=== PATIENT | male | born 1960 | race Caucasian/White ===

== ENCOUNTER → 2018-09-06 | Outpatient (CLI) | payer MEDICARE, MEDICAID ==
--- NOTE | 2018-09-06 15:20 | Diagnostic Imaging Report ---
EXAMINATION: Right shoulder at 01:50 p.m. INDICATION: Shoulder pain. FINDINGS: Three views were obtained. There are no prior right shoulder examinations available for comparison. There is no fracture, dislocation, or acute bony abnormality evident. There is moderate degenerative disease of the glenohumeral joint. There does seem to be some bony overgrowth of the opposing surfaces of the humeral head and the glenoid. There is only mild degenerative disease of the acromioclavicular joint. The soft tissues are unremarkable. IMPRESSION: 1. There is no evidence for an acute bony abnormality. 2. There is moderate degenerative disease of the glenohumeral joint. 3. If there is clinical concern regarding an injury to the labrum or rotator cuff, then MRI will be recommended for further evaluation. Dictated by: Dictated on workstation # [id number]
== END ==
LOC: RAD FS 13:45
PROVIDERS: ATTEND Nurse Practitioner
DX: M19.011 Primary osteoarthritis, right shoulder (principal)
CPT/HCPCS: 73030

== ENCOUNTER → 2018-10-14 | Outpatient (CLI) | payer MEDICARE, MEDICAID ==
--- NOTE | 2018-10-14 13:42 | Diagnostic Imaging Report ---
PROCEDURE: CT abdomen and pelvis without contrast. TECHNIQUE: Multiple contiguous axial images were obtained through the abdomen and pelvis without the use of intravenous contrast. Intravenous contrast was not administered as the patient is diabetic and has a borderline elevated creatinine level (1.6) and diminished GFR (47). Auto Exposure Controls were utilized during the CT exam to meet ALARA standards for radiation dose reduction. INDICATION: Follow up adrenal nodules. FINDINGS: The previous CT abdomen/pelvis exam of 01/16/2012 suggested a 2 mm nodule associated with the right adrenal gland. That finding is again evident and does not appear to have changed significantly in size or appearance. This nodule measures 1.5 x 1.6 cm and has a stable appearance over almost a seven-year period would suggest that this is a benign process such as an adrenal adenoma. There is also 1.1 x 1.5 cm nodule associated with the left adrenal gland. In retrospect, this was present on the prior exam and does not seem to have changed significantly either. I suspect that this is a benign process as well. There may even be another 0.8 x 0.8 cm nodule associated with the medial limb of the right adrenal gland. This finding may represent a small adenoma as well, and this too is unchanged when compared to the prior study. As noted on the prior exam, the liver is of lower density than usually seen, and this appearance does suggest fatty metamorphosis. There is no focal mass involving the liver. The gallbladder, spleen, pancreas, kidneys, aorta, and inferior vena cava are unremarkable for an acute abnormality. The stomach is not well distended and consequently difficult to assess. There is no pelvic mass or free fluid collection noted. The prostate gland and urinary bladder are grossly unremarkable. The appendix was visualized and is not abnormally thickened. There may be a few diverticula in the sigmoid and descending colon, but there is no sign of acute diverticulitis. There is mild scar formation in both lung bases, particularly on the right. There is no acute cardiopulmonary abnormality noted. The heart size is within normal limits, but there are extensive coronary artery calcifications evident. The bone windows show no evidence for a fracture or for a destructive lesion. IMPRESSION: 1. The adrenal nodules seen on the prior study appear stable. Most likely, they are related to benign adrenal adenomas. 2. There is no acute abnormality of the abdomen or pelvis. 3. There are mild chronic changes involving the lung bases. Coronary artery disease is also seen. Dictated by: Dictated on workstation # [id number]
== END ==
LOC: RAD FS 11:57
PROVIDERS: ATTEND Family Medicine
DX: I25.10 Atherosclerotic heart disease of native coronary artery without angina pectoris (principal); D35.01 Benign neoplasm of right adrenal gland; D30.00 Benign neoplasm of unspecified kidney; E27.8 Other specified disorders of adrenal gland
CPT/HCPCS: 74176

== ENCOUNTER → 2019-01-04 | Outpatient (CLI) | payer MEDICARE, MEDICAID ==
--- NOTE | 2019-01-04 13:00 | Diagnostic Imaging Report ---
INDICATION: Renal failure. FINDINGS: The right kidney measured 10.6 cm, the left 10.7 cm. There is a simple cyst measuring 9 mm off the lower pole of the left kidney. The right kidney is nonfocal. There is no hydronephrosis. No echogenic or shadowing stone. Renal arterial Doppler waveforms are normal. The renal arterial to aortic peak systolic velocity ratios bilaterally were normal. The duplex waveforms showed normal systolic upstroke. The urinary bladder appeared normal aside from small 41 mL postvoid residual volume with a 150 mL volume prevoid. IMPRESSION: 1. Left renal cyst and 41 mL postvoid residual bladder volume. 2. Exam is otherwise normal with no sonographic or duplex findings to suggesting hemodynamically significant arterial stenosis or renal obstruction. Dictated by: Dictated on workstation # [id number]
== END ==
LOC: RAD 08:01
PROVIDERS: ATTEND Nurse Practitioner
DX: E11.22 Type 2 diabetes mellitus with diabetic chronic kidney disease (principal); I12.9 Hypertensive chronic kidney disease with stage 1 through stage 4 chronic kidney disease, or unspecified chronic kidney disease; N18.3 Chronic kidney disease, stage 3 (moderate); I25.10 Atherosclerotic heart disease of native coronary artery without angina pectoris; E78.49 Other hyperlipidemia; D35.00 Benign neoplasm of unspecified adrenal gland; F31.9 Bipolar disorder, unspecified; N28.1 Cyst of kidney, acquired
CPT/HCPCS: 76770; 93975

== ENCOUNTER → 2019-03-15 | Outpatient (CLI) | payer MEDICARE, MEDICAID ==
--- NOTE | 2019-03-15 11:30 | Diagnostic Imaging Report ---
PROCEDURE: MRI lumbar spine. TECHNIQUE: Multiplanar, multisequence MRI of the lumbar spine was performed without contrast. INDICATION: Low back pain. COMPARISON: There are no prior exams available for comparison. FINDINGS: The T2 parasagittal images show the vertebral body heights to be generally within normal limits. There is desiccation and mild narrowing of the disc spaces at each level. At L1-L2, there is a slight disc bulge centrally. There is no evidence for spinal stenosis or nerve root encroachment however. At L2-L3 level, there is a disc bulge eccentric to the left. The disc flattens the ventral aspect of the thecal sac and narrows the AP diameter to 7.4 mm. There is also mild narrowing of the neural foramen bilaterally at this level. At the L3-L4 level, there is also broad-based disc bulge centrally. The AP diameter of the thecal sac is narrowed to 7.6 mm. There is mild neural foraminal narrowing at this level as well. At the L4-L5 level, there is a disc bulge centrally which indents the ventral aspect of the thecal sac. The AP diameter of the thecal sac is narrowed to 7.2 mm. There is moderate neural foraminal narrowing on the left at this level and mild neural foraminal narrowing on the right. At the L5-S1 level, there is no evidence for spinal stenosis or nerve root encroachment. There is no abnormal signal arising from the cord or the vertebral bodies to indicate an acute abnormality. The osseous structures do show mottled signal throughout. This is of uncertain etiology but unlikely to be related to a marrow replacement process. There is no sign of a cord lesion. There is no paraspinal mass visualized. IMPRESSION: 1. There is degenerative disc and bony disease throughout the lumbar spine with relative sparing of the L1-2 and L5-S1 levels. There is spinal stenosis at L2-L3, L3-L4 and L4-L5 with mild neural foraminal narrowing bilaterally at L2-L3 and L3-L4. There is also mild neural foraminal narrowing on the right at L4-L5 and moderate narrowing on the left at this level. 2. There is no acute bony abnormality identified and there is no sign of a cord lesion. Dictated by: Dictated on workstation # [id number]
== END ==
LOC: RAD 09:58
PROVIDERS: ATTEND Family Medicine
DX: M51.37 Other intervertebral disc degeneration, lumbosacral region (principal); M54.41 Lumbago with sciatica, right side
CPT/HCPCS: 72148

== ENCOUNTER 2019-04-11 18:00 | Inpatient (IN) | payer MEDICARE, MEDICAID ==
[~2019-04-11] VITALS: Ht 180 cm; Wt 102.1 kg
[2019-04-11] VITALS (10 sets, daily range): BP systolic 80–136; BP diastolic 56–92
--- NOTE | 2019-04-11 18:25 | ED General ---
General Chief Complaint: General Problems/Pain Stated Complaint: POSS HIGH POTTASIUM, LOW SODIUM Nursing Triage Note: WAS SENT FROM [facility] WITH NA 122 AND K 5.9 LAB WAS DRAWN 04/07 PER LAB PAPERS Nursing Sepsis Screen: No Definite Risk Exam Limitations: No Limitations History of Present Illness Date Seen by Provider: Apr 11, 2019 Time Seen by Provider: 18:23 Initial Comments To ER from [facility] in [place] with reports of hyperkalemia and hyponatremia. Labs were drawn 4 days ago, unclear what the emergency was today. Patient has Alzheimer's and is a poor historian. He states he feels a little lightheaded. No staff with the patient to contribute to history of present illness. Amongst several other medications, he is on spironolactone 50 mg by mouth twice a day, potassium chloride 20 mEq by mouth twice a day. He had outpatient chemistry panel done on 04/07/19, BUN 23, creatinine 2.32, potassium 5.9, sodium 122. Timing/Duration: Other (unknown) Severity: Moderate Allergies and Home Medications Allergies Coded Allergies: No Known Drug Allergies (Unverified , 04/11/19) Patient Home Medication List Home Medication List Reviewed: Yes Review of Systems Review of Systems Constitutional: see HPI; No chills, No fever EENTM: see HPI Respiratory: no symptoms reported Cardiovascular: no symptoms reported Genitourinary: no symptoms reported Musculoskeletal: no symptoms reported Skin: no symptoms reported Hematologic/Lymphatic: No Symptoms Reported Immunological/Allergic: no symptoms reported Past Zixkmfu-Rfddtx-Qstegw Hx Patient Social History Recent Foreign Travel: No Contact w/Someone Who Travel: No Recent Infectious Disease Expo: No Physical Exam Vital Signs Vital Signs - First Documented 04/11/19 18:07 Temp 35.6 Pulse 180 Resp 18 B/P (MAP) 104/70 (81) Pulse Ox 86 O2 Delivery Room Air Capillary Refill : Less Than 3 Seconds Height, Weight, BMI Height: '" Weight: lbs. oz. 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, oxygen 95% room air respiratory rate is 18-20 blood pressure 105/59.) Eyes: Bilateral Eye Normal Inspection, Bilateral Eye PERRL, Bilateral Eye EOMI HEENT: PERRL/EOMI, TMs Normal Neck: Full Range of Motion, Normal Inspection Respiratory: No Accessory Muscle Use, No Respiratory Distress Cardiovascular: Regular Rate, Rhythm, Normal Peripheral Pulses Gastrointestinal: Non Tender, Soft Extremity: Normal Capillary Refill, Normal Range of Motion Neurologic/Psychiatric: Alert, Oriented x3 Skin: Normal Color, Warm/Dry Progress/Results/Core Measures Suspected Sepsis Recent Fever Within 48 Hours: No Infection Criteria Present: None New/Unexplained Altered Menta: No Sepsis Screen: No Definite Risk SIRS Temperature: Pulse: 180 Respiratory Rate: 18 Laboratory Tests 04/11/19 18:21: White Blood Count 7.9 Blood Pressure 104 /70 Mean: 81 Laboratory Tests 04/11/19 18:21: Creatinine 3.22H, INR Comment 1.0, Platelet Count 265, Total Bilirubin 0.3 Results/Orders Lab Results Laboratory Tests Test 04/11/19 18:21 04/11/19 19:27 04/11/19 19:47 04/11/19 19:55 Range/Units White Blood Count 7.9 4.3-11.0 10^3/uL Red Blood Count 3.51 L 4.35-5.85 10^6/uL Hemoglobin 11.0 L 13.3-17.7 G/DL Hematocrit 32 L 40-54 % Mean Corpuscular Volume 90 80-99 FL Mean Corpuscular Hemoglobin 31 25-34 PG Mean Corpuscular Hemoglobin Concent 35 32-36 G/DL Red Cell Distribution Width 12.9 10.0-14.5 % Platelet Count 265 130-400 10^3/uL Mean Platelet Volume 8.7 7.4-10.4 FL Neutrophils (%) (Auto) 65 42-75 % Lymphocytes (%) (Auto) 20 12-44 % Monocytes (%) (Auto) 10 0-12 % Eosinophils (%) (Auto) 5 0-10 % Basophils (%) (Auto) 0 0-10 % Neutrophils # (Auto) 5.2 1.8-7.8 X 10^3 Lymphocytes # (Auto) 1.6 1.0-4.0 X 10^3 Monocytes # (Auto) 0.8 0.0-1.0 X 10^3 Eosinophils # (Auto) 0.4 H 0.0-0.3 10^3/uL Basophils # (Auto) 0.0 0.0-0.1 10^3/uL Prothrombin Time 13.8 12.2-14.7 SEC INR Comment 1.0 0.8-1.4 Activated Partial Thromboplast Time 29 24-35 SEC Sodium Level 123 *L 135-145 MMOL/L Potassium Level 6.0 H 3.6-5.0 MMOL/L Chloride Level 96 L 98-107 MMOL/L Carbon Dioxide Level 19 L 21-32 MMOL/L Anion Gap 8 5-14 MMOL/L Blood Urea Nitrogen 29 H 7-18 MG/DL Creatinine 3.22 H 0.60-1.30 MG/DL Estimat Glomerular Filtration Rate 20 BUN/Creatinine Ratio 9 Glucose Level 85 70-105 MG/DL Calcium Level 9.6 8.5-10.1 MG/DL Corrected Calcium 9.3 8.5-10.1 MG/DL Magnesium Level 1.9 1.6-2.4 MG/DL Total Bilirubin 0.3 0.1-1.0 MG/DL Aspartate Amino Transf (AST/SGOT) 15 5-34 U/L Alanine Aminotransferase (ALT/SGPT) 24 0-55 U/L Alkaline Phosphatase 72 40-136 U/L Myoglobin 204.0 H 10.0-92.0 NG/ML Troponin I < 0.028 <0.028 NG/ML Total Protein 7.1 6.4-8.2 GM/DL Albumin 4.4 3.2-4.5 GM/DL Serum Alcohol < 10 <10 MG/DL Glucometer 80 120 H 70-110 MG/DL Urine Color YELLOW Urine Clarity CLEAR Urine pH 6.0 5-9 Urine Specific Cowgill 1.010 L 1.016-1.022 Urine Protein NEGATIVE NEGATIVE Urine Glucose (UA) NEGATIVE NEGATIVE Urine Ketones NEGATIVE NEGATIVE Urine Nitrite NEGATIVE NEGATIVE Urine Bilirubin NEGATIVE NEGATIVE Urine Urobilinogen 0.2 < = 1.0 MG/DL Urine Leukocyte Esterase NEGATIVE NEGATIVE Urine RBC (Auto) NEGATIVE NEGATIVE Urine RBC NONE /HPF Urine WBC NONE /HPF Urine Crystals NONE /LPF Urine Bacteria TRACE /HPF Urine Casts NONE /LPF Urine Mucus NEGATIVE /LPF Urine Culture Indicated NO Test 04/11/19 20:17 Range/Units Glucometer 96 70-110 MG/DL My Orders Orders - BRENT MERCER DISPATCH ASSOCIATE Cbc With Automated Diff (04/11/19 18:17) Magnesium (04/11/19 18:17) Chest 1 View, Ap/Pa Only (2/24/20 18:17) Ekg Tracing (04/11/19 18:17) Comprehensive Metabolic Panel (04/11/19 18:17) Myoglobin Serum (04/11/19 18:17) Protime With Inr (04/11/19 18:17) Partial Thromboplastin Time (04/11/19 18:17) O2 (04/11/19 18:17) Monitor-Rhythm Ecg Trace Only (04/11/19 18:17) Lipid Panel (04/12/19 06:00) Ed Iv/Invasive Line Start (04/11/19 18:17) Troponin I (04/11/19 18:17) Ns Iv 1000 Ml (Sodium Chloride 0.9%) (04/11/19 18:30) Alcohol (04/11/19 18:40) Insulin (Regular) Human (Humulin R (Per (04/11/19 19:15) D50w (Emergency) Syringe (Dextrose 50% 5 (04/11/19 19:15) Lidocaine 2% (Urojet) (Xylocaine Urojet) (04/11/19 19:31) Ns Iv 1000 Ml (Sodium Chloride 0.9%) (04/11/19 19:45) Ua Culture If Indicated (04/11/19 19:58) Medications Given in ED Current Medications Medications Dose Ordered Sig/Latosha Route Start Time Stop Time Status Last Admin Dose Admin Dextrose 25 ml ONCE ONCE IV 04/11/19 19:15 04/11/19 19:16 DC 04/11/19 19:29 25 ML Insulin Human Regular 10 unit ONCE ONCE IV 04/11/19 19:15 04/11/19 19:16 DC 04/11/19 19:29 10 UNIT Vital Signs/I&O 04/11/19 18:07 Temp 35.6 Pulse 180 Resp 18 B/P (MAP) 104/70 (81) Pulse Ox 86 O2 Delivery Room Air Capillary Refill : Less Than 3 Seconds Blood Pressure Mean: 81 Diagnostic Imaging Diagonstic Imaging: CT Comments NAME: FRANKIE RAMSAY MED REC#: [id number] PT STATUS: REG ER : 1960 PHYSICIAN: BRENT MERCER APRN ADMIT DATE: 04/11/19/ER Signed Date of Exam:04/11/19 CHEST 1 VIEW, AP/PA ONLY EXAMINATION: Chest 1 view HISTORY: Shortness of breath. COMPARISON: Chest radiograph on 09/30/2012. FINDINGS: There is continued elevation of the right hemidiaphragm, somewhat increased compared to the prior exam. Right basilar atelectasis is present. No pulmonary masses are seen. The cardiac silhouette is unremarkable. No large pleural effusion or pneumothorax. No acute osseous abnormalities. IMPRESSION: 1. Increased elevation of the right hemidiaphragm with right basilar atelectasis. Dictated by: Dictated on workstation # [id number] Dict: 04/11/191850 Trans: 04/11/191851 [facility] [id number] Interpreted by: MALU LANDRY DO Electronically signed by: MALU LANDRY DO 04/11/191851 Departure Communication (Admissions) Time/Spoke to Admitting Phy: 19:[address] Schmitz, will admit. I will hold his spironolactone potassium and lisinopril. 133-Gunter catheter was placed, between 708 150 mL of clear yellow urine out. Impression Primary Impression: Hyperkalemia Additional Impressions: Kidney disease Hyponatremia Disposition: ADMITTED INPATIENT Condition: Stable Admissions Decision to Admit Reason: Admit from ER (General) Decision to Admit/Date: Apr 11, 2019 Time/Decision to Admit Time: 19:44 Departure-Patient Inst. Referrals: BRUCE BUTLER MD (PCP/Family) Primary Care Physician BRENT MERCER APRN Apr 11, 2019 18:25
[2019-04-11] MEDS ORDERED: NS IV 1000 ML 1,000 ML IV SCH ×2 (18:30→19:45)
[2019-04-11 18:37] LABS: BASOPHILS % (AUTO) 0 % (0-10); EOSINOPHILS # (AUTO) 0.4 10^3/uL (0.0-0.3); EOSINOPHILS % (AUTO) 5 % (0-10); HEMATOCRIT 32 % (40-54); LYMPHOCYTES # (AUTO) 1.6 X 10^3 (1.0-4.0); LYMPHOCYTES % (AUTO) 20 % (12-44); MEAN CORPUSCULAR HEMOGLOBIN 31 PG (25-34); MEAN CORPUSCULAR HGB CONC 35 G/DL (32-36); MEAN CORPUSCULAR VOLUME 90 FL (80-99); MEAN PLATELET VOLUME 8.7 FL (7.4-10.4); MONOCYTES # (AUTO) 0.8 X 10^3 (0.0-1.0); MONOCYTES % (AUTO) 10 % (0-12); NEUTROPHILS # (AUTO) 5.2 X 10^3 (1.8-7.8); NEUTROPHILS % (AUTO) 65 % (42-75); PLATELET COUNT 265 10^3/uL (130-400); RED CELL DISTRIBUTION WIDTH 12.9 % (10.0-14.5); WHITE BLOOD COUNT 7.9 10^3/uL (4.3-11.0)
[2019-04-11 18:46] LABS: PROTHROMBIN TIME PATIENT 13.8 SEC (12.2-14.7)
--- NOTE | 2019-04-11 18:53 | Diagnostic Imaging Report ---
EXAMINATION: Chest 1 view HISTORY: Shortness of breath. COMPARISON: Chest radiograph on 09/30/2012. FINDINGS: There is continued elevation of the right hemidiaphragm, somewhat increased compared to the prior exam. Right basilar atelectasis is present. No pulmonary masses are seen. The cardiac silhouette is unremarkable. No large pleural effusion or pneumothorax. No acute osseous abnormalities. IMPRESSION: 1. Increased elevation of the right hemidiaphragm with right basilar atelectasis. Dictated by: Dictated on workstation # [id number]
[2019-04-11 18:55] LABS: ALBUMIN 4.4 GM/DL (3.2-4.5); BILIRUBIN,TOTAL 0.3 MG/DL (0.1-1.0); CALCIUM 9.6 MG/DL (8.5-10.1); CREATININE SERUM 3.22 MG/DL (0.60-1.30); MAGNESIUM 1.9 MG/DL (1.6-2.4); TOTAL PROTEIN 7.1 GM/DL (6.4-8.2)
[2019-04-11] MEDS ORDERED: inSUlin (REGULAR) HUMAN 1 UNIT/0.01 ML (CHARGE PER UNIT) IV ONE (19:15)
[2019-04-11] MEDS ORDERED: DEXTROSE 50% 50 ML (IMS) SYR IV ONE (19:15)
[2019-04-11] MEDS ORDERED: LIDOCAINE UROJET 2% GEL 10 ML PKG ONE (19:31)
[2019-04-11 20:03] LABS: BILIRUBIN,URINE NEGATIVE (NEGATIVE); CLARITY,URINE CLEAR; COLOR,URINE YELLOW; GLUCOSE, URINE (UA) NEGATIVE (NEGATIVE); KETONES,URINE NEGATIVE (NEGATIVE); LEUKOCYTE ESTERASE ,URINE NEGATIVE (NEGATIVE); NITRITE,URINE NEGATIVE (NEGATIVE); PROTEIN,URINE NEGATIVE (NEGATIVE)
[2019-04-11 20:29] LABS: BACTERIA,URINE TRACE /HPF
[2019-04-11] MEDS ORDERED: DEXTROSE 50% INJ VIAL IV PRN (21:15)
[2019-04-11] MEDS: NS IV 1000 ML 1,000 ML IV SCH (21:55)
[2019-04-12] VITALS (8 sets, daily range): BP systolic 94–133; BP diastolic 61–95
[2019-04-12 03:34] LABS: BASOPHILS % (AUTO) 0 % (0-10); EOSINOPHILS # (AUTO) 0.2 10^3/uL (0.0-0.3); EOSINOPHILS % (AUTO) 2 % (0-10); HEMATOCRIT 27 % (40-54); HEMOGLOBIN 9.2 G/DL (13.3-17.7); LYMPHOCYTES # (AUTO) 0.9 X 10^3 (1.0-4.0); LYMPHOCYTES % (AUTO) 13 % (12-44); MEAN CORPUSCULAR HEMOGLOBIN 31 PG (25-34); MEAN CORPUSCULAR HGB CONC 34 G/DL (32-36); MEAN CORPUSCULAR VOLUME 91 FL (80-99); MEAN PLATELET VOLUME 8.8 FL (7.4-10.4); MONOCYTES # (AUTO) 0.5 X 10^3 (0.0-1.0); MONOCYTES % (AUTO) 8 % (0-12); NEUTROPHILS # (AUTO) 5.1 X 10^3 (1.8-7.8); NEUTROPHILS % (AUTO) 77 % (42-75); PLATELET COUNT 203 10^3/uL (130-400); RED CELL DISTRIBUTION WIDTH 12.9 % (10.0-14.5); WHITE BLOOD COUNT 6.6 10^3/uL (4.3-11.0)
[2019-04-12 04:00] LABS: ALBUMIN 3.5 GM/DL (3.2-4.5); BILIRUBIN,TOTAL 0.2 MG/DL (0.1-1.0); CALCIUM 8.3 MG/DL (8.5-10.1); CREATININE SERUM 2.4 MG/DL (0.60-1.30); POTASSIUM 5.9 MMOL/L (3.6-5.0); TOTAL PROTEIN 5.7 GM/DL (6.4-8.2)
[2019-04-12 04:58] LABS: MAGNESIUM 1.8 MG/DL (1.6-2.4); PHOSPHORUS 2.7 MG/DL (2.3-4.7)
--- NOTE | 2019-04-12 06:35 | Pulmonary Consultation ---
History of Present Illness History of Present Illness Date Seen by Provider: Apr 12, 2019 Time Seen by Provider: 06:30 Date of Admission History of Present Illness 58yo found to have hyperkalemia, and hyponatremia. Allergies and Home Medications Allergies Coded Allergies: No Known Drug Allergies (Unverified , 04/11/19) Past Dezavqm-Bbphei-Uyyjju Hx Patient Social History Alcohol Use: Denies Use Recreational Drug Use: No Smoking Status: Never a Smoker Recent Foreign Travel: No Contact w/Someone Who Travel: No Recent Infectious Disease Expo: No Recent Hopitalizations: No Physical Abuse: No Sexual Abuse: No Mistreated: No Fear: No Immunizations Up To Date Tetanus Booster (TDap): Less than 5yrs PED Vaccines UTD: Yes Past Medical History Surgeries: Yes Cardiac Respiratory: Yes COPD Cardiac: Yes (STENTS X2 ) High Cholesterol Neurological: No Genitourinary: Yes Renal Failure Gastrointestinal: Yes Gall Bladder Disease Musculoskeletal: Yes (BULGING DISCS L 3-4) Chronic Back Pain Endocrine: Yes Diabetes, Non-Insulin dep HEENT: No Cancer: No Psychosocial: Yes (ETOH CONSUMPTION) Integumentary: No Adverse Reaction/Blood Tranf: No Sepsis Event Evaluation Height, Weight, BMI Height: '" Weight: lbs. oz. kg; 31.26 BMI Method: Exam Exam Vital Signs Date Time Temp Pulse Resp B/P (MAP) Pulse Ox O2 Delivery O2 Flow Rate FiO2 04/12/19 05:02 69 16 110/76 (87) 94 Room Air 04/12/19 04:59 69 16 110/76 (87) 94 Room Air 04/12/19 04:00 Room Air 04/12/19 01:30 81 04/12/19 00:00 76 17 99/77 (84) 95 Room Air 04/12/19 00:00 Room Air 04/11/19 23:44 95 Room Air 04/11/19 23:39 36.3 73 17 136/81 95 Room Air 04/11/19 23:00 75 20 124/85 (98) 95 Room Air 04/11/19 22:45 73 24 122/81 (95) 95 Room Air 04/11/19 22:30 72 18 116/78 (91) 95 Room Air 04/11/19 22:15 71 17 80/56 (64) 94 Room Air 04/11/19 22:00 71 13 127/89 (102) 97 Room Air 04/11/19 21:45 73 14 116/83 (94) 98 Room Air 04/11/19 21:30 73 16 115/86 (96) 97 Room Air 04/11/19 21:19 75 04/11/19 21:15 73 16 129/92 (104) 97 Room Air 04/11/19 21:12 36.8 77 12 136/81 (99) 98 Room Air 04/11/19 20:49 35.6 70 18 117/82 (81) 97 Nasal Cannula 2.00 04/11/19 18:10 96 Room Air 04/11/19 18:07 35.6 180 18 104/70 (81) 86 Room Air I & O 04/12/19 07:00 Intake Total 1325 ml Output Total 1000 ml Balance 325 ml Height & Weight Height: '" Weight: lbs. oz. kg; 31.26 BMI Method: General Appearance: No Apparent Distress, Other (pale, heart rate 73-80 sinus on cardiac cath lab radiology technologist, oxygen 95% room air respiratory rate is 18-20 blood pressure 105/59.) HEENT: PERRL/EOMI, TMs Normal Neck: Full Range of Motion, Normal Inspection Respiratory: No Accessory Muscle Use, No Respiratory Distress Cardiovascular: Regular Rate, Rhythm, Normal Peripheral Pulses Capillary Refill: Less Than 3 Seconds Extremity: Normal Capillary Refill, Normal Range of Motion Neurologic/Psychiatric: Alert, Oriented x3 Skin: Normal Color, Warm/Dry Results Lab Laboratory Tests 04/11/19 18:21 04/12/19 02:45 Assessment/Plan Assessment/Plan CKD/AKD with hyperkalemia -Increase IVF and give a liter bolus of NS -Hold lasix -Montior renal function -Give insulin, d 50, bicarb and Kayexalate for hyperkalemia -Holding home meds - TANMAY BLACKBURN DO Apr 12, 2019 06:35
[2019-04-12] MEDS ORDERED: DEXTROSE 50% 50 ML (IMS) SYR IV ONE (06:45)
[2019-04-12] MEDS ORDERED: SOD POLYSTERENE 15 GM/60 ML (KAYEXALATE) UNIT DOSE PO ONE (06:45)
[2019-04-12] MEDS ORDERED: inSUlin (REGULAR) HUMAN 1 UNIT/0.01 ML (CHARGE PER UNIT) IV ONE (06:45)
[2019-04-12] MEDS ORDERED: NS IV 1000 ML 1,000 ML IV SCH (06:45)
[2019-04-12] MEDS ORDERED: SODIUM BICARB 8.4% 50 MEQ/50 ML (ABBOTT) SYR IV ONE (06:45)
[2019-04-12] MEDS ORDERED: FUROSEMIDE 40 MG/4 ML INJ (LASIX) IV SCH (07:00)
[2019-04-12] MEDS ORDERED: SODIUM BICARB 8.4% 50 MEQ/50 ML VIAL ONE (07:44)
[2019-04-12] MEDS: NS IV 1000 ML 1,000 ML IV SCH ×4 (08:20→23:37)
--- NOTE | 2019-04-12 10:26 | History & Physical-Hospitalist ---
History of Present Illness HPI/Chief Complaint CC: Altered mental status HPI: This is a 58yoWM clinic pt of Dr. Webber who lives in assisted living in [facility] who presented with altered mental status found to have hyperkalemia and acute renal failure at 3.5. Gunter catheter was placed immediately getting 700cc out. Dr. Gonzalez was consulted and pt was given another round of regular insulin with D50 with Kayexalate and Bicarb and a normal saline bolus. Bowels w ere moving and he was maintained on fluid restriction since the sodium level is 123. He does have tremors from manic depression meds. Source: patient Exam Limitations: no limitations Date Seen 04/12/19 Time Seen by a Provider: 09:15 Attending Physician Lizet Clements Pankaj K MD Referring Physician Date of Admission Apr 11, 2019 at 19:42 Home Medications & Allergies Home Medications Reviewed patient Home Medication Reconciliation performed by pharmacy medication reconciliations electronic engineering technician and/or nursing. Patients Allergies have been reviewed. Allergies Allergies Coded Allergies No Known Drug Allergies (Unverified04/11/19) Past Bcymuac-Inplah-Qysjtj Hx Past Med/Social Hx: Reviewed Nursing Past Med/Soc Hx, Reviewed and Corrections made Patient Social History Marrital Status: single Employed/Student: retired ([employer]) Alcohol Use: Denies Use Recreational Drug Use: No Smoking Status: Never a Smoker Recent Foreign Travel: No Contact w/other who traveled: No Recent Hopitalizations: No Recent Infectious Disease Expo: No Immunizations Up To Date Tetanus Booster (TDap): Less than 5yrs Pediatric: Yes Past Medical History Surgeries: Cardiac Cardiac: High Cholesterol Genitourinary: Renal Failure Gastrointestinal: Gall Bladder Disease Musculoskeletal: Chronic Back Pain Endocrine: Diabetes, Non-Insulin dep Psychosocial: Sleep Difficulties, Anxiety, Bipolar, Depression Adverse Reaction to Blood Quintero: No Review of Systems Constitutional: dizziness, malaise, other (Fatigue) Physical Exam Physical Exam Vital Signs Vital Signs - First Documented 04/11/19 04/11/19 18:07 20:49 Temp 35.6 Pulse 180 Resp 18 B/P (MAP) 104/70 (81) Pulse Ox 86 O2 Delivery Room Air O2 Flow Rate 2.00 Capillary Refill : Less Than 3 Seconds Height, Weight, BMI Height: '" Weight: lbs. oz. kg; 31.26 BMI Method: General Appearance: No Apparent Distress, Chronically ill, Obese Eyes: Right Eye Normal Inspection, Right Eye PERRL HEENT: PERRL/EOMI, TMs Normal, Normal ENT Inspection, Pharynx Normal, Moist Mucous Membranes Neck: Full Range of Motion, Normal Inspection, Non Tender Respiratory: Chest Non Tender, Lungs Clear, Normal Breath Sounds, No Accessory Muscle Use, No Respiratory Distress Cardiovascular: Regular Rate, Rhythm, No Edema, No Gallop, No JVD, No Murmur, Normal Peripheral Pulses Gastrointestinal: Normal Bowel Sounds, No Organomegaly, No Pulsatile Mass, Non Tender, Soft Back: Normal Inspection, No CVA Tenderness, No Vertebral Tenderness Extremity: Normal Capillary Refill, Normal Inspection, Normal Range of Motion, Non Tender, No Calf Tenderness, No Pedal Edema Neurologic/Psychiatric: Alert, Oriented x3, No Motor/Sensory Deficits, Normal Mood/Affect, Other (Tremors) Skin: Normal Color, Warm/Dry Lymphatic: No Adenopathy Results Results/Procedures Labs Laboratory Tests 04/11/19 18:21 04/12/19 02:45 Patient resulted labs reviewed. Assessment/Plan Admission Diagnosis Assessment: Hyponatremia Hyperkalemia ARF Urinary retention Bipolar Anxiety Debility requiring AL placement Plan: Fluid restriction Hyperkalemia treatment Admission Status: Inpatient Order (span 2 midnights) Reason for Inpatient Admission: Hyponatremia with ARF Diagnosis/Problems Diagnosis/Problems (1) Hyponatremia Status: Acute (2) Bipolar 1 disorder, depressed (3) Urinary retention (4) Hyperkalemia Status: Acute (5) Kidney disease Status: Acute (6) Renal failure (ARF), acute on chronic Clinical Quality Measures DVT/VTE Risk/Contraindication: Risk Factor Score Per Nursin RFS Level Per Nursing on Admit: 2=Moderate LIZET CLEMENTS DO Apr 12, 2019 10:26
--- NOTE | 2019-04-12 11:15 | NUR ---
Pastoral care visit.
--- NOTE | 2019-04-12 12:55 | NUR ---
DEJAN/SS working on getting medication records from [facility] in [place], [place]. The patients nurse Nyasia has been attempting to get medication records from the facility. DEJAN/SS faxed a cover sheet stating to call this SS or fax records [phone] so the patients nurse can update the records. DEJAN/TANA has not heard from them yet. Will continue to follow.
[2019-04-12] MEDS ORDERED: PILO5TAB PO (18:18)
[2019-04-12] MEDS ORDERED: ATOR40TA70 PO (18:18)
[2019-04-12] MEDS ORDERED: TERA2CAP4 PO (18:18)
[2019-04-12] MEDS ORDERED: CYAN100088 PO (18:18)
[2019-04-12] MEDS ORDERED: ASPI-586 PO (18:18)
[2019-04-12] MEDS ORDERED: NALT50TA PO (18:18)
[2019-04-12] MEDS ORDERED: POTA20PA28 PO (18:18)
[2019-04-12] MEDS ORDERED: LEVO75TA6 PO (18:18)
[2019-04-12] MEDS ORDERED: METO50TA7 PO (18:18)
[2019-04-12] MEDS ORDERED: FOLI1TAB24 PO (18:18)
[2019-04-12] MEDS ORDERED: LORA-405 PO (18:18)
[2019-04-12] MEDS ORDERED: CLON0.1T PO (18:18)
[2019-04-12] MEDS ORDERED: BENZ0.5T42 PO (18:18)
[2019-04-12] MEDS ORDERED: SPIR50TA PO (18:18)
[2019-04-12] MEDS ORDERED: DONE10TA41 PO (18:18)
[2019-04-12] MEDS ORDERED: POLY17PO6 PO (18:18)
[2019-04-12] MEDS ORDERED: CLOP75TA69 PO (18:18)
[2019-04-12] MEDS ORDERED: LISI40TA PO (18:18)
[2019-04-12] MEDS ORDERED: PANT40TA3 PO (18:18)
[2019-04-12] MEDS ORDERED: BUPR100T15 PO (18:18)
[2019-04-12] MEDS ORDERED: LURA120T PO (18:18)
[2019-04-12] MEDS ORDERED: LORA10TA76 PO (18:26)
[2019-04-12] MEDS ORDERED: TRAM50TA3 PO (18:30)
[2019-04-12] MEDS ORDERED: IPRA3AMP31 IH (18:30)
[2019-04-12] MEDS ORDERED: TR1C15 TP (18:31)
[2019-04-12] MEDS ORDERED: ESCI10TA55 PO (18:31)
[2019-04-12] MEDS ORDERED: FLUT1DIS28 IH (18:31)
[2019-04-12] MEDS ORDERED: BUPR150T7 PO (18:45)
[2019-04-12] MEDS ORDERED: NFCHLORHGL MM (18:45)
[2019-04-12] MEDS ORDERED: RT-ALBUTEROL/IPRATROPIUM 3 ML (DUONEB) VIAL IH PRN (20:45)
[2019-04-12] MEDS ORDERED: TRIAMCINOLONE 0.1% CR (KENALOG) 15 GM TUBE TP PRN (20:45)
[2019-04-12] MEDS ORDERED: NON-FORMULARY MEDICATION 1 EA EA (Fluticasone/Salmeterol (Advair 100-50 Diskus) 1 EACH) IH SCH (21:00)
[2019-04-12] MEDS ORDERED: BENZTROPINE MESYLATE 0.5 MG PO SCH (21:00)
[2019-04-12] MEDS ORDERED: PILOCARPINE HCL 5 MG PO SCH (21:00)
[2019-04-12] MEDS: KCL 20 MEQ POWDER FOR ORAL SOLUTION PO SCH (22:00)
[2019-04-12] MEDS: DONEPEZIL 10 MG (ARICEPT) TAB PO SCH (22:33)
[2019-04-12] MEDS: LORazepam 1 MG (ATIVAN) TAB PO SCH (22:33)
[2019-04-12] MEDS: meTOproloL SUCCINATE 50 MG (TOPROL XL) TAB PO SCH (22:34)
[2019-04-12] MEDS: LEVOTHYROXINE 75 MCG (LEVOTHROID) TABLET PO SCH (22:35)
[2019-04-12] MEDS: cloNIDine 0.1 MG (CATAPRES) TAB PO SCH (22:35)
[2019-04-12] MEDS: CHLORHEXIDINE 0.12% SOLN 15 ML (PERIDEX) UDC MM SCH (22:36)
[2019-04-13] VITALS (10 sets, daily range): BP systolic 105–138; BP diastolic 62–87
[2019-04-13 03:55] LABS: BASOPHILS % (AUTO) 0 % (0-10); EOSINOPHILS # (AUTO) 0.1 10^3/uL (0.0-0.3); EOSINOPHILS % (AUTO) 1 % (0-10); HEMATOCRIT 26 % (40-54); HEMOGLOBIN 8.8 G/DL (13.3-17.7); LYMPHOCYTES # (AUTO) 0.8 X 10^3 (1.0-4.0); LYMPHOCYTES % (AUTO) 9 % (12-44); MEAN CORPUSCULAR HEMOGLOBIN 30 PG (25-34); MEAN CORPUSCULAR HGB CONC 33 G/DL (32-36); MEAN CORPUSCULAR VOLUME 91 FL (80-99); MEAN PLATELET VOLUME 8.7 FL (7.4-10.4); MONOCYTES # (AUTO) 0.8 X 10^3 (0.0-1.0); MONOCYTES % (AUTO) 9 % (0-12); NEUTROPHILS # (AUTO) 6.7 X 10^3 (1.8-7.8); NEUTROPHILS % (AUTO) 80 % (42-75); PLATELET COUNT 226 10^3/uL (130-400); RED CELL DISTRIBUTION WIDTH 13.3 % (10.0-14.5); WHITE BLOOD COUNT 8.3 10^3/uL (4.3-11.0)
[2019-04-13 04:15] LABS: ALBUMIN 3.4 GM/DL (3.2-4.5); BILIRUBIN,TOTAL 0.2 MG/DL (0.1-1.0); CALCIUM 8.1 MG/DL (8.5-10.1); CREATININE SERUM 1.61 MG/DL (0.60-1.30); POTASSIUM 4.7 MMOL/L (3.6-5.0); TOTAL PROTEIN 5.7 GM/DL (6.4-8.2)
--- NOTE | 2019-04-13 05:34 | Pulmonary Progress Note ---
Subjective Time Seen by a Provider: 05:32 Subjective/Events-last exam Pt has no complaints. PT is on RA. Sepsis Event Evaluation Height, Weight, BMI Height: '" Weight: lbs. oz. kg; 31.26 BMI Method: Exam Exam Vital Signs Date Time Temp Pulse Resp B/P (MAP) Pulse Ox O2 Delivery O2 Flow Rate FiO2 04/13/19 04:00 Room Air 04/13/19 04:00 36.1 04/13/19 04:00 70 21 122/80 (94) 95 Room Air 04/13/19 02:00 78 21 122/81 (95) 95 Room Air 04/13/19 01:00 77 04/13/19 00:00 Room Air 04/13/19 00:00 81 11 115/79 (91) 94 Room Air 04/12/19 23:51 35.7 04/12/19 22:00 93 16 133/89 (104) 93 Room Air 04/12/19 21:30 94 Room Air 04/12/19 21:00 Room Air 04/12/19 20:00 37.1 04/12/19 20:00 81 21 122/85 (97) 95 Room Air 04/12/19 20:00 Room Air 04/12/19 19:00 77 04/12/19 16:00 Room Air 04/12/19 16:00 37.1 04/12/19 16:00 70 10 94/61 (72) 95 Room Air 04/12/19 13:00 78 04/12/19 12:00 75 14 132/83 (99) 97 Room Air 04/12/19 12:00 Room Air 04/12/19 11:50 36.4 04/12/19 08:00 36.2 75 21 119/95 (103) 96 Room Air 04/12/19 08:00 Room Air 04/12/19 08:00 Room Air 04/12/19 07:00 70 I & O 04/13/19 07:00 Intake Total 4880 ml Output Total 2850 ml Balance 2030 ml Height & Weight Height: '" Weight: lbs. oz. kg; 31.26 BMI Method: General Appearance: No Apparent Distress, Chronically ill, Obese HEENT: PERRL/EOMI, TMs Normal, Normal ENT Inspection, Pharynx Normal, Moist Mucous Membranes Neck: Full Range of Motion, Normal Inspection, Non Tender Respiratory: Chest Non Tender, Lungs Clear, Normal Breath Sounds, No Accessory Muscle Use, No Respiratory Distress Cardiovascular: Regular Rate, Rhythm, No Edema, No Gallop, No JVD, No Murmur, Normal Peripheral Pulses Capillary Refill: Less Than 3 Seconds Extremity: Normal Capillary Refill, Normal Inspection, Normal Range of Motion, Non Tender, No Calf Tenderness, No Pedal Edema Neurologic/Psychiatric: Alert, Oriented x3, No Motor/Sensory Deficits, Normal Mood/Affect, Other (Tremors) Skin: Normal Color, Warm/Dry Lymphatic: No Adenopathy Results Lab Laboratory Tests 04/11/19 18:21 04/12/19 02:45 04/13/19 02:55 Assessment/Plan Assessment/Plan CKD/AKD Improving - IVF -Montior renal function -Holding home meds Hyponatremia -Monitor hyperkalemia -resolved Bipolar Anxiety TANMAY BLACKBURN DO Apr 13, 2019 05:34
[2019-04-13] MEDS: NS IV 1000 ML 1,000 ML IV SCH ×2 (06:14→20:24)
[2019-04-13] MEDS ORDERED: buPROPion 100 MG (WELLBUTRIN) TAB PO SCH (09:00)
[2019-04-13] MEDS ORDERED: buPROPion XL 150 MG (WELLBUTRIN XL) NON-FORM PO SCH (09:00)
[2019-04-13] MEDS ORDERED: LURASIDONE HCL 120 MG PO SCH (09:00)
[2019-04-13] MEDS ORDERED: NALTREXONE HCL 50 MG PO SCH (09:00)
[2019-04-13] MEDS: FOLIC ACID 1 MG TAB PO SCH (09:05)
[2019-04-13] MEDS: ASPIRIN E.C. 81 MG (ECOTRIN) TAB PO SCH (09:05)
[2019-04-13] MEDS: cloNIDine 0.1 MG (CATAPRES) TAB PO SCH ×2 (09:05→21:41)
[2019-04-13] MEDS: buPROPion SR 150 MG (WELLBUTRIN SR) TAB PO SCH ×2 (09:05→21:06)
[2019-04-13] MEDS: lisINopril 40 MG (PRINIVIL) TABLET PO SCH (09:06)
[2019-04-13] MEDS: LORazepam 1 MG (ATIVAN) TAB PO SCH ×2 (09:07→21:04)
[2019-04-13] MEDS: PANTOPRAZOLE 40 MG (PROTONIX) TAB PO SCH (09:07)
[2019-04-13] MEDS: CHLORHEXIDINE 0.12% SOLN 15 ML (PERIDEX) UDC MM SCH ×2 (09:07→21:01)
[2019-04-13] MEDS: meTOproloL SUCCINATE 50 MG (TOPROL XL) TAB PO SCH ×2 (09:07→21:41)
[2019-04-13] MEDS: CLOPIDOGREL 75 MG (PLAVIX) TABLET PO SCH (09:07)
[2019-04-13] MEDS: LORATADINE (CLARITIN) 10 MG TAB PO SCH (09:07)
[2019-04-13] MEDS: KCL 20 MEQ POWDER FOR ORAL SOLUTION PO SCH (09:08)
[2019-04-13] MEDS: polyethylene glycoL POWDER 17 GM (MIRALAX) PACK PO SCH (09:08)
[2019-04-13] MEDS: CYANOCOBALAMIN 1,000 MCG (VITAMIN B-12) TABLET PO SCH (09:10)
[2019-04-13] MEDS: TERAZOSIN 2 MG (HYTRIN) CAP PO SCH (09:10)
--- NOTE | 2019-04-13 09:30 | NUR ---
REC'D PER WC FROM ICU. SEE ASSESSMENT.
--- NOTE | 2019-04-13 09:32 | NUR ---
This nurse called SBAR report to Fabi ROMERO. Patient transferred to room 412 per physicians orders. Patient has telemetry on.
--- NOTE | 2019-04-13 09:45 | NUR ---
Verbal order received from to discontinue potassium that is scheduled.
--- NOTE | 2019-04-13 09:54 | NUR ---
SPOKE WITH PRODUCTION SOLDERER ARNULFO AND DR. CLEMENTS. PT HAS APPT WITH NEURO IN [place] TOMORROW. STATES SHE WILL HAVE PT DC'D BY 0900 TOMORROW IF HE CONT TO IMPROVE. ARNULFO AWARE AND IS TO HAVE ROTARY ADJUSTER HERE TO EDUCATIONAL TECHNICIAN. RN TO CALL IF CHANGES IN PLAN.
--- NOTE | 2019-04-13 10:35 | Progress Note - Hospitalist ---
Subjective HPI/CC On Admission Date Seen by Provider: Apr 13, 2019 Time Seen by Provider: 10:00 CC: Altered mental status HPI: This is a 58yoWM clinic pt of Dr. Webber who lives in assisted living in [facility] who presented with altered mental status found to have hyperkalemia and acute renal failure at 3.5. Gunter catheter was placed immediately getting 700cc out. Dr. Gonzalez was consulted and pt was given another round of regular insulin with D50 with Kayexalate and Bicarb and a normal saline bolus. Bowels were moving and he was maintained on fluid restriction since the sodium level is 123. He does have tremors from manic depression meds. Subjective/Events-last exam Has an appointment to see neurology in [place] tomorrow so has to be DC by 9 Dr. Nunes started him on Proscar and Diflomax Will DC telemetry Will initiate PT and OT Creatinine 1.6 Sodium level 132 Potassium good After rounds he started fever 101 and dysuria so checked labs and LA normal empirically placed on Rocephin after BCx Review of Systems General: Fatigue Gastrointestinal: Nausea Genitourinary: Dysuria, Frequency Focused Exam Lactate Level 04/13/19 17:40: Lactic Acid Level 1.13 Lactic Acid Level Laboratory Tests Test 04/13/19 17:40 Lactic Acid Level 1.13 MMOL/L (0.50-2.00) Objective Exam Vital Signs Vital Signs Date Time Temp Pulse Resp B/P (MAP) Pulse Ox O2 Delivery O2 Flow Rate FiO2 04/13/19 18:34 37.4 04/13/19 16:00 95 28 125/70 (88) 96 Room Air 04/11/19 20:49 2.00 Capillary Refill : Less Than 3 SecondsLess Than 3 Seconds General Appearance: No Apparent Distress, WD/WN, Chronically ill Respiratory: Chest Non Tender, Lungs Clear, Normal Breath Sounds, No Accessory Muscle Use, No Respiratory Distress Cardiovascular: Regular Rate, Rhythm, No Edema, No Gallop, No JVD, No Murmur, Normal Peripheral Pulses Neurologic/Psychiatric: Alert, Oriented x3, No Motor/Sensory Deficits, Normal Mood/Affect Results/Procedures Lab Laboratory Tests 04/13/19 02:55 04/13/19 17:49 Patient resulted labs reviewed. Assessment/Plan Assessment and Plan Assess & Plan/Chief Complaint Assessment: Hyponatremia Hyperkalemia Mental illness Chronic debility Fever with UTI Urinary retention requiring Gunter cath now DC Presumed BPH Plan: Rocephin Fever management Check labs in am Diagnosis/Problems Diagnosis/Problems (1) Hyponatremia Status: Acute (2) Bipolar 1 disorder, depressed (3) Urinary retention (4) Hyperkalemia Status: Acute (5) Kidney disease Status: Acute (6) Renal failure (ARF), acute on chronic (7) UTI (urinary tract infection) (8) BPH (benign prostatic hyperplasia) Clinical Quality Measures DVT/VTE Risk/Contraindication: Risk Factor Score Per Nursin RFS Level Per Nursing on Admit: 2=Moderate EULALIA CLEMENTS DO Apr 13, 2019 10:35
--- NOTE | 2019-04-13 11:50 | Occupational Therapy Eval ---
OT Evaluation-General/PLF Medical Diagnosis Admission Date Apr 11, 2019 at 19:42 Medical Diagnosis: Hyponatremia/acute renal failure Onset Date: Apr 11, 2019 Therapy Diagnosis Therapy Diagnosis: Weakness Precautions Precautions/Isolations: Standard Precautions Safety Interventions: None Weight Bear Status Weight Bearing Restriction: Weight Bearing/Tolerated Referral Physician: Dr. Schmitz Referral Reason: Activity Tolerance, Self Care, Evaluation/Treatment, Strengthening/ROM Medical History Additional Medical History Bipolar, anxiety Current History Pt. lives in Assisted living facility in [facility]. Pt. states that he has lived there for 6 months. The chart reflects that pt. presented to ED with AMS. Reviewed History: Yes Social History Home: Assisted Living Current Living Status: Entry Into Home: Level Entry ADL-Prior Level of Function SCALE: Activities may be completed with or without assistive devices. 3-Smbgjzazih-jdqdmux completes the activity by him/herself with no assistance from a helper. 5-Set-up or Clean-up Assistance-helper sets up or cleans up; patient completes activity. Downey assists only prior to or following the activity. 4-Supervision or Touching Assistance-helper provides verbal cues and/or touching/steadying and/or contact guard assistance as patient completes activity. Assistance may be provided throughout the activity or intermittently. 3-Partial/Moderate Assistance-helper does LESS THAN HALF the effort. Downey lifts, holds or supports trunk or limbs, but provides less than half the effort. 2-Substantial/Maximal Assistance-helper does MORE THAN HALF the effort. Downey lifts or holds trunk or limbs and provides more than half the effort. 7-Xfrgaamsm-nfabbk does ALL the effort. Patient does none of the effort to complete the activity. Or, the assistance of 2 or more helpers is required for the patient to complete the activity. If activity was not attempted, code reason: 7-Patient Refused. 9-Not Applicable-not attempted and the patient did not perform the activity before the current illness, exacerbation or injury. 10-Not Attempted due to Environmental Limitations-(lack of equipment, weather restraints, etc.). 88-Not Attempted due to Medical Conditions or Safety Concerns. ADL PLOF Comments Pt. states that he does not use a walker in the [facility]. He reports that he ambulates to all of his meals. He states that he bathes and dresses himself. Self Care: Independent (per pt.) Functional Cognition: Unknown OT Current Status Subjective No pain reported. Appearance Pt. in bed. Sleepy and falls asleep throughout treatment. Agrees to work with OT. Mental Status/Objective Patient Orientation: Person ADL-Treatment Toileting Hygiene (QC): 4 (SBA to sit on side of bed and urinate in urinal.) Other Treatments Pt. transferred supine-sit with SBA. Pt. attempted to urinate into urinal but only able to expel 25 mL. Nursing came in to scan bladder. Pt. stood with CGA and took steps toward HOB. Transferred sit-supine with SBA. All needs met so that nursing could assist pt. Education OT Patient Education: Correct positioning, Modified ADL techniques, Progress toward Goal/Update tx plan, Purpose of tx/functional activities, Reviewed precautions, Rehab process, Transfer techniques Teaching Recipient: Patient Teaching Methods: Demonstration, Discussion Response to Teaching: Verbalize Understanding, Return Demonstration OT Nursing Home Goals Nursing Home Goals Time Frame: Apr 20, 2019 Eating (QC): 6 Oral Hygiene (QC): 6 Toileting Hygiene (QC): 6 Shower/Bathe Self (QC): 5 Upper Body Dressing (QC): 5 Lower Body Dressing (QC): 5 On/Off Footwear (QC): 5 Additional Goals: 1-Demonstrate ADL Tasks, 2-Verbalize Understanding, 3- ImproveStrength/Calin 1=Demonstrate adherence to instructed precautions during ADL tasks. 2=Patient will verbalize/demonstrate understanding of assistive devices/modifications for ADL. 3=Patient will improve strength/tolerance for activity to enable patient to perform ADL's. OT Education/Plan Problem List/Assessment Assessment: Decreased Activ Tolerance, Impaired I ADL's, Impaired Self-Care Skills Discharge Recommendations Plan/Recommendations: Continue POC Therapy Discharge Recommendati: Assisted Living Treatment Plan/Plan of Care Treatment,Training & Education: Yes Patient would benefit from OT for education, treatment and training to promote independence in ADL's, mobility, safety and/or upper extremity function for ADL's. Plan of Care: ADL Retraining, Functional Mobility, UE Funct Exercise/Act Treatment Duration: Apr 20, 2019 Frequency: 5 times per week Estimated Hrs Per Day: .25 hour per day Agreement: Yes Rehab Potential: Good Time/GCodes Start Time: 11:05 Stop Time: 11:20 Total Time Billed (hr/min): 15 Billed Treatment Time 1, SIDRA SMITH OT Apr 13, 2019 11:50
[2019-04-13] MEDS: RT-ADVAIR HFA 45/21 MCG PER PUFF IH SCH ×2 (11:58→21:50)
--- NOTE | 2019-04-13 12:19 | CONSULTATION REPORT ---
DATE OF SERVICE: 04/13/2019 ATTENDING PHYSICIAN: Dr. Schmitz. SUMMARY: A 58-year-old white man who was admitted with altered mental status, hyperkalemia, acute renal failure, creatinine 3.5, urinary retention. Gunter catheter was placed with recovery of 700 mL of urine. The patient does admit symptoms of prostatism at home. He does not take any medication for it. Catheter is draining clear urine at that time, it was removed this morning and the patient voided 75 mL with a bladder scan postvoid residual of only 280. The patient is not uncomfortable. IMPRESSION: Benign prostatic hyperplasia with prostatism, possible retention as well as medical illnesses per history. PLAN: Start him on Flomax and Proscar. Follow up with bladder scan postvoid residual and straight cath p.r.n., manage accordingly. Job ID: [id number] DocumentID: [id number] Dictated Date: 04/13/2019 11:47:13 Nuclear Reactor Technician Date: 04/13/2019 12:18:53 Dictated By: RICHARD CALDERON MD
[2019-04-13] MEDS: FINASTERIDE (PROSCAR) 5 MG TAB PO SCH (13:43)
--- NOTE | 2019-04-13 13:56 | NUR ---
DEJAN/TANA visited with patient to assess for needs. The patient stated that he has been living at [facility] for approximately 6 months now. There are no complaints about his time at the facility thus far. He reports that he hasn't lived in [place] before but is liking it okay. The patient reported that he doesn't really have much family but he has 2 friends that are family to him. SIRENA visited with the nurse who stated that his appointment for tomorrow at 9 a.m. was cancelled by [facility] due to transportation scheduling. SIRENA called Shanelle [phone] a worker at [facility] to clarify when the patient was being picked up tomorrow. She stated they can come between 10-10:30. No other needs at this time.
--- NOTE | 2019-04-13 15:18 | Physical Therapy Evaluation ---
PT Evaluation-General Medical Diagnosis Admission Date Apr 11, 2019 at 19:42 Medical Diagnosis: Hyponatremia/acute renal failure Onset Date: Apr 11, 2019 Therapy Diagnosis Therapy Diagnosis: impaired mobility, strength, endurance Precautions Precautions/Isolations: Standard Precautions Referral Physician: Dr. Schmitz Reason for Referral: Evaluation/Treatment Medical History Pertinent Medical History: DM, Renal Insufficiency Additional Medical History Anxiety, Bipolar, Depression Current History Patient presented to ER 04/11 from senior care with altered mental status. Reviewed History: Yes Social History Home: Assisted Living Current Living Status: Entry Into Home: Level Entry Prior Prior Level of Function SCALE: Activities may be completed with or without assistive devices. 4-Kicdvvlusu-ubfnfrs completes the activity by him/herself with no assistance from a helper. 5-Set-up or Clean-up Assistance-helper sets up or cleans up; patient completes activity. Vandiver assists only prior to or following the activity. 4-Supervision or Touching Assistance-helper provides verbal cues and/or touching/steadying and/or contact guard assistance as patient completes activity. Assistance may be provided throughout the activity or intermittently. 3-Partial/Moderate Assistance-helper does LESS THAN HALF the effort. Vandiver lifts, holds or supports trunk or limbs, but provides less than half the effort. 2-Substantial/Maximal Assistance-helper does MORE THAN HALF the effort. Vandiver lifts or holds trunk or limbs and provides more than half the effort. 3-Vvgfeoxvk-epakux does ALL the effort. Patient does none of the effort to complete the activity. Or, the assistance of 2 or more helpers is required for the patient to complete the activity. If activity was not attempted, code reason: 7-Patient Refused. 9-Not Applicable-not attempted and the patient did not perform the activity before the current illness, exacerbation or injury. 10-Not Attempted due to Environmental Limitations-(lack of equipment, weather restraints, etc.). 88-Not Attempted due to Medical Conditions or Safety Concerns. Bed Mobility: 6 Transfers (B,C,W/C): 6 Gait: 6 Indoor Mobility (Ambulation): Independent PT Evaluation-Current Subjective Patient is agreeable to therapy at this time and voices no complaints of pain at this time. Pt/Family Goals Get stronger. Objective Patient Orientation: Person, Place, Time Attachments: IV ROM/Strength ROM Lower Extremities WNL BLE Strength Lower Extremities WFL BLE Integumentary/Posture Integumentary See nursing notes. Sensory Vision: Functional Hearing: Functional Sensation Right Lower Extremit: Intact Sensation Left Lower Extremity: Intact Transfers Roll Left to Right (QC): 6 Sit to Lying (QC): 6 Lying to Sitting/Side of Bed(Q: 6 Sit to Stand (QC): 4 Gait Does the Patient Walk?: Yes Anticipated Mode of Locomotion: Walk Walk 10 feet (QC): 4 Walk 50 ft with 2 Turns(QC): 4 Distance: 80' Gait Assistive Device: FWW Comments/Gait Description Patient is stable during ambulation. CGA for safety. Wheelchair Training Does the Pt Use a Wheelchair?: No Balance Sitting Static: Good Sitting Dynamic: Good Standing Static: Fair Standing Dynamic: Fair Assessment/Needs Patient fatigues quickly during ambulation and becomes SOB. Patient refuses sitting in the recliner and states he has to get back into bed at this time. P Rehab Potential: Fair PT Tube Wrapper Goals Tube Wrapper Goals PT Usp Goals Time Frame: Apr 20, 2019 Roll Left & Right (QC): 6 Sit to Lying (QC): 6 Lying-Sitting on Side/Bed(QC): 6 Sit to Stand (QC): 6 Chair/Mgd-kf-Rlrhy Xfer(QC): 6 Does the Patient Walk: Yes Walk 10 feet (QC): 6 Walk 50ft with 2 Turns (QC): 6 Walk 150 ft (QC): 6 PT Plan Problem List Problem List: Activity Tolerance, Functional Strength, Safety, Balance, Gait, Transfer, Bed Mobility, ROM Treatment/Plan Treatment Plan: Continue Plan of Care Treatment Plan: Bed Mobility, Education, Functional Activity Calin, Functional Strength, Gait, Safety, Therapeutic Exercise, Transfers Treatment Duration: Apr 20, 2019 Frequency: 6 times per week Estimated Hrs Per Day: .25 hour per day Patient and/or Family Agrees t: Yes Safety Risks/Education Patient Education: Gait Training, Transfer Techniques, Correct Positioning, Safety Issues Teaching Recipient: Patient Teaching Methods: Demonstration, Discussion Response to Teaching: Reinforcement Needed Discharge Recommendations Plan Patient will perform bed mobility and transfer training, balance and endurance training, functional strengthening, gait training, and education, to improve functional mobility and independence at home. Therapy Discharge Recommendati: Assisted Living Time/GCodes Time In: 1435 Time Out: 1450 Total Billed Treatment Time: 15 Total Billed Treatment 1 visit EVL 15 MARIANO SNELL PT Apr 13, 2019 15:18
--- NOTE | 2019-04-13 17:15 | NUR ---
TEMP 38.4. DR. CLEMENTS NOTIFIED. AWAITING ORDERS.
[2019-04-13] MEDS ORDERED: CALCIUM CARBONATE 500 MG (TUMS) TAB.CHEW PO PRN (17:30)
[2019-04-13] MEDS ORDERED: ACETAMINOPHEN 500 MG TAB (TYLENOL) PO PRN (17:30)
[2019-04-13] MEDS ORDERED: ENOXAPARIN 40 MG/0.4 ML (LOVENOX) SYR SC SCH (17:30)
[2019-04-13] MEDS ORDERED: cefTRIAXone FOR IV USE 1,000 MG in WATER (STERILE) FOR INJECTION 10 ML IV SCH (17:30)
[2019-04-13 17:58] LABS: BASOPHILS % (AUTO) 0 % (0-10); EOSINOPHILS % (AUTO) 0 % (0-10); HEMATOCRIT 26 % (40-54); HEMOGLOBIN 8.7 G/DL (13.3-17.7); LYMPHOCYTES # (AUTO) 0.7 X 10^3 (1.0-4.0); LYMPHOCYTES % (AUTO) 6 % (12-44); MEAN CORPUSCULAR HEMOGLOBIN 31 PG (25-34); MEAN CORPUSCULAR HGB CONC 34 G/DL (32-36); MEAN CORPUSCULAR VOLUME 91 FL (80-99); MEAN PLATELET VOLUME 8.4 FL (7.4-10.4); MONOCYTES # (AUTO) 0.9 X 10^3 (0.0-1.0); MONOCYTES % (AUTO) 8 % (0-12); NEUTROPHILS # (AUTO) 9.9 X 10^3 (1.8-7.8); NEUTROPHILS % (AUTO) 86 % (42-75); PLATELET COUNT 191 10^3/uL (130-400); RED CELL DISTRIBUTION WIDTH 12.9 % (10.0-14.5); WHITE BLOOD COUNT 11.6 10^3/uL (4.3-11.0)
[2019-04-13] MEDS ORDERED: TAMSULOSIN 0.4 MG (FLOMAX) CAP PO SCH (18:00)
[2019-04-13] MEDS: PHENAZOPYRIDINE 100 MG (PYRIDIUM) TABLET PO SCH ×2 (18:01→18:09)
[2019-04-13 18:16] LABS: ALBUMIN 3.3 GM/DL (3.2-4.5); BILIRUBIN,TOTAL 0.3 MG/DL (0.1-1.0); CALCIUM 7.9 MG/DL (8.5-10.1); CREATININE SERUM 1.44 MG/DL (0.60-1.30); POTASSIUM 4.5 MMOL/L (3.6-5.0); TOTAL PROTEIN 5.6 GM/DL (6.4-8.2)
[2019-04-13 18:36] LABS: BAND NEUTROPHILS 2 %; EOSINOPHILS % (MANUAL) 1 %; LYMPHOCYTES % (MANUAL) 7 %; MONOCYTES % (MANUAL) 5 %; NEUTROPHILS % (MANUAL) 85 %; SCHISTOCYTES SLIGHT
[2019-04-13 18:37] LABS: POIKILOCYTOSIS SLIGHT
[2019-04-13] MEDS ORDERED: BENZTROPINE MESYLATE 1 MG (COGENTIN) TAB PO SCH (21:00)
[2019-04-13] MEDS: LEVOTHYROXINE 75 MCG (LEVOTHROID) TABLET PO SCH (21:04)
[2019-04-13] MEDS: DONEPEZIL 10 MG (ARICEPT) TAB PO SCH (21:05)
[2019-04-14] VITALS: BP 109/72
[2019-04-14 04:00] VITALS: BP 110/72
[2019-04-14 05:06] LABS: BASOPHILS % (AUTO) 0 % (0-10); EOSINOPHILS # (AUTO) 0.1 10^3/uL (0.0-0.3); EOSINOPHILS % (AUTO) 1 % (0-10); HEMATOCRIT 25 % (40-54); HEMOGLOBIN 8.4 G/DL (13.3-17.7); LYMPHOCYTES # (AUTO) 0.7 X 10^3 (1.0-4.0); LYMPHOCYTES % (AUTO) 8 % (12-44); MEAN CORPUSCULAR HEMOGLOBIN 31 PG (25-34); MEAN CORPUSCULAR HGB CONC 34 G/DL (32-36); MEAN CORPUSCULAR VOLUME 92 FL (80-99); MEAN PLATELET VOLUME 8.6 FL (7.4-10.4); MONOCYTES # (AUTO) 0.8 X 10^3 (0.0-1.0); MONOCYTES % (AUTO) 9 % (0-12); NEUTROPHILS # (AUTO) 7.9 X 10^3 (1.8-7.8); NEUTROPHILS % (AUTO) 83 % (42-75); PLATELET COUNT 185 10^3/uL (130-400); RED CELL DISTRIBUTION WIDTH 13.1 % (10.0-14.5); WHITE BLOOD COUNT 9.5 10^3/uL (4.3-11.0)
[2019-04-14 05:27] LABS: ALBUMIN 3.2 GM/DL (3.2-4.5); BILIRUBIN,TOTAL 0.3 MG/DL (0.1-1.0); CALCIUM 7.6 MG/DL (8.5-10.1); CREATININE SERUM 1.48 MG/DL (0.60-1.30); TOTAL PROTEIN 5.5 GM/DL (6.4-8.2)
[2019-04-14 07:34] VITALS: BP 123/72
[2019-04-14] MEDS: ASPIRIN E.C. 81 MG (ECOTRIN) TAB PO SCH (08:28)
[2019-04-14] MEDS: CLOPIDOGREL 75 MG (PLAVIX) TABLET PO SCH (08:28)
[2019-04-14] MEDS: cloNIDine 0.1 MG (CATAPRES) TAB PO SCH (08:28)
[2019-04-14] MEDS: FOLIC ACID 1 MG TAB PO SCH (08:29)
[2019-04-14] MEDS: polyethylene glycoL POWDER 17 GM (MIRALAX) PACK PO SCH (08:29)
[2019-04-14] MEDS: meTOproloL SUCCINATE 50 MG (TOPROL XL) TAB PO SCH (08:29)
[2019-04-14] MEDS: PANTOPRAZOLE 40 MG (PROTONIX) TAB PO SCH (08:29)
[2019-04-14] MEDS: LORATADINE (CLARITIN) 10 MG TAB PO SCH (08:29)
[2019-04-14] MEDS: buPROPion SR 150 MG (WELLBUTRIN SR) TAB PO SCH (08:29)
[2019-04-14] MEDS: LORazepam 1 MG (ATIVAN) TAB PO SCH (08:29)
[2019-04-14] MEDS: lisINopril 40 MG (PRINIVIL) TABLET PO SCH (08:29)
[2019-04-14] MEDS: TERAZOSIN 2 MG (HYTRIN) CAP PO SCH (08:30)
[2019-04-14] MEDS: CHLORHEXIDINE 0.12% SOLN 15 ML (PERIDEX) UDC MM SCH (08:30)
[2019-04-14] MEDS ORDERED: AMOX-358 PO (08:44)
[2019-04-14] MEDS ORDERED: FINA5TAB6 PO (08:44)
[2019-04-14] MEDS ORDERED: TMSL.4C PO (08:44)
[2019-04-14] MEDS ORDERED: PHEN-826 PO (08:44)
[2019-04-14] MEDS: PHENAZOPYRIDINE 100 MG (PYRIDIUM) TABLET PO SCH (08:45)
[2019-04-14] MEDS: NS IV 1000 ML 1,000 ML IV SCH (08:45)
[2019-04-14] MEDS: FINASTERIDE (PROSCAR) 5 MG TAB PO SCH (08:45)
[2019-04-14] MEDS: CYANOCOBALAMIN 1,000 MCG (VITAMIN B-12) TABLET PO SCH (08:45)
--- NOTE | 2019-04-14 08:45 | Discharge Summary ---
Discharge Summary Hospital Course Was the Problem List Reviewed?: Yes Problems/Dx: (1) Hyponatremia Status: Acute (2) Bipolar 1 disorder, depressed (3) Urinary retention (4) Hyperkalemia Status: Acute (5) Kidney disease Status: Acute (6) Renal failure (ARF), acute on chronic (7) UTI (urinary tract infection) (8) BPH (benign prostatic hyperplasia) Hospital Course Date of Admission: Apr 11, 2019 at 19:42 Admission Diagnosis : Family Physician/Provider: Nixon Webber MD Date of Discharge: 04/14/19 Discharge Diagnosis: Hyponatremia, Hyperkalemia, ARF, Mental illness Hospital Course: Hospital Course: Pt had an uneventful hospital course for four days. He was admitted with sodium level 123 and potassium at 6.4. Pt was aggressive treated, stopped Aldactone and potassium supplement and ultimately his sodium level normalized to 130 the 128 at time of DC. He did have a UTI with fever, lactic acid was normal. Pt was placed on Rocephin and Augmentin transition at DC and he will have close follow up with Dr. Webber in one week to check BMP. Labs and Pending Lab Test: Laboratory Tests 04/13/19 17:40: Lactic Acid Level 1.13 04/13/19 17:49: White Blood Count 11.6H, Red Blood Count 2.84L, Hemoglobin 8.7L, Hematocrit 26L, Mean Corpuscular Volume 91, Mean Corpuscular Hemoglobin 31, Mean Corpuscular Hemoglobin Concent 34, Red Cell Distribution Width 12.9, Platelet Count 191, Mean Platelet Volume 8.4, Neutrophils (%) (Auto) 86H, Lymphocytes (%) (Auto) 6L, Monocytes (%) (Auto) 8, Eosinophils (%) (Auto) 0, Basophils (%) (Auto) 0, Neutrophils # (Auto) 9.9H, Lymphocytes # (Auto) 0.7L, Monocytes # (Auto) 0.9, Eosinophils # (Auto) 0.0, Basophils # (Auto) 0.0, Neutrophils % (Manual) 85, Lymphocytes % (Manual) 7, Monocytes % (Manual) 5, Eosinophils % (Manual) 1, Band Neutrophils 2, Poikilocytosis SLIGHT, Schistocytes SLIGHT, Sodium Level 129L, Potassium Level 4.5, Chloride Level 101, Carbon Dioxide Level 20L, Anion Gap 8, Blood Urea Nitrogen 15, Creatinine 1.44H, Estimat Glomerular Filtration Rate 51, BUN/Creatinine Ratio 10, Glucose Level 105, Calcium Level 7.9L, Corrected Calcium 8.5, Total Bilirubin 0.3, Aspartate Amino Transf (AST/SGOT) 11, Alanine Aminotransferase (ALT/SGPT) 18, Alkaline Phosphatase 55, Total Protein 5.6L, Albumin 3.3 04/14/19 04:31: White Blood Count 9.5, Red Blood Count 2.72L, Hemoglobin 8.4L, Hematocrit 25L, Mean Corpuscular Volume 92, Mean Corpuscular Hemoglobin 31, Mean Corpuscular Hemoglobin Concent 34, Red Cell Distribution Width 13.1, Platelet Count 185, Mean Platelet Volume 8.6, Neutrophils (%) (Auto) 83H, Lymphocytes (%) (Auto) 8L, Monocytes (%) (Auto) 9, Eosinophils (%) (Auto) 1, Basophils (%) (Auto) 0, Neutrophils # (Auto) 7.9H, Lymphocytes # (Auto) 0.7L, Monocytes # (Auto) 0.8, Eosinophils # (Auto) 0.1, Basophils # (Auto) 0.0, Sodium Level 128L, Potassium Level 4.0, Chloride Level 101, Carbon Dioxide Level 19L, Anion Gap 8, Blood Urea Nitrogen 14, Creatinine 1.48H, Estimat Glomerular Filtration Rate 49, BUN/Creatinine Ratio 9, Glucose Level 106H, Calcium Level 7.6L, Corrected Calcium 8.2L, Total Bilirubin 0.3, Aspartate Amino Transf (AST/SGOT) 11, Alanine Aminotransferase (ALT/SGPT) 19, Alkaline Phosphatase 52, Total Protein 5.5L, Albumin 3.2 Home Meds Active Flomax (Tamsulosin HCl) 0.4 Mg Cap 0.4 Mg PO DAILY@1800 Phenazopyridine HCl 100 Mg Tablet 100 Mg PO TIDPC Finasteride 5 Mg Tablet 5 Mg PO DAILY Augmentin 875-125 Tablet (Amoxicillin/Potassium Clav) 1 Each Tablet 1 Each PO BID Reported Bupropion Xl (Bupropion HCl) 150 Mg Tab.er.24h 150 Mg PO DAILY Chlorhexidine Gluconate 473 Ml Mouthwash 30 Ml MM BID Escitalopram Oxalate 10 Mg Tablet 10 Mg PO DAILY Triamcinolone Acetonide 0.1% Cream (Triamcinolone Acet) 15 Gm Cr 1 Applic TP BID PRN Advair 100-50 Diskus (Fluticasone/Salmeterol) 1 Each Blst.w.dev 1 Each IH BID Tramadol HCl 50 Mg Tablet 100 Mg PO BID Iprat-Albut 0.5-3(2.5) mg/3 ml (Ipratropium/Albuterol Sulfate) 3 Ml Ampul.neb 3 Ml IH Q6H PRN Claritin (Loratadine) 10 Mg Tablet 10 Mg PO DAILY Levothyroxine Sodium 75 Mcg Tablet 75 Mcg PO HS Benztropine Mesylate 0.5 Mg Tablet 0.5 Mg PO HS Donepezil HCl 10 Mg Tablet 10 Mg PO HS Atorvastatin Calcium 40 Mg Tablet 40 Mg PO DAILY Terazosin HCl 2 Mg Capsule 2 Mg PO DAILY Naltrexone HCl 50 Mg Tablet 50 Mg PO DAILY Latuda (Lurasidone HCl) 120 Mg Tablet 120 Mg PO DAILY Folic Acid 1 Mg Tablet 5 Mg PO DAILY Ativan (Lorazepam) 1 Mg Tablet 1 Mg PO BID 7 Days Pilocarpine HCl 5 Mg Tablet 5 Mg PO QID Potassium Chloride 20 Meq Packet 20 Meq PO BID Metoprolol Succinate 50 Mg Tab.er.24h 50 Mg PO BID Aldactone (Spironolactone) 50 Mg Tablet 50 Mg PO BID Clonidine HCl 0.1 Mg Tablet 0.1 Mg PO BID Miralax (Polyethylene Glycol 3350) 17 Gm Powd.pack 17 Gm PO DAILY Lisinopril 40 Mg Tablet 40 Mg PO DAILY Pantoprazole Sodium 40 Mg Tablet. 40 Mg PO DAILY B-12 (Cyanocobalamin (Vitamin B-12)) 1,000 Mcg Tablet 1,000 Mcg PO DAILY Plavix (Clopidogrel Bisulfate) 75 Mg Tablet 75 Mg PO DAILY Bupropion HCl 100 Mg Tablet 300 Mg PO DAILY Aspir 81 (Aspirin) 81 Mg Tablet. 81 Mg PO DAILY Assessment/Pt Instructions Dr Webber 1 week Discharge Planning: <30 minutes discharge planning Discharge Instructions Discharge Diet: No Restrictions Pneumonia Vaccine Order Indica: Yes Discharge Physical Examination Vital Signs Vital Signs Date Time Temp Pulse Resp B/P (MAP) Pulse Ox O2 Delivery O2 Flow Rate FiO2 04/14/19 07:34 36.7 75 22 123/72 (89) 95 Room Air 04/11/19 20:49 2.00 General Appearance: No Apparent Distress, WD/WN, Chronically ill Respiratory: Chest Non Tender, Lungs Clear, Normal Breath Sounds, No Accessory Muscle Use, No Respiratory Distress Neurologic/Psychiatric: Alert, Oriented x3, No Motor/Sensory Deficits, Normal Mood/Affect Allergies: Coded Allergies: No Known Drug Allergies (Unverified , 04/11/19) Discharge Summary Date of Admission Apr 11, 2019 at 19:42 Date of Discharge Discharge Date: Apr 14, 2019 Admission Diagnosis Assessment: Hyponatremia Hyperkalemia ARF Urinary retention Bipolar Anxiety Debility requiring AL placement Plan: Fluid restriction Hyperkalemia treatment Discharge Diagnosis Assessment: Hyponatremia Hyperkalemia Mental illness Chronic debility Fever with UTI Urinary retention requiring Gunter cath now DC Presumed BPH Plan: Rocephin Fever management Check labs in am (1) Hyponatremia Status: Acute (2) Bipolar 1 disorder, depressed (3) Urinary retention (4) Hyperkalemia Status: Acute (5) Kidney disease Status: Acute (6) Renal failure (ARF), acute on chronic (7) UTI (urinary tract infection) (8) BPH (benign prostatic hyperplasia) Clinical Quality Measures DVT/VTE Risk/Contraindication: Risk Factor Score Per Nursin RFS Level Per Nursing on Admit: 2=Moderate EULALIA CLEMENTS DO Apr 14, 2019 08:45
--- NOTE | 2019-04-14 09:08 | D/C HH Face to Face Order ---
D/C Face to Face Orders Reconcile Patient Problems Problems Reviewed?: Yes Instructions for Patient Home Health Patient Instructions/FollowUp: Dr Webber in [address] Nunes in 2 weeks Physician to follow Patient: Akbar Discharge Diet for Home: other diet (1200cc/day fluid restrictions) Patient Problems: Hyponatremia Hyperkalemia Mental illness Urinary retention UTI Goals for Patient: Tyler Patient Data-Allergies,Ht & Wt Patient Allergies: Coded Allergies: No Known Drug Allergies (Unverified , 04/11/19) Home Health Need/Face to Face Date of Face to Face: Apr 14, 2019 Clinical Findings: Generalized weakness and fatigue, Instability, Muscle weakness I have seen Pt [id number]: Yes Discharged To: Home Diagnosis/Conditions: Hyponatremia Hyperkalemia Mental illness Urinary retention UTI Patient is Homebound due to: CognItive deficits, Lynda fall risk due to instabilty, Muscle weakness Homebound Status Due to the above stated illness, injury or surgical procedure (medical con dition or diagnosis) and associated clinical findings, the patient is homebound because of his/her inability to leave home except with aid of a supportive device and/or person AND leaving the home requires a considerable and taxing effort or is medically contraindicated. Pt req the following assistanc: Walker, Wheelchair Home Health Nursing Orders Home Health Services Order: Nursing Services, Supply Chain Vice President-Evaluate & Treat, Physical Therapy-Evaluate & Treat Home Health Infusion Therapy Line Start Date: Apr 11, 2019 Certify Stmt I certify that this patient is under my care and that I, a nurse practitioner or a physician; a diagnostic assistant working with me, had a face to face encounter that - meets the physician face to face encounter requirements with this patient as dated. EULALIA CLEMENTS DO Apr 14, 2019 09:08
[2019-04-14] MEDS ORDERED: FUROSEMIDE 40 MG/4 ML INJ (LASIX) ONE (09:31)
--- NOTE | 2019-04-14 10:21 | Pulmonary Progress Note ---
Subjective Time Seen by a Provider: 10:21 Subjective/Events-last exam No complications noted. Sepsis Event Evaluation Height, Weight, BMI Height: '" Weight: lbs. oz. kg; 31.26 BMI Method: Focused Exam Lactate Level 04/13/19 17:40: Lactic Acid Level 1.13 Exam Exam Vital Signs Date Time Temp Pulse Resp B/P (MAP) Pulse Ox O2 Delivery O2 Flow Rate FiO2 04/14/19 07:34 36.7 75 22 123/72 (89) 95 Room Air 04/14/19 04:00 37.4 73 22 110/72 (85) 93 Room Air 04/14/19 00:00 37.0 75 20 109/72 (84) 93 Room Air 04/13/19 21:51 95 Room Air 04/13/19 20:10 37.4 04/13/19 20:00 38.0 87 22 105/62 (76) 93 Room Air 04/13/19 19:50 Room Air 04/13/19 18:34 37.4 04/13/19 18:34 37.4 04/13/19 16:00 38.4 95 28 125/70 (88) 96 Room Air 04/13/19 12:31 37.2 73 20 125/68 (87) 96 Room Air 04/13/19 11:59 94 Room Air I & O 04/14/19 07:00 Intake Total 775 ml Output Total 1075 ml Balance -300 ml Height & Weight Height: '" Weight: lbs. oz. kg; 31.26 BMI Method: General Appearance: No Apparent Distress, WD/WN, Chronically ill HEENT: PERRL/EOMI, TMs Normal, Normal ENT Inspection, Pharynx Normal, Moist Mucous Membranes Neck: Full Range of Motion, Normal Inspection, Non Tender Respiratory: Chest Non Tender, Lungs Clear, Normal Breath Sounds, No Accessory Muscle Use, No Respiratory Distress Cardiovascular: Regular Rate, Rhythm, No Edema, No Gallop, No JVD, No Murmur, Normal Peripheral Pulses Capillary Refill: Less Than 3 Seconds Extremity: Normal Capillary Refill, Normal Inspection, Normal Range of Motion, Non Tender, No Calf Tenderness, No Pedal Edema Neurologic/Psychiatric: Alert, Oriented x3, No Motor/Sensory Deficits, Normal Mood/Affect Skin: Normal Color, Warm/Dry Lymphatic: No Adenopathy Results Lab Laboratory Tests 04/13/19 02:55 04/13/19 17:49 04/14/19 04:31 Assessment/Plan Assessment/Plan CKD/AKD Improving -Montior renal function -Holding home meds Hyponatremia -Monitor hyperkalemia -resolved Bipolar Anxiety I am going to sign off please call with any questions. TANMAY BLACKBURN DO Apr 14, 2019 10:21
[2019-04-14 12:30] VITALS: BP 123/72
--- NOTE | 2019-04-14 13:36 | NUR ---
CM/SS spoke with the patients nurse Mary who stated she set up Home Health for the patient with [facility] through [facility]. CM/SS will follow up to make sure they do not need any additional records. Addendum: 04/14/19 at 1517 by REESE RICHTER DEJAN/SS called [facility] who stated they did not receive home health referral and called Shanelle from [facility] who stated she hasn't set it up. DEJAN/SS asked if she wanted this ss to set it up. She stated yes. DEJAN/SS called and faxed referral to [facility] and is set up for Thursday.
== END 2019-04-14 12:37 | disposition home health service (06) | DRG 683 ==
LOC: EDUNIT# 18:00 → ER 18:03 → ICU 19:42 → 4TH 04-13 09:30
PROVIDERS: ADMIT Internal Medicine; ATTEND Internal Medicine
DX: N17.9 Acute kidney failure, unspecified (principal); N18.9 Chronic kidney disease, unspecified; E87.1 Hypo-osmolality and hyponatremia; E87.5 Hyperkalemia; N39.0 Urinary tract infection, site not specified; J44.9 Chronic obstructive pulmonary disease, unspecified; E11.9 Type 2 diabetes mellitus without complications; N40.1 Benign prostatic hyperplasia with lower urinary tract symptoms; R33.9 Retention of urine, unspecified; E78.00 Pure hypercholesterolemia, unspecified; F41.9 Anxiety disorder, unspecified; F31.9 Bipolar disorder, unspecified; G25.1 Drug-induced tremor; T43.295A Adverse effect of other antidepressants, initial encounter; G47.9 Sleep disorder, unspecified; M51.26 Other intervertebral disc displacement, lumbar region; G30.9 Alzheimer's disease, unspecified; F02.80 Dementia in other diseases classified elsewhere, unspecified severity, without behavioral disturbance, psychotic disturbance, mood disturbance, and anxiety; Z95.5 Presence of coronary angioplasty implant and graft
CPT/HCPCS: 36415; 51702; 71045; 80053; 80061; 80320; 81000; 82274; 82962; 83605; 83735; 83874; 84100; 84484; 85007; 85025; 85027; 85610; 85730; 87040; 93005; 93041; 94640; 94760; 96361; 96374; 96375

== ENCOUNTER → 2019-05-26 | Outpatient (CLI) | payer MEDICARE, MEDICAID ==
[~2019-05-26] MED LIST: AMOX-358 PO; ASPI-586 PO; ATOR40TA70 PO; BENZ0.5T42 PO; BUPR100T15 PO; BUPR150T7 PO; CLON0.1T PO; CLOP75TA69 PO; CYAN100088 PO; DONE10TA41 PO; ESCI10TA55 PO; FINA5TAB6 PO; FLUT1DIS28 IH; FOLI1TAB24 PO; IPRA3AMP31 IH; LEVO75TA6 PO; LISI40TA PO; LORA-405 PO; LORA10TA76 PO; LURA120T PO; METO50TA7 PO; NALT50TA PO; NFCHLORHGL MM; PANT40TA3 PO; PHEN-826 PO; PILO5TAB PO; POLY17PO6 PO; POTA20PA28 PO; SPIR50TA PO; TERA2CAP4 PO; TMSL.4C PO; TR1C15 TP; TRAM50TA3 PO
[2019-05-26 13:32] LABS: POTASSIUM 3.7 MMOL/L (3.6-5.0)
[2019-05-26 13:33] LABS: CALCIUM 8.9 MG/DL (8.5-10.1); CREATININE SERUM 1.25 MG/DL (0.60-1.30)
== END ==
LOC: LAB FS 12:01
PROVIDERS: ATTEND Family Medicine
DX: I10 Essential (primary) hypertension (principal)
CPT/HCPCS: 36415; 80048; 80061

== ENCOUNTER → 2019-12-19 | Outpatient (CLI) | payer MEDICARE, MEDICAID ==
[~2019-12-19] MED LIST changes: +CLN.1T PO; -CLON0.1T PO; -PANT40TA3 PO; +PANT40TA52 PO
--- NOTE | 2019-12-19 09:43 | Diagnostic Imaging Report ---
PROCEDURE: CT head without contrast. TECHNIQUE: Multiple contiguous axial images were obtained through the brain without the use of intravenous contrast. Auto Exposure Controls were utilized during the CT exam to meet ALARA standards for radiation dose reduction. INDICATION: Chronic headaches radiating to the jaw. COMPARISON: No prior CT brain studies are available for comparison. FINDINGS: The ventricles and sulci are prominent for the patient's age. There is moderate periventricular hypodensity noted, likely on the basis of chronic microvascular ischemia. No sulcal effacement or midline shift is identified. No acute intra-axial or extra-axial hemorrhage is detected. The cisterns are patent. The visualized paranasal sinuses are clear. Visualized mastoid air cells are well aerated. IMPRESSION: Cerebral atrophy and changes of chronic microvascular ischemia. No acute intracranial process is detected. Dictated by: Dictated on workstation # [id number]
== END ==
LOC: RAD FS 08:47
PROVIDERS: ATTEND Family Medicine
DX: G31.9 Degenerative disease of nervous system, unspecified (principal)
CPT/HCPCS: 70450

== ENCOUNTER 2021-10-10 12:24 | Emergency (ER) | payer MEDICAID, MEDICARE ==
[~2021-10-10] VITALS: Ht 182.9 cm; Wt 102.5 kg
[~2021-10-10 12:24] MED LIST changes: +ATEN100T88; +ATEN50TA; +ATENOLOL; +BUPR150T24 PO; -BUPR150T7 PO; +CHLO25CA41; +ENAL10TA; +ENALAPRIL; +ESCI-2 PO; -ESCI10TA55 PO; +FERR325T74; -FOLI1TAB24 PO; +FOLI1TAB33 PO; +KCL20TCR; +LISI10TA; -LISI40TA PO; +LISI40TA9 PO; +OLN2.5T; +OXYM30SP20; +RNT150T; +RT-COMBINH; +STOMACH MED; +TERA10CA15
[2021-10-10 12:25] VITALS: BP 133/83
--- NOTE | 2021-10-10 12:32 | ED Fall/Injury ---
General Stated Complaint: FALL History of Present Illness Date Seen by Provider: Oct 10, 2021 Time Seen by Provider: 12:29 Initial Comments 61-year-old male presents following a fall. Patient resides at a residential. Patient lost his balance fell hit his head on a rock fireplace. He has a contusion and swelling on the posterior aspect. He also scraped his elbow has some mild bleeding on his left elbow with some mild swelling. Patient did not lose consciousness. He is on aspirin and no other blood thinners. He denies any nausea, vomiting. He denies any neck pain. Patient has full range of motion of his left elbow with minimal pain. No other systemic complaints Allergies and Home Medications Allergies Coded Allergies: No Known Drug Allergies (Unverified , 04/11/19) Patient Home Medication List Home Medication List Reviewed: Yes Amoxicillin/Potassium Clav (Augmentin 875-125 Tablet) 1 Each Tablet, 1 EACH PO BID Prescribed by: EULALIA CLEMENTS on 04/14/19 0844 Aspirin (Aspir 81) 81 Mg Tablet.dr, 81 MG PO DAILY, (Reported) Entered as Reported by: ERASMO QUEEN on 04/12/191817 Atenolol (Tenormin 100 Mg) 100 Mg Tablet, (Reported) Entered as Reported by: HOMER STREETER on 09/20/08 2211 Atorvastatin Calcium (Atorvastatin Calcium) 40 Mg Tablet, 40 MG PO DAILY, (Reported) Entered as Reported by: ERASMO QUEEN on 04/12/191817 Benztropine Mesylate (Benztropine Mesylate) 0.5 Mg Tablet, 0.5 MG PO HS, (Repo rted) Entered as Reported by: ERASMO QUEEN on 04/12/191817 Bupropion HCl (Bupropion HCl) 100 Mg Tablet, 300 MG PO DAILY, (Reported) Entered as Reported by: ERASMO QUEEN on 04/12/191817 Bupropion HCl (Bupropion Xl) 150 Mg Tab.er.24h, 150 MG PO DAILY, (Reported) Entered as Reported by: ERASMO QUEEN on 04/12/19 1845 Chlorhexidine Gluconate (Chlorhexidine Gluconate) 473 Ml Mouthwash, 30 ML MM BID, (Reported) Entered as Reported by: ERASMO QUEEN on 04/12/191844 Clonidine HCl (Clonidine HCl) 0.1 Mg Tablet, 0.1 MG PO BID, (Reported) Entered as Reported by: ERASMO QUEEN on 04/12/191817 Clopidogrel Bisulfate (Plavix) 75 Mg Tablet, 75 MG PO DAILY, (Reported) Entered as Reported by: ERASMO QUEEN on 04/12/191817 Cyanocobalamin (Vitamin B-12) (B-12) 1,000 Mcg Tablet, 1,000 MCG PO DAILY, (Reported) Entered as Reported by: ERASMO QUEEN on 04/12/191817 Donepezil HCl (Donepezil HCl) 10 Mg Tablet, 10 MG PO HS, (Reported) Entered as Reported by: ERASMO QUEEN on 04/12/191817 Escitalopram Oxalate (Escitalopram Oxalate) 10 Mg Tablet, 10 MG PO DAILY, (Reported) Entered as Reported by: ERASMO QUEEN on 04/12/191830 Finasteride (Finasteride) 5 Mg Tablet, 5 MG PO DAILY Prescribed by: EULALIA CLEMENTS on 04/14/19 0844 Fluticasone/Salmeterol (Advair 100-50 Diskus) 1 Each Blst.w.dev, 1 EACH IH BID, (Reported) Entered as Reported by: ERASMO QUEEN on 04/12/191830 Folic Acid (Folic Acid) 1 Mg Tablet, 5 MG PO DAILY, (Reported) Entered as Reported by: ERASMO QUEEN on 04/12/191817 Ipratropium/Albuterol Sulfate (Iprat-Albut 0.5-3(2.5) mg/3 ml) 3 Ml Ampul.neb, 3 ML IH Q6H PRN for SHORTNESS OF BREATH, (Reported) Entered as Reported by: ERASMO QUEEN on 04/12/191829 Levothyroxine Sodium (Levothyroxine Sodium) 75 Mcg Tablet, 75 MCG PO HS, (Reported) Entered as Reported by: ERASMO QUEEN on 04/12/191817 Lisinopril (Zestril) 10 Mg Tablet, (Reported) Entered as Reported by: ROMELIA DAN on 04/18/091822 Lisinopril (Lisinopril) 40 Mg Tablet, 40 MG PO DAILY, (Reported) Entered as Reported by: ERASMO QUEEN on 04/12/191817 Loratadine (Claritin) 10 Mg Tablet, 10 MG PO DAILY, (Reported) Entered as Reported by: ERASMO QUEEN on 04/12/191825 Lorazepam (Ativan) 1 Mg Tablet, 1 MG PO BID, (Reported) Entered as Reported by: ERASMO QUEEN on 04/12/191817 Lurasidone HCl (Latuda) 120 Mg Tablet, 120 MG PO DAILY, (Reported) Entered as Reported by: ERASMO QUEEN on 04/12/191817 Metoprolol Succinate (Metoprolol Succinate) 50 Mg Tab.er.24h, 50 MG PO BID, (Reported) Entered as Reported by: ERASMO QUEEN on 04/12/191817 Naltrexone HCl (Naltrexone HCl) 50 Mg Tablet, 50 MG PO DAILY, (Reported) Entered as Reported by: ERASMO QUEEN on 04/12/191817 Pantoprazole Sodium (Pantoprazole Sodium) 40 Mg Tablet.dr, 40 MG PO DAILY, (Reported) Entered as Reported by: ERASMO QUEEN on 04/12/191817 Phenazopyridine HCl (Phenazopyridine HCl) 100 Mg Tablet, 100 MG PO TIDPC Prescribed by: EULALIA CLEMENTS on 04/14/19843 Pilocarpine HCl (Pilocarpine HCl) 5 Mg Tablet, 5 MG PO QID, (Reported) Entered as Reported by: ERASMO QUEEN on 04/12/191817 Polyethylene Glycol 3350 (Miralax) 17 Gm Powd.pack, 17 GM PO DAILY, (Reported) Entered as Reported by: ERASMO QUEEN on 04/12/191817 Tamsulosin HCl (Flomax) 0.4 Mg Cap, 0.4 MG PO DAILY@1800 Prescribed by: EULALIA CLEMENTS on 04/14/19843 Terazosin HCl (Terazosin HCl) 2 Mg Capsule, 2 MG PO DAILY, (Reported) Entered as Reported by: ERASMO QUEEN on 2/25/20 1818 Tramadol HCl (Tramadol HCl) 50 Mg Tablet, 100 MG PO BID, (Reported) Entered as Reported by: ERASMO QUEEN on 04/12/191829 Triamcinolone Acet (Triamcinolone Acetonide 0.1% Cream) 15 Gm Cr, 1 APPLIC TP BID PRN for ITCHING, (Reported) Entered as Reported by: ERASMO QUEEN on 04/12/191830 Review of Systems Review of Systems Constitutional: No chills, No fever Eyes: No Symptoms Reported Respiratory: no symptoms reported; No cough, No short of breath Cardiovascular: No chest pain, No palpitations Gastrointestinal: No abdominal pain, No nausea, No vomiting Genitourinary: no symptoms reported Musculoskeletal: see HPI Skin: see HPI Psychiatric/Neurological: No Symptoms Reported Past Yzzkfiz-Vrhhiw-Pyufcc Hx Immunizations Up To Date Tetanus Booster (TDap): Less than 5yrs PED Vaccines UTD: Yes Past Medical History Surgeries: Yes Cardiac Respiratory: Yes COPD Cardiac: Yes (STENTS X2 ) High Cholesterol Neurological: No Genitourinary: Yes Renal Failure Gastrointestinal: Yes Gall Bladder Disease Musculoskeletal: Yes (BULGING DISCS L 3-4) Chronic Back Pain Endocrine: Yes Diabetes, Non-Insulin dep HEENT: No Cancer: No Psychosocial: Yes (ETOH CONSUMPTION) Sleep Difficulties, Anxiety, Bipolar, Depression Integumentary: No Adverse Reaction/Blood Tranf: No Physical Exam Vital Signs Vital Signs - First Documented Capillary Refill : Height, Weight, BMI Height: '" Weight: lbs. oz. kg; 31.26 BMI Method: General Appearance: no apparent distress, other (Hematoma posterior scalp) HEENT: PERRL/EOMI Neck: full range of motion, supple Cardiovascular: normal peripheral pulses, regular rate, rhythm Respiratory: lungs clear, normal breath sounds Gastrointestinal: non tender, soft Back: No decreased range of motion Extremities: normal range of motion, non-tender Neurologic/Psychiatric: alert, normal mood/affect Skin: other (Abrasion/small nonsuturable laceration left elbow, posterior scalp hematoma) Progress/Results/Core Measures Results/Orders My Orders Orders - POOJA MA DO Ct Head Wo (10/10/21 12:33) Elbow 3 View Left (10/10/21 12:33) Wound Dressing-Ed (10/10/21 13:45) Vital Signs/I&O 10/10/21 10/10/21 10/10/21 12:25 12:25 12:25 Temp 36.4 36.4 36.4 Pulse 68 68 68 Resp 18 18 18 B/P (MAP) 133/83 (100) 133/83 (100) 133/83 Pulse Ox 97 97 97 O2 Delivery Room Air Room Air Room Air Progress Progress Note : Progress Note Patient's head CT is negative for any acute intercranial pathology. He does have a scalp hematoma along with a abrasion left elbow. Patient stable and discharged back to the nursing Diagnostic Imaging Diagonstic Imaging: CT Plain Films/CT/US/NM/MRI: head Comments Date of Exam:10/10/21 CT HEAD WO PROCEDURE: CT head without contrast. TECHNIQUE: Multiple contiguous axial images were obtained through the brain without the use of intravenous contrast. Auto Exposure Controls were utilized during the CT exam to meet ALARA standards for radiation dose reduction. INDICATION: Fall, abrasions, pain Compared with head CT 12/19/2019. FINDINGS: Left paramedian posterior scalp swelling and edema noted. Underlying calvarium intact. No skull fracture. There is no hemorrhage. There are no acute or abnormal extra-axial fluid collections. This patient has chronic atrophy and white matter disease as well as atherosclerotic vascular calcifications. No focal or generalized cerebral edema. No findings to suggest an elevation of the intracranial pressures. There is no hemo-sinus. No fracture demonstrated. IMPRESSION: Left paramedian posterior scalp injury with no fracture or intracerebral hemorrhage. Stable chronic senescent findings in the brain. Reviewed: Reviewed/Discussed Diagonstic Imaging: Xray Comments Draft Date of Exam:10/10/21 ELBOW 3 VIEW LEFT INDICATION: Left elbow pain. FINDINGS: Three views of the left elbow show no fracture, dislocation, or pathologic effusion. IMPRESSION: Negative left elbow. Reviewed: Reviewed by Me, Reviewed/Discussed Departure Impression Primary Impression: Hematoma of scalp Qualified Codes: S00.03XA - Contusion of scalp, initial encounter Additional Impressions: Abrasion of left elbow, initial encounter Fall Qualified Codes: W19.XXXA - Unspecified fall, initial encounter Disposition: HOME, SELF-CARE Condition: Stable Departure-Patient Inst. Referrals: BRUCE BUTLER MD (PCP) Primary Care Physician Patient Instructions: Closed Head Injury (DC), Preventing Falls in Older Adults, Wound Care ED Add. Discharge Instructions: Keep abrasion/minor laceration on left elbow clean and covered. You may clean with warm soapy water Tylenol ibuprofen as needed for headache or other discomfort from fall POOJA MA DO Oct 10, 2021 12:32
--- NOTE | 2021-10-10 13:11 | Diagnostic Imaging Report ---
INDICATION: Left elbow pain. FINDINGS: Three views of the left elbow show no fracture, dislocation, or pathologic effusion. IMPRESSION: Negative left elbow. Dictated by: Dictated on workstation # [id number]
--- NOTE | 2021-10-10 13:12 | Diagnostic Imaging Report ---
PROCEDURE: CT head without contrast. TECHNIQUE: Multiple contiguous axial images were obtained through the brain without the use of intravenous contrast. Auto Exposure Controls were utilized during the CT exam to meet ALARA standards for radiation dose reduction. INDICATION: Fall, abrasions, pain Compared with head CT 12/19/2019. FINDINGS: Left paramedian posterior scalp swelling and edema noted. Underlying calvarium intact. No skull fracture. There is no hemorrhage. There are no acute or abnormal extra-axial fluid collections. This patient has chronic atrophy and white matter disease as well as atherosclerotic vascular calcifications. No focal or generalized cerebral edema. No findings to suggest an elevation of the intracranial pressures. There is no hemo-sinus. No fracture demonstrated. IMPRESSION: Left paramedian posterior scalp injury with no fracture or intracerebral hemorrhage. Stable chronic senescent findings in the brain. Dictated by: Dictated on workstation # [id number]
== END 2021-10-10 14:06 | disposition home or self-care (01) ==
LOC: EDUNIT# 12:24 → ER FS 12:25
DX: S00.03XA Contusion of scalp, initial encounter (principal); S50.312A Abrasion of left elbow, initial encounter; W01.198A Fall on same level from slipping, tripping and stumbling with subsequent striking against other object, initial encounter; Y92.129 Unspecified place in nursing home as the place of occurrence of the external cause
CPT/HCPCS: 70450; 73080

== ENCOUNTER 2021-10-14 15:48 | Emergency (ER) | payer MEDICARE, MEDICAID ==
[~2021-10-14] VITALS: Ht 167.7 cm; Wt 117.9 kg
[2021-10-14 16:13] LABS: BASOPHILS % (AUTO) 1 % (0-10); EOSINOPHILS # (AUTO) 0.1 10^3/uL (0.0-0.3); EOSINOPHILS % (AUTO) 1 % (0-10); HEMATOCRIT 38 % (40-54); HEMOGLOBIN 13.4 g/dL (13.3-17.7); LYMPHOCYTES # (AUTO) 1.4 10^3/uL (1.0-4.0); LYMPHOCYTES % (AUTO) 16 % (12-44); MEAN CORPUSCULAR HEMOGLOBIN 30 pg (25-34); MEAN CORPUSCULAR HGB CONC 35 g/dL (32-36); MEAN CORPUSCULAR VOLUME 84 fL (80-99); MEAN PLATELET VOLUME 8.4 fL (9.0-12.2); MONOCYTES # (AUTO) 0.9 10^3/uL (0.0-1.0); MONOCYTES % (AUTO) 10 % (0-12); NEUTROPHILS # (AUTO) 6.3 10^3/uL (1.8-7.8); NEUTROPHILS % (AUTO) 72 % (42-75); PLATELET COUNT 262 10^3/uL (130-400); WHITE BLOOD COUNT 8.7 10^3/uL (4.3-11.0)
[2021-10-14] MEDS ORDERED: NS IV 1000 ML 1,000 ML IV SCH ×2 (16:30→16:45)
[2021-10-14 16:36] LABS: BILIRUBIN,URINE NEGATIVE (NEGATIVE); CLARITY,URINE CLEAR; COLOR,URINE YELLOW; GLUCOSE, URINE (UA) NEGATIVE (NEGATIVE); KETONES,URINE NEGATIVE (NEGATIVE); LEUKOCYTE ESTERASE ,URINE NEGATIVE (NEGATIVE); NITRITE,URINE NEGATIVE (NEGATIVE); PROTEIN,URINE NEGATIVE (NEGATIVE)
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
[2021-10-14] MEDS ORDERED: POTASSIUM CL 10MEQ/50ML IVPB 50 ML IV ONE (16:45)
--- NOTE | 2021-10-14 17:10 | Diagnostic Imaging Report ---
PROCEDURE: CT head and CT cervical spine without contrast. TECHNIQUE: Multiple contiguous axial images were obtained through the brain and cervical spine without the use of intravenous contrast. Sagittal and coronal reformations through the cervical spine were then performed. Auto Exposure Controls were utilized during the CT exam to meet ALARA standards for radiation dose reduction. DATE: October 14, 2021. COMPARISON: CT head October 10, 2021. INDICATION: 61-year-old male, multiple falls. Slurred speech. FINDINGS: There are motion limitations of the exam. There is no identified skull fracture. There is mild proportional prominence of the ventricles and additional CSF spaces consistent with mild cerebral volume loss. There is mild stranding in the left parietal scalp which may reflect areas of soft tissue contusion/small hematoma. There is no mass effect or midline shift. There is no acute intracranial hemorrhage. There is no abnormal extra-axial fluid collection. There are probable findings of chronic small vessel ischemic disease. There is no identified air-fluid level in the paranasal sinuses. The mastoid air cells and middle ears are well-aerated. There is no identified facet joint subluxation or dislocation. There is no asymmetric widening of the cervical disc spaces. There is no prominent prevertebral soft tissue swelling. There is moderate disc height loss at C4-C5 and C5-C6. There is moderate to severe disc height loss at C6-C7. There are posterior disc osteophyte complexes at these levels. There are flowing anterior osteophytes spanning from C4 through C6. CT is limited for assessment of disc pathology as well as additional non-bony causes of pathology in the spinal canal. There are bilateral normal variant ponticulus posticus. There is no identified acute fracture of the cervical spine. Very limited evaluation of the imaged portions of the lung apices is unremarkable. There are bilateral carotid vascular calcifications. IMPRESSION: 1. No identified acute intracranial abnormality. 2. No identified acute fracture of the cervical spine. 3. Multilevel disc degenerative changes of the cervical spine, as described above. Dictated by: Dictated on workstation # [id number]
--- NOTE | 2021-10-14 17:10 | Diagnostic Imaging Report ---
EXAMINATION: Chest radiograph, portable AP view. DATE: 10/14/2021 5:04 PM INDICATION: 61-year-old male, multiple falls, slurred speech COMPARISON: April 11, 2019. FINDINGS: Lung volumes are low. Heart size and mediastinal contours are grossly unchanged given the low lung volumes. There is no identified pneumothorax. There is no large pleural effusion. There is no identified interval focal airspace consolidation. There is right glenohumeral arthritis. IMPRESSION: 1. Low lung volumes without identified acute cardiopulmonary abnormality. Dictated by: Dictated on workstation # [id number]
--- NOTE | 2021-10-14 18:54 | Diagnostic Imaging Report ---
EXAMINATION: Pelvis, single view. Right hip, 2 additional views. Left hip, 2 additional views. COMPARISON: None. HISTORY: 61-year-old male, pelvic and hip pain. Multiple falls. FINDINGS: The pubic symphysis and sacroiliac joints are normally aligned. The hips are not dislocated. There are degenerative changes of the lower lumbar spine. There are pelvic calcifications compatible with phleboliths. There is no pronounced joint space loss of either hip. There is no identified acute fracture. IMPRESSION: 1. No identified acute bony abnormality of the pelvis or either hip. Dictated by: Dictated on workstation # [id number]
[2021-10-14 19:00] VITALS: BP 109/70
[2021-10-14 20:56] LABS: BACTERIA,URINE NEGATIVE /HPF; SQUAMOUS EPITHELIAL CELL,UR RARE /HPF; WBC,URINE RARE /HPF
[2021-10-14 20:58] LABS: AMPHETAMINE SCREEN, URINE NEGATIVE (NEGATIVE); BARBITURATE SCREEN URINE NEGATIVE (NEGATIVE); BENZODIAZEPINES SCREEN URINE POSITIVE (NEGATIVE); CANNABINOID SCREEN, URINE NEGATIVE (NEGATIVE); COCAINE SCREEN URINE NEGATIVE (NEGATIVE); METHADONE STAT NEGATIVE (NEGATIVE); OPIATE SCREEN URINE NEGATIVE (NEGATIVE); OXYCODONE STAT NEGATIVE (NEGATIVE); PROPOXYPHENE STAT NEGATIVE (NEGATIVE); TRICYCLIC ANTIDEPRESSANTS SCRE NEGATIVE (NEGATIVE)
[2021-10-14 20:59] LABS: BILIRUBIN,TOTAL 0.7 MG/DL (0.1-1.0); CALCIUM 8.9 MG/DL (8.5-10.1); CREATININE SERUM 1.37 MG/DL (0.60-1.30); MAGNESIUM 2.1 MG/DL (1.6-2.4)
[2021-10-14 21:00] LABS: ALBUMIN 3.8 GM/DL (3.2-4.5); TOTAL PROTEIN 6.8 GM/DL (6.4-8.2)
== END 2021-10-14 19:01 | disposition home or self-care (01) ==
LOC: EDUNIT# 15:48 → ER FS 15:50
DX: E86.0 Dehydration (principal); E66.9 Obesity, unspecified; Z68.41 Body mass index [BMI] 40.0-44.9, adult; Z91.89 Other specified personal risk factors, not elsewhere classified
CPT/HCPCS: 36415; 70450; 71045; 72125; 73521; 80053; 80306; 81000; 83735; 85025; 86141; 99284; G0480; 80320

== ENCOUNTER → 2021-12-10 | Outpatient (CLI) | payer MEDICARE, MEDICAID ==
[2021-12-10 17:20] LABS: HEMATOCRIT 36 % (40-54); HEMOGLOBIN 12.4 g/dL (13.3-17.7); MEAN CORPUSCULAR HEMOGLOBIN 29 pg (25-34); MEAN CORPUSCULAR HGB CONC 35 g/dL (32-36); MEAN CORPUSCULAR VOLUME 85 fL (80-99); MEAN PLATELET VOLUME 8.3 fL (9.0-12.2); PLATELET COUNT 292 10^3/uL (130-400); WHITE BLOOD COUNT 8.7 10^3/uL (4.3-11.0)
[2021-12-10 17:36] LABS: POTASSIUM 3.9 MMOL/L (3.6-5.0)
[2021-12-10 17:37] LABS: ALBUMIN 3.2 GM/DL (3.2-4.5); BILIRUBIN,TOTAL 0.3 MG/DL (0.1-1.0); CALCIUM 8.6 MG/DL (8.5-10.1); CREATININE SERUM 0.88 MG/DL (0.60-1.30)
[2021-12-10 21:20] LABS: ERYTHROCYTE SEDIMENTATION RATE 20 MM/HR (0-30)
[2021-12-11 15:06] LABS: FREE T4 (FREE THYROXINE) 1.01 NG/DL (0.70-1.48)
== END ==
PROVIDERS: ATTEND Emergency Medicine
DX: E03.9 Hypothyroidism, unspecified (principal); E11.9 Type 2 diabetes mellitus without complications; F31.9 Bipolar disorder, unspecified; I10 Essential (primary) hypertension; G30.9 Alzheimer's disease, unspecified
CPT/HCPCS: 80053; 84439; 84443; 85027; 85652; 86141

== ENCOUNTER 2022-01-07 19:15 | Inpatient (IN) | payer MEDICARE, MEDICAID ==
[~2022-01-07] VITALS: Ht 182 cm; Wt 84.3 kg
[2022-01-07] MEDS ORDERED: NS IV 1000 ML 1,000 ML IV STA (19:18)
--- NOTE | 2022-01-07 19:20 | ED General ---
General Stated Complaint: DECREASED APPITITE History of Present Illness Date Seen by Provider: Jan 07, 2022 Time Seen by Provider: 19:20 Initial Comments 61-year-old male sent in from the [facility] for low sodium. Patient has not had an appetite for the last couple days and not eating so they were worried about him so they checked his labs. His sodium came back at 121. Patient himself denies any complaints and states that he is fine. He denies any fever, chills nausea vomiting sore throat cough. Patient reports that he has not been eating because he is just not hungry. No other systemic complaints. Allergies and Home Medications Allergies Coded Allergies: No Known Drug Allergies (Unverified , 04/11/19) Patient Home Medication List Home Medication List Reviewed: Yes Amoxicillin/Potassium Clav (Augmentin 875-125 Tablet) 1 Each Tablet, 1 EACH PO BID Prescribed by: EULALIA CLEMENTS on 04/14/19 0844 Aspirin (Aspir 81) 81 Mg Tablet.dr, 81 MG PO DAILY, (Reported) Entered as Reported by: ERASMO QUEEN on 04/12/191817 Atenolol (Tenormin 100 Mg) 100 Mg Tablet, (Reported) Entered as Reported by: HOMER STREETER on 09/20/08 2211 Atorvastatin Calcium (Atorvastatin Calcium) 40 Mg Tablet, 40 MG PO DAILY, (Reported) Entered as Reported by: ERASMO QUEEN on 04/12/191817 Benztropine Mesylate (Benztropine Mesylate) 0.5 Mg Tablet, 0.5 MG PO HS, (Reported) Entered as Reported by: ERASMO QUEEN on 04/12/191817 Bupropion HCl (Bupropion HCl) 100 Mg Tablet, 300 MG PO DAILY, (Reported) Entered as Reported by: ERASMO QUEEN on 04/12/191817 Bupropion HCl (Bupropion Xl) 150 Mg Tab.er.24h, 150 MG PO DAILY, (Reported) Entered as Reported by: ERASMO QUEEN on 04/12/191844 Chlorhexidine Gluconate (Chlorhexidine Gluconate) 473 Ml Mouthwash, 30 ML MM BID, (Reported) Entered as Reported by: ERASMO QUEEN on 04/12/191844 Clonidine HCl (Clonidine HCl) 0.1 Mg Tablet, 0.1 MG PO BID, (Reported) Entered as Reported by: ERASMO QUEEN on 04/12/191817 Clopidogrel Bisulfate (Plavix) 75 Mg Tablet, 75 MG PO DAILY, (Reported) Entered as Reported by: ERASMO QUEEN on 04/12/191817 Cyanocobalamin (Vitamin B-12) (B-12) 1,000 Mcg Tablet, 1,000 MCG PO DAILY, (Reported) Entered as Reported by: ERASMO QUEEN on 04/12/191817 Donepezil HCl (Donepezil HCl) 10 Mg Tablet, 10 MG PO HS, (Reported) Entered as Reported by: ERASMO QUEEN on 04/12/191817 Escitalopram Oxalate (Escitalopram Oxalate) 10 Mg Tablet, 10 MG PO DAILY, (Reported) Entered as Reported by: ERASMO QUEEN on 04/12/191830 Finasteride (Finasteride) 5 Mg Tablet, 5 MG PO DAILY Prescribed by: EULALIA CLEMENTS on 04/14/19 0844 Fluticasone/Salmeterol (Advair 100-50 Diskus) 1 Each Blst.w.dev, 1 EACH IH BID, (Reported) Entered as Reported by: ERASMO QUEEN on 04/12/191830 Folic Acid (Folic Acid) 1 Mg Tablet, 5 MG PO DAILY, (Reported) Entered as Reported by: ERASMO QUEEN on 04/12/191817 Ipratropium/Albuterol Sulfate (Iprat-Albut 0.5-3(2.5) mg/3 ml) 3 Ml Ampul.neb, 3 ML IH Q6H PRN for SHORTNESS OF BREATH, (Reported) Entered as Reported by: ERASMO QUEEN on 04/12/191829 Levothyroxine Sodium (Levothyroxine Sodium) 75 Mcg Tablet, 75 MCG PO HS, (Reported) Entered as Reported by: ERASMO QUEEN on 04/12/191817 Lisinopril (Zestril) 10 Mg Tablet, (Reported) Entered as Reported by: ROMELIA DAN on 04/18/091822 Lisinopril (Lisinopril) 40 Mg Tablet, 40 MG PO DAILY, (Reported) Entered as Reported by: ERASMO QUEEN on 04/12/191817 Loratadine (Claritin) 10 Mg Tablet, 10 MG PO DAILY, (Reported) Entered as Reported by: ERASMO QUEEN on 04/12/191825 Lorazepam (Ativan) 1 Mg Tablet, 1 MG PO BID, (Reported) Entered as Reported by: ERASMO QUEEN on 04/12/191817 Lurasidone HCl (Latuda) 120 Mg Tablet, 120 MG PO DAILY, (Reported) Entered as Reported by: ERASMO QUEEN on 04/12/191817 Metoprolol Succinate (Metoprolol Succinate) 50 Mg Tab.er.24h, 50 MG PO BID, (Reported) Entered as Reported by: ERASMO QUEEN on 04/12/191817 Naltrexone HCl (Naltrexone HCl) 50 Mg Tablet, 50 MG PO DAILY, (Reported) Entered as Reported by: ERASMO QUEEN on 04/12/191817 Pantoprazole Sodium (Pantoprazole Sodium) 40 Mg Tablet.dr, 40 MG PO DAILY, (Reported) Entered as Reported by: ERASMO QUEEN on 04/12/191817 Phenazopyridine HCl (Phenazopyridine HCl) 100 Mg Tablet, 100 MG PO TIDPC Prescribed by: EULALIA CLEMENTS on 04/14/19843 Pilocarpine HCl (Pilocarpine HCl) 5 Mg Tablet, 5 MG PO QID, (Reported) Entered as Reported by: ERASMO QUEEN on 04/12/191817 Polyethylene Glycol 3350 (Miralax) 17 Gm Powd.pack, 17 GM PO DAILY, (Reported) Entered as Reported by: ERASMO QUEEN on 04/12/191817 Tamsulosin HCl (Flomax) 0.4 Mg Cap, 0.4 MG PO DAILY@1800 Prescribed by: EULALIA CLEMENTS on 04/14/19843 Terazosin HCl (Terazosin HCl) 2 Mg Capsule, 2 MG PO DAILY, (Reported) Entered as Reported by: ERASMO QUEEN on 04/12/191817 Tramadol HCl (Tramadol HCl) 50 Mg Tablet, 100 MG PO BID, (Reported) Entered as Reported by: ERASMO QUEEN on 04/12/191829 Triamcinolone Acet (Triamcinolone Acetonide 0.1% Cream) 15 Gm Cr, 1 APPLIC TP BID PRN for ITCHING, (Reported) Entered as Reported by: ERASMO QUEEN on 04/12/191830 Review of Systems Review of Systems Constitutional: No chills, No fever EENTM: no symptoms reported Respiratory: no symptoms reported Cardiovascular: no symptoms reported Gastrointestinal: loss of appetite Genitourinary: no symptoms reported Musculoskeletal: no symptoms reported Skin: no symptoms reported Psychiatric/Neurological: No Symptoms Reported Past Ubktohr-Fnmxjr-Yjqqcv Hx Immunizations Up To Date Tetanus Booster (TDap): Less than 5yrs PED Vaccines UTD: Yes Past Medical History Surgeries: Yes Cardiac Respiratory: Yes COPD Cardiac: Yes (STENTS X2 ) High Cholesterol Neurological: No Genitourinary: Yes Renal Failure Gastrointestinal: Yes Gall Bladder Disease Musculoskeletal: Yes (BULGING DISCS L 3-4) Chronic Back Pain Endocrine: Yes Diabetes, Non-Insulin dep HEENT: No Cancer: No Psychosocial: Yes (ETOH CONSUMPTION) Sleep Difficulties, Anxiety, Bipolar, Depression Integumentary: No Adverse Reaction/Blood Tranf: No Physical Exam Vital Signs Vital Signs - First Documented 01/07/22 19:15 Temp 36.7 Pulse 107 Resp 18 B/P (MAP) 135/80 (98) Pulse Ox 96 O2 Delivery Room Air Capillary Refill : Height, Weight, BMI Height: '" Weight: lbs. oz. kg; 41.00 BMI Method: General Appearance: WD/WN Eyes: Bilateral Eye Normal Inspection, Bilateral Eye PERRL HEENT: Pharynx Normal Respiratory: Lungs Clear, Normal Breath Sounds Cardiovascular: Regular Rate, Rhythm, No Edema Gastrointestinal: Non Tender, Soft Extremity: Normal Capillary Refill, No Pedal Edema Neurologic/Psychiatric: Alert, No Motor/Sensory Deficits, Normal Mood/Affect Skin: Normal Color, Warm/Dry Progress/Results/Core Measures Suspected Sepsis SIRS Temperature: Pulse: Respiratory Rate: Laboratory Tests 01/07/22 19:17: White Blood Count 11.8H Blood Pressure / Mean: Laboratory Tests 01/07/22 19:17: Creatinine 0.73, Platelet Count 210 Results/Orders Lab Results Laboratory Tests Test 01/07/22 19:17 Range/Units White Blood Count 11.8 H 4.3-11.0 10^3/uL Red Blood Count 4.59 4.30-5.52 10^6/uL Hemoglobin 13.2 L 13.3-17.7 g/dL Hematocrit 37 L 40-54 % Mean Corpuscular Volume 80 80-99 fL Mean Corpuscular Hemoglobin 29 25-34 pg Mean Corpuscular Hemoglobin Concent 36 32-36 g/dL Red Cell Distribution Width 13.9 10.0-14.5 % Platelet Count 210 130-400 10^3/uL Mean Platelet Volume 7.9 L 9.0-12.2 fL Sodium Level 119 *L 135-145 MMOL/L Potassium Level 3.2 L 3.6-5.0 MMOL/L Chloride Level 83 L 98-107 MMOL/L Carbon Dioxide Level 23 21-32 MMOL/L Anion Gap 13 5-14 MMOL/L Blood Urea Nitrogen 3 L 7-18 MG/DL Creatinine 0.73 0.60-1.30 MG/DL Estimat Glomerular Filtration Rate 104 BUN/Creatinine Ratio 4 Glucose Level 159 H 70-105 MG/DL Calcium Level 8.6 8.5-10.1 MG/DL My Orders Orders - MA,POOJA L DO Ns Iv 1000 Ml (Sodium Chloride 0.9%) (01/07/22 19:18) Basic Metabolic Panel (01/07/22 19:18) Cbc No Diff (01/07/22 19:18) Magnesium (01/07/22 19:53) Ua Culture If Indicated (01/07/22 19:53) Influenza A And B By Pcr (01/07/22 19:53) Covid 19 Inhouse Test (01/07/22 19:53) Vital Signs/I&O 01/07/22 19:15 Temp 36.7 Pulse 107 Resp 18 B/P (MAP) 135/80 (98) Pulse Ox 96 O2 Delivery Room Air Capillary Refill : Progress Note : Progress Note Patient with hyponatremia from unknown cause. Patient stable on physical exam. He will be admitted to Dr. Clements [facility] for observation and IV fluids. Patient was stable upon transfer Departure Impression Primary Impression: Hyponatremia Disposition: 30 STILL A PATIENT Condition: Stable Admissions Decision to Admit/Date: Jan 07, 2022 Time/Decision to Admit Time: 19:57 Departure-Patient Inst. Referrals: TERI HERNANDEZ DO (PCP/Family) Primary Care Physician POOJA MA DO Jan 07, 2022 19:20
[2022-01-07 19:31] LABS: HEMATOCRIT 37 % (40-54); HEMOGLOBIN 13.2 g/dL (13.3-17.7); MEAN CORPUSCULAR HEMOGLOBIN 29 pg (25-34); MEAN CORPUSCULAR HGB CONC 36 g/dL (32-36); MEAN CORPUSCULAR VOLUME 80 fL (80-99); MEAN PLATELET VOLUME 7.9 fL (9.0-12.2); PLATELET COUNT 210 10^3/uL (130-400); WHITE BLOOD COUNT 11.8 10^3/uL (4.3-11.0)
[2022-01-07 19:41] LABS: POTASSIUM 3.2 MMOL/L (3.6-5.0)
[2022-01-07 19:42] LABS: CALCIUM 8.6 MG/DL (8.5-10.1); CREATININE SERUM 0.73 MG/DL (0.60-1.30)
[2022-01-07 22:12] LABS: BILIRUBIN,URINE NEGATIVE (NEGATIVE); CLARITY,URINE CLEAR; COLOR,URINE YELLOW; GLUCOSE, URINE (UA) NEGATIVE (NEGATIVE); KETONES,URINE NEGATIVE (NEGATIVE); LEUKOCYTE ESTERASE ,URINE NEGATIVE (NEGATIVE); NITRITE,URINE NEGATIVE (NEGATIVE); PROTEIN,URINE NEGATIVE (NEGATIVE)
[2022-01-07 22:17] LABS: BACTERIA,URINE NEGATIVE /HPF; WBC,URINE RARE /HPF
[2022-01-07] MEDS ORDERED: NS IV 1000 ML 1,000 ML IV SCH (23:45)
[2022-01-07] MEDS ORDERED: morphine INJ 4 MG/ML 1 ML (VIAL/SYRINGE) IV PRN (23:45)
[2022-01-07] MEDS ORDERED: LORazepam 0.5 MG (ATIVAN) TABLET PO PRN (23:45)
[2022-01-07] MEDS ORDERED: polyethylene glycoL POWDER 17 GM (MIRALAX) PACK PO PRN (23:45)
[2022-01-07] MEDS ORDERED: MELATONIN 3 MG TABLET PO PRN (23:45)
[2022-01-07] MEDS ORDERED: cloNIDine 0.1 MG (CATAPRES) TAB PO PRN (23:45)
[2022-01-07] MEDS ORDERED: LORazepam INJ 2 MG/ML (ATIVAN) VIAL IVP PRN (23:45)
[2022-01-07] MEDS ORDERED: ONDANSETRON 4 MG (ZOFRAN) ORAL DISSOLVE TAB PO PRN (23:45)
[2022-01-07] MEDS ORDERED: diphenhydrAMINE 50 MG/ML INJ (BENADRYL) IVP PRN (23:45)
[2022-01-07] MEDS ORDERED: BISACODYL 10 MG SUPP (DULCOLAX) PR PRN (23:45)
[2022-01-07] MEDS ORDERED: ANTACID SUSP 30 ML UDC (MYLANTA) PO PRN (23:45)
[2022-01-07] MEDS ORDERED: diphenhydrAMINE 25 MG TAB (BENADRYL) PO PRN (23:45)
[2022-01-08 00:07] VITALS: BP 135/80
[2022-01-08] MEDS ORDERED: RT-ALBUTEROL/IPRATROPIUM 3 ML (DUONEB) VIAL INH PRN (00:15)
[2022-01-08] MEDS: ENOXAPARIN 40 MG/0.4 ML (LOVENOX) SYR SC SCH (01:18)
[2022-01-08 04:25] VITALS: BP 156/99
[2022-01-08] MEDS ORDERED: NS IV 500 ML 500 ML IV PRN (04:30)
[2022-01-08 04:31] LABS: BASOPHILS % (AUTO) 0 % (0-10); EOSINOPHILS # (AUTO) 0.1 10^3/uL (0.0-0.3); EOSINOPHILS % (AUTO) 0 % (0-10); HEMATOCRIT 38 % (40-54); HEMOGLOBIN 13.5 g/dL (13.3-17.7); LYMPHOCYTES # (AUTO) 1.2 10^3/uL (1.0-4.0); LYMPHOCYTES % (AUTO) 8 % (12-44); MEAN CORPUSCULAR HEMOGLOBIN 29 pg (25-34); MEAN CORPUSCULAR HGB CONC 35 g/dL (32-36); MEAN CORPUSCULAR VOLUME 81 fL (80-99); MONOCYTES # (AUTO) 1.2 10^3/uL (0.0-1.0); MONOCYTES % (AUTO) 8 % (0-12); NEUTROPHILS % (AUTO) 82 % (42-75); PLATELET COUNT 212 10^3/uL (130-400); WHITE BLOOD COUNT 14.6 10^3/uL (4.3-11.0)
[2022-01-08 04:50] LABS: BUN/CREATININE RATIO 4; CALCIUM 8.5 MG/DL (8.5-10.1); CARBON DIOXIDE 18 MMOL/L (21-32); CHLORIDE 90 MMOL/L (98-107); CREATININE SERUM 0.79 MG/DL (0.60-1.30); GFR ESTIMATED 102; GLUCOSE 157 MG/DL (70-105); MAGNESIUM 1.5 MG/DL (1.6-2.4); PHOSPHORUS 2.7 MG/DL (2.3-4.7); POTASSIUM 3.5 MMOL/L (3.6-5.0)
[2022-01-08 04:56] LABS: LYMPHOCYTES % (MANUAL) 5 %; MONOCYTES % (MANUAL) 3 %; NEUTROPHILS % (MANUAL) 92 %; RBC MORPH NORMAL; TOXIC GRANULATION/VACUOLAZATIO 2+
[2022-01-08] MEDS ORDERED: MAGNESIUM 1 GM/100 ML IVPB 200 ML IV ONE (04:57)
[2022-01-08] MEDS ORDERED: POTASSIUM CL 10MEQ/50ML IVPB 100 ML IV ONE (04:57)
[2022-01-08 05:00] LABS: SODIUM 123 MMOL/L (135-145)
[2022-01-08] MEDS: MAGNESIUM 1 GM/100 ML IVPB 100 ML IV SCH ×3 (05:17→07:30)
[2022-01-08] MEDS: POTASSIUM CL 10MEQ/50ML IVPB 50 ML IV SCH ×3 (05:18→07:30)
[2022-01-08] MEDS: ACETAMINOPHEN 325 MG TABLET PO PRN (05:23)
[2022-01-08] MEDS: ONDANSETRON 4 MG/2 ML (SDV) Z0FRAN IV PRN (05:23)
[2022-01-08] MEDS ORDERED: LACTATED RINGERS 1,000 ML IV ONE (05:29)
[2022-01-08] MEDS ORDERED: LACTATED RINGERS 1,000 ML IV SCH (05:30)
[2022-01-08] MEDS: KCL 20 MEQ TAB (K-DUR) PO SCH (07:00)
--- NOTE | 2022-01-08 08:00 | Physical Therapy Progress Note ---
Therapy Progress Note Patient on hold for today due to medical complications. Will await new orders to continue when appropriate. MARIANO SNELL PT Jan 08, 2022 08:00
[2022-01-08] MEDS: DOCUSATE SODIUM 100 MG (COLACE) CAP PO SCH ×2 (09:00→21:26)
--- NOTE | 2022-01-08 09:21 | History & Physical-Hospitalist ---
LINA RAMIREZ A MED STUDENT 01/08/22 0921: History of Present Illness HPI/Chief Complaint Doris is a 61 yo male [place] [facility] resident who presented on 01/07 for hyponatremia. Pt has extensive past medical hx of dementia, HTN, COPD, cardiac stent x2, CKD 3, T2DM non insulin dependent, bipolar depression, chronic back pain and hx of ETOH consumption. Pt initially reports he felt fine yesterday, but was brought in by the [place] [facility] which is [facility]. Pt is alert and oriented to self and place, but unsure of date/time. He reports today that he has had nausea for some time now and has not eaten in several days. He reports nothing sounds appetizing and he wont eat food that he doesn't like. Last BM was "a couple of days ago", but he later reported he hasn't eaten enough to even have a BM in awhile. He does not follow up with a analytics lead and he was supposed to f/u with a hearing specialist, but missed the appt. Pt reports nausea, heart burn, chronic left leg pain, SOA, sweating. Denies fever, chills, CP, weakness/numbness, diarrhea or vomiting. Source: patient, [place] [facility] records Exam Limitations: other (dementia) Date Seen 01/08/22 Time Seen by a Provider: 08:15 Attending Physician Saad Grider DO PCP Admitting Physician: Lizet Schmitz DO Attending Physician: Andreina Alejandra MD Referring Physician Date of Admission Jan 07, 2022 at 23:35 Home Medications & Allergies Home Medications Reviewed patient Home Medication Reconciliation performed by pharmacy medication reconciliations bioinformatics technician and/or nursing. Patients Allergies have been reviewed. Allergies Allergies Coded Allergies No Known Drug Allergies (Unverified04/11/19) Past Ixcgiwb-Hrafts-Zhlwtw Hx Patient Social History Tobacco Use?: No Smoking Status: Former Smoker Smokeless Tobacco Frequency: Never a User Use of E-Cig and/or Vaping dev: No Substance use?: No Alcohol Use?: Yes Alcohol type: Hard Liquor Alcohol Frequency: Daily Pt feels they are or have been: No Immunizations Up To Date Date of Influenza Vaccine: Dec 17, 2021 Tetanus Booster (TDap): Less Than 5 Years PED Vaccines UTD: Yes Current Status Advance Directives: No Communicates: Verbally Primary Language: Kenyan Preferred Spoken Language: Kenyan Is interpretation needed?: No Sensory deficits: Vision impairment Past Medical History Surgeries: Cardiac COPD High Cholesterol Renal Failure Gall Bladder Disease Chronic Back Pain Diabetes, Non-Insulin dep Sleep Difficulties, Anxiety, Bipolar, Depression Adverse Reaction/Blood Tranf: No Review of Systems Constitutional: No chills; diaphoresis; No fever EENTM: No blurred vision, No double vision Respiratory: short of breath; No wheezing Cardiovascular: No chest pain; Hx of Intervention, palpitations Gastrointestinal: abdominal pain; No constipation, No diarrhea; loss of appetite, nausea; No vomiting Genitourinary: No dysuria, No frequency Musculoskeletal: back pain, other (left leg pain that radiates into back) Skin: No lesions, No lumps, No rash Psychiatric/Neurological: Denies Headache, Denies Numbness; Tremors; Denies Weakness Physical Exam Physical Exam Vital Signs Vital Signs - First Documented 01/07/22 01/08/22 19:15 00:07 Temp 36.7 Pulse 107 Resp 18 B/P (MAP) 135/80 (98) Pulse Ox 96 O2 Delivery Room Air FiO2 21 Capillary Refill : Less Than 3 Seconds Height, Weight, BMI Height: '" Weight: lbs. oz. kg; 23.06 BMI Method: General Appearance: No Apparent Distress, Chronically ill HEENT: PERRL/EOMI, Other (dry mucous membranes with crusting around lips) Neck: Full Range of Motion, Normal Inspection Respiratory: Chest Non Tender, No Accessory Muscle Use, No Respiratory Distress, Crackles, Decreased Breath Sounds Cardiovascular: No Murmur, Tachycardia Gastrointestinal: Normal Bowel Sounds, Tenderness (diffuse) Back: Normal Inspection, No Vertebral Tenderness Extremity: Normal Capillary Refill, Normal Inspection, Non Tender, No Pedal Edema Neurologic/Psychiatric: Alert, Disoriented (oriented to self and place) Skin: Normal Color, Warm/Dry Lymphatic: No Adenopathy Results Results/Procedures Labs Laboratory Tests 01/07/22 19:17 01/08/22 04:22 01/08/22 10:51 Patient resulted labs reviewed. Assessment/Plan Admission Diagnosis Hyponatremia & SIRS Admission Status: Inpatient Order (span 2 midnights) Reason for Inpatient Admission: Hyponatremia Assessment and Plan Hyponatremia SIRS Hypokalemia Hypomagnesemia Tachycardia CKD 3 Chest pain Chronic back and left leg pain Diabetes-non insulin dependent COPD Hx of cardiac intervention Bipolar depression Hypothyroidism Dementia Chronic hyponatremia likely secondary to CKD 3 -q6h sodium checks -improving -consider urine and serum osmolality studies -Limit Na correction to 6-8mEq/L/day and monitor risk for osmotic demylenation syndrome -LR at 65ml/hr -Fluid restriction >1.5L/day -Encourage pt to eat three protein rich meals per day SIRS -Unknown source of infection, leukocytosis and tachycardia -UA and CXR wnl -Blood cultures pending - Hypokalemia -KCl protocol Hypomagnesemia -Mag sulf/dextrose Tachycardia -Cardiology consulted, appreciate their recs -They will order echo and continue telemetry CKD 3 -BUN 3 and Cr 0.79, unsure of baseline -will continue to monitor Chest pain -Ongoing for the last three months -troponin neg Chronic back and left leg pain -Oxycodone 5mg prn -MRI lumbar spine ordered by eICU Diabetes-non insulin dependent -SSI COPD -MAT protocol Hx of cardiac intervention Bipolar depression -Restart home meds once med rec has been completed Hypothyroidism -Restart home meds once med rec has been completed Dementia Disposition: Pt likely to stay 24-48 hours to correct Na and monitor tachycardia. Diet: Regular with Fluid restriction <1.5L day Code status: Full Code DVT ppx: SCDs GI ppx: Protonix ANDREINA ALEJANDRA MD 01/08/22 1822: Assessment/Plan Admission Diagnosis Hyponatremia Admission Status: Inpatient Order (span 2 midnights) Reason for Inpatient Admission: Sodium correction Assessment and Plan Admitted with hyponatremia. Slowly improving. Monitor closely. Also with SIRS+, septic workup initiated. UA and CXR negative for infection, but did show possible left lower lobe density. CT ordered and revealed extensive bone lesions and lymphadenopathy. Concern for metastatic malignancy, possibly prostate. Patient does not have capacity for medical decisions at this time. His guardian was updated. Critical Care Critically Ill Patient Diagnosis/Problems Diagnosis/Problems (1) Hyponatremia Status: Acute (2) Hypokalemia Status: Acute (3) Hypomagnesemia Status: Acute (4) HTN (hypertension) Status: Chronic (5) HLD (hyperlipidemia) Status: Chronic (6) GERD (gastroesophageal reflux disease) Status: Chronic (7) Hypothyroid (8) CAD (coronary artery disease) Status: Chronic (9) COPD (chronic obstructive pulmonary disease) Status: Chronic (10) T2DM (type 2 diabetes mellitus) Status: Chronic (11) Anxiety and depression Status: Chronic (12) Bipolar 1 disorder, depressed Status: Chronic (13) BPH (benign prostatic hyperplasia) Status: Chronic (14) Elevated alkaline phosphatase level Status: Acute (15) Mediastinal lymphadenopathy Status: Acute (16) Inguinal lymphadenopathy Status: Acute (17) Retroperitoneal lymphadenopathy Status: Acute (18) External iliac lymphadenopathy Status: Acute (19) Bone lesion Status: Acute Supervisory-Addendum Brief Verification & Attestation Participated in pt care: history, MDM, physical Personally performed: exam, history, MDM, supervision of care Care discussed with: Medical Student Procedures: n/a Results interpretation: Verified all documentation A medical student performed and documented this service in my presence. I reviewed and verified all information documented by the medical student and made modifications to such information, when appropriate. I personally performed the physical exam and medical decision making. LINA RAMIREZ MED STUDENT Jan 08, 2022 09:21 ANDREINA ALEJANDRA MD Jan 08, 2022 18:22
[2022-01-08] MEDS ORDERED: ASPIRIN 81 MG CHEW (CHILDREN'S ASA) PO ONE (09:30)
[2022-01-08] MEDS ORDERED: CLOPIDOGREL 75 MG (PLAVIX) TABLET PO ONE (09:30)
--- NOTE | 2022-01-08 09:31 | Consultation-Cardiology ---
HPI-Cardiology Cardiology Consultation: Date of Consultation 01/08/22 Time Seen by a Provider: 08:15 Date of Admission 01-07-22 Attending Physician Saad Grider DO Admitting Physician Admitting Physician: Lizet Clements DO Attending Physician: Andreina Mcdonald MD Consulting Physician Anil Cantrell MD HPI: Chief Complaint: Tachycardia Mr. Jensen is a 61 yr old male admitted to ICU 6 as a transfer from the 4th floor. He reports he has not felt well for several weeks. He reports no appetite, but he has has been very thirsty and drinking a lot of fluids. He states he has had episodes where he has felt his heart race at times. He reports last night he did feel his heart "acting up". He reports feeling weak at the time. He states he is feeling better today. No c/o CP. He reports he ambulates at the facility where he resides with a walker. He reports chronic left leg pain which has been present for several years. He states the discomfort radiates from his hip down. No c/o n/v/d. No c/o fever or chills. Review of Systems-Cardiology Review of Systems Constitutional: No chills, No fever; malaise Eyes: No vision change Ears/Nose/Throat: No epistaxis, No recent hearing loss Respiratory: As described under HPI Cardiovascular: As described under HPI Gastrointestinal: As described under HPI Genitourinary: No dysuria, No hematuria Skin: No rash on exposed areas, No ulcerations on exposed areas Psychiatric/Neurological: As described under HPI; No anxiety, No depression, No focal weakness, No syncope Hematologic: No bleeding abnormalities RAJ-Xhnlcr-Myvhhs Hx Patient Social History Smoking Status: Former Smoker Have you traveled recently?: No Alcohol Use?: Yes Pt feels they are or have been: No Immunizations Up To Date Tetanus Booster (TDap): Less than 5yrs Date of Influenza Vaccine: Dec 17, 2021 Past Medical History PMH As described under Assessment. Family Medical History Family Medical History: He reports his mother had CHF. He reports his father had CAD with CABG. Allergies and Home Medications Allergies Coded Allergies: No Known Drug Allergies (Unverified , 04/11/19) Patient Home Medication List Allopurinol (Allopurinol) 100 Mg Tablet, 100 MG PO DAILY, (Reported) Entered as Reported by: BRANDON ERVIN on 01/08/221025 Last Action: Reviewed Aspirin (Aspirin EC) 81 Mg Tablet.dr, 81 MG PO DAILY, (Reported) Entered as Reported by: BRANDON ERVIN on 01/08/221025 Last Action: Reviewed Atorvastatin Calcium (Atorvastatin Calcium) 40 Mg Tablet, 40 MG PO HS, (Reported) Entered as Reported by: ERASMO QUEEN on 04/12/191817 Last Action: Reviewed Benztropine Mesylate (Benztropine Mesylate) 1 Mg Tablet, 1 MG PO HS, (Reported) Entered as Reported by: BRANDON ERVIN on 01/08/221025 Last Action: Reviewed Bupropion HCl (Bupropion Xl) 300 Mg Tab.er.24h, 300 MG PO DAILY, (Reported) Entered as Reported by: BRANDON ERVIN on 01/08/221025 Last Action: Reviewed Chlorhexidine Gluconate (Chlorhexidine Gluconate) 0.12 % Mouthwash, 30 ML MM BID, (Reported) Entered as Reported by: ERASMO QUEEN on 04/12/191844 Last Action: Reviewed Cholecalciferol (Vitamin D3) (Vitamin D3) 125 Mcg (5000 Unit) Capsule, 125 MCG PO DAILY, (Reported) Entered as Reported by: BRANDON ERVIN on 01/08/221025 Last Action: Reviewed Clonidine HCl (Clonidine HCl) 0.1 Mg Tablet, 0.1 MG PO TID, (Reported) Entered as Reported by: ERASMO QUEEN on 04/12/191817 Last Action: Reviewed Clopidogrel Bisulfate (Plavix) 75 Mg Tablet, 75 MG PO DAILY, (Reported) Entered as Reported by: ERASMO QUEEN on 04/12/191817 Last Action: Reviewed Cyanocobalamin (Vitamin B-12) (B-12) 1,000 Mcg Tablet, 1,000 MCG PO DAILY, (Reported) Entered as Reported by: ERASMO QUEEN on 04/12/191817 Last Action: Reviewed Donepezil HCl (Donepezil HCl) 10 Mg Tablet, 10 MG PO HS, (Reported) Entered as Reported by: ERASMO QUEEN on 04/12/191817 Last Action: Reviewed Finasteride (Finasteride) 5 Mg Tablet, 5 MG PO DAILY, (Reported) Entered as Reported by: BRANDON ERVIN on 01/08/221025 Last Action: Reviewed Fluticasone/Salmeterol (Advair 100-50 Diskus) 1 Each Blst.w.dev, 1 EACH IH BID, (Reported) Entered as Reported by: ERASMO QUEEN on 04/12/191830 Last Action: Reviewed Furosemide (Furosemide) 20 Mg Tablet, 20 MG PO BID, (Reported) Entered as Reported by: BRANDON ERVIN on 01/08/221025 Last Action: Reviewed Ipratropium/Albuterol Sulfate (Iprat-Albut 0.5-3(2.5) mg/3 ml) 3 Ml Ampul.neb, 3 ML IH Q6H PRN for SHORTNESS OF BREATH, (Reported) Entered as Reported by: ERASMO QUEEN on 04/12/191829 Last Action: Reviewed Levothyroxine Sodium (Levothyroxine Sodium) 75 Mcg Tablet, 75 MCG PO DAILY, (Reported) Entered as Reported by: ERASMO QUEEN on 04/12/191817 Last Action: Reviewed Lisinopril (Lisinopril) 40 Mg Tablet, 40 MG PO DAILY, (Reported) Entered as Reported by: ERASMO QUEEN on 04/12/191817 Last Action: Reviewed Loratadine (Claritin) 10 Mg Tablet, 10 MG PO DAILY, (Reported) Entered as Reported by: ERASMO QUEEN on 04/12/191825 Last Action: Reviewed Lurasidone HCl (Latuda) 40 Mg Tablet, 40 MG PO HS, (Reported) Entered as Reported by: BRANDON ERVIN on 01/08/221025 Last Action: Reviewed Menthol (Biofreeze) 4 % Gel..ml., 1 APPLIC TP Q6H PRN for PAIN-BREAKTHROUGH, (Reported) Entered as Reported by: BRANDON ERVNI on 01/08/221025 Last Action: Reviewed Metoprolol Tartrate (Metoprolol Tartrate) 50 Mg Tablet, 50 MG PO BID, (Reported) Entered as Reported by: BRANDON ERVIN on 01/08/221025 Last Action: Reviewed Pantoprazole Sodium (Pantoprazole Sodium) 40 Mg Tablet.dr, 40 MG PO DAILY, (Reported) Entered as Reported by: ERASMO QUEEN on 04/12/191817 Last Action: Reviewed Pilocarpine (Salagen) 5 Mg Tab, 5 MG PO QID, (Reported) Entered as Reported by: BRANDON ERVIN on 01/08/221025 Last Action: Reviewed Polyethylene Glycol 3350 (Miralax) 17 Gm Powd.pack, 17 GM PO DAILY, (Reported) Entered as Reported by: ERASMO QUEEN on 04/12/191817 Last Action: Reviewed Potassium Chloride (Potassium Chloride) 20 Meq Tab.er.prt, 20 MEQ PO DAILY, (Reported) Entered as Reported by: BRANDON ERVIN on 01/08/221025 Last Action: Reviewed Tamsulosin HCl (Flomax) 0.4 Mg Cap, 0.4 MG PO HS, (Reported) Entered as Reported by: BRANDON ERVIN on 01/08/221025 Last Action: Reviewed Terazosin HCl (Terazosin HCl) 2 Mg Capsule, 2 MG PO DAILY, (Reported) Entered as Reported by: ERASMO QUEEN on 04/12/191817 Last Action: Reviewed Tramadol HCl (Tramadol HCl) 50 Mg Tablet, 100 MG PO Q6H PRN for PAIN-MODERATE (5-7), (Reported) Entered as Reported by: ERASMO QUEEN on 04/12/191829 Last Action: Reviewed Triamcinolone Acet (Triamcinolone Acetonide 0.1% Cream) 0.1 % Cr, 1 APPLIC TP BID PRN for RASH, (Reported) Entered as Reported by: ERASMO QUEEN on 04/12/191830 Last Action: Reviewed Discontinued Medications Amoxicillin/Potassium Clav (Augmentin 875-125 Tablet) 1 Each Tablet, 1 EACH PO BID Discontinued Reason: No Longer Taking Prescribed by: LIZET CLEMENTS on 04/14/19 0844 Last Action: Discontinued Aspirin (Aspir 81) 81 Mg Tablet.dr, 81 MG PO DAILY, (Reported) Discontinued Reason: No Longer Taking Entered as Reported by: ERASMO QUEEN on 04/12/191817 Last Action: Discontinued Atenolol (Tenormin 100 Mg) 100 Mg Tablet, (Reported) Discontinued Reason: No Longer Taking Entered as Reported by: HOMER STREETER on 09/20/08 2211 Last Action: Discontinued Benztropine Mesylate (Benztropine Mesylate) 0.5 Mg Tablet, 0.5 MG PO HS, (Repor zhanna) Discontinued Reason: No Longer Taking Entered as Reported by: ERASMO QUEEN on 04/12/191817 Last Action: Discontinued Bupropion HCl (Bupropion HCl) 100 Mg Tablet, 300 MG PO DAILY, (Reported) Discontinued Reason: No Longer Taking Entered as Reported by: ERASMO QUEEN on 04/12/191817 Last Action: Discontinued Bupropion HCl (Bupropion Xl) 150 Mg Tab.er.24h, 150 MG PO DAILY, (Reported) Discontinued Reason: No Longer Taking Entered as Reported by: ERASMO QUEEN on 04/12/191844 Last Action: Discontinued Escitalopram Oxalate (Escitalopram Oxalate) 10 Mg Tablet, 10 MG PO DAILY, (Reported) Discontinued Reason: No Longer Taking Entered as Reported by: ERASMO QUEEN on 04/12/191830 Last Action: Discontinued Finasteride (Finasteride) 5 Mg Tablet, 5 MG PO DAILY Discontinued Reason: No Longer Taking Prescribed by: LIZET CLEMENTS on 04/14/19 0844 Last Action: Discontinued Folic Acid (Folic Acid) 1 Mg Tablet, 5 MG PO DAILY, (Reported) Discontinued Reason: No Longer Taking Entered as Reported by: ERASMO QUEEN on 04/12/191817 Last Action: Discontinued Lisinopril (Zestril) 10 Mg Tablet, (Reported) Discontinued Reason: No Longer Taking Entered as Reported by: ROMELIA DAN on 04/18/091822 Last Action: Discontinued Lorazepam (Ativan) 1 Mg Tablet, 1 MG PO BID, (Reported) Discontinued Reason: No Longer Taking Entered as Reported by: ERASMO QUEEN on 04/12/191817 Last Action: Discontinued Lurasidone HCl (Latuda) 120 Mg Tablet, 120 MG PO DAILY, (Reported) Discontinued Reason: No Longer Taking Entered as Reported by: ERASMO QUEEN on 04/12/191817 Last Action: Discontinued Metoprolol Succinate (Metoprolol Succinate) 50 Mg Tab.er.24h, 50 MG PO BID, (Reported) Discontinued Reason: No Longer Taking Entered as Reported by: ERASMO QUEEN on 04/12/191817 Last Action: Discontinued Naltrexone HCl (Naltrexone HCl) 50 Mg Tablet, 50 MG PO DAILY, (Reported) Discontinued Reason: No Longer Taking Entered as Reported by: ERASMO QUEEN on 04/12/191817 Last Action: Discontinued Phenazopyridine HCl (Phenazopyridine HCl) 100 Mg Tablet, 100 MG PO TIDPC Discontinued Reason: No Longer Taking Prescribed by: LIZET CLEMENTS on 04/14/19843 Last Action: Discontinued Pilocarpine HCl (Pilocarpine HCl) 5 Mg Tablet, 5 MG PO QID, (Reported) Discontinued Reason: Duplicate Order Entered as Reported by: ERASMO QUEEN on 04/12/191817 Last Action: Discontinued Tamsulosin HCl (Flomax) 0.4 Mg Cap, 0.4 MG PO DAILY@1800 Discontinued Reason: Duplicate Order Prescribed by: LIZET CLEMENTS on 04/14/19843 Last Action: Discontinued Physical Exam-Cardiology Physical Exam Vital Signs/I&O 01/08/22 01/08/22 01/08/22 01/08/22 04:06 04:07 04:15 04:18 Temp 36.8 Pulse 132 132 130 131 Resp 18 20 B/P (MAP) 119/91 (100) 109/92 (98) 119/91 (100) Pulse Ox 97 97 97 O2 Delivery Room Air Room Air Room Air 01/08/22 01/08/22 01/08/22 01/08/22 04:24 04:25 04:27 04:30 Temp 36.8 Pulse 100 131 Resp 17 13 B/P (MAP) 156/99 (118) 131/96 (108) Pulse Ox 96 98 98 97 O2 Delivery Room Air Room Air Room Air Room Air 01/08/22 01/08/22 01/08/22 01/08/22 04:45 05:00 05:27 05:28 Pulse 134 134 191 181 Resp 21 20 B/P (MAP) 134/97 (109) 117/81 (93) Pulse Ox 96 97 97 O2 Delivery Room Air Room Air Room Air 01/08/22 01/08/22 01/08/22 01/08/22 06:00 07:00 07:00 08:00 Pulse 129 124 128 126 Resp 24 22 21 B/P (MAP) 134/93 (107) 130/91 (104) 138/99 (112) Pulse Ox 95 97 98 O2 Delivery Room Air Room Air Room Air 01/08/22 01/08/22 01/08/22 01/08/22 08:00 09:00 10:00 11:00 Temp 36.9 Pulse 126 125 128 Resp 35 21 24 B/P (MAP) 142/109 (120) 138/116 (123) 140/117 (125) Pulse Ox 96 98 97 O2 Delivery Room Air Room Air Room Air 01/08/22 01/08/22 12:00 12:00 Temp 36.6 Pulse 114 Resp 22 B/P (MAP) 140/94 (109) Pulse Ox 98 O2 Delivery Room Air 01/08/22 00:00 Intake Total 1000 ml Balance 1000 ml Capillary Refill : Less Than 3 Seconds Constitutional: AAO x 3, well-developed, other (thin) HEENT: hearing is well preserved; No oral hygience is good (edentulous) Neck: carotid pulses are 2 + bilaterally Respiratory: No accessory muscle use, No respiratory distress; chest expansion is symmetric, chest is bilaterally symmetric, other (diminished bases bilat) Cardiovascular: No JVD; tachycardia, S1 and S2 Gastrointestinal: round; No distended, No guarding; audible bowel sounds Extremities: no lower extremity edema bilateral Neurologic/Psychiatric: grossly intact (moves all extremities) Skin: No rash on exposed areas, No ulcerations on exposed areas Data Review Labs Laboratory Tests 01/07/22 19:17: White Blood Count 11.8H, Red Blood Count 4.59, Hemoglobin 13.2L, Hematocrit 37L, Mean Corpuscular Volume 80, Mean Corpuscular Hemoglobin 29, Mean Corpuscular Hemoglobin Concent 36, Red Cell Distribution Width 13.9, Platelet Count 210, Mean Platelet Volume 7.9L, Sodium Level 119*L, Potassium Level 3.2L, Chloride Level 83L, Carbon Dioxide Level 23, Anion Gap 13, Blood Urea Nitrogen 3L, Creatinine 0.73, Estimat Glomerular Filtration Rate 104, BUN/Creatinine Ratio 4, Glucose Level 159H, Calcium Level 8.6, Magnesium Level 1.7, Influenza Type A (RT-PCR) Not Detected, Influenza Type B (RT-PCR) Not Detected, SARS-CoV-2 RNA (RT-PCR) Not Detected 01/07/22 22:08: Urine Color YELLOW, Urine Clarity CLEAR, Urine pH 7.0, Urine Specific [place] <=1.005, Urine Protein NEGATIVE, Urine Glucose (UA) NEGATIVE, Urine Ketones NEGA TIVE, Urine Nitrite NEGATIVE, Urine Bilirubin NEGATIVE, Urine Urobilinogen 0.2, Urine Leukocyte Esterase NEGATIVE, Urine RBC (Auto) NEGATIVE, Urine RBC NONE, Urine WBC RARE, Urine Squamous Epithelial Cells NONE, Urine Crystals NONE, Urine Bacteria NEGATIVE, Urine Casts NONE, Urine Mucus NEGATIVE, Urine Culture Indicated NO 01/08/22 04:22: White Blood Count 14.6H, Red Blood Count 4.73, Hemoglobin 13.5, Hematocrit 38L, Mean Corpuscular Volume 81, Mean Corpuscular Hemoglobin 29, Mean Corpuscular Hemoglobin Concent 35, Red Cell Distribution Width 13.8, Platelet Count 212, Mean Platelet Volume 8.0L, Sodium Level 123*L, Potassium Level 3.5L, Chloride Level 90L, Carbon Dioxide Level 18L, Anion Gap 15H, Blood Urea Nitrogen 3L, Creatinine 0.79, Estimat Glomerular Filtration Rate 102, BUN/Creatinine Ratio 4, Glucose Level 157H, Calcium Level 8.5, Magnesium Level 1.5L, Immature Granulocyte % (Auto) 1, Neutrophils (%) (Auto) 82H, Lymphocytes (%) (Auto) 8L, Monocytes (%) (Auto) 8, Eosinophils (%) (Auto) 0, Basophils (%) (Auto) 0, Neutrophils # (Auto) 12.0H, Lymphocytes # (Auto) 1.2, Monocytes # (Auto) 1.2H, Eosinophils # (Auto) 0.1, Basophils # (Auto) 0.0, Immature Granulocyte # (Auto) 0.1, Neutrophils % (Manual) 92, Lymphocytes % (Manual) 5, Monocytes % (Manual) 3, Toxic Granulation 2+, Blood Morphology Comment NORMAL, Phosphorus Level 2.7, Troponin I < 0.028 01/08/22 10:51: Sodium Level 120*L, Lactic Acid Level 2.41*H, Procalcitonin 0.24H, Thyroid Stimulating Hormone (TSH) 2.98 ECG Impression ECG Initial ECG Rhythm: S.Tach A/P-Cardiology Assessment/Admission Diagnosis Sinus tachycardia - possibly secondary to electrolytes abnormalities Pneumonia with sepsis? - management per medical services Hyponatremia - undetermined etiology - management per medical services Palpitations - d/t tachycardia CAD - Reports h/o stent x 1 in [place], [place] and another stent x 1 in [place], [place] (he does not know the details, who, when or what hospital the stents were done) - states greater than 10 yrs ago HTN Reports ?CKD - states he was to see nephrology at [facility] - but missed the appt Chronic dyspnea - unchanged Chronic chew tobacco user Chronic left leg discomfort/weakness - undetermined etiology - management per medical services Abdominal discomfort - management per medical services Family h/o CAD - mother and father Discussion and Recomendations Palpitations d/t sinus tachycardia - start BB tx - Echocardiogram to eval structure and function Electrolyte abnormalities - replace Reported h/o CAD - Advise ASA and Plavix if ok with medical services Monitor lab closely Chronic left leg discomfort - awaiting MRI today - management per medical services ?Pneumonia with sepsis Abd discomfort - undetermined etiology Further recs will be based on his hospital course We would like to thank medical services for this consult KELLI YUAN Jan 08, 2022 09:31
[2022-01-08] MEDS ORDERED: meTOprolol TARTRATE 50 MG (LOPRESSOR) TAB PO NR (09:45)
--- NOTE | 2022-01-08 09:49 | Occ Therapy Progress Note ---
Therapy Progress Note OT orders received, chart reviewed. Per RN, patient on hold today due to medical complications. Will await new orders to continue when appropriate. Diana Bagley OT Jan 08, 2022 09:49
--- NOTE | 2022-01-08 10:21 | Tele-ICU Consult ---
History of Present Illness History of Present Illness Date Seen by Provider: Jan 08, 2022 Time Seen by Provider: 10:19 Date of Admission (Tele-ICU Physician , consultation as per request of PCP Service provided via interactive audio and video telecommunications E-CARE system to a patient admitted to ICU bed in [facility]. Available chart/ vitals / labs / Images reviewed H&P is from ER notes Patient's information available about PMH, Shx, Fhx allergy reviewed inEMR. ROS as per chart and RN report Now in ICU, hemodynamically stable Video assessment done using teleICU camera, rest of exam as per RN Discussed with RN. Consultants: Hospital course: 01/08- 61 yr old male admitted to ICU 6 as a transfer from the 4th floor. A/P Hyponatremia - on presentation 19.00 Na 119 - 9 h latter Na 123 - now on 100LR @100 cc- follow - records show h.o NA @120s 2 y ago , last na 127 11/2021- ? psychogenic . ? meds related - check TSH - monitor NA , monitor for sz SVT 01/07 - terminated by vasalva maneuvers - reportedly - ? due to lytes dysbalance - replace and follow - cards consulted - sinus tach now DMii - ISS , as per PCP CKD LLE pain w/up as planned Lines : periph , (Central Line Necessity Reviewed) Gunter: + OG: Nutrition: po Analgesia: Anxiety/ delirium VTE Prophylaxis: lovenox Stress Ulcer Prophylaxis: na Glycemic Control: ISS Plans in collaboration with bedside consultants and IM MDs. Discussed with RN to reach out if any questions or concerns A total of 31 minutes of critical care time was devoted to this patient today, required to treat and/or prevent further deterioration of critical care condition ( as above ) . I am remotely monitoring this patient from another state. I am unable to do the bedside exam, and history/physical and pertinent information is taken from other notes in the computer and bedside staff. . Allergies and Home Medications Allergies Coded Allergies: No Known Drug Allergies (Unverified , 04/11/19) Home Medications Amoxicillin/Potassium Clav 1 Each Tablet, 1 EACH PO BID Prescribed by: EULALIA CLEMENTS on 04/14/19 0844 Aspirin 81 Mg Tablet., 81 MG PO DAILY, (Reported) Atorvastatin Calcium 40 Mg Tablet, 40 MG PO DAILY, (Reported) Benztropine Mesylate 0.5 Mg Tablet, 0.5 MG PO HS, (Reported) Bupropion HCl 100 Mg Tablet, 300 MG PO DAILY, (Reported) Bupropion HCl 150 Mg Tab.er.24h, 150 MG PO DAILY, (Reported) Chlorhexidine Gluconate 473 Ml Mouthwash, 30 ML MM BID, (Reported) Clonidine HCl 0.1 Mg Tablet, 0.1 MG PO BID, (Reported) Clopidogrel Bisulfate 75 Mg Tablet, 75 MG PO DAILY, (Reported) Cyanocobalamin (Vitamin B-12) 1,000 Mcg Tablet, 1,000 MCG PO DAILY, (Reported) Donepezil HCl 10 Mg Tablet, 10 MG PO HS, (Reported) Escitalopram Oxalate 10 Mg Tablet, 10 MG PO DAILY, (Reported) Finasteride 5 Mg Tablet, 5 MG PO DAILY Prescribed by: EULALIA CLEMENTS on 04/14/19843 Fluticasone/Salmeterol 1 Each Blst.w.dev, 1 EACH IH BID, (Reported) Folic Acid 1 Mg Tablet, 5 MG PO DAILY, (Reported) Ipratropium/Albuterol Sulfate 3 Ml Ampul.neb, 3 ML IH Q6H PRN for SHORTNESS OF BREATH, (Reported) Levothyroxine Sodium 75 Mcg Tablet, 75 MCG PO HS, (Reported) Lisinopril 40 Mg Tablet, 40 MG PO DAILY, (Reported) Loratadine 10 Mg Tablet, 10 MG PO DAILY, (Reported) Lorazepam 1 Mg Tablet, 1 MG PO BID, (Reported) Lurasidone HCl 120 Mg Tablet, 120 MG PO DAILY, (Reported) Metoprolol Succinate 50 Mg Tab.er.24h, 50 MG PO BID, (Reported) Naltrexone HCl 50 Mg Tablet, 50 MG PO DAILY, (Reported) Pantoprazole Sodium 40 Mg Tablet.dr, 40 MG PO DAILY, (Reported) Phenazopyridine HCl 100 Mg Tablet, 100 MG PO TIDPC Prescribed by: EULALIA CLEMENTS on 04/14/19843 Pilocarpine HCl 5 Mg Tablet, 5 MG PO QID, (Reported) Polyethylene Glycol 3350 17 Gm Powd.pack, 17 GM PO DAILY, (Reported) Tamsulosin HCl 0.4 Mg Cap, 0.4 MG PO DAILY@1800 Prescribed by: EULALIA CLEMENTS on 2/27/20 0844 Terazosin HCl 2 Mg Capsule, 2 MG PO DAILY, (Reported) Tramadol HCl 50 Mg Tablet, 100 MG PO BID, (Reported) Triamcinolone Acet 15 Gm Cr, 1 APPLIC TP BID PRN for ITCHING, (Reported) Past Medical/Social/Family Hx Patient Social History Tobacco Use?: No Smoking Status: Former Smoker Smokeless Tobacco Frequency: Never a User Use of E-Cig and/or Vaping dev: No Substance use?: No Alcohol Use?: Yes Alcohol type: Hard Liquor Alcohol Frequency: Daily Pt stated abuse/neglect: No Immunizations Up To Date Influenza Vaccine Up-to-Date: Yes; Up-to-Date Tetanus Booster (TDap): Less Than 5 Years Current Status Advance Directives: No Communicates: Verbally Primary Language: [place] Island[place] Preferred Spoken Language: [place] Is interpretation needed?: No Sensory deficits: Vision impairment Review of Systems Constitutional: see HPI Focused Exam Height, Weight, BMI Height: '" Weight: lbs. oz. kg; 23.06 BMI Method: Exam Exam Patient acknowledged, consented, and participated in this virtual visit which was conducted using real time audio/video Vital Signs Date Time Temp Pulse Resp B/P (MAP) Pulse Ox O2 Delivery O2 Flow Rate FiO2 01/08/22 09:00 126 35 142/109 (120) 96 Room Air 01/08/22 08:00 36.9 01/08/22 08:00 126 21 138/99 (112) 98 Room Air 01/08/22 07:00 128 01/08/22 07:00 124 22 130/91 (104) 97 Room Air 01/08/22 06:00 129 24 134/93 (107) 95 Room Air 01/08/22 05:28 181 20 97 Room Air 01/08/22 05:27 191 01/08/22 05:00 134 21 117/81 (93) 97 Room Air 01/08/22 04:45 134 21 134/97 (109) 96 Room Air 01/08/22 04:30 131 13 131/96 (108) 97 Room Air 01/08/22 04:27 98 Room Air 01/08/22 04:25 36.8 100 17 156/99 (118) 98 Room Air 01/08/22 04:24 96 Room Air 01/08/22 04:18 36.8 131 20 119/91 (100) 97 Room Air 01/08/22 04:15 130 18 109/92 (98) 97 Room Air 01/08/22 04:07 132 01/08/22 04:06 132 119/91 (100) 97 Room Air 01/08/22 00:07 36.7 107 96 21 01/07/22 22:28 36.8 104 16 133/81 97 Room Air 01/07/22 19:15 36.7 107 18 135/80 (98) 96 Room Air I & O 01/08/22 07:00 Intake Total 1550 ml Output Total 850 ml Balance 700 ml Height & Weight Height: '" Weight: lbs. oz. kg; 23.06 BMI Method: General Appearance: No Apparent Distress, Chronically ill HEENT: PERRL/EOMI, Other (dry mucous membranes with crusting around lips) Neck: Full Range of Motion, Normal Inspection Respiratory: Chest Non Tender, No Accessory Muscle Use, No Respiratory Distress , Crackles, Decreased Breath Sounds Cardiovascular: No Murmur, Tachycardia Capillary Refill: Less Than 3 Seconds Extremity: Normal Capillary Refill, Normal Inspection, Non Tender, No Pedal Edema Neurologic/Psychiatric: Alert, Disoriented (oriented to self and place) Skin: Normal Color, Warm/Dry Lymphatic: No Adenopathy Results Lab Laboratory Tests 01/07/22 19:17 01/08/22 04:22 Assessment/Plan Assessment/Plan 1 YRN SAUNDERS MD Jan 08, 2022 10:21
[2022-01-08] MEDS ORDERED: FINA5TAB6 PO (10:26)
[2022-01-08] MEDS ORDERED: NF-PILO5T PO (10:26)
[2022-01-08] MEDS ORDERED: METO50TA15 PO (10:26)
[2022-01-08] MEDS ORDERED: ALLO100T PO (10:26)
[2022-01-08] MEDS ORDERED: FURO20TA4 PO (10:26)
[2022-01-08] MEDS ORDERED: POTA-179 PO (10:26)
[2022-01-08] MEDS ORDERED: BUPR300T98 PO (10:26)
[2022-01-08] MEDS ORDERED: BENZ1TAB6 PO (10:26)
[2022-01-08] MEDS ORDERED: TMSL.4C PO (10:26)
[2022-01-08] MEDS ORDERED: CHOL500050 PO (10:26)
[2022-01-08] MEDS ORDERED: ASPI-1238 PO (10:26)
[2022-01-08] MEDS ORDERED: MENT118G TP (10:26)
[2022-01-08] MEDS ORDERED: LURA40TA2 PO (10:26)
--- NOTE | 2022-01-08 11:17 | Diagnostic Imaging Report ---
INDICATION: Hyponatremia. Comparison with 10/14/2021. FINDINGS: There is elevation of the diaphragms bilaterally with bibasilar atelectasis. There is question of vague density developing in the left lower lung field since previous exam. Right lung shows no infiltrates or masses are visualized. The heart is not enlarged. No pleural effusion. IMPRESSION: Considerable basilar atelectasis bilaterally. Questionable density developing left lower mid lung. With patient's symptoms, would consider possible CT scan of the chest. Dictated by: Dictated on workstation # [id number]
[2022-01-08] MEDS: NS IV 500 ML 500 ML IV SCH ×2 (11:42→12:00)
[2022-01-08] MEDS ORDERED: NS 100 ML (IVPB) BAG IV ONE (13:15)
[2022-01-08] MEDS ORDERED: HOLD METFORMIN - RECEIVED CONTRAST 20 ML VIAL IV SCH (13:15)
[2022-01-08] MEDS ORDERED: IOHEXOL 350 MG/ML 100 ML (OMNIPAQUE 350) VIAL IV ONE (13:15)
[2022-01-08] MEDS ORDERED: CATHETER FLUSH 10 ML SYR IV PRN (13:15)
--- NOTE | 2022-01-08 13:21 | Consultation-Cardiology ---
HPI-Cardiology Cardiology Consultation: Date of Consultation 01/08/22 Time Seen by a Provider: 09:00 Date of Admission Attending Physician Saad Grider DO Admitting Physician Admitting Physician: Lizet Clements DO Attending Physician: Andreina Mcdonald MD Consulting Physician SUSIE KRISHNAN MD, MA, FACP, FACC, [facility] [place], CCDS HPI: Chief Complaint: Tachycardia Mr. Jensen is a 61 yr old male admitted to ICU 6 as a transfer from the 4th floor. He reports he has not felt well for several weeks. He reports no appetite, but he has has been very thirsty and drinking a lot of fluids. He states he has had episodes where he has felt his heart race at times. He reports last night he did feel his heart "acting up". He reports feeling weak at the time. He states he is feeling better today. No c/o CP. He reports he ambulates at the facility where he resides with a walker. He reports chronic left leg pain which has been present for several years. He states the discomfort radiates from his hip down. No c/o n/v/d. No c/o fever or chills. Review of Systems-Cardiology Review of Systems Constitutional: No chills, No fever; malaise Eyes: No vision change Ears/Nose/Throat: No epistaxis, No recent hearing loss Respiratory: As described under HPI Cardiovascular: As described under HPI Gastrointestinal: As described under HPI Genitourinary: No dysuria, No hematuria Skin: No rash on exposed areas, No ulcerations on exposed areas Psychiatric/Neurological: As described under HPI; No anxiety, No depression, No focal weakness, No syncope Hematologic: No bleeding abnormalities YIF-Plpajs-Wtnivj Hx Patient Social History Smoking Status: Former Smoker Have you traveled recently?: No Alcohol Use?: Yes Pt feels they are or have been: No Immunizations Up To Date Tetanus Booster (TDap): Less than 5yrs Date of Influenza Vaccine: Dec 17, 2021 Past Medical History PMH As described under Assessment. Family Medical History Family Medical History: He reports his mother had CHF. He reports his father had CAD with CABG. Allergies and Home Medications Allergies Coded Allergies: No Known Drug Allergies (Unverified , 04/11/19) Patient Home Medication List Home Medication List Reviewed: Yes Allopurinol (Allopurinol) 100 Mg Tablet, 100 MG PO DAILY, (Reported) Entered as Reported by: BRANDON ERVIN on 01/08/221025 Last Action: Reviewed Aspirin (Aspirin EC) 81 Mg Tablet.dr, 81 MG PO DAILY, (Reported) Entered as Reported by: BRANDON ERVIN on 01/08/221025 Last Action: Reviewed Atorvastatin Calcium (Atorvastatin Calcium) 40 Mg Tablet, 40 MG PO HS, (Reported) Entered as Reported by: ERASMO QUEEN on 04/12/191817 Last Action: Reviewed Benztropine Mesylate (Benztropine Mesylate) 1 Mg Tablet, 1 MG PO HS, (Reported) Entered as Reported by: BRANDON ERVIN on 01/08/221025 Last Action: Reviewed Bupropion HCl (Bupropion Xl) 300 Mg Tab.er.24h, 300 MG PO DAILY, (Reported) Entered as Reported by: BRANDON ERVIN on 01/08/221025 Last Action: Reviewed Chlorhexidine Gluconate (Chlorhexidine Gluconate) 0.12 % Mouthwash, 30 ML MM BID, (Reported) Entered as Reported by: ERASMO QUEEN on 04/12/191844 Last Action: Reviewed Cholecalciferol (Vitamin D3) (Vitamin D3) 125 Mcg (5000 Unit) Capsule, 125 MCG PO DAILY, (Reported) Entered as Reported by: BRANDON ERVIN on 01/08/221025 Last Action: Reviewed Clonidine HCl (Clonidine HCl) 0.1 Mg Tablet, 0.1 MG PO TID, (Reported) Entered as Reported by: ERASMO QUEEN on 04/12/191817 Last Action: Reviewed Clopidogrel Bisulfate (Plavix) 75 Mg Tablet, 75 MG PO DAILY, (Reported) Entered as Reported by: ERASMO QUEEN on 04/12/191817 Last Action: Reviewed Cyanocobalamin (Vitamin B-12) (B-12) 1,000 Mcg Tablet, 1,000 MCG PO DAILY, (Reported) Entered as Reported by: ERASMO QUEEN on 04/12/191817 Last Action: Reviewed Donepezil HCl (Donepezil HCl) 10 Mg Tablet, 10 MG PO HS, (Reported) Entered as Reported by: ERASMO QUEEN on 04/12/191817 Last Action: Reviewed Finasteride (Finasteride) 5 Mg Tablet, 5 MG PO DAILY, (Reported) Entered as Reported by: BRANDON ERVIN on 01/08/221025 Last Action: Reviewed Fluticasone/Salmeterol (Advair 100-50 Diskus) 1 Each Blst.w.dev, 1 EACH IH BID, (Reported) Entered as Reported by: ERASMO QUEEN on 04/12/191830 Last Action: Reviewed Furosemide (Furosemide) 20 Mg Tablet, 20 MG PO BID, (Reported) Entered as Reported by: BRANDON ERVIN on 01/08/221025 Last Action: Reviewed Ipratropium/Albuterol Sulfate (Iprat-Albut 0.5-3(2.5) mg/3 ml) 3 Ml Ampul.neb, 3 ML IH Q6H PRN for SHORTNESS OF BREATH, (Reported) Entered as Reported by: ERASMO QUEEN on 04/12/191829 Last Action: Reviewed Levothyroxine Sodium (Levothyroxine Sodium) 75 Mcg Tablet, 75 MCG PO DAILY, (Reported) Entered as Reported by: ERASMO QUEEN on 04/12/191817 Last Action: Reviewed Lisinopril (Lisinopril) 40 Mg Tablet, 40 MG PO DAILY, (Reported) Entered as Reported by: ERASMO QUEEN on 04/12/191817 Last Action: Reviewed Loratadine (Claritin) 10 Mg Tablet, 10 MG PO DAILY, (Reported) Entered as Reported by: ERASMO QUEEN on 04/12/191825 Last Action: Reviewed Lurasidone HCl (Latuda) 40 Mg Tablet, 40 MG PO HS, (Reported) Entered as Reported by: BRANDON ERVIN on 01/08/22 102 Last Action: Reviewed Menthol (Biofreeze) 4 % Gel..ml., 1 APPLIC TP Q6H PRN for PAIN-BREAKTHROUGH, (Reported) Entered as Reported by: BRANDON ERVIN on 01/08/22 102 Last Action: Reviewed Metoprolol Tartrate (Metoprolol Tartrate) 50 Mg Tablet, 50 MG PO BID, (Reported) Entered as Reported by: BRANDON ERVIN on 01/08/22 102 Last Action: Reviewed Pantoprazole Sodium (Pantoprazole Sodium) 40 Mg Tablet., 40 MG PO DAILY, (Reported) Entered as Reported by: ERASOM QUEEN on 04/12/191817 Last Action: Reviewed Pilocarpine (Salagen) 5 Mg Tab, 5 MG PO QID, (Reported) Entered as Reported by: BRANDON ERVIN on 01/08/22 102 Last Action: Reviewed Polyethylene Glycol 3350 (Miralax) 17 Gm Powd.pack, 17 GM PO DAILY, (Reported) Entered as Reported by: ERASMO QUEEN on 04/12/191817 Last Action: Reviewed Potassium Chloride (Potassium Chloride) 20 Meq Tab.er.prt, 20 MEQ PO DAILY, (Reported) Entered as Reported by: BRANDON ERVIN on 01/08/221025 Last Action: Reviewed Tamsulosin HCl (Flomax) 0.4 Mg Cap, 0.4 MG PO HS, (Reported) Entered as Reported by: BRANDON ERVIN on 01/08/221025 Last Action: Reviewed Terazosin HCl (Terazosin HCl) 2 Mg Capsule, 2 MG PO DAILY, (Reported) Entered as Reported by: ERASMO QUEEN on 04/12/191817 Last Action: Reviewed Tramadol HCl (Tramadol HCl) 50 Mg Tablet, 100 MG PO Q6H PRN for PAIN-MODERATE (5-7), (Reported) Entered as Reported by: ERASMO QUEEN on 04/12/191829 Last Action: Reviewed Triamcinolone Acet (Triamcinolone Acetonide 0.1% Cream) 0.1 % Cr, 1 APPLIC TP BID PRN for RASH, (Reported) Entered as Reported by: ERASMO QUEEN on 04/12/191830 Last Action: Reviewed Discontinued Medications Amoxicillin/Potassium Clav (Augmentin 875-125 Tablet) 1 Each Tablet, 1 EACH PO BID Discontinued Reason: No Longer Taking Prescribed by: LIZET CLEMENTS on 04/14/19 0878 Last Action: Discontinued Aspirin (Aspir 81) 81 Mg Tablet.dr, 81 MG PO DAILY, (Reported) Discontinued Reason: No Longer Taking Entered as Reported by: ERASMO QUEEN on 04/12/191817 Last Action: Discontinued Atenolol (Tenormin 100 Mg) 100 Mg Tablet, (Reported) Discontinued Reason: No Longer Taking Entered as Reported by: HOMER STREETER on 09/20/08 221 Last Action: Discontinued Benztropine Mesylate (Benztropine Mesylate) 0.5 Mg Tablet, 0.5 MG PO HS, (Reported) Discontinued Reason: No Longer Taking Entered as Reported by: ERASMO QUEEN on 04/12/191817 Last Action: Discontinued Bupropion HCl (Bupropion HCl) 100 Mg Tablet, 300 MG PO DAILY, (Reported) Discontinued Reason: No Longer Taking Entered as Reported by: ERASMO QUEEN on 04/12/191817 Last Action: Discontinued Bupropion HCl (Bupropion Xl) 150 Mg Tab.er.24h, 150 MG PO DAILY, (Reported) Discontinued Reason: No Longer Taking Entered as Reported by: ERASMO QUEEN on 04/12/191844 Last Action: Discontinued Escitalopram Oxalate (Escitalopram Oxalate) 10 Mg Tablet, 10 MG PO DAILY, (Reported) Discontinued Reason: No Longer Taking Entered as Reported by: ERASMO QUEEN on 04/12/191830 Last Action: Discontinued Finasteride (Finasteride) 5 Mg Tablet, 5 MG PO DAILY Discontinued Reason: No Longer Taking Prescribed by: LIZET CLEMENTS on 04/14/19 0844 Last Action: Discontinued Folic Acid (Folic Acid) 1 Mg Tablet, 5 MG PO DAILY, (Reported) Discontinued Reason: No Longer Taking Entered as Reported by: ERASMO QUEEN on 04/12/191817 Last Action: Discontinued Lisinopril (Zestril) 10 Mg Tablet, (Reported) Discontinued Reason: No Longer Taking Entered as Reported by: ROMELIA DAN on 04/18/091822 Last Action: Discontinued Lorazepam (Ativan) 1 Mg Tablet, 1 MG PO BID, (Reported) Discontinued Reason: No Longer Taking Entered as Reported by: ERASMO QUEEN on 04/12/191817 Last Action: Discontinued Lurasidone HCl (Latuda) 120 Mg Tablet, 120 MG PO DAILY, (Reported) Discontinued Reason: No Longer Taking Entered as Reported by: ERASMO QUEEN on 04/12/191817 Last Action: Discontinued Metoprolol Succinate (Metoprolol Succinate) 50 Mg Tab.er.24h, 50 MG PO BID, (Reported) Discontinued Reason: No Longer Taking Entered as Reported by: ERASMO QUEEN on 04/12/191817 Last Action: Discontinued Naltrexone HCl (Naltrexone HCl) 50 Mg Tablet, 50 MG PO DAILY, (Reported) Discontinued Reason: No Longer Taking Entered as Reported by: ERASMO QUEEN on 04/12/191817 Last Action: Discontinued Phenazopyridine HCl (Phenazopyridine HCl) 100 Mg Tablet, 100 MG PO TIDPC Discontinued Reason: No Longer Taking Prescribed by: LIZET CLEMENTS on 04/14/19843 Last Action: Discontinued Pilocarpine HCl (Pilocarpine HCl) 5 Mg Tablet, 5 MG PO QID, (Reported) Discontinued Reason: Duplicate Order Entered as Reported by: ERASMO QUEEN on 04/12/191817 Last Action: Discontinued Tamsulosin HCl (Flomax) 0.4 Mg Cap, 0.4 MG PO DAILY@1800 Discontinued Reason: Duplicate Order Prescribed by: LIZET CLEMENTS on 04/14/19843 Last Action: Discontinued Physical Exam-Cardiology Physical Exam Vital Signs/I&O 01/08/22 01/08/22 01/08/22 01/08/22 04:06 04:07 04:15 04:18 Temp 36.8 Pulse 132 132 130 131 Resp 18 20 B/P (MAP) 119/91 (100) 109/92 (98) 119/91 (100) Pulse Ox 97 97 97 O2 Delivery Room Air Room Air Room Air 01/08/22 01/08/22 01/08/22 01/08/22 04:24 04:25 04:27 04:30 Temp 36.8 Pulse 100 131 Resp 17 13 B/P (MAP) 156/99 (118) 131/96 (108) Pulse Ox 96 98 98 97 O2 Delivery Room Air Room Air Room Air Room Air 01/08/22 01/08/22 01/08/22 01/08/22 04:45 05:00 05:27 05:28 Pulse 134 134 191 181 Resp 21 21 20 B/P (MAP) 134/97 (109) 117/81 (93) Pulse Ox 96 97 97 O2 Delivery Room Air Room Air Room Air 01/08/22 01/08/22 01/08/22 01/08/22 06:00 07:00 07:00 08:00 Pulse 129 124 128 126 Resp 24 22 21 B/P (MAP) 134/93 (107) 130/91 (104) 138/99 (112) Pulse Ox 95 97 98 O2 Delivery Room Air Room Air Room Air 01/08/22 01/08/22 01/08/22 01/08/22 08:00 09:00 10:00 11:00 Temp 36.9 Pulse 126 125 128 Resp 35 21 24 B/P (MAP) 142/109 (120) 138/116 (123) 140/117 (125) Pulse Ox 96 98 97 O2 Delivery Room Air Room Air Room Air 01/08/22 01/08/22 12:00 12:00 Temp 36.6 Pulse 114 Resp 22 B/P (MAP) 140/94 (109) Pulse Ox 98 O2 Delivery Room Air 01/08/22 00:00 Intake Total 1000 ml Balance 1000 ml Capillary Refill : Less Than 3 Seconds Constitutional: AAO x 3, well-developed, other (thin) HEENT: hearing is well preserved; No oral hygience is good (edentulous) Neck: carotid pulses are 2 + bilaterally Respiratory: No accessory muscle use, No respiratory distress; chest expansion is symmetric, chest is bilaterally symmetric, other (diminished bases bilat) Cardiovascular: No JVD; tachycardia, S1 and S2 Gastrointestinal: round; No distended, No guarding; audible bowel sounds Extremities: no lower extremity edema bilateral Neurologic/Psychiatric: grossly intact (moves all extremities) Skin: No rash on exposed areas, No ulcerations on exposed areas Data Review Labs Laboratory Tests 01/07/22 19:17: White Blood Count 11.8H, Red Blood Count 4.59, Hemoglobin 13.2L, Hematocrit 37L, Mean Corpuscular Volume 80, Mean Corpuscular Hemoglobin 29, Mean Corpuscular Hemoglobin Concent 36, Red Cell Distribution Width 13.9, Platelet Count 210, Mean Platelet Volume 7.9L, Sodium Level 119*L, Potassium Level 3.2L, Chloride Level 83L, Carbon Dioxide Level 23, Anion Gap 13, Blood Urea Nitrogen 3L, Creatinine 0.73, Estimat Glomerular Filtration Rate 104, BUN/Creatinine Ratio 4, Glucose Level 159H, Calcium Level 8.6, Magnesium Level 1.7, Influenza Type A (RT-PCR) Not Detected, Influenza Type B (RT-PCR) Not Detected, SARS-CoV-2 RNA (RT-PCR) Not Detected 01/07/22 22:08: Urine Color YELLOW, Urine Clarity CLEAR, Urine pH 7.0, Urine Specific [place] <=1.005, Urine Protein NEGATIVE, Urine Glucose (UA) NEGATIVE, Urine Ketones NEGATIVE, Urine Nitrite NEGATIVE, Urine Bilirubin NEGATIVE, Urine Urobilinogen 0.2, Urine Leukocyte Esterase NEGATIVE, Urine RBC (Auto) NEGATIVE, Urine RBC NONE, Urine WBC RARE, Urine Squamous Epithelial Cells NONE, Urine Crystals NONE, Urine Bacteria NEGATIVE, Urine Casts NONE, Urine Mucus NEGATIVE, Urine Culture Indicated NO 01/08/22 04:22: White Blood Count 14.6H, Red Blood Count 4.73, Hemoglobin 13.5, Hematocrit 38L, Mean Corpuscular Volume 81, Mean Corpuscular Hemoglobin 29, Mean Corpuscular Hemoglobin Concent 35, Red Cell Distribution Width 13.8, Platelet Count 212, Mean Platelet Volume 8.0L, Sodium Level 123*L, Potassium Level 3.5L, Chloride Level 90L, Carbon Dioxide Level 18L, Anion Gap 15H, Blood Urea Nitrogen 3L, Creatinine 0.79, Estimat Glomerular Filtration Rate 102, BUN/Creatinine Ratio 4, Glucose Level 157H, Calcium Level 8.5, Magnesium Level 1.5L, Immature Granulocyte % (Auto) 1, Neutrophils (%) (Auto) 82H, Lymphocytes (%) (Auto) 8L, Monocytes (%) (Auto) 8, Eosinophils (%) (Auto) 0, Basophils (%) (Auto) 0, Neutrophils # (Auto) 12.0H, Lymphocytes # (Auto) 1.2, Monocytes # (Auto) 1.2H, Eosinophils # (Auto) 0.1, Basophils # (Auto) 0.0, Immature Granulocyte # (Auto) 0.1, Neutrophils % (Manual) 92, Lymphocytes % (Manual) 5, Monocytes % (Manual) 3, Toxic Granulation 2+, Blood Morphology Comment NORMAL, Phosphorus Level 2.7, Troponin I < 0.028 01/08/22 10:51: Sodium Level 120*L, Lactic Acid Level 2.41*H, Procalcitonin 0.24H, Thyroid St imulating Hormone (TSH) 2.98 A/P-Cardiology Assessment/Admission Diagnosis Sinus tachycardia and PSVT - possibly secondary to electrolytes abnormalities - echo on 01/08/22: LVEF 60-65%, poor quality study that did now allow valve eval Pneumonia with sepsis? - management per medical services Hyponatremia - undetermined etiology - management per medical services Palpitations - d/t tachycardia CAD - Reports h/o stent x 1 in [place], [place] and another stent x 1 in [place], [place] (he does not know the details, who, when or what hospital the stents were done) - states greater than 10 yrs ago HTN Reports ?CKD - states he was to see nephrology at [facility] - but missed the appt Chronic dyspnea - unchanged Chronic chew tobacco user Chronic left leg discomfort/weakness - undetermined etiology - management per medical services Abdominal discomfort - management per medical services Family h/o CAD - mother and father Discussion and Recomendations Palpitations d/t sinus tachycardia - start BB and long-acting dilt tx - Echocardiogram to eval structure and function (done) Electrolyte abnormalities - replace Reported h/o CAD - Advise ASA and Plavix if ok with medical services Monitor lab closely Chronic left leg discomfort - awaiting MRI today - management per medical services ?Pneumonia with sepsis Abd discomfort - undetermined etiology Further recs will be based on his hospital course We would like to thank medical services for this consult SUSIE KRISHNAN MD FACP FAC CCDS Jan 08, 2022 13:21
[2022-01-08 13:34] LABS: ALBUMIN 2.8 GM/DL (3.2-4.5)
[2022-01-08 13:37] LABS: TOTAL PROTEIN 5.6 GM/DL (6.4-8.2)
[2022-01-08 13:38] LABS: BILIRUBIN,TOTAL 0.9 MG/DL (0.1-1.0)
[2022-01-08 13:42] LABS: BILIRUBIN,DIRECT 0.7 MG/DL (0.0-0.3); BILIRUBIN,INDIRECT 0.2 MG/DL
--- NOTE | 2022-01-08 15:11 | Diagnostic Imaging Report ---
EXAMINATION: CT chest without contrast. TECHNIQUE: Multiple contiguous axial images were obtained through the chest without the use of intravenous contrast. All CT scans use one or more of the following dose optimizing techniques: automated exposure control, MA and/or KvP adjustment based on patient size and exam type or iterative reconstruction. HISTORY: Shortness of breath. Symptoms have continued over several months. COMPARISON: Chest radiograph performed earlier the same date. FINDINGS: The heart size is within normal limits. No pericardial effusion is present. Mildly prominent mediastinal lymph nodes are noted, the largest measuring 0.7 cm in short axis. There is elevation of the right hemidiaphragm. Bibasilar atelectasis is seen. No focal consolidations are identified. No suspicious pulmonary nodules or pulmonary masses. No central endobronchial obstructing lesions. There is no pleural effusion or pneumothorax. Sclerotic lesions are seen in the thoracic spine and bilateral ribs. The greatest involvement is within the vertebral bodies from the T5-T8 levels. No evidence of pathologic fracture. Limited views of the upper abdominal structures demonstrate no acute abnormalities. IMPRESSION: 1. Bibasilar atelectasis with elevated right hemidiaphragm. 2. Sclerotic lesions in the thoracic spine and bilateral ribs, concerning for metastatic disease. Recommend correlation with patient history of malignancy, particularly prostate. No evidence of pathologic fracture. 3. Mildly prominent lymph nodes in the mediastinum measuring up to 0.7 cm. Recommend attention on followup. Dictated by: Dictated on workstation # [id number]
--- NOTE | 2022-01-08 15:13 | Diagnostic Imaging Report ---
EXAMINATION: CT abdomen and pelvis with and without intravenous contrast. TECHNIQUE: Precontrast acquisitions were acquired through the abdomen and pelvis. Multiple contiguous axial images were obtained through the abdomen and pelvis after the administration of intravenous contrast. All CT scans use one or more of the following dose optimizing techniques: automated exposure control, MA and/or KvP adjustment based on patient size and exam type or iterative reconstruction. HISTORY: Abdominal pain COMPARISON: 10/14/2018 FINDINGS: Limited views of the lower thorax show bibasilar atelectasis. The liver is normal without focal lesion. There is no biliary ductal dilation. Gallbladder is normal. Pancreas is normal. Spleen is normal. There is mild nodularity of the adrenal glands unchanged from 2019. The kidneys are normal. There is no hydronephrosis. Bladder is partially decompressed by Gunter catheter. Prostate gland is enlarged. There is gas in the bladder. There are diffusely dilated loops of large and small bowel without transition suggestive of ileus. No free fluid or air. There is retroperitoneal lymphadenopathy measuring up to 13 mm. Lymph nodes are enlarged extending into the iliofemoral chains. The right external iliac lymph node measures 15 mm, there is enlarged right inguinal lymph node measuring 14 mm. Aorta is normal in caliber without aneurysm. There are sclerotic osseous lesions throughout the spine involving nearly all vertebrae. There are sclerotic lesions in the pelvis. There is a sclerotic lesion in the sternum. Sclerotic lesions are present in the ribs. Sclerosis of the proximal femurs, left greater than right. IMPRESSION: 1. Mildly dilated large and small bowel loops without transition point or wall thickening likely representing ileus. 2. Retroperitoneal and pelvic lymphadenopathy with extensive sclerotic osseous lesions in keeping with a metastatic malignancy. Dictated by: Dictated on workstation # [id number]
[2022-01-08 18:10] LABS: POTASSIUM 3.8 MMOL/L (3.6-5.0)
[2022-01-08 18:17] LABS: MAGNESIUM 2.1 MG/DL (1.6-2.4)
[2022-01-08] MEDS: NS IV 1000 ML 1,000 ML IV SCH (19:18)
[2022-01-08] MEDS ORDERED: NON-FORMULARY MEDICATION 1 EA EA (Lurasidone HCl (Latuda) 40 MG) PO SCH (21:00)
[2022-01-08] MEDS ORDERED: NON-FORMULARY MEDICATION 1 EA EA (Pilocarpine (Salagen) 5 MG) PO SCH (21:00)
[2022-01-08] MEDS ORDERED: NON-FORMULARY MEDICATION 1 EA EA (Fluticasone/Salmeterol (Advair 100-50 Diskus) 1 EACH) IH SCH (21:00)
[2022-01-08] MEDS: cloNIDine 0.1 MG (CATAPRES) TAB PO SCH (21:26)
[2022-01-08] MEDS: DONEPEZIL 10 MG (ARICEPT) TAB PO SCH (21:26)
[2022-01-08] MEDS: TAMSULOSIN 0.4 MG (FLOMAX) CAP PO SCH (21:26)
[2022-01-08] MEDS: meTOprolol TARTRATE 50 MG (LOPRESSOR) TAB PO SCH (21:26)
[2022-01-08] MEDS: BENZTROPINE MESYLATE 1 MG (COGENTIN) TAB PO SCH (21:27)
[2022-01-08] MEDS: RT--FLUTICASONE/SALMETEROL 113-14 (AIRDUO RespiCLICK) IH SCH (21:46)
[2022-01-09] MEDS: ENOXAPARIN 40 MG/0.4 ML (LOVENOX) SYR SC SCH ×2 (01:18→23:57)
[2022-01-09] MEDS: NS IV 1000 ML 1,000 ML IV SCH ×3 (02:59→17:02)
[2022-01-09 04:34] LABS: BASOPHILS % (AUTO) 0 % (0-10); EOSINOPHILS % (AUTO) 0 % (0-10); HEMATOCRIT 37 % (40-54); LYMPHOCYTES # (AUTO) 0.8 10^3/uL (1.0-4.0); LYMPHOCYTES % (AUTO) 6 % (12-44); MEAN CORPUSCULAR HEMOGLOBIN 28 pg (25-34); MEAN CORPUSCULAR HGB CONC 35 g/dL (32-36); MEAN CORPUSCULAR VOLUME 81 fL (80-99); MEAN PLATELET VOLUME 8.2 fL (9.0-12.2); MONOCYTES # (AUTO) 1.2 10^3/uL (0.0-1.0); MONOCYTES % (AUTO) 9 % (0-12); NEUTROPHILS # (AUTO) 10.9 10^3/uL (1.8-7.8); NEUTROPHILS % (AUTO) 84 % (42-75); PLATELET COUNT 194 10^3/uL (130-400); WHITE BLOOD COUNT 13.1 10^3/uL (4.3-11.0)
[2022-01-09 04:41] LABS: ALBUMIN 2.7 GM/DL (3.2-4.5); POTASSIUM 3.5 MMOL/L (3.6-5.0)
[2022-01-09 04:42] LABS: CALCIUM 8.3 MG/DL (8.5-10.1)
[2022-01-09 04:44] LABS: TOTAL PROTEIN 5.6 GM/DL (6.4-8.2)
[2022-01-09 04:45] LABS: BILIRUBIN,TOTAL 1.1 MG/DL (0.1-1.0)
[2022-01-09 04:47] LABS: CREATININE SERUM 0.7 MG/DL (0.60-1.30)
[2022-01-09] MEDS: MAGNESIUM 1 GM/100 ML IVPB 100 ML IV SCH (05:18)
[2022-01-09] MEDS: KCL 20 MEQ TAB (K-DUR) PO SCH (05:18)
[2022-01-09] MEDS: POTASSIUM CL 10MEQ/50ML IVPB 50 ML IV SCH (05:18)
[2022-01-09] MEDS: LEVOTHYROXINE 75 MCG (LEVOTHROID) TABLET PO SCH (06:42)
[2022-01-09] MEDS ORDERED: KCL 20 MEQ TAB (K-DUR) PO ONE (07:00)
--- NOTE | 2022-01-09 07:13 | Physical Therapy Progress Note ---
Therapy Progress Note Will await new orders to continue when appropriate. THOMPSON SILVERMAN PT Jan 09, 2022 07:13
--- NOTE | 2022-01-09 07:56 | Tele-ICU Progress Note ---
Progress Note Pt seen on video, resting/sleeping earlier, now awake, comfortable in NAD HR 80s sinus good sat on RA A/P Hyponatremia improved overall SVT 01/07 - sinus now DMii - ISS , as per PCP HTN - lowish BP, stopped scheduled clonidine Lines : periph , (Central Line Necessity Reviewed) Gunter: + OG: Nutrition: po Analgesia: Anxiety/ delirium VTE Prophylaxis: lovenox Stress Ulcer Prophylaxis: na Glycemic Control: ISS Plans in collaboration with bedside consultants and IM MDs. Discussed with RN to reach out if any questions or concerns A total of 31 minutes of critical care time was devoted to this patient today, required to treat and/or prevent further deterioration of critical care condition ( as above ) . I am remotely monitoring this patient from another state. I am unable to do the bedside exam, and history/physical and pertinent information is taken from other notes in the computer and bedside staff. . Focused Exam Lactate Level 01/08/22 10:51: Lactic Acid Level 2.41*H 01/08/22 13:15: Lactic Acid Level 1.41 Height, Weight, BMI Height: '" Weight: lbs. oz. kg; 23.54 BMI Method: Respiratory: No Accessory Muscle Use, No Respiratory Distress Cardiovascular: Regular Rate, Rhythm Skin: normal color Allergies Allergies Coded Allergies: No Known Drug Allergies (Unverified , 04/11/19) Meds/Labs/Orders Lab results: Laboratory Tests Test 01/08/22 10:51 01/08/22 13:15 01/08/22 16:10 01/08/22 22:05 Range/Units Sodium Level 120 *L 125 *L 128 L 135-145 MMOL/L Lactic Acid Level 2.41 *H 1.41 0.50-2.00 MMOL/L Iron Level 46 37-167 ug/dL Total Iron Binding Capacity 205 L 237-330 ug/dL Unsaturated Iron Binding Capacity 159 25-500 ug/dL Transferrin % Saturation 22 17-57 % Ferritin 1192.9 H 32.0-356.0 ng/mL Procalcitonin 0.24 H <0.10 NG/ML Thyroid Stimulating Hormone (TSH) 2.98 0.35-4.94 UIU/ML Total Bilirubin 0.9 0.1-1.0 MG/DL Direct Bilirubin 0.7 H 0.0-0.3 MG/DL Indirect Bilirubin 0.2 MG/DL Aspartate Amino Transf (AST/SGOT) 95 H 5-34 U/L Alanine Aminotransferase (ALT/SGPT) 189 H 0-55 U/L Alkaline Phosphatase 1413 H 40-136 U/L Total Protein 5.6 L 6.4-8.2 GM/DL Albumin 2.8 L 3.2-4.5 GM/DL Potassium Level 3.8 3.6-5.0 MMOL/L Magnesium Level 2.1 1.6-2.4 MG/DL Test 01/09/22 04:05 Range/Units White Blood Count 13.1 H 4.3-11.0 10^3/uL Red Blood Count 4.61 4.30-5.52 10^6/uL Hemoglobin 13.0 L 13.3-17.7 g/dL Hematocrit 37 L 40-54 % Mean Corpuscular Volume 81 80-99 fL Mean Corpuscular Hemoglobin 28 25-34 pg Mean Corpuscular Hemoglobin Concent 35 32-36 g/dL Red Cell Distribution Width 14.2 10.0-14.5 % Platelet Count 194 130-400 10^3/uL Mean Platelet Volume 8.2 L 9.0-12.2 fL Immature Granulocyte % (Auto) 1 % Neutrophils (%) (Auto) 84 H 42-75 % Lymphocytes (%) (Auto) 6 L 12-44 % Monocytes (%) (Auto) 9 0-12 % Eosinophils (%) (Auto) 0 0-10 % Basophils (%) (Auto) 0 0-10 % Neutrophils # (Auto) 10.9 H 1.8-7.8 10^3/uL Lymphocytes # (Auto) 0.8 L 1.0-4.0 10^3/uL Monocytes # (Auto) 1.2 H 0.0-1.0 10^3/uL Eosinophils # (Auto) 0.0 0.0-0.3 10^3/uL Basophils # (Auto) 0.0 0.0-0.1 10^3/uL Immature Granulocyte # (Auto) 0.1 0.0-0.1 10^3/uL Sodium Level 128 L 135-145 MMOL/L Potassium Level 3.5 L 3.6-5.0 MMOL/L Chloride Level 93 L 98-107 MMOL/L Carbon Dioxide Level 23 21-32 MMOL/L Anion Gap 12 5-14 MMOL/L Blood Urea Nitrogen 6 L 7-18 MG/DL Creatinine 0.70 0.60-1.30 MG/DL Estimat Glomerular Filtration Rate 105 BUN/Creatinine Ratio 9 Glucose Level 142 H 70-105 MG/DL Calcium Level 8.3 L 8.5-10.1 MG/DL Corrected Calcium 9.3 8.5-10.1 MG/DL Magnesium Level 1.9 1.6-2.4 MG/DL Total Bilirubin 1.1 H 0.1-1.0 MG/DL Aspartate Amino Transf (AST/SGOT) 125 H 5-34 U/L Alanine Aminotransferase (ALT/SGPT) 194 H 0-55 U/L Alkaline Phosphatase 1370 H 40-136 U/L Total Protein 5.6 L 6.4-8.2 GM/DL Albumin 2.7 L 3.2-4.5 GM/DL KULWINDER HANSEN MD Jan 09, 2022 07:56
[2022-01-09] MEDS: ASPIRIN E.C. 81 MG (ECOTRIN) TAB PO SCH (08:25)
[2022-01-09] MEDS: TERAZOSIN 1 MG CAP (HYTRIN) PO SCH (08:25)
[2022-01-09] MEDS: DOCUSATE SODIUM 100 MG (COLACE) CAP PO SCH ×2 (08:25→21:05)
[2022-01-09] MEDS: cloNIDine 0.1 MG (CATAPRES) TAB PO SCH ×2 (08:25→13:48)
[2022-01-09] MEDS: meTOprolol TARTRATE 50 MG (LOPRESSOR) TAB PO SCH ×2 (08:26→21:05)
[2022-01-09] MEDS: CLOPIDOGREL 75 MG (PLAVIX) TABLET PO SCH (08:26)
[2022-01-09] MEDS: buPROPion SR 150 MG (WELLBUTRIN SR) TAB PO SCH ×2 (08:26→21:05)
[2022-01-09] MEDS: FINASTERIDE (PROSCAR) 5 MG TAB PO SCH (08:26)
[2022-01-09] MEDS: PANTOPRAZOLE 40 MG (PROTONIX) TAB PO SCH (08:26)
[2022-01-09] MEDS ORDERED: ASPIRIN 81 MG CHEW (CHILDREN'S ASA) PO SCH (09:00)
[2022-01-09] MEDS ORDERED: NON-FORMULARY MEDICATION 1 EA EA (Bupropion HCl (Bupropion Xl) 300 MG) PO SCH (09:00)
[2022-01-09] MEDS ORDERED: NON-FORMULARY MEDICATION 1 EA EA (Terazosin HCl 2 MG) PO SCH (09:00)
[2022-01-09] MEDS ORDERED: CLOPIDOGREL 75 MG (PLAVIX) TABLET PO SCH (09:00)
--- NOTE | 2022-01-09 09:55 | Progress Note - Hospitalist ---
LINA RAMIREZ A MED STUDENT 01/09/22 0955: Subjective HPI/CC On Admission Date Seen by Provider: Jan 09, 2022 Time Seen by Provider: 08:15 Doris is a 61 yo male [facility] who presented on 01/07 for hyponatremia. Pt has extensive past medical hx of dementia, HTN, COPD, cardiac stent x2, CKD 3, T2DM non insulin dependent, bipolar depression, chronic back pain and hx of ETOH consumption. Pt initially reports he felt fine yesterday, but was brought in by the [facility] which [facility]. Pt is alert and oriented to self and place, but unsure of date/time. He reports today that he has had nausea for some time now and has not eaten in several days. He reports nothing sounds appetizing and he wont eat food that he doesn't like. Last BM was "a couple of days ago", but he later reported he hasn't eaten enough to even have a BM in awhile. He does not follow up with a lab head and he was supposed to f/u with a biomedical analytical scientist, but missed the appt. Pt reports nausea, heart burn, chronic left leg pain, SOA, sweating. Denies fever, chills, CP, weakness/numbness, diarrhea or vomiting. Subjective/Events-last exam Pt being seen in f/u for hyponatremia. Pt is significantly more confused today than yesterday. He is alert and oriented to self, but not place or time. He denies any CP, SOA, generalized pain, fatigue or weakness. He does not have concerns about his left leg today like he did yesterday. He was able to drink a protein shake, 4 oz of orange juice and a milk carton during exam, but refused the rest of his breakfast. He does have concerns about his penis itching. He has a mcbride and his urine is red today compared to orange yesterday. Discussed with pt that the scans showed he has bone cancer and that he would be a poor chemotherapy candidate. Pt seemed to understand diagnosis, but was not clear on what he wanted to do from here. Will discuss with guardian. Review of Systems General: No Chills, No Fatigue HEENT: No Head Aches, No Visual Changes Pulmonary: No Dyspnea, No Cough Cardiovascular: No: Chest Pain, Palpitations Gastrointestinal: No: Nausea, Vomiting, Abdominal Pain, Diarrhea, Constipation Genitourinary: Hematuria, Other (penile itching) Musculoskeletal: No: back pain, leg pain Neurological: Confusion; No: Weakness, Numbness Focused Exam Lactate Level 01/08/22 10:51: Lactic Acid Level 2.41*H 01/08/22 13:15: Lactic Acid Level 1.41 Objective Exam Vital Signs Vital Signs Date Time Temp Pulse Resp B/P (MAP) Pulse Ox O2 Delivery O2 Flow Rate FiO2 01/09/22 11:33 36.4 01/09/22 11:00 80 21 111/75 (87) 93 Nasal Cannula 2.00 01/08/22 00:07 21 Capillary Refill : Less Than 3 Seconds General Appearance: WD/WN, Chronically ill HEENT: PERRL/EOMI, Other (Dry mucous membranes) Respiratory: Chest Non Tender, No Accessory Muscle Use, No Respiratory Distre ss, Crackles, Decreased Breath Sounds Cardiovascular: Regular Rate, Rhythm, No Murmur Gastrointestinal: Normal Bowel Sounds, Non Tender, Soft Extremity: Normal Capillary Refill, Non Tender, No Pedal Edema Neurologic/Psychiatric: Alert, Disoriented, Motor Weakness (3+ strength in LLE) Skin: Normal Color, Warm/Dry Results/Procedures Lab Laboratory Tests 01/08/22 16:10 01/08/22 22:05 01/09/22 04:05 01/09/22 09:59 Patient resulted labs reviewed. Assessment/Plan Assessment and Plan Assess & Plan/Chief Complaint Hyponatremia Sinus tachycardia with SVT Hypokalemia Hypomagnesemia Tachycardia CKD 3 Chest pain Chronic back and left leg pain Diabetes-non insulin dependent COPD Hx of cardiac intervention Bipolar depression Hypothyroidism Dementia Chronic hyponatremia likely secondary to CKD 3 -q6h sodium checks -improving -Limit Na correction to 6-8mEq/L/day and monitor risk for osmotic demylenation syndrome -NaCl at 125mls/hr -Fluid restriction >1.5L/day -Encourage pt to eat three protein rich meals per day Leukocytosis -improving, likely d/t cancer Hypokalemia -KCl protocol, improving Hypomagnesemia -Mag sulf/dextrose, improved Sinus Tachycardia with SVT -Cardiology consulted, appreciate their recs -Cardizem started and tachycardia resolved -Echo showed EF of 65% Mediastinal, retroperitonal and pelvic LAD with metastatic bone lesions -CT indicated most likely metastasis Hematuria -Possibly d/t potential prostate cancer -Mcbride in place CKD 3 -BUN 6 and Cr 0.70, unsure of baseline -will continue to monitor Chest pain -Ongoing for the last three months -troponin neg Chronic back and left leg pain -Likely d/t bone mets -Oxycodone 5mg prn Diabetes-non insulin dependent -SSI COPD -MAT protocol Hx of cardiac intervention Bipolar depression -Restart home meds once med rec has been completed Hypothyroidism -Restart home meds once med rec has been completed Dementia Disposition: Pt likely to stay 24 more hours to monitor sodium and develop plan of care for hospital d/c. Pt will need facility placement and hospice would be an appropriate option at this time. Diet: Regular with Fluid restriction <1.5L day Code status: Full Code DVT ppx: SCDs GI ppx: Protonix EMERALD ALEJANDRA MD 01/09/22 1559: Subjective HPI/CC On Admission Time Seen by Provider: 10:20 Assessment/Plan Assessment and Plan Assess & Plan/Chief Complaint Admitted with hyponatremia. Now improving. Add salt tabs, decrease IV fluids. SVT now resolved, Cardiology following. No evidence of infection. Imaging yesterday concerning for extensive metastatic disease to the bones, likely prostate primary. Findings discussed with guardian via telephone yesterday. Diagnosis/Problems Diagnosis/Problems (1) Hyponatremia Status: Acute (2) Hypokalemia Status: Acute (3) Hypomagnesemia Status: Acute (4) Bone lesion Status: Acute (5) Mediastinal lymphadenopathy Status: Acute (6) Inguinal lymphadenopathy Status: Acute (7) Retroperitoneal lymphadenopathy Status: Acute (8) External iliac lymphadenopathy Status: Acute (9) Elevated alkaline phosphatase level Status: Acute Supervisory-Addendum Brief Verification & Attestation Participated in pt care: history, MDM, physical Personally performed: exam, history, MDM, supervision of care Care discussed with: Medical Student Procedures: n/a Results interpretation: Verified all documentation A medical student performed and documented this service in my presence. I reviewed and verified all information documented by the medical student and made modifications to such information, when appropriate. I personally performed the physical exam and medical decision making. LINA RAMIREZ MED STUDENT Jan 09, 2022 09:55 EMERALD ALEJANDRA MD Jan 09, 2022 15:59
[2022-01-09] MEDS: RT--FLUTICASONE/SALMETEROL 113-14 (AIRDUO RespiCLICK) IH SCH ×2 (10:54→20:38)
--- NOTE | 2022-01-09 14:58 | Progress Note - Cardiology ---
Cardiology SOAP Progress Note Subjective: No cp or palp or syncope or shortness of breath at rest No n/v/d Some gen malaise Objective: I&O/Vital Signs 01/09/22 01/09/22 01/09/22 01/09/22 03:00 04:00 04:00 04:00 Temp 36.4 Pulse 79 80 Resp 20 21 B/P (MAP) 146/86 (106) 151/85 (107) Pulse Ox 98 97 98 O2 Delivery Nasal Cannula Nasal Cannula Nasal Cannula O2 Flow Rate 2.00 2.00 2.00 01/09/22 01/09/22 01/09/22 01/09/22 05:00 06:00 07:00 07:00 Pulse 75 76 75 72 Resp 22 B/P (MAP) 144/91 (108) 133/83 (100) 129/80 (96) Pulse Ox 97 96 94 O2 Delivery Nasal Cannula Nasal Cannula Nasal Cannula O2 Flow Rate 2.00 2.00 2.00 01/09/22 01/09/22 01/09/22 01/09/22 08:00 08:00 09:00 09:30 Pulse 71 71 74 Resp 20 20 B/P (MAP) 134/80 (98) 142/81 (101) Pulse Ox 95 98 96 O2 Delivery Room Air Nasal Cannula Nasal Cannula O2 Flow Rate 2.00 2.00 01/09/22 01/09/22 01/09/22 01/09/22 10:00 11:00 11:33 12:00 Temp 36.4 Pulse 79 80 77 Resp 20 22 B/P (MAP) 126/75 (92) 111/75 (87) 111/67 (82) Pulse Ox 95 93 95 O2 Delivery Nasal Cannula Nasal Cannula Nasal Cannula O2 Flow Rate 2.00 2.00 2.00 01/09/22 01/09/22 01/09/22 01/09/22 12:00 13:00 13:00 14:00 Pulse 81 85 80 Resp 27 21 B/P (MAP) 106/55 (72) 103/62 (76) Pulse Ox 95 96 95 O2 Delivery Room Air Nasal Cannula Nasal Cannula O2 Flow Rate 2.00 2.00 01/09/22 00:00 Intake Total 1500 ml Output Total 2850 ml Balance -1350 ml Constitutional: AAO x 3, well-developed, other (thin) Respiratory: No accessory muscle use, No respiratory distress; chest expansion is symmetric, chest is bilaterally symmetric, other (diminished bases bilat) Cardiovascular: No JVD; tachycardia, S1 and S2 Gastrointestional: round; No distended, No guarding; audible bowel sounds Extremities: no lower extremity edema bilateral Neurologic/Psychiatric: other (moves all limbs equally) Skin: normal color Results/Procedures: Labs Laboratory Tests 01/08/22 16:10: Sodium Level 125*L, Potassium Level 3.8, Magnesium Level 2.1 01/08/22 22:05: Sodium Level 128L 01/09/22 04:05: Sodium Level 128L, Potassium Level 3.5L, Magnesium Level 1.9, White Blood Count 13.1H, Red Blood Count 4.61, Hemoglobin 13.0L, Hematocrit 37L, Mean Corpuscular Volume 81, Mean Corpuscular Hemoglobin 28, Mean Corpuscular Hemoglobin Concent 35, Red Cell Distribution Width 14.2, Platelet Count 194, Mean Platelet Volume 8.2L, Immature Granulocyte % (Auto) 1, Neutrophils (%) (Auto) 84H, Lymphocytes (%) (Auto) 6L, Monocytes (%) (Auto) 9, Eosinophils (%) (Auto) 0, Basophils (%) (Auto) 0, Neutrophils # (Auto) 10.9H, Lymphocytes # (Auto) 0.8L, Monocytes # (Auto) 1.2H, Eosinophils # (Auto) 0.0, Basophils # (Auto) 0.0, Immature Granulocyte # (Auto) 0.1, Chloride Level 93L, Carbon Dioxide Level 23, Anion Gap 12, Blood Urea Nitrogen 6L, Creatinine 0.70, Estimat Glomerular Filtration Rate 105, BUN/Creatinine Ratio 9, Glucose Level 142H, Calcium Level 8.3L, Corrected Calcium 9.3, Total Bilirubin 1.1H, Aspartate Amino Transf (AST/SGOT) 125H, Alanine Aminotransferase (ALT/SGPT) 194H, Alkaline Phosphatase 1370H, Total Protein 5.6L, Albumin 2.7L 01/09/22 09:59: Sodium Level 126L Laboratory Tests 01/07/22 19:17 01/08/22 04:22 01/08/22 10:51 01/08/22 16:10 01/08/22 22:05 01/09/22 04:05 01/09/22 09:59 A/P: Assessment: Sinus tachycardia and PSVT - possibly secondary to electrolytes abnormalities - echo on 01/08/22: LVEF 60-65%, poor quality study that did now allow valve eval Pneumonia with sepsis? - management per medical services Hyponatremia - undetermined etiology - management per medical services Palpitations - d/t tachycardia CAD - Reports h/o stent x 1 in [place], [place] and another stent x 1 in (he does not know the details, who, when or what hospital the stents were done) - states greater than 10 yrs ago HTN Reports ?CKD - states he was to see nephrology at [facility] - but missed the appt Chronic dyspnea - unchanged Chronic chew tobacco user Chronic left leg discomfort/weakness - undetermined etiology - management per medical services Abdominal discomfort - management per medical services Family h/o CAD - mother and father Plan: SVT and heart rate are controlled don the current regimen of BB and CCB: co ntinue Monitor labs Clonidine d/c'd due to low bp Med svce managing pneumonia, sepsis, hyponatremia SUSIE KRISHNAN MD FACP FAC CCDS Jan 09, 2022 14:58
[2022-01-09] MEDS ORDERED: SODIUM CHLORIDE 1 GM TABLET PO NR (16:00)
[2022-01-09] MEDS: ACETAMINOPHEN 325 MG TABLET PO PRN (19:36)
[2022-01-09] MEDS: ONDANSETRON 4 MG/2 ML (SDV) Z0FRAN IV PRN (19:36)
[2022-01-09] MEDS: SODIUM CHLORIDE 1 GM TABLET PO SCH (21:04)
[2022-01-09] MEDS: DONEPEZIL 10 MG (ARICEPT) TAB PO SCH (21:05)
[2022-01-09] MEDS: TAMSULOSIN 0.4 MG (FLOMAX) CAP PO SCH (21:05)
[2022-01-09] MEDS: BENZTROPINE MESYLATE 1 MG (COGENTIN) TAB PO SCH (21:05)
[2022-01-10] MEDS: LEVOTHYROXINE 75 MCG (LEVOTHROID) TABLET PO SCH (05:09)
[2022-01-10 05:11] LABS: HEMATOCRIT 35 % (40-54); HEMOGLOBIN 11.9 g/dL (13.3-17.7); MEAN CORPUSCULAR HEMOGLOBIN 28 pg (25-34); MEAN CORPUSCULAR HGB CONC 35 g/dL (32-36); MEAN CORPUSCULAR VOLUME 82 fL (80-99); PLATELET COUNT 168 10^3/uL (130-400); WHITE BLOOD COUNT 9.1 10^3/uL (4.3-11.0)
[2022-01-10 05:16] LABS: POTASSIUM 3.4 MMOL/L (3.6-5.0)
[2022-01-10 05:17] LABS: CALCIUM 8.1 MG/DL (8.5-10.1)
[2022-01-10] MEDS: MAGNESIUM 1 GM/100 ML IVPB 100 ML IV SCH ×3 (05:21→07:29)
[2022-01-10] MEDS: POTASSIUM CL 10MEQ/50ML IVPB 50 ML IV SCH (05:21)
[2022-01-10] MEDS: KCL 20 MEQ TAB (K-DUR) PO SCH (05:21)
[2022-01-10 05:22] LABS: CREATININE SERUM 0.64 MG/DL (0.60-1.30)
[2022-01-10] MEDS ORDERED: KCL 20 MEQ TAB (K-DUR) PO ONE (05:30)
[2022-01-10 05:52] LABS: PHOSPHORUS 3.2 MG/DL (2.3-4.7)
[2022-01-10 05:53] LABS: MAGNESIUM 1.7 MG/DL (1.6-2.4)
[2022-01-10] MEDS: RT--FLUTICASONE/SALMETEROL 113-14 (AIRDUO RespiCLICK) IH SCH (07:15)
[2022-01-10] MEDS: ASPIRIN E.C. 81 MG (ECOTRIN) TAB PO SCH (07:27)
[2022-01-10] MEDS: PANTOPRAZOLE 40 MG (PROTONIX) TAB PO SCH (07:28)
[2022-01-10] MEDS: DOCUSATE SODIUM 100 MG (COLACE) CAP PO SCH (07:28)
[2022-01-10] MEDS: meTOprolol TARTRATE 50 MG (LOPRESSOR) TAB PO SCH (07:28)
[2022-01-10] MEDS: buPROPion SR 150 MG (WELLBUTRIN SR) TAB PO SCH (07:28)
[2022-01-10] MEDS: CLOPIDOGREL 75 MG (PLAVIX) TABLET PO SCH (07:28)
[2022-01-10] MEDS: TERAZOSIN 1 MG CAP (HYTRIN) PO SCH (07:28)
[2022-01-10] MEDS: FINASTERIDE (PROSCAR) 5 MG TAB PO SCH (07:28)
[2022-01-10] MEDS: NS IV 1000 ML 1,000 ML IV SCH (07:29)
[2022-01-10] MEDS: SODIUM CHLORIDE 1 GM TABLET PO SCH (07:29)
--- NOTE | 2022-01-10 08:06 | Physical Therapy Progress Note ---
Therapy Progress Note Will await new orders to continue when appropriate. JEFF NATARAJAN PT Jan 10, 2022 08:06
[2022-01-10] MEDS ORDERED: SODIUM CHLORIDE 1 GM TABLET PO SCH (09:00)
[2022-01-10] MEDS: ONDANSETRON 4 MG/2 ML (SDV) Z0FRAN IV PRN (09:03)
--- NOTE | 2022-01-10 13:42 | Progress Note - Hospitalist ---
LINA RAMIREZ A MED STUDENT 01/10/22 1342: Subjective HPI/CC On Admission Date Seen by Provider: Jan 10, 2022 Time Seen by Provider: 08:45 Doris is a 61 [facility] who presented on 01/07 for hyponatremia. Pt has extensive past medical hx of dementia, HTN, COPD, cardiac stent x2, CKD 3, T2DM non insulin dependent, bipolar depression, chronic back pain and hx of ETOH consumption. Pt initially reports he felt fine yesterday, but was brought in by the [facility] is [facility]. Pt is alert and oriented to self and place, but unsure of date/time. He reports today that he has had nausea for some time now and has not eaten in several days. He reports nothing sounds appetizing and he wont eat food that he doesn't like. Last BM was "a couple of days ago", but he later reported he hasn't eaten enough to even have a BM in awhile. He does not follow up with a residential youth counselor and he was supposed to f/u with a media buyer, but missed the appt. Pt reports nausea, heart burn, chronic left leg pain, SOA, sweating. Denies fever, chills, CP, weakness/numbness, diarrhea or vomiting. Subjective/Events-last exam Pt being seen in f/u for hyponatremia and extensive bone metastasis. Pt is more alert and oriented this morning compared to yesterday. He is nauseous and has been vomiting this morning. Zofran given with improvement of sxs. Discussed with pt that the bone lesions are likely cancer that is aggressive and he will need retirement for rehabilitation prior to starting treatment for cancer if thats what he chooses. Also discussed that further work up of cancer is necessary. Pt reports he wants "to do anything he can to stay alive". Will further discuss this with guardian. Review of Systems General: No Chills, No Fatigue HEENT: No Head Aches, No Visual Changes Pulmonary: No Dyspnea, No Cough Cardiovascular: No: Chest Pain, Palpitations Gastrointestinal: Nausea, Vomiting Genitourinary: No Dysuria, No Frequency Musculoskeletal: back pain Neurological: No: Weakness, Numbness Focused Exam Lactate Level 01/08/22 10:51: Lactic Acid Level 2.41*H 01/08/22 13:15: Lactic Acid Level 1.41 Objective Exam Vital Signs Vital Signs Date Time Temp Pulse Resp B/P (MAP) Pulse Ox O2 Delivery O2 Flow Rate FiO2 01/10/22 12:39 86 01/10/22 12:00 13 140/92 (108) 96 Nasal Cannula 2.00 01/10/22 03:55 36.6 01/08/22 00:07 21 Capillary Refill : Less Than 3 Seconds General Appearance: No Apparent Distress, Chronically ill HEENT: PERRL/EOMI, Moist Mucous Membranes Neck: Full Range of Motion, Normal Inspection Respiratory: Chest Non Tender, Lungs Clear, Normal Breath Sounds, No Accessory Muscle Use, No Respiratory Distress Cardiovascular: Regular Rate, Rhythm, No Murmur Gastrointestinal: Normal Bowel Sounds, Non Tender, Soft Extremity: Non Tender, No Pedal Edema Neurologic/Psychiatric: Alert, Disoriented Skin: Normal Color, Warm/Dry Results/Procedures Lab Laboratory Tests 01/09/22 16:10 01/10/22 05:00 Patient resulted labs reviewed. Assessment/Plan Assessment and Plan Assess & Plan/Chief Complaint Hyponatremia Leukocytosis Anemia Hypokalemia Hypomagnesemia Tachycardia CKD 3 Chest pain Chronic back and left leg pain Diabetes-non insulin dependent COPD Hx of cardiac intervention Bipolar depression Hypothyroidism Dementia Chronic hyponatremia likely secondary to CKD 3 -q6h sodium checks -improving -Limit Na correction to 6-8mEq/L/day and monitor risk for osmotic demylenation syndrome -NaCl at 75 mls/hr -Fluid restriction >1.5L/day -Encourage pt to eat three protein rich meals per day Nausea/Vomiting -Zofran prn -Will monitor electrolytes closely Leukocytosis -resolved Anemia -Likely dilutional and d/t hematuria Hypokalemia -KCl protocol, improving Hypomagnesemia -Mag sulf/dextrose, improved Sinus Tachycardia with SVT -Cardiology consulted, appreciate their recs -Cardizem started and tachycardia resolved, no new SVT episodes -Echo showed EF of 65% Mediastinal, retroperitonal and pelvic LAD with metastatic bone lesions -CT indicated most likely metastasis -Discussed pt's options, but unsure if he has capacity to make decisions for himself and understand the gravity of the situation Hematuria -Possibly d/t potential prostate cancer -Gunter in place CKD 3 -BUN stable, unsure of baseline -will continue to monitor Chest pain -Ongoing for the last three months -troponin neg Chronic back and left leg pain -Likely d/t bone mets -Oxycodone 5mg prn Diabetes-non insulin dependent -SSI COPD -MAT protocol Hx of cardiac intervention Bipolar depression -Restart home meds once med rec has been completed Hypothyroidism -Restart home meds once med rec has been completed Dementia Disposition: Pt stable for d/c back to [facility]. Will discuss end of life goals with pt and guardian as pt does not have capacity to make these decisions on own. Discussed at length with pt that his medical condition is too poor for chemotherapy at this point and he would need retirement for rehabilitation while work up is being done. Diet: Regular with Fluid restriction <1.5L day Code status: Full Code DVT ppx: SCDs GI ppx: Protonix EMERALD ALEJANDRA MD 01/10/224: Subjective HPI/CC On Admission Time Seen by Provider: 10:00 Assessment/Plan Assessment and Plan Assess & Plan/Chief Complaint Sodium improved. HR stabilized. Confusion improved. Plan to return to [facility] today and follow up outpatient in the cancer center. Diagnosis/Problems Diagnosis/Problems (1) Hyponatremia Status: Acute (2) Bone lesion Status: Acute (3) Mediastinal lymphadenopathy Status: Acute (4) Inguinal lymphadenopathy Status: Acute (5) Retroperitoneal lymphadenopathy Status: Acute (6) External iliac lymphadenopathy Status: Acute Supervisory-Addendum Brief Verification & Attestation Participated in pt care: history, MDM, physical Personally performed: exam, history, MDM, supervision of care Care discussed with: Medical Student Procedures: n/a Results interpretation: Verified all documentation A medical student performed and documented this service in my presence. I reviewed and verified all information documented by the medical student and made modifications to such information, when appropriate. I personally performed the physical exam and medical decision making. LINA RAMIREZ A MED STUDENT Jan 10, 2022 13:42 EMERALD ALEJANDRA MD Jan 10, 2022 19:34
[2022-01-10] MEDS ORDERED: ONDA4TAB11 SL (13:47)
[2022-01-10] MEDS ORDERED: DILT240C91 PO (13:47)
[2022-01-10] MEDS ORDERED: NF-NACL1GT PO (13:47)
--- NOTE | 2022-01-10 15:18 | Progress Note - Cardiology ---
Cardiology SOAP Progress Note Subjective: Continues to have n/v and poor appetite No cp or palp or syncope or shortness of breath at rest No swelling No focal weakness Gen weakness and malaise are present Objective: I&O/Vital Signs 01/10/22 01/10/22 01/10/22 01/10/22 03:55 04:00 04:00 05:00 Temp 36.6 Pulse 61 60 Resp 16 25 B/P (MAP) 121/98 (106) 107/62 (77) Pulse Ox 93 96 95 O2 Delivery Nasal Cannula Nasal Cannula Nasal Cannula Nasal Cannula O2 Flow Rate 2.00 2.00 2.00 2.00 01/10/22 01/10/22 01/10/22 01/10/22 06:00 07:00 07:00 07:15 Pulse 54 65 63 Resp 13 23 B/P (MAP) 130/76 (94) 138/91 (107) Pulse Ox 99 93 94 O2 Delivery Nasal Cannula Nasal Cannula Room Air O2 Flow Rate 2.00 2.00 01/10/22 01/10/22 01/10/22 01/10/22 07:49 08:00 09:00 10:00 Pulse 67 72 71 Resp 13 22 17 B/P (MAP) 120/85 (97) 152/84 (106) 152/90 (110) Pulse Ox 95 95 94 94 O2 Delivery Room Air Nasal Cannula Nasal Cannula Nasal Cannula O2 Flow Rate 2.00 2.00 2.00 01/10/22 01/10/22 01/10/22 01/10/22 11:00 12:00 12:00 12:39 Pulse 78 87 86 Resp 11 13 B/P (MAP) 142/98 (113) 140/92 (108) Pulse Ox 95 95 96 O2 Delivery Nasal Cannula Room Air Nasal Cannula O2 Flow Rate 2.00 2.00 01/10/22 01/10/22 13:00 14:00 Pulse 73 81 Resp 21 28 B/P (MAP) 142/87 (105) Pulse Ox 93 95 O2 Delivery Nasal Cannula Nasal Cannula O2 Flow Rate 2.00 2.00 01/10/22 00:00 Intake Total 347 ml Output Total 435 ml Balance -88 ml Constitutional: AAO x 3, well-developed, other (thin) Respiratory: No accessory muscle use, No respiratory distress; chest expansion is symmetric, chest is bilaterally symmetric, other (diminished bases bilat) Cardiovascular: No JVD; tachycardia, S1 and S2 Gastrointestional: round; No distended, No guarding; audible bowel sounds Extremities: no lower extremity edema bilateral Neurologic/Psychiatric: other (moves all limbs equally) Skin: normal color Results/Procedures: Labs Laboratory Tests 01/09/22 16:10: Sodium Level 126L 01/10/22 00:00: Phosphorus Level 3.2, Magnesium Level 1.7 01/10/22 05:00: Sodium Level 126L, White Blood Count 9.1, Red Blood Count 4.21L, Hemoglobin 11.9L, Hematocrit 35L, Mean Corpuscular Volume 82, Mean Corpuscular Hemoglobin 28, Mean Corpuscular Hemoglobin Concent 35, Red Cell Distribution Width 14.2, Platelet Count 168, Mean Platelet Volume 8.0L, Potassium Level 3.4L, Chloride Level 94L, Carbon Dioxide Level 22, Anion Gap 10, Blood Urea Nitrogen 8, Creatinine 0.64, Estimat Glomerular Filtration Rate 108, BUN/Creatinine Ratio 13 , Glucose Level 147H, Calcium Level 8.1L Microbiology 01/09/22 MRSA Screen - Final, Complete 01/08/22 Blood Culture - Preliminary, Resulted No growth Laboratory Tests 01/08/22 16:10 01/08/22 22:05 01/09/22 04:05 01/09/22 09:59 01/09/22 16:10 01/10/22 05:00 A/P: Assessment: Sinus tachycardia and PSVT - possibly secondary to electrolytes abnormalities - echo on 01/08/22: LVEF 60-65%, poor quality study that did now allow valve eval Pneumonia with sepsis? - management per medical services Hyponatremia - undetermined etiology - management per medical services Palpitations - d/t tachycardia CAD - Reports h/o stent x 1 in [place], [place] and another stent x 1 in [place], [place] (he does not know the details, who, when or what hospital the stents were done) - states greater than 10 yrs ago HTN Reports ?CKD - states he was to see nephrology at [facility] - but missed the appt Chronic dyspnea - unchanged Chronic chew tobacco user Chronic left leg discomfort/weakness - undetermined etiology - management per medical services Abdominal discomfort - management per medical services Family h/o CAD - mother and father Plan: SVT and heart rate are controlled don the current regimen of BB and CCB: continue Replenish electrolytes Monitor labs Med svce managing pneumonia, sepsis, hyponatremia Clinical Quality Measures Type of Care: Type of Care: Pallative Care SUSIE KRISHNAN MD FACP FAC CCDS Jan 10, 2022 15:18
--- NOTE | 2022-01-10 20:11 | Discharge Summary ---
Discharge Summary Hospital Course Was the Problem List Reviewed?: Yes Problems/Dx: (1) Hyponatremia Status: Acute (2) Bone lesion Status: Acute (3) Mediastinal lymphadenopathy Status: Acute (4) Inguinal lymphadenopathy Status: Acute (5) Retroperitoneal lymphadenopathy Status: Acute (6) External iliac lymphadenopathy Status: Acute Hospital Course Date of Admission: Jan 08, 2022 at 13:01 Admission Diagnosis : Hyponatremia Family Physician/Provider: Saad Grider DO Date of Discharge: 01/10/22 Discharge Diagnosis: Hyponatremia, bone lesions, lymphadenopathy Hospital Course: Doris Jensen is a 61 year old male who presented with altered mental status and was admitted with hyponatremia. He was treated with IV fluids and sodium supplementation and his sodium levels improved. His confusion also resolved. His workup revealed extensive bone lesions and lymphadenopathy concerning for metastatic cancer, likely prostate origin. He was very debilitated. He was discharged back to [facility] for skilled therapy needs. He should follow up in the cancer center. The plan and prognosis was discussed with his guardian, Kj. Labs and Pending Lab Test: Laboratory Tests 01/10/22 00:00: Phosphorus Level 3.2, Magnesium Level 1.7 01/10/22 05:00: White Blood Count 9.1, Red Blood Count 4.21L, Hemoglobin 11.9L, Hematocrit 35L, Mean Corpuscular Volume 82, Mean Corpuscular Hemoglobin 28, Mean Corpuscular Hemoglobin Concent 35, Red Cell Distribution Width 14.2, Platelet Count 168, Mean Platelet Volume 8.0L, Sodium Level 126L, Potassium Level 3.4L, Chloride Level 94L, Carbon Dioxide Level 22, Anion Gap 10, Blood Urea Nitrogen 8, Creatinine 0.64, Estimat Glomerular Filtration Rate 108, BUN/Creatinine Ratio 13, Glucose Level 147H, Calcium Level 8.1L Microbiology 01/09/22 MRSA Screen - Final, Complete 01/08/22 Blood Culture - Preliminary, Resulted No growth Home Meds Active Ondansetron Odt (Ondansetron) 4 Mg Tab.rapdis 4 Mg SL Q4H PRN 14 Days Sodium Chloride 1 Gram Tab 2 Gm PO BID 30 Days Diltiazem 24Hr ER (Diltiazem HCl) 240 Mg Cap.er.24h 240 Mg PO DAILY 30 Days Reported Vitamin D3 (Cholecalciferol (Vitamin D3)) 125 Mcg (5000 Unit) Capsule 125 Mcg PO DAILY Potassium Chloride 20 Meq Tab.er.prt 20 Meq PO DAILY [place] (Pilocarpine) 5 Mg Tab 5 Mg PO QID Metoprolol Tartrate 50 Mg Tablet 50 Mg PO BID Latuda (Lurasidone HCl) 40 Mg Tablet 40 Mg PO HS Furosemide 20 Mg Tablet 20 Mg PO BID Flomax (Tamsulosin HCl) 0.4 Mg Cap 0.4 Mg PO HS Finasteride 5 Mg Tablet 5 Mg PO DAILY Bupropion Xl (Bupropion HCl) 300 Mg Tab.er.24h 300 Mg PO DAILY Biofreeze (Menthol) 4 % Gel..ml. 1 Applic TP Q6H PRN Benztropine Mesylate 1 Mg Tablet 1 Mg PO HS Aspirin EC (Aspirin) 81 Mg Tablet.dr 81 Mg PO DAILY Allopurinol 100 Mg Tablet 100 Mg PO DAILY Chlorhexidine Gluconate 0.12 % Mouthwash 30 Ml MM BID SWISH AND SPIT Triamcinolone Acetonide 0.1% Cream (Triamcinolone Acet) 0.1 % Cr 1 Applic TP BID PRN Advair 100-50 Diskus (Fluticasone/Salmeterol) 1 Each Blst.w.dev 1 Each IH BID Tramadol HCl 50 Mg Tablet 100 Mg PO Q6H PRN TAKES 2 (50MG) TABS Iprat-Albut 0.5-3(2.5) mg/3 ml (Ipratropium/Albuterol Sulfate) 3 Ml Ampul.neb 3 Ml IH Q6H PRN Claritin (Loratadine) 10 Mg Tablet 10 Mg PO DAILY Levothyroxine Sodium 75 Mcg Tablet 75 Mcg PO DAILY Donepezil HCl 10 Mg Tablet 10 Mg PO HS Atorvastatin Calcium 40 Mg Tablet 40 Mg PO HS Terazosin HCl 2 Mg Capsule 2 Mg PO DAILY Clonidine HCl 0.1 Mg Tablet 0.1 Mg PO TID Miralax (Polyethylene Glycol 3350) 17 Gm Powd.pack 17 Gm PO DAILY Lisinopril 40 Mg Tablet 40 Mg PO DAILY Pantoprazole Sodium 40 Mg Tablet.dr 40 Mg PO DAILY B-12 (Cyanocobalamin (Vitamin B-12)) 1,000 Mcg Tablet 1,000 Mcg PO DAILY Plavix (Clopidogrel Bisulfate) 75 Mg Tablet 75 Mg PO DAILY Assessment/Pt Instructions See instructions Discharge Instructions Discharge Diet: No Restrictions Activity as Tolerated: Yes Consultations Cardiology Discharge Physical Examination Vital Signs Vital Signs Date Time Temp Pulse Resp B/P (MAP) Pulse Ox O2 Delivery O2 Flow Rate FiO2 01/10/22 15:15 01/10/22 14:00 81 28 95 Nasal Cannula 2.00 01/10/22 03:55 36.6 01/08/22 00:07 21 General Appearance: No Apparent Distress, WD/WN Respiratory: Lungs Clear, No Respiratory Distress Cardiovascular: Regular Rate, Rhythm, No Murmur Gastrointestinal: Normal Bowel Sounds, Soft Extremity: Normal Inspection, Pedal Edema Skin: Normal Color, Warm/Dry Neurologic/Psychiatric: Alert, Normal Mood/Affect Allergies: Coded Allergies: No Known Drug Allergies (Unverified , 04/11/19) Discharge Summary Date of Admission Jan 08, 2022 at 13:01 Date of Discharge Jan 10, 2022 at 15:24 Discharge Date: Jan 10, 2022 Discharge Time: 15:24 Admission Diagnosis Hyponatremia Comfort Measures/ End of Life Care: Pallative Care Discharge Diagnosis Hyponatremia, Bone lesions, Lymphadenopathy (1) Hyponatremia Status: Acute (2) Bone lesion Status: Acute (3) Mediastinal lymphadenopathy Status: Acute (4) Inguinal lymphadenopathy Status: Acute (5) Retroperitoneal lymphadenopathy Status: Acute (6) External iliac lymphadenopathy Status: Acute EMERALD ALEJANDRA MD Jan 10, 2022 20:04
== END 2022-01-10 15:24 | DRG 641 ==
LOC: EDUNIT# 19:15 → ER FS 19:16 → 4TH 23:35 → ICU 01-08 03:58 → OBSVTOIN 01-08 13:01
PROVIDERS: ADMIT Internal Medicine; ATTEND Internal Medicine
DX: E87.1 Hypo-osmolality and hyponatremia (principal); I47.1 Supraventricular tachycardia; C79.51 Secondary malignant neoplasm of bone; R65.10 Systemic inflammatory response syndrome (SIRS) of non-infectious origin without acute organ dysfunction; M89.9 Disorder of bone, unspecified; R59.1 Generalized enlarged lymph nodes; F03.90 Unspecified dementia, unspecified severity, without behavioral disturbance, psychotic disturbance, mood disturbance, and anxiety; C61 Malignant neoplasm of prostate; J44.9 Chronic obstructive pulmonary disease, unspecified; Z95.5 Presence of coronary angioplasty implant and graft; N18.30 Chronic kidney disease, stage 3 unspecified; F31.9 Bipolar disorder, unspecified; G89.29 Other chronic pain; M54.9 Dorsalgia, unspecified; E11.22 Type 2 diabetes mellitus with diabetic chronic kidney disease; I12.9 Hypertensive chronic kidney disease with stage 1 through stage 4 chronic kidney disease, or unspecified chronic kidney disease; D72.829 Elevated white blood cell count, unspecified; E87.6 Hypokalemia; E83.42 Hypomagnesemia; R11.2 Nausea with vomiting, unspecified; R31.9 Hematuria, unspecified; D63.1 Anemia in chronic kidney disease; R07.9 Chest pain, unspecified; N40.0 Benign prostatic hyperplasia without lower urinary tract symptoms; I25.10 Atherosclerotic heart disease of native coronary artery without angina pectoris; E03.9 Hypothyroidism, unspecified; F41.9 Anxiety disorder, unspecified; F17.220 Nicotine dependence, chewing tobacco, uncomplicated; Z82.49 Family history of ischemic heart disease and other diseases of the circulatory system; R53.1 Weakness; E78.00 Pure hypercholesterolemia, unspecified; Z20.822 Contact with and (suspected) exposure to COVID-19
CPT/HCPCS: 36415; 71045; 71250; 74178; 80048; 80053; 80076; 81000; 82728; 83540; 83550; 83605; 83735; 84100; 84132; 84145; 84295; 84443; 84484; 85007; 85025; 85027; 87040; 87081; 87636; 93005; 93306; 94640; 99283; G0378

== ENCOUNTER → 2022-01-15 | Outpatient (RCR) | payer MEDICARE, MEDICAID ==
[~2022-01-15] MED LIST changes: +ALLO100T PO; +ASPI-1238 PO; +BENZ1TAB6 PO; +BUPR300T98 PO; +CHOL500050 PO; +CLOP-31 PO; -CLOP75TA69 PO; +DILT240C91 PO; +FURO20TA4 PO; +LURA40TA2 PO; +MENT118G TP; +METO50TA15 PO; +NF-NACL1GT PO; +NF-PILO5T PO; +ONDA4TAB11 SL; +POTA-179 PO
[2022-01-15 14:57] LABS: ABSOLUTE RETIC # 93 10e9/uL (24-90); BASOPHILS # (AUTO) 0.1 10^3/uL (0.0-0.1); BASOPHILS % (AUTO) 1 % (0-10); EOSINOPHILS # (AUTO) 0.1 10^3/uL (0.0-0.3); EOSINOPHILS % (AUTO) 1 % (0-10); HEMATOCRIT 37 % (40-54); HEMOGLOBIN 12.7 g/dL (13.3-17.7); LYMPHOCYTES # (AUTO) 1.4 10^3/uL (1.0-4.0); LYMPHOCYTES % (AUTO) 13 % (12-44); MEAN CORPUSCULAR HEMOGLOBIN 29 pg (25-34); MEAN CORPUSCULAR HGB CONC 34 g/dL (32-36); MEAN CORPUSCULAR VOLUME 84 fL (80-99); MEAN PLATELET VOLUME 8.2 fL (9.0-12.2); MONOCYTES # (AUTO) 0.8 10^3/uL (0.0-1.0); MONOCYTES % (AUTO) 7 % (0-12); NEUTROPHILS # (AUTO) 8.5 10^3/uL (1.8-7.8); NEUTROPHILS % (AUTO) 77 % (42-75); PLATELET COUNT 247 10^3/uL (130-400); WHITE BLOOD COUNT 11.2 10^3/uL (4.3-11.0)
[2022-01-15 15:41] LABS: BILIRUBIN,TOTAL 0.4 MG/DL (0.1-1.0); CALCIUM 8.4 MG/DL (8.5-10.1); CREATININE SERUM 0.75 MG/DL (0.60-1.30); POTASSIUM 3.5 MMOL/L (3.6-5.0)
== END | disposition home or self-care (01) ==
LOC: ONC 01:25
PROVIDERS: ATTEND Internal Medicine Hematology & Oncology
DX: C61 Malignant neoplasm of prostate (principal); C79.51 Secondary malignant neoplasm of bone; D64.9 Anemia, unspecified
CPT/HCPCS: 80053; 82607; 82746; 83615; 84153; 85025; 85045; G0463; 99204

== ENCOUNTER → 2022-01-31 | Outpatient (CLI) | payer MEDICARE, MEDICAID ==
--- NOTE | 2022-01-31 15:57 | Diagnostic Imaging Report ---
Osseous metastatic disease. Patient was administered 25.4 mCi technetium 99m MDP intravenously and whole-body imaging was performed after a three-hour delay. There is uptake of activity by the axial and appendicular skeleton. There is uptake by the kidneys with excretion to the urinary bladder. There are numerous foci of abnormal uptake involving bilateral ribs as well as the thoracic and lumbar spine, bony pelvis and proximal femora. There is uptake in the humeri bilaterally as well. Findings are consistent with widespread osseous metastatic disease. IMPRESSION: Diffuse osseous metastatic disease. Dictated by: Dictated on workstation # [id number]
== END ==
LOC: CARD 11:11
PROVIDERS: ATTEND Internal Medicine Hematology & Oncology
DX: C80.1 Malignant (primary) neoplasm, unspecified (principal); C79.51 Secondary malignant neoplasm of bone
CPT/HCPCS: 78306; A9503

== ENCOUNTER 2022-02-27 15:15 | Inpatient (IN) | payer MEDICARE, MEDICAID ==
[~2022-02-27] VITALS: Ht 182.8 cm; Wt 72.3 kg
[~2022-02-27 15:15] MED LIST changes: -CIPR500T5 PO; -MORP100S7 BU; -PRD20T PO
[2022-02-27] MEDS ORDERED: NS IV 1000 ML 1,000 ML IV STA (15:27)
[2022-02-27] MEDS ORDERED: IOHEXOL 350 MG/ML 100 ML (OMNIPAQUE 350) VIAL IV ONE (15:30)
[2022-02-27] MEDS ORDERED: NS 100 ML (IVPB) BAG IV ONE (15:30)
[2022-02-27] MEDS ORDERED: CATHETER FLUSH 10 ML SYR IV PRN (15:30)
[2022-02-27] MEDS ORDERED: ONDANSETRON 4 MG/2 ML (SDV) Z0FRAN IVP ONE (15:30)
[2022-02-27] MEDS ORDERED: HOLD METFORMIN - RECEIVED CONTRAST 20 ML VIAL IV SCH (15:30)
--- NOTE | 2022-02-27 15:34 | ED General ---
General Chief Complaint: General Problems/Pain Stated Complaint: LOW sodium History of Present Illness Date Seen by Provider: Feb 27, 2022 Time Seen by Provider: 15:20 Initial Comments 61-year-old male sent in from medical [place] due to low sodium. Patient caregiver reports that he has not been eating much lately they checked his labs just because he had been eating a lot. His sodium was found to be 119 today. Patient was recently seen and had a prostate biopsy on 02/20/2022 due to concerns with likely metastatic cancer due to prostate. He did have some hematuria and clots. Patient has a Gunter placed at that time this is remained until he follows up with this urologist Dr. Abdalla. Staff with patient reports he has been vomiting after he been eating over the years just recently. He denies any abdominal pain. He once again complains of no appetite. He had a similar episode in December 2021 when she was hospitalized and his sodium increased with IV fluids and some supplement. Patient does have a history of dementia. Allergies and Home Medications Allergies Coded Allergies: No Known Drug Allergies (Unverified , 04/11/19) Patient Home Medication List Home Medication List Reviewed: Yes Allopurinol (Allopurinol) 100 Mg Tablet, 100 MG PO DAILY, (Reported) Entered as Reported by: BRANDON ERVIN on 01/08/22 1026 Aspirin (Aspirin EC) 81 Mg Tablet.dr, 81 MG PO DAILY, (Reported) Entered as Reported by: BRANDON ERVIN on 01/08/22 1026 Atorvastatin Calcium (Atorvastatin Calcium) 40 Mg Tablet, 40 MG PO HS, (Reported) Entered as Reported by: ERASMO QUEEN on 04/12/19 1818 Benztropine Mesylate (Benztropine Mesylate) 1 Mg Tablet, 1 MG PO HS, (Reported) Entered as Reported by: BRANDON ERVIN on 01/08/22 1026 Bupropion HCl (Bupropion Xl) 300 Mg Tab.er.24h, 300 MG PO DAILY, (Reported) Entered as Reported by: BRANDON ERVIN on 01/08/22 1026 Chlorhexidine Gluconate (Chlorhexidine Gluconate) 0.12 % Mouthwash, 30 ML MM BID, (Reported) Entered as Reported by: ERASMO QUEEN on 04/12/19 1845 Cholecalciferol (Vitamin D3) (Vitamin D3) 125 Mcg (5000 Unit) Capsule, 125 MCG PO DAILY, (Reported) Entered as Reported by: BRANDON ERVIN on 01/08/22 102 Clonidine HCl (Clonidine HCl) 0.1 Mg Tablet, 0.1 MG PO TID, (Reported) Entered as Reported by: ERASMO QUEEN on 04/12/191817 Clopidogrel Bisulfate (Plavix) 75 Mg Tablet, 75 MG PO DAILY, (Reported) Entered as Reported by: ERASMO QUEEN on 04/12/191817 Cyanocobalamin (Vitamin B-12) (B-12) 1,000 Mcg Tablet, 1,000 MCG PO DAILY, (Reported) Entered as Reported by: ERASMO QUEEN on 04/12/191817 Diltiazem HCl (Diltiazem 24Hr ER) 240 Mg Cap.er.24h, 240 MG PO DAILY Prescribed by: EMERALD ALEJANDRA on 01/10/22 1347 Donepezil HCl (Donepezil HCl) 10 Mg Tablet, 10 MG PO HS, (Reported) Entered as Reported by: ERASMO QUEEN on 04/12/191817 Finasteride (Finasteride) 5 Mg Tablet, 5 MG PO DAILY, (Reported) Entered as Reported by: BRANDON ERVIN on 01/08/22 102 Fluticasone/Salmeterol (Advair 100-50 Diskus) 1 Each Blst.w.dev, 1 EACH IH BID, (Reported) Entered as Reported by: ERASMO QUEEN on 04/12/19 183 Furosemide (Furosemide) 20 Mg Tablet, 20 MG PO BID, (Reported) Entered as Reported by: BRANDON ERVIN on 01/08/22 102 Ipratropium/Albuterol Sulfate (Iprat-Albut 0.5-3(2.5) mg/3 ml) 3 Ml Ampul.neb, 3 ML IH Q6H PRN for SHORTNESS OF BREATH, (Reported) Entered as Reported by: ERASMO QUEEN on 04/12/191829 Levothyroxine Sodium (Levothyroxine Sodium) 75 Mcg Tablet, 75 MCG PO DAILY, (Reported) Entered as Reported by: ERASMO QUEEN on 04/12/191817 Lisinopril (Lisinopril) 40 Mg Tablet, 40 MG PO DAILY, (Reported) Entered as Reported by: ERASMO QUEEN on 04/12/191817 Loratadine (Claritin) 10 Mg Tablet, 10 MG PO DAILY, (Reported) Entered as Reported by: ERASMO QUEEN on 04/12/191825 Lurasidone HCl (Latuda) 40 Mg Tablet, 40 MG PO HS, (Reported) Entered as Reported by: BRANDON ERVIN on 01/08/22 102 Menthol (Biofreeze) 4 % Gel..ml., 1 APPLIC TP Q6H PRN for PAIN-BREAKTHROUGH, (Reported) Entered as Reported by: BRANDON ERVIN on 01/08/22 102 Metoprolol Tartrate (Metoprolol Tartrate) 50 Mg Tablet, 50 MG PO BID, (Reported) Entered as Reported by: BRANDON ERVIN on 01/08/22 102 Ondansetron (Ondansetron Odt) 4 Mg Tab.rapdis, 4 MG SL Q4H PRN for NAUSEA/VOMITING Prescribed by: EMERALD ALEJANDRA on 01/10/22 1347 Pantoprazole Sodium (Pantoprazole Sodium) 40 Mg Tablet.dr, 40 MG PO DAILY, (Reported) Entered as Reported by: ERASMO QUEEN on 04/12/191817 Pilocarpine (Salagen) 5 Mg Tab, 5 MG PO QID, (Reported) Entered as Reported by: BRANDON ERVIN on 01/08/22 102 Polyethylene Glycol 3350 (Miralax) 17 Gm Powd.pack, 17 GM PO DAILY, (Reported) Entered as Reported by: ERASMO QUEEN on 04/12/191817 Potassium Chloride (Potassium Chloride) 20 Meq Tab.er.prt, 20 MEQ PO DAILY, (Reported) Entered as Reported by: BRANDON ERVIN on 01/08/22 1026 Sodium Chloride (Sodium Chloride) 1 Gram Tab, 2 GM PO BID Prescribed by: EMERALD ALEJANDRA on 01/10/22 1347 Tamsulosin HCl (Flomax) 0.4 Mg Cap, 0.4 MG PO HS, (Reported) Entered as Reported by: BRANDON ERVIN on 01/08/22 1026 Terazosin HCl (Terazosin HCl) 2 Mg Capsule, 2 MG PO DAILY, (Reported) Entered as Reported by: ERASMO QUEEN on 04/12/19 181 Tramadol HCl (Tramadol HCl) 50 Mg Tablet, 100 MG PO Q6H PRN for PAIN-MODERATE (5-7), (Reported) Entered as Reported by: ERASMO QUEEN on 04/12/19 183 Triamcinolone Acet (Triamcinolone Acetonide 0.1% Cream) 0.1 % Cr, 1 APPLIC TP BID PRN for RASH, (Reported) Entered as Reported by: ERASMO QUEEN on 04/12/19 183 Review of Systems Review of Systems Constitutional: No chills; malaise, weakness EENTM: no symptoms reported Respiratory: No cough, No short of breath Cardiovascular: No chest pain, No palpitations Gastrointestinal: No abdominal pain; nausea, vomiting Genitourinary: see HPI Skin: no symptoms reported Psychiatric/Neurological: Depressed, Other (bipolar, dementia ) Past Tfksfui-Knzwna-Iwpceu Hx Immunizations Up To Date Tetanus Booster (TDap): Less than 5yrs PED Vaccines UTD: Yes Past Medical History Surgeries: Yes Cardiac Respiratory: Yes COPD Cardiac: Yes (STENTS X2 ) High Cholesterol Neurological: No Genitourinary: Yes Renal Failure Gastrointestinal: Yes Gall Bladder Disease Musculoskeletal: Yes (BULGING DISCS L 3-4) Chronic Back Pain Endocrine: Yes Diabetes, Non-Insulin dep HEENT: No Cancer: No Psychosocial: Yes (ETOH CONSUMPTION) Sleep Difficulties, Anxiety, Bipolar, Depression Integumentary: No Adverse Reaction/Blood Tranf: No Physical Exam Vital Signs Vital Signs - First Documented 02/27/22 15:20 Temp 36.5 Pulse 90 Resp 16 B/P (MAP) 132/82 (99) Pulse Ox 98 O2 Delivery Room Air Capillary Refill : Height, Weight, BMI Height: '" Weight: lbs. oz. kg; 25.44 BMI Method: General Appearance: Chronically ill, Thin HEENT: PERRL/EOMI Neck: Normal Inspection, Non Tender Respiratory: Lungs Clear, Normal Breath Sounds Cardiovascular: Regular Rate, Rhythm, No Edema Gastrointestinal: Non Tender, Soft Extremity: Normal Capillary Refill Neurologic/Psychiatric: Alert, No Motor/Sensory Deficits, Normal Mood/Affect, Other (Alert to person place but not sure date and time) Progress/Results/Core Measures Suspected Sepsis SIRS Temperature: Pulse: Respiratory Rate: Blood Pressure / Mean: Laboratory Tests 02/27/22 15:28: Creatinine 0.78 Results/Orders Lab Results Laboratory Tests Test 02/27/22 15:28 02/27/22 15:50 Range/Units Sodium Level 120 *L 135-145 MMOL/L Potassium Level 4.0 3.6-5.0 MMOL/L Chloride Level 82 L 98-107 MMOL/L Carbon Dioxide Level 22 21-32 MMOL/L Anion Gap 16 H 5-14 MMOL/L Blood Urea Nitrogen 12 7-18 MG/DL Creatinine 0.78 0.60-1.30 MG/DL Estimat Glomerular Filtration Rate 102 BUN/Creatinine Ratio 15 Glucose Level 194 H 70-105 MG/DL Calcium Level 8.7 8.5-10.1 MG/DL Urine Color DK YELLOW Urine Clarity SL CLOUDY Urine pH 6.0 5-9 Urine Specific [place] 1.025 H 1.016-1.022 Urine Protein 2+ H NEGATIVE Urine Glucose (UA) TRACE H NEGATIVE Urine Ketones NEGATIVE NEGATIVE Urine Nitrite NEGATIVE NEGATIVE Urine Bilirubin NEGATIVE NEGATIVE Urine Urobilinogen 1.0 < = 1.0 MG/DL Urine Leukocyte Esterase 2+ H NEGATIVE Urine RBC (Auto) 3+ H NEGATIVE Urine RBC >100 H /HPF Urine WBC 25-50 H /HPF Urine Squamous Epithelial Cells NONE /HPF Urine Crystals NONE /LPF Urine Bacteria FEW H /HPF Urine Casts NONE /LPF Urine Mucus SMALL H /LPF Urine Culture Indicated YES My Orders Orders - POOJA MA DO Ct Abdomen/Pelvis W (02/27/22 15:27) Ondansetron Injection (Zofran Injectio (02/27/22 15:30) Ns Iv 1000 Ml (Sodium Chloride 0.9%) (02/27/22 15:27) Ua Culture If Indicated (02/27/22 15:28) Iohexol Injection (Omnipaque 350 Mg/Ml 1 (02/27/22 15:30) Received Contrast (Hold Metformin- Contr (02/27/22 15:30) Sodium Chloride Flush (Catheter Flush Sy (02/27/22 15:30) Ns (Ivpb) (Sodium Chloride 0.9% Ivpb Bag (02/27/22 15:30) Basic Metabolic Panel (02/27/22 15:56) Urine Culture (02/27/22 15:50) Code/Resuscitation (02/27/22 16:57) Ed Admission (Communication) (02/27/22 16:57) Medications Given in ED Current Medications Medications Dose Ordered Sig/Latosha Route Start Time Stop Time Status Last Admin Dose Admin Iohexol 100 ml ONCE ONCE IV 02/27/22 15:30 02/27/22 15:31 DC 02/27/22 16:01 80 ML Ondansetron HCl 4 mg ONCE ONCE IVP 02/27/22 15:30 02/27/22 15:31 DC 02/27/22 15:34 4 MG Sodium Chloride 10 ml NEEDED PRN IV 02/27/22 15:30 02/27/22 16:02 10 ML Sodium Chloride 100 ml ONCE ONCE IV 02/27/22 15:30 02/27/22 15:31 DC 02/27/22 16:01 100 ML Vital Signs/I&O 02/27/22 15:20 Temp 36.5 Pulse 90 Resp 16 B/P (MAP) 132/82 (99) Pulse Ox 98 O2 Delivery Room Air Capillary Refill : Progress Note : Progress Note Reviewed patient's labs obtained at [facility] along with new BMP. His sodium at [facility] is 119, it was 120 here. Due to patient having continued nausea and vomiting we obtained a repeat CT which shows increased metastatic disease possible new lesion in the rectum and some constipation. Discussed findings with patient. At this time he feels he would still like to do everything. I do not know if he ate fully understand the extent of his metastatic disease and how aggressive it is. We will gently rehydrate him. Discussed with Dr. Mckeon who accepted patient graciously at [facility] for inpatient treatment. Patient urine is consistent with a UTI however he is on a 21-day Cipro from Dr. Abdalla urology with his indwelling Gunter. Patient was transferred via EMS in stable condition. I did obtain partial history from review of his medical [place] notes and his caregiver. Diagnostic Imaging Diagonstic Imaging: CT Comments CT ABDOMEN/PELVIS W PROCEDURE: CT abdomen and pelvis with contrast. TECHNIQUE: Multiple contiguous axial images were obtained through the abdomen and pelvis after administration of intravenous contrast. Auto Exposure Controls were utilized during the CT exam to meet ALARA standards for radiation dose reduction. All CT scans use one or more of the following dose optimizing techniques: automated exposure control, MA and/or KvP adjustment based on patient size and exam type or iterative reconstruction. INDICATION: Vomiting, loss of appetite, abnormal labs. COMPARISON: Exam is compared with abdominopelvic CT 01/08/2022. FINDINGS: The ascending, transverse, and descending colon are distended with air and stool. There is stool in the rectosigmoid, but the rectum and sigmoid are not pathologically dilated. There was no abrupt transition zone, and no small bowel dilatation. New from the prior is presacral stranding and edema with irregular thickening inseparable from the miguel of the rectum. The urinary bladder is poorly evaluated, catheterized by Gunter. There is an enlarged heterogeneous multinodular prostate indenting the bladder's base becoming inseparable from the bladder base. It is unclear if there is a prostate cancer infiltrating the bladder or this is bladder primary malignancy. This patient has severe widespread osteosclerotic bony metastatic disease without an apparent pathological fracture. There is metastatic-appearing adenopathy in the periaortic central retroperitoneum where the largest node left of midline just below the level of the patent renal veins measured 2.2 x 2.1 cm. Adenopathy extends along the bilateral common iliac chains as well as along the pelvic sidewalls and inguinal canals. A right obturator node measured 3.1 x 2.0 cm and the distal right external iliac misael mass near the inguinal canal measured 3.3 x 2.3 cm. Largest inguinal node on the right is 4.3 x 2.1 cm. These nodes all showed mild interval increase in size from the study of 01/08/2022, and while substantial on the prior, features of bony metastatic disease have also progressed. Nodular thickening of the right greater than left adrenal glands is noted. There is no liver mass. Gallbladder is unremarkable. Air within the distended colon is interposed between the right hepatic dome and the right hemidiaphragm. This is nonobstructive and resulted in no regional inflammation. Kidneys are unobstructed and normal. The spleen is negative. The pancreas is normal. IMPRESSION: 1. Colonic constipation and obstipation without perforation or fluid collection. 2. Marked heterogeneity and irregularity of the prostate inseparable from the thickened irregular urinary bladder base. Bladder evaluation limited by indwelling Gunter. Progressive misael and osseous metastatic disease. Findings suspicious for prostate cancer. The nodular thickening of the rectum is new from prior and may reflect serosal metastatic disease or inflammation. Reviewed: Reviewed by Me, Reviewed/Discussed Departure Impression Primary Impression: Hyponatremia Additional Impressions: Constipation Qualified Codes: K59.00 - Constipation, unspecified Dehydration Disposition: 30 STILL A PATIENT Condition: Stable Admissions Decision to Admit Reason: Admit from ER (General) Decision to Admit/Date: Feb 27, 2022 Time/Decision to Admit Time: 17:02 Departure-Patient Inst. Referrals: TERI HERNANDEZ DO (PCP) Primary Care Physician POOJA MA DO Feb 27, 2022 15:34
[2022-02-27 15:52] LABS: BILIRUBIN,URINE NEGATIVE (NEGATIVE); CLARITY,URINE SL CLOUDY; GLUCOSE, URINE (UA) TRACE (NEGATIVE); KETONES,URINE NEGATIVE (NEGATIVE); LEUKOCYTE ESTERASE ,URINE 2+ (NEGATIVE); NITRITE,URINE NEGATIVE (NEGATIVE); PROTEIN,URINE 2+ (NEGATIVE)
[2022-02-27 15:53] LABS: COLOR,URINE DK YELLOW
[2022-02-27 15:59] LABS: BACTERIA,URINE FEW /HPF; RBC,URINE >100 /HPF; WBC,URINE 25-50 /HPF
[2022-02-27 16:14] LABS: CALCIUM 8.7 MG/DL (8.5-10.1); CREATININE SERUM 0.78 MG/DL (0.60-1.30)
--- NOTE | 2022-02-27 16:42 | Diagnostic Imaging Report ---
PROCEDURE: CT abdomen and pelvis with contrast. TECHNIQUE: Multiple contiguous axial images were obtained through the abdomen and pelvis after administration of intravenous contrast. Auto Exposure Controls were utilized during the CT exam to meet ALARA standards for radiation dose reduction. All CT scans use one or more of the following dose optimizing techniques: automated exposure control, MA and/or KvP adjustment based on patient size and exam type or iterative reconstruction. INDICATION: Vomiting, loss of appetite, abnormal labs. COMPARISON: Exam is compared with abdominopelvic CT 01/08/2022. FINDINGS: The ascending, transverse, and descending colon are distended with air and stool. There is stool in the rectosigmoid, but the rectum and sigmoid are not pathologically dilated. There was no abrupt transition zone, and no small bowel dilatation. New from the prior is presacral stranding and edema with irregular thickening inseparable from the miguel of the rectum. The urinary bladder is poorly evaluated, catheterized by Gunter. There is an enlarged heterogeneous multinodular prostate indenting the bladder's base becoming inseparable from the bladder base. It is unclear if there is a prostate cancer infiltrating the bladder or this is bladder primary malignancy. This patient has severe widespread osteosclerotic bony metastatic disease without an apparent pathological fracture. There is metastatic-appearing adenopathy in the periaortic central retroperitoneum where the largest node left of midline just below the level of the patent renal veins measured 2.2 x 2.1 cm. Adenopathy extends along the bilateral common iliac chains as well as along the pelvic sidewalls and inguinal canals. A right obturator node measured 3.1 x 2.0 cm and the distal right external iliac misael mass near the inguinal canal measured 3.3 x 2.3 cm. Largest inguinal node on the right is 4.3 x 2.1 cm. These nodes all showed mild interval increase in size from the study of 01/08/2022, and while substantial on the prior, features of bony metastatic disease have also progressed. Nodular thickening of the right greater than left adrenal glands is noted. There is no liver mass. Gallbladder is unremarkable. Air within the distended colon is interposed between the right hepatic dome and the right hemidiaphragm. This is nonobstructive and resulted in no regional inflammation. Kidneys are unobstructed and normal. The spleen is negative. The pancreas is normal. IMPRESSION: 1. Colonic constipation and obstipation without perforation or fluid collection. 2. Marked heterogeneity and irregularity of the prostate inseparable from the thickened irregular urinary bladder base. Bladder evaluation limited by indwelling Gunter. Progressive misael and osseous metastatic disease. Findings suspicious for prostate cancer. The nodular thickening of the rectum is new from prior and may reflect serosal metastatic disease or inflammation. Dictated by: Dictated on workstation # [id number]
[2022-02-27] MEDS ORDERED: ONDANSETRON 4 MG/2 ML (SDV) Z0FRAN IV PRN (19:30)
[2022-02-27] MEDS ORDERED: ACETAMINOPHEN 325 MG TABLET PO PRN (19:30)
[2022-02-27] MEDS ORDERED: polyethylene glycoL POWDER 17 GM (MIRALAX) PACK PO PRN (19:30)
[2022-02-27] MEDS ORDERED: MELATONIN 3 MG TABLET PO PRN (19:30)
[2022-02-27 19:46] VITALS: BP 110/66
[2022-02-27 19:56] LABS: POTASSIUM 4.1 MMOL/L (3.6-5.0)
[2022-02-27 19:57] LABS: CALCIUM 8.2 MG/DL (8.5-10.1)
[2022-02-27 20:02] LABS: CREATININE SERUM 0.76 MG/DL (0.60-1.30)
[2022-02-27] MEDS: NS IV 1000 ML 1,000 ML IV SCH (20:58)
[2022-02-27] MEDS ORDERED: morphine (ROXINOL) 10 MG/0.5 ML oral conc 0.5 ML PO PRN (21:45)
[2022-02-27 23:39] VITALS: BP 108/69
[2022-02-28] MEDS: NS IV 1000 ML 1,000 ML IV SCH ×2 (02:59→09:51)
[2022-02-28 03:45] VITALS: BP 115/72
[2022-02-28 05:30] LABS: HEMOGLOBIN 8.7 g/dL (13.3-17.7)
[2022-02-28 05:31] LABS: POTASSIUM 3.8 MMOL/L (3.6-5.0)
[2022-02-28 05:32] LABS: MEAN PLATELET VOLUME 8.7 fL (9.0-12.2); WHITE BLOOD COUNT 8.8 10^3/uL (4.3-11.0)
[2022-02-28 05:37] LABS: CREATININE SERUM 0.76 MG/DL (0.60-1.30)
[2022-02-28 07:54] VITALS: BP 130/70
--- NOTE | 2022-02-28 09:44 | Physical Therapy Evaluation ---
PT Evaluation-General Medical Diagnosis Admission Date Feb 27, 2022 at 19:10 Medical Diagnosis: constipation/hyponatremia/metastatic cancer Onset Date: Feb 27, 2022 Therapy Diagnosis Therapy Diagnosis: debility/weakness Precautions Precautions/Isolations: Fall Prevention, Standard Precautions Weight Bear Status Right Lower Extremity: Right Weight Bearing/Tolerated Left Lower Extremity: Left Weight Bearing/Tolerated Referral Physician: Micheal Reason for Referral: Evaluation/Treatment Medical History Pertinent Medical History: COPD, DM, Dementia, Renal Insufficiency Current History ER secondary to hyponatremia Reviewed History: Yes Social History Home: Skilled Nursing Prior Prior Level of Function SCALE: Activities may be completed with or without assistive devices. 3-Sfwmejlfwp-qedlefa completes the activity by him/herself with no assistance from a helper. 5-Set-up or Clean-up Assistance-helper sets up or cleans up; patient completes activity. [place] assists only prior to or following the activity. 4-Supervision or Touching Assistance-helper provides verbal cues and/or touching/steadying and/or contact guard assistance as patient completes activity. Assistance may be provided throughout the activity or intermittently. 3-Partial/Moderate Assistance-helper does LESS THAN HALF the effort. [place] lifts, holds or supports trunk or limbs, but provides less than half the effort. 2-Substantial/Maximal Assistance-helper does MORE THAN HALF the effort. [place] lifts or holds trunk or limbs and provides more than half the effort. 2-Xdrnjfcoe-rnrdbr does ALL the effort. Patient does none of the effort to complete the activity. Or, the assistance of 2 or more helpers is required for the patient to complete the activity. If activity was not attempted, code reason: 7-Patient Refused. 9-Not Applicable-not attempted and the patient did not perform the activity before the current illness, exacerbation or injury. 10-Not Attempted due to Environmental Limitations-(lack of equipment, weather restraints, etc.). 88-Not Attempted due to Medical Conditions or Safety Concerns. Bed Mobility: 2 Transfers (B,C,W/C): 2 Gait: 2 Stairs: 9 Indoor Mobility (Ambulation): Needed Some Help Stairs: Not Applicalbe Prior Devices Use: Manual wheelchair, Walker patient reports he is able to ambulate when he wants but mostly in bed PT Evaluation-Current Subjective Patient agrees to PT. Patient repeats multiple time,"I'm dying you know." Objective Patient Orientation: Person, Situation Attachments: Gunter Catheter, IV ROM/Strength ROM Lower Extremities left LE increase knee and hip flexion tone with ability to straighten with assist/right LE WFL Strength Lower Extremities unable to formally test, grossly 3-/5 bilateral LE Integumentary/Posture Integumentary refer to nursing notes Bladder Incontinence: Gunter Cath Posture WFL Neuromuscular (Tone, Coordination, Reflexes) noted left knee/hip flexion tone with ability to straighten with assist and time/right LE WFL Sensory Vision: Functional Hearing: Functional Transfers Sit to Lying (QC): 2 Lying to Sitting/Side of Bed(Q: 2 Sit to Stand (QC): 2 Gait Does the Patient Walk?: No and Walking Goal IS indicated Distance: 5 side steps to right max assist Gait Assistive Device: FWW Comments/Gait Description requires time to allow left LE to relax to place foot on the floor to assist with gait Balance Sitting Static: Normal Sitting Dynamic: Normal Standing Static: Fair Standing Dynamic: Fair Assessment/Needs Patient will benefit from skilled PT to address functional strength and mobility to improve current LOF. Patient remains in bed in chair position for patient's safety. Rehab Potential: Guarded PT Cloth Presser Goals Cloth Presser Goals PT Fpc Goals Time Frame: Mar 08, 2022 Roll Left & Right (QC): 3 Sit to Lying (QC): 3 Lying-Sitting on Side/Bed(QC): 3 Sit to Stand (QC): 3 Chair/Gyw-lp-Srrpj Xfer(QC): 3 Walk 10 feet (QC): 3 Walk 50ft with 2 Turns (QC): 3 PT Plan Problem List Problem List: Activity Tolerance, Functional Strength, Safety, Balance, Gait, Transfer, Bed Mobility, ROM Treatment/Plan Treatment Plan: Continue Plan of Care Treatment Plan: Bed Mobility, Education, Functional Activity Calin, Functional Strength, Gait, Safety, Therapeutic Exercise, Transfers Treatment Duration: Mar 08, 2022 Frequency: 6 times per week Estimated Hrs Per Day: .25 hour per day Patient and/or Family Agrees t: Yes Time Time In: 850 Time Out: 908 DATE: Feb 28, 2022 Total Billed Treatment Time: 18 [facility] THOMPSON SILVERMAN PT Feb 28, 2022 09:44
[2022-02-28] MEDS: CIPROFLOXACIN 500 MG (CIPRO) TABLET PO SCH ×2 (09:51→20:06)
[2022-02-28 11:42] VITALS: BP 114/82
[2022-02-28] MEDS ORDERED: CIPR500T5 PO (12:27)
[2022-02-28] MEDS ORDERED: PRD20T PO (12:27)
[2022-02-28] MEDS ORDERED: MORP100S7 BU (12:27)
--- NOTE | 2022-02-28 15:09 | History & Physical-Hospitalist ---
History of Present Illness HPI/Chief Complaint Patient is a 61-year-old male with past medical history of dementia, bipolar disorder, hypertension, COPD, coronary artery disease, CKD, noninsulin- dependent type 2 diabetes, and recently diagnosed likely prostate cancer who presented to the emergency department due to hyponatremia. He is unable to tell me much about his history other than that he knows he was just diagnosed with cancer. 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 Most of the history is obtained from the records. He was brought to the emergency department due to poor oral intake and labs revealing hyponatremia. Hyponatremia was confirmed on labs in the emergency department and he was admitted for IV fluids and rehydration. This morning he reports feeling well. He has no medical complaints. Source: patient Date Seen 02/28/22 Time Seen by a Provider: 09:30 Attending Physician Saad Grider DO PCP Admitting Physician: Kory Gutierrez MD Attending Physician: Kory Gutierrez MD Referring Physician Date of Admission Feb 27, 2022 at 7:10 pm Home Medications & Allergies Home Medications Reviewed patient Home Medication Reconciliation performed by pharmacy medication reconciliations dish technician and/or nursing. Patients Allergies have been reviewed. Allergies Allergies Coded Allergies No Known Drug Allergies (Unverified04/11/19) Past Kumsbxf-Kveoid-Piklxy Hx Patient Social History Employed/Student: retired Tobacco Use?: No Smokeless type used: Chew Smokeless Tobacco Frequency: Light User Use of E-Cig and/or Vaping dev: No Substance use?: Unable to obtain Alcohol Use?: Yes Additional Alcohol Comments: PREVIOUS HX OF ETOH ABUSE Pt feels they are or have been: No Immunizations Up To Date Date of Influenza Vaccine: Dec 17, 2021 Tetanus Booster (TDap): Less Than 5 Years PED Vaccines UTD: Yes Current Status Advance Directives: No Advance Directive Location: FULL CODE Communicates: Verbally Primary Language: Montenegrin Preferred Spoken Language: Montenegrin Is interpretation needed?: No Implanted or Applied Medical D: Stents Past Medical History Surgeries: Cardiac COPD High Cholesterol Renal Failure Gall Bladder Disease Chronic Back Pain Diabetes, Non-Insulin dep Sleep Difficulties, Anxiety, Bipolar, Depression Adverse Reaction/Blood Tranf: No Review of Systems Constitutional: see HPI Physical Exam Physical Exam Vital Signs Vital Signs - First Documented 02/27/22 15:20 Temp 36.5 Pulse 90 Resp 16 B/P (MAP) 132/82 (99) Pulse Ox 98 O2 Delivery Room Air Capillary Refill : Less Than 3 Seconds Height, Weight, BMI Height: '" Weight: lbs. oz. kg; 21.63 BMI Method: General Appearance: No Apparent Distress, Chronically ill, Cachetic (temporal wasting noted), Thin Respiratory: Lungs Clear Cardiovascular: Regular Rate, Rhythm, No Murmur Gastrointestinal: Normal Bowel Sounds, Non Tender, Soft Neurologic/Psychiatric: Alert, Other (oriented to person and place butnot situation) Results Results/Procedures Labs Laboratory Tests 02/27/22 15:28 02/27/22 19:35 02/28/22 05:06 Patient resulted labs reviewed. Imaging: Reviewed Imaging Report [facility] [place], [place] NAME: FRANKIE RAMSAY [facility] REC#: [id number] PT STATUS: REG ER : 1960 PHYSICIAN: POOJA MA DO ADMIT DATE: 02/27/22/ER FS Signed Date of Exam:02/27/22 CT ABDOMEN/PELVIS W PROCEDURE: CT abdomen and pelvis with contrast. TECHNIQUE: Multiple contiguous axial images were obtained through the abdomen and pelvis after administration of intravenous contrast. Auto Exposure Controls were utilized during the CT exam to meet ALARA standards for radiation dose reduction. All CT scans use one or more of the following dose optimizing techniques: automated exposure control, MA and/or KvP adjustment based on patient size and exam type or iterative reconstruction. INDICATION: Vomiting, loss of appetite, abnormal labs. COMPARISON: Exam is compared with abdominopelvic CT 01/08/2022. FINDINGS: The ascending, transverse, and descending colon are distended with air and stool. There is stool in the rectosigmoid, but the rectum and sigmoid are not pathologically dilated. There was no abrupt transition zone, and no small bowel dilatation. New from the prior is presacral stranding and edema with irregular thickening inseparable from the miguel of the rectum. The urinary bladder is poorly evaluated, catheterized by Gunter. There is an enlarged heterogeneous multinodular prostate indenting the bladder's base becoming inseparable from the bladder base. It is unclear if there is a prostate cancer infiltrating the bladder or this is bladder primary malignancy. This patient has severe widespread osteosclerotic bony metastatic disease without an apparent pathological fracture. There is metastatic-appearing adenopathy in the periaortic central retroperitoneum where the largest node left of midline just below the level of the patent renal veins measured 2.2 x 2.1 cm. Adenopathy extends along the bilateral common iliac chains as well as along the pelvic sidewalls and inguinal canals. A right obturator node measured 3.1 x 2.0 cm and the distal right external iliac misael mass near the inguinal canal measured 3.3 x 2.3 cm. Largest inguinal node on the right is 4.3 x 2.1 cm. These nodes all showed mild interval increase in size from the study of 01/08/2022, and while substantial on the prior, features of bony metastatic disease have also progressed. Nodular thickening of the right greater than left adrenal glands is noted. There is no liver mass. Gallbladder is unremarkable. Air within the distended colon is interposed between the right hepatic dome and the right hemidiaphragm. This is nonobstructive and resulted in no regional inflammation. Kidneys are unobstructed and normal. The spleen is negative. The pancreas is normal. IMPRESSION: 1. Colonic constipation and obstipation without perforation or fluid collection. 2. Marked heterogeneity and irregularity of the prostate inseparable from the thickened irregular urinary bladder base. Bladder evaluation limited by indwelling Gunter. Progressive misael and osseous metastatic disease. Findings suspicious for prostate cancer. The nodular thickening of the rectum is new from prior and may reflect serosal metastatic disease or inflammation. Dictated by: Dictated on workstation # [id number] Dict: 02/27/22 1612 Trans: 02/27/22 1706 [id number] Interpreted by: ABBEY SR Electronically signed by: ABBEY SR 02/27/22 1706 Assessment/Plan Admission Diagnosis Hyponatremia Admission Status: Inpatient Order (span 2 midnights) Reason for Inpatient Admission: see below Assessment and Plan Hyponatremia Acute worsening on chronic hyponatremia Improved to 127 this AM Slow IVF Check BMP this afternoon Hopefully home tomorrow if doing well Likely widely metastatic prostate cancer Progressed further since imaging in novemeber Having this worked up by outpatient Urology Patient states he would like to pursue options but also states if he's just going to he'd like to be at home and not in a hospital Recommended further discussions with PCP and Urologist regarding realistic prognosis though seems quite poor given progression COPD CAD Dementia Hypothyroidism Bipolar disorder HTN Continue home meds as appropriate DVT ppx: SCDS KORY GUTIERREZ MD Feb 28, 2022 3:09 pm
[2022-02-28] MEDS ORDERED: meTOprolol TARTRATE 25 MG (LOPRESSOR) TABLET PO NR (15:15)
[2022-02-28] MEDS ORDERED: RT-ALBUTEROL/IPRATROPIUM 3 ML (DUONEB) VIAL IH PRN (15:15)
[2022-02-28 15:55] LABS: CALCIUM 8.1 MG/DL (8.5-10.1); CREATININE SERUM 0.82 MG/DL (0.60-1.30); POTASSIUM 3.8 MMOL/L (3.6-5.0)
--- NOTE | 2022-02-28 16:12 | Discharge Inst-Simple/Standard ---
Discharge Inst-Standard Discharge Medications New, Converted or Re-Newed RX: Transmitted to Pharmacy Patient Instructions/Follow Up Plan of Care/Instructions/FU: Please continue to take your medications as written. Please follow up with your primary care doctor to follow up this hospital stay. Activity as Tolerated: Yes Discharge Diet: No Restrictions Return to The Hospital For: Chest pain, shortness of breath, fever, weakness, if you feel you are getting worse. KORY GUTIERREZ MD Feb 28, 2022 16:12
[2022-02-28 16:31] VITALS: BP 109/67
[2022-02-28] MEDS ORDERED: NON-FORMULARY MEDICATION 1 EA EA (Pilocarpine (Salagen) 5 MG) PO SCH (17:00)
[2022-02-28] MEDS: TAMSULOSIN 0.4 MG (FLOMAX) CAP PO SCH (18:39)
[2022-02-28 19:59] VITALS: BP 127/85
[2022-02-28] MEDS: BENZTROPINE MESYLATE 1 MG (COGENTIN) TAB PO SCH (20:06)
[2022-02-28] MEDS: CHLORHEXIDINE 0.12% SOLN 15 ML (PERIDEX) UDC MM SCH (20:06)
[2022-02-28] MEDS: DONEPEZIL 10 MG (ARICEPT) TAB PO SCH (20:06)
[2022-02-28] MEDS: morphine (ROXINOL) 10 MG/0.5 ML oral conc 0.5 ML PO PRN (20:06)
[2022-02-28] MEDS: meTOprolol TARTRATE 25 MG (LOPRESSOR) TABLET PO SCH (20:06)
[2022-02-28] MEDS ORDERED: NON-FORMULARY MEDICATION 1 EA EA (Fluticasone/Salmeterol (Advair 100-50 Diskus) 1 EACH) IH SCH (21:00)
[2022-02-28] MEDS ORDERED: NON-FORMULARY MEDICATION 1 EA EA (Lurasidone HCl (Latuda) 40 MG) PO SCH (21:00)
[2022-02-28] MEDS: RT--FLUTICASONE/SALMETEROL 113-14 (AIRDUO RespiCLICK) IH SCH (22:19)
[2022-02-28 23:31] VITALS: BP 136/83
[2022-03-01] VITALS (7 sets, daily range): BP systolic 123–148; BP diastolic 72–88
[2022-03-01] MEDS: morphine (ROXINOL) 10 MG/0.5 ML oral conc 0.5 ML PO PRN ×2 (03:31→23:47)
[2022-03-01 05:43] LABS: HEMOGLOBIN 8.9 g/dL (13.3-17.7); MEAN PLATELET VOLUME 8.4 fL (9.0-12.2)
[2022-03-01 05:46] LABS: WHITE BLOOD COUNT 9.8 10^3/uL (4.3-11.0)
[2022-03-01] MEDS: LEVOTHYROXINE 75 MCG (LEVOTHROID) TABLET PO SCH (05:59)
[2022-03-01 06:00] LABS: CREATININE SERUM 0.69 MG/DL (0.60-1.30); POTASSIUM 3.7 MMOL/L (3.6-5.0)
[2022-03-01] MEDS: NS IV 1000 ML 1,000 ML IV SCH ×3 (06:20→15:53)
[2022-03-01] MEDS: CIPROFLOXACIN 500 MG (CIPRO) TABLET PO SCH ×2 (08:42→19:43)
[2022-03-01] MEDS: CYANOCOBALAMIN 1,000 MCG (VITAMIN B-12) TABLET PO SCH (08:42)
[2022-03-01] MEDS: PANTOPRAZOLE 40 MG (PROTONIX) TAB PO SCH (08:42)
[2022-03-01] MEDS: predniSONE 20 MG TAB PO SCH (08:42)
[2022-03-01] MEDS: TERAZOSIN 1 MG CAP (HYTRIN) PO SCH (08:42)
[2022-03-01] MEDS: ALLOPURINOL 100 MG (ZYLOPRIM) TAB PO SCH (08:42)
[2022-03-01] MEDS: meTOprolol TARTRATE 25 MG (LOPRESSOR) TABLET PO SCH ×2 (08:42→19:43)
[2022-03-01] MEDS: CLOPIDOGREL 75 MG (PLAVIX) TABLET PO SCH (08:42)
[2022-03-01] MEDS: CHLORHEXIDINE 0.12% SOLN 15 ML (PERIDEX) UDC MM SCH ×2 (08:43→19:43)
[2022-03-01] MEDS: RT--FLUTICASONE/SALMETEROL 113-14 (AIRDUO RespiCLICK) IH SCH ×2 (08:43→21:13)
[2022-03-01] MEDS: FINASTERIDE (PROSCAR) 5 MG TAB PO SCH (08:43)
[2022-03-01] MEDS: VITAMIN D3 125 MCG (5,000 UNITS) CAPSULE PO SCH (08:48)
[2022-03-01] MEDS: buPROPion SR 150 MG (WELLBUTRIN SR) TAB PO SCH ×2 (08:48→19:43)
[2022-03-01] MEDS ORDERED: NON-FORMULARY MEDICATION 1 EA EA (Cholecalciferol (Vitamin D3) (Vitamin D3) 125 MCG) PO SCH (09:00)
[2022-03-01] MEDS ORDERED: NON-FORMULARY MEDICATION 1 EA EA (Terazosin HCl 2 MG) PO SCH (09:00)
[2022-03-01] MEDS ORDERED: NON-FORMULARY MEDICATION 1 EA EA (Bupropion HCl (Bupropion Xl) 300 MG) PO SCH (09:00)
--- NOTE | 2022-03-01 09:08 | Physical Therapy Progress Note ---
Therapy Progress Note Patient adamantly declined PT stating, "I'm not doing anything today. June tomorrow or Thursday." Rn notified. 1 ref THOMPSON SILVERMAN PT Mar 01, 2022 09:08
--- NOTE | 2022-03-01 12:11 | Progress Note - Hospitalist ---
Subjective HPI/CC On Admission Date Seen by Provider: Mar 01, 2022 Patient is a 61-year-old male with past medical history of dementia, bipolar disorder, hypertension, COPD, coronary artery disease, CKD, noninsulin- dependent type 2 diabetes, and recently diagnosed likely prostate cancer who presented to the emergency department due to hyponatremia. He is unable to tell me much about his history other than that he knows he was just diagnosed with cancer. 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 Most of the history is obtained from the records. He was brought to the emergency department due to poor oral intake and labs revealing hyponatremia. Hyponatremia was confirmed on labs in the emergency department and he was admitted for IV fluids and rehydration. This morning he reports feeling well. He has no medical complaints. Subjective/Events-last exam Pt reports doing well. Has no complaints but si asking if the hospital can "put him up" while he undergoes treatment for his cancer. Discussed the need to return to his care home once he is doing better here and follow up with the [facility] doctor about his options but staying in the hospital is not realistic. Objective Exam Vital Signs Vital Signs Date Time Temp Pulse Resp B/P (MAP) Pulse Ox O2 Delivery O2 Flow Rate FiO2 03/01/22 11:54 36.6 112 18 128/85 (99) 96 Room Air 03/01/22 10:10 0.00 Capillary Refill : Less Than 3 Seconds General Appearance: No Apparent Distress, Chronically ill Respiratory: Lungs Clear, No Respiratory Distress Cardiovascular: Regular Rate, Rhythm Neurologic/Psychiatric: Alert, Oriented x3 (to major details only) Results/Procedures Lab Laboratory Tests 02/28/22 15:30 03/01/22 05:29 Patient resulted labs reviewed. Imaging: Reviewed Imaging Report Assessment/Plan Assessment and Plan Assess & Plan/Chief Complaint Hyponatremia Acute worsening on chronic hyponatremia Down slightly today Fluid restriction added Increase IVF Check BMP this afternoon again Consider adding salt tabs Likely widely metastatic prostate cancer Progressed further since imaging in Having this worked up by outpatient Urology Patient states he would like to pursue options but also states if he's just going to he'd like to be at home and not in a hospital Recommended further discussions with PCP and Urologist regarding realistic prognosis though seems quite poor given progression COPD CAD Dementia Hypothyroidism Bipolar disorder HTN Continue home meds as appropriate DVT ppx: KORY Chong MD Mar 01, 2022 12:11
[2022-03-01] MEDS: ENOXAPARIN 40 MG/0.4 ML (LOVENOX) SYR SQ SCH (13:08)
[2022-03-01] MEDS: TAMSULOSIN 0.4 MG (FLOMAX) CAP PO SCH (17:00)
[2022-03-01 18:09] LABS: CALCIUM 7.8 MG/DL (8.5-10.1); CREATININE SERUM 0.68 MG/DL (0.60-1.30)
[2022-03-01] MEDS: BENZTROPINE MESYLATE 1 MG (COGENTIN) TAB PO SCH (19:43)
[2022-03-01] MEDS: DONEPEZIL 10 MG (ARICEPT) TAB PO SCH (19:43)
[2022-03-02] MEDS: NS IV 1000 ML 1,000 ML IV SCH ×2 (01:43→09:04)
[2022-03-02 03:49] VITALS: BP 139/80
[2022-03-02] MEDS: LEVOTHYROXINE 75 MCG (LEVOTHROID) TABLET PO SCH (05:19)
[2022-03-02 06:07] LABS: HEMOGLOBIN 8.3 g/dL (13.3-17.7)
[2022-03-02 06:11] LABS: MEAN PLATELET VOLUME 8.5 fL (9.0-12.2); WHITE BLOOD COUNT 8.2 10^3/uL (4.3-11.0)
[2022-03-02 06:19] LABS: POTASSIUM 3.7 MMOL/L (3.6-5.0)
[2022-03-02 06:21] LABS: CALCIUM 7.8 MG/DL (8.5-10.1)
[2022-03-02 06:25] LABS: CREATININE SERUM 0.63 MG/DL (0.60-1.30)
[2022-03-02] MEDS: morphine (ROXINOL) 10 MG/0.5 ML oral conc 0.5 ML PO PRN ×2 (06:56→20:12)
[2022-03-02 07:38] VITALS: BP 142/89
[2022-03-02] MEDS: predniSONE 20 MG TAB PO SCH (08:43)
[2022-03-02] MEDS: FINASTERIDE (PROSCAR) 5 MG TAB PO SCH (08:43)
[2022-03-02] MEDS: meTOprolol TARTRATE 25 MG (LOPRESSOR) TABLET PO SCH ×2 (08:43→20:11)
[2022-03-02] MEDS: ALLOPURINOL 100 MG (ZYLOPRIM) TAB PO SCH (08:43)
[2022-03-02] MEDS: TERAZOSIN 1 MG CAP (HYTRIN) PO SCH (08:43)
[2022-03-02] MEDS: PANTOPRAZOLE 40 MG (PROTONIX) TAB PO SCH (08:43)
[2022-03-02] MEDS: VITAMIN D3 125 MCG (5,000 UNITS) CAPSULE PO SCH (08:43)
[2022-03-02] MEDS: CIPROFLOXACIN 500 MG (CIPRO) TABLET PO SCH ×2 (08:43→20:11)
[2022-03-02] MEDS: CYANOCOBALAMIN 1,000 MCG (VITAMIN B-12) TABLET PO SCH (08:43)
[2022-03-02] MEDS: CLOPIDOGREL 75 MG (PLAVIX) TABLET PO SCH (08:43)
[2022-03-02] MEDS: RT--FLUTICASONE/SALMETEROL 113-14 (AIRDUO RespiCLICK) IH SCH ×2 (08:43→21:39)
[2022-03-02] MEDS: CHLORHEXIDINE 0.12% SOLN 15 ML (PERIDEX) UDC MM SCH ×2 (08:44→20:11)
[2022-03-02] MEDS: buPROPion SR 150 MG (WELLBUTRIN SR) TAB PO SCH ×2 (08:44→20:11)
[2022-03-02 11:26] VITALS: BP 117/72
--- NOTE | 2022-03-02 13:15 | Progress Note - Hospitalist ---
Subjective HPI/CC On Admission Date Seen by Provider: Mar 02, 2022 Patient is a 61-year-old male with past medical history of dementia, bipolar disorder, hypertension, COPD, coronary artery disease, CKD, noninsulin- dependent type 2 diabetes, and recently diagnosed likely prostate cancer who presented to the emergency department due to hyponatremia. He is unable to tell me much about his history other than that he knows he was just diagnosed with cancer. 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 Most of the history is obtained from the records. He was brought to the emergency department due to poor oral intake and labs revealing hyponatremia. Hyponatremia was confirmed on labs in the emergency department and he was admitted for IV fluids and rehydration. This morning he reports feeling well. He has no medical complaints. Subjective/Events-last exam Pt reports feeling well. No complaints. Discussed lab results with him and how they are improving. Objective Exam Vital Signs Vital Signs Date Time Temp Pulse Resp B/P (MAP) Pulse Ox O2 Delivery O2 Flow Rate FiO2 03/02/22 12:50 110 03/02/22 11:26 35.8 18 117/72 (87) 96 Room Air 03/01/22 10:10 0.00 Capillary Refill : Less Than 3 Seconds General Appearance: Chronically ill, Cachetic Respiratory: Lungs Clear Cardiovascular: Regular Rate, Rhythm, No Murmur Results/Procedures Lab Laboratory Tests 03/01/22 17:18 03/02/22 05:49 Patient resulted labs reviewed. Imaging: Reviewed Imaging Report Assessment/Plan Assessment and Plan Assess & Plan/Chief Complaint Hyponatremia Acute worsening on chronic hyponatremia Improved today Fluid restriction Added salt tabs DC IVF Likely widely metastatic prostate cancer Progressed further since imaging in December Having this worked up by outpatient Urology Patient states he would like to pursue options but also states if he's just going to he'd like to be at home and not in a hospital Recommended further discussions with PCP and Urologist regarding realistic prognosis though seems quite poor given progression COPD CAD Dementia Hypothyroidism Bipolar disorder HTN Continue home meds as appropriate DVT ppx: KORY Chong MD Mar 02, 2022 13:14
[2022-03-02] MEDS: ENOXAPARIN 40 MG/0.4 ML (LOVENOX) SYR SQ SCH (13:17)
[2022-03-02 16:00] VITALS: BP 122/84
[2022-03-02] MEDS: TAMSULOSIN 0.4 MG (FLOMAX) CAP PO SCH (18:30)
[2022-03-02 19:42] VITALS: BP 133/83
[2022-03-02] MEDS: BENZTROPINE MESYLATE 1 MG (COGENTIN) TAB PO SCH (20:11)
[2022-03-02] MEDS: DONEPEZIL 10 MG (ARICEPT) TAB PO SCH (20:11)
[2022-03-02] MEDS: SODIUM CHLORIDE 1 GM TABLET PO SCH (21:03)
[2022-03-02 23:34] VITALS: BP 156/89
[2022-03-03 03:49] VITALS: BP 154/88
[2022-03-03] MEDS: LEVOTHYROXINE 75 MCG (LEVOTHROID) TABLET PO SCH (05:43)
[2022-03-03 05:58] LABS: MEAN PLATELET VOLUME 8.5 fL (9.0-12.2); WHITE BLOOD COUNT 7.8 10^3/uL (4.3-11.0)
[2022-03-03 06:21] LABS: POTASSIUM 3.8 MMOL/L (3.6-5.0)
[2022-03-03 06:22] LABS: CALCIUM 7.6 MG/DL (8.5-10.1)
[2022-03-03 06:27] LABS: CREATININE SERUM 0.63 MG/DL (0.60-1.30)
[2022-03-03 07:18] VITALS: BP 142/79
[2022-03-03] MEDS ORDERED: SODIUM CHLORIDE 1 GM TABLET PO NR (08:00)
[2022-03-03] MEDS: RT--FLUTICASONE/SALMETEROL 113-14 (AIRDUO RespiCLICK) IH SCH (08:05)
[2022-03-03] MEDS: CIPROFLOXACIN 500 MG (CIPRO) TABLET PO SCH (08:24)
[2022-03-03] MEDS: meTOprolol TARTRATE 25 MG (LOPRESSOR) TABLET PO SCH (08:24)
[2022-03-03] MEDS: FINASTERIDE (PROSCAR) 5 MG TAB PO SCH (08:24)
[2022-03-03] MEDS: ALLOPURINOL 100 MG (ZYLOPRIM) TAB PO SCH (08:24)
[2022-03-03] MEDS: VITAMIN D3 125 MCG (5,000 UNITS) CAPSULE PO SCH (08:24)
[2022-03-03] MEDS: predniSONE 20 MG TAB PO SCH (08:24)
[2022-03-03] MEDS: TERAZOSIN 1 MG CAP (HYTRIN) PO SCH (08:24)
[2022-03-03] MEDS: CYANOCOBALAMIN 1,000 MCG (VITAMIN B-12) TABLET PO SCH (08:24)
[2022-03-03] MEDS: CLOPIDOGREL 75 MG (PLAVIX) TABLET PO SCH (08:24)
[2022-03-03] MEDS: buPROPion SR 150 MG (WELLBUTRIN SR) TAB PO SCH (08:24)
[2022-03-03] MEDS: SODIUM CHLORIDE 1 GM TABLET PO SCH (08:25)
[2022-03-03] MEDS: PANTOPRAZOLE 40 MG (PROTONIX) TAB PO SCH (08:25)
[2022-03-03] MEDS: CHLORHEXIDINE 0.12% SOLN 15 ML (PERIDEX) UDC MM SCH (08:25)
--- NOTE | 2022-03-03 09:33 | Physical Therapy Progress Note ---
Therapy Progress Note Patient declined PT on this date. Physician notified. Possible dismissal back to [place] per physician. Will attempt tomorrow a.m. if patient remains in hospital. 1 ref THOMPSON SILVERMAN PT Mar 03, 2022 09:33
[2022-03-03] MEDS ORDERED: NF-NACL1GT PO (11:29)
[2022-03-03 12:00] VITALS: BP 132/77
[2022-03-03 12:38] VITALS: BP 132/77
--- NOTE | 2022-03-03 17:27 | Discharge Summary ---
Discharge Summary Hospital Course Problems/Dx: (1) Hyponatremia Status: Acute (2) Prostate irregularity (3) Rectal lesion (4) Bone lesion Status: Acute (5) Mediastinal lymphadenopathy Status: Acute (6) Inguinal lymphadenopathy Status: Acute (7) Retroperitoneal lymphadenopathy Status: Acute (8) External iliac lymphadenopathy Status: Acute Hospital Course Date of Admission: Mar 02, 2022 at 11:18 Admission Diagnosis : Hyponatremia Family Physician/Provider: Date of Discharge: 03/03/22 Discharge Diagnosis: Hyponatremia Hospital Course: Doris Jensen is a 61 year old male with likely metastatic prostate cancer who presented with acute on chronic hyponatremia. He was admitted in December and found to have presumed metastatic prostate cancer. He has undergone a biopsy but has not yet received the results. His imaging is worsened from his previous admission. His sodium was 120 on admission. He was treated with fluid restriction and salt tabs and this improved. His sodium was 125 on the day of discharge. He had been on salt tabs during his previous admission. He will be restarted on the salt tabs as an outpatient. He should have a repeat sodium check later this week. He should follow up with his PCP and Dr. Pedro as scheduled. He was discharged back to [facility] in fair condition. Labs and Pending Lab Test: Laboratory Tests 03/03/22 05:33: White Blood Count 7.8, Red Blood Count 2.81L, Hemoglobin 8.0L, Hematocrit 23L, Mean Corpuscular Volume 83, Mean Corpuscular Hemoglobin 28, Mean Corpuscular Hemoglobin Concent 34, Red Cell Distribution Width 16.0H, Platelet Count 133, Mean Platelet Volume 8.5L, Percent Immature Platelet Fraction 1.0, Sodium Level 125*L, Potassium Level 3.8, Chloride Level 95L, Carbon Dioxide Level 22, Anion Gap 8, Blood Urea Nitrogen 7, Creatinine 0.63, Estimat Glomerular Filtration Rate 109, BUN/Creatinine Ratio 11, Glucose Level 118H, Calcium Level 7.6L Microbiology 02/27/22 Urine Culture - Final, Complete NO GROWTH Home Meds Active Sodium Chloride 1 Gram Tab 1 Gm PO BID 30 Days Reported Morphine Conc. 20mg/ml (Morphine Sulfate) 100 Mg/5 Ml (20 Mg/Ml) Solution 1 Ml BU EVERY 2 HOURS PRN Prednisone 20 Mg Tab 20 Mg PO DAILY Vitamin D3 (Cholecalciferol (Vitamin D3)) 125 Mcg (5000 Unit) Capsule 125 Mcg PO DAILY Potassium Chloride 20 Meq Tab.er.prt 20 Meq PO DAILY [place] (Pilocarpine) 5 Mg Tab 5 Mg PO QID Metoprolol Tartrate 50 Mg Tablet 50 Mg PO BID Latuda (Lurasidone HCl) 40 Mg Tablet 40 Mg PO HS Furosemide 20 Mg Tablet 20 Mg PO BID Flomax (Tamsulosin HCl) 0.4 Mg Cap 0.4 Mg PO 1800 Finasteride 5 Mg Tablet 5 Mg PO DAILY Bupropion Xl (Bupropion HCl) 300 Mg Tab.er.24h 300 Mg PO DAILY Biofreeze (Menthol) 4 % Gel..ml. 1 Applic TP Q6H PRN Benztropine Mesylate 1 Mg Tablet 1 Mg PO HS Allopurinol 100 Mg Tablet 100 Mg PO DAILY Chlorhexidine Gluconate 0.12 % Mouthwash 30 Ml MM BID SWISH AND SPIT Triamcinolone Acetonide 0.1% Cream (Triamcinolone Acet) 0.1 % Cr 1 Applic TP BID PRN Advair 100-50 Diskus (Fluticasone/Salmeterol) 1 Each Blst.w.dev 1 Each IH BID Tramadol HCl 50 Mg Tablet 100 Mg PO Q6H PRN TAKES 2 (50MG) TABS Iprat-Albut 0.5-3(2.5) mg/3 ml (Ipratropium/Albuterol Sulfate) 3 Ml Ampul.neb 3 Ml IH Q6H PRN Claritin (Loratadine) 10 Mg Tablet 10 Mg PO DAILY Levothyroxine Sodium 75 Mcg Tablet 75 Mcg PO DAILY Donepezil HCl 10 Mg Tablet 10 Mg PO HS Atorvastatin Calcium 40 Mg Tablet 40 Mg PO HS Terazosin HCl 2 Mg Capsule 2 Mg PO DAILY Clonidine HCl 0.1 Mg Tablet 0.1 Mg PO TID Miralax (Polyethylene Glycol 3350) 17 Gm Powd.pack 17 Gm PO DAILY Lisinopril 40 Mg Tablet 40 Mg PO DAILY Pantoprazole Sodium 40 Mg Tablet.dr 40 Mg PO DAILY B-12 (Cyanocobalamin (Vitamin B-12)) 1,000 Mcg Tablet 1,000 Mcg PO DAILY Plavix (Clopidogrel Bisulfate) 75 Mg Tablet 75 Mg PO DAILY IS ON HOLD UNTIL 03-01-2022 Assessment/Pt Instructions See instructions Discharge Planning: <30 minutes discharge planning Discharge Instructions Discharge Diet: No Restrictions Activity as Tolerated: Yes Discharge Physical Examination Vital Signs Vital Signs Date Time Temp Pulse Resp B/P (MAP) Pulse Ox O2 Delivery O2 Flow Rate FiO2 03/03/22 12:38 37.0 80 17 132/77 96 Room Air 0.00 General Appearance: No Apparent Distress, Chronically ill Respiratory: Lungs Clear, No Respiratory Distress Cardiovascular: Regular Rate, Rhythm, No Murmur Gastrointestinal: Normal Bowel Sounds, Soft Extremity: Normal Inspection, Pedal Edema Skin: Normal Color, Warm/Dry Neurologic/Psychiatric: Alert, Normal Mood/Affect Allergies: Coded Allergies: No Known Drug Allergies (Unverified , 04/11/19) Copy Copies To 1: PINEDA PEDRO MD Discharge Summary Date of Admission Mar 02, 2022 at 11:18 Date of Discharge Mar 03, 2022 at 12:40 Discharge Date: Feb 28, 2022 Discharge Time: 12:40 Admission Diagnosis Hyponatremia Discharge Diagnosis (1) Hyponatremia Status: Acute (2) Prostate irregularity (3) Rectal lesion (4) Bone lesion Status: Acute (5) Mediastinal lymphadenopathy Status: Acute (6) Inguinal lymphadenopathy Status: Acute (7) Retroperitoneal lymphadenopathy Status: Acute (8) External iliac lymphadenopathy Status: Acute EMERALD ALEJANDRA MD Mar 03, 2022 17:22
== END 2022-03-03 12:40 | DRG 641 ==
LOC: EDUNIT# 15:15 → ER FS 15:16 → 4TH 19:10 → INTOOBSV 19:10 → OBSVTOIN 03-02 11:18
PROVIDERS: ADMIT Family Medicine; ATTEND Internal Medicine
DX: E87.1 Hypo-osmolality and hyponatremia (principal); K63.9 Disease of intestine, unspecified; R59.1 Generalized enlarged lymph nodes; C61 Malignant neoplasm of prostate; Z79.82 Long term (current) use of aspirin; Z79.899 Other long term (current) drug therapy; J44.9 Chronic obstructive pulmonary disease, unspecified; E78.00 Pure hypercholesterolemia, unspecified; G89.29 Other chronic pain; M54.9 Dorsalgia, unspecified; F41.9 Anxiety disorder, unspecified; F31.9 Bipolar disorder, unspecified; E86.0 Dehydration; K59.00 Constipation, unspecified; E11.22 Type 2 diabetes mellitus with diabetic chronic kidney disease; N18.9 Chronic kidney disease, unspecified; I12.9 Hypertensive chronic kidney disease with stage 1 through stage 4 chronic kidney disease, or unspecified chronic kidney disease; F03.90 Unspecified dementia, unspecified severity, without behavioral disturbance, psychotic disturbance, mood disturbance, and anxiety; I25.10 Atherosclerotic heart disease of native coronary artery without angina pectoris; E03.9 Hypothyroidism, unspecified; M89.9 Disorder of bone, unspecified
CPT/HCPCS: 36415; 51702; 74177; 80048; 81000; 85027; 87088; 94640; 94760; G0378; Q9967

== ENCOUNTER → 2022-02-27 | Outpatient (CLI) | payer MEDICARE, MEDICAID ==
[~2022-02-27] MED LIST changes: +CIPR500T5 PO; +MORP100S7 BU; +PRD20T PO
[2022-02-27 12:18] LABS: HEMOGLOBIN 8.7 g/dL (13.3-17.7)
[2022-02-27 12:19] LABS: MEAN PLATELET VOLUME 8.6 fL (9.0-12.2)
[2022-02-27 12:56] LABS: CREATININE SERUM 0.76 MG/DL (0.60-1.30); POTASSIUM 3.6 MMOL/L (3.6-5.0)
[2022-02-27 12:57] LABS: ALBUMIN 2.7 GM/DL (3.2-4.5); BILIRUBIN,TOTAL 0.8 MG/DL (0.1-1.0); CALCIUM 7.9 MG/DL (8.5-10.1); TOTAL PROTEIN 4.9 GM/DL (6.4-8.2)
== END ==
PROVIDERS: ATTEND Emergency Medicine
DX: C41.9 Malignant neoplasm of bone and articular cartilage, unspecified (principal)
CPT/HCPCS: 80053; 85027

== ENCOUNTER 2022-03-04 09:45 | Outpatient (RCR) | payer MEDICARE, MEDICAID ==
[~2022-03-04 09:45] MED LIST changes: +CIPR500T5 PO; +MORP100S7 BU; +PRD20T PO
[2022-03-04 10:14] LABS: BASOPHILS % (AUTO) 0 % (0-10); LYMPHOCYTES # (AUTO) 0.6 10^3/uL (1.0-4.0); LYMPHOCYTES % (AUTO) 6 % (12-44)
[2022-03-04 10:16] LABS: EOSINOPHILS % (AUTO) 0 % (0-10); HEMATOCRIT 28 % (40-54); HEMOGLOBIN 9.2 g/dL (13.3-17.7); MEAN CORPUSCULAR HEMOGLOBIN 28 pg (25-34); MEAN CORPUSCULAR HGB CONC 33 g/dL (32-36); MEAN CORPUSCULAR VOLUME 85 fL (80-99); MEAN PLATELET VOLUME 8.7 fL (9.0-12.2); MONOCYTES # (AUTO) 0.6 10^3/uL (0.0-1.0); MONOCYTES % (AUTO) 6 % (0-12); NEUTROPHILS # (AUTO) 7.7 10^3/uL (1.8-7.8); NEUTROPHILS % (AUTO) 82 % (42-75); PLATELET COUNT 155 10^3/uL (130-400); WHITE BLOOD COUNT 9.4 10^3/uL (4.3-11.0)
[2022-03-04 10:43] LABS: ALBUMIN 2.7 GM/DL (3.2-4.5); BILIRUBIN,TOTAL 0.8 MG/DL (0.1-1.0); CALCIUM 7.9 MG/DL (8.5-10.1); CREATININE SERUM 0.75 MG/DL (0.60-1.30); POTASSIUM 3.6 MMOL/L (3.6-5.0)
== END 2022-03-18 | disposition home or self-care (01) ==
LOC: ONC 09:45
PROVIDERS: ATTEND Internal Medicine Hematology & Oncology
DX: C61 Malignant neoplasm of prostate (principal)
CPT/HCPCS: 80053; 84153; 85025; 96402; G0463; 36415; 99213

== ENCOUNTER → 2022-04-01 | Outpatient (CLI) | payer MEDICARE, MEDICAID ==
[2022-04-01 09:58] LABS: HEMATOCRIT 29 % (40-54); HEMOGLOBIN 9.6 g/dL (13.3-17.7); MEAN CORPUSCULAR HEMOGLOBIN 29 pg (25-34); MEAN CORPUSCULAR HGB CONC 33 g/dL (32-36); MEAN CORPUSCULAR VOLUME 89 fL (80-99); MEAN PLATELET VOLUME 9.2 fL (9.0-12.2); PLATELET COUNT 84 10^3/uL (130-400); WHITE BLOOD COUNT 6.9 10^3/uL (4.3-11.0)
[2022-04-01 10:43] LABS: BILIRUBIN,TOTAL 0.7 MG/DL (0.1-1.0); CALCIUM 8.1 MG/DL (8.5-10.1); CREATININE SERUM 0.67 MG/DL (0.60-1.30); POTASSIUM 2.9 MMOL/L (3.6-5.0)
[2022-04-01 10:44] LABS: ALBUMIN 3.1 GM/DL (3.2-4.5)
== END ==
PROVIDERS: ATTEND Emergency Medicine
DX: C41.9 Malignant neoplasm of bone and articular cartilage, unspecified (principal)
CPT/HCPCS: 80053; 85027

== ENCOUNTER → 2022-04-15 | Outpatient (RCR) | payer MEDICARE, MEDICAID ==
[2022-04-15 12:04] LABS: BASOPHILS % (AUTO) 0 % (0-10); EOSINOPHILS % (AUTO) 0 % (0-10); HEMATOCRIT 29 % (40-54); HEMOGLOBIN 9.7 g/dL (13.3-17.7); LYMPHOCYTES # (AUTO) 0.7 10^3/uL (1.0-4.0); LYMPHOCYTES % (AUTO) 12 % (12-44); MEAN CORPUSCULAR HEMOGLOBIN 30 pg (25-34); MEAN CORPUSCULAR HGB CONC 34 g/dL (32-36); MEAN CORPUSCULAR VOLUME 88 fL (80-99); MONOCYTES # (AUTO) 0.5 10^3/uL (0.0-1.0); MONOCYTES % (AUTO) 9 % (0-12); NEUTROPHILS # (AUTO) 4.7 10^3/uL (1.8-7.8); NEUTROPHILS % (AUTO) 75 % (42-75); PLATELET COUNT 135 10^3/uL (130-400); WHITE BLOOD COUNT 6.2 10^3/uL (4.3-11.0)
[2022-04-15 12:22] LABS: ALBUMIN 2.8 GM/DL (3.2-4.5); BILIRUBIN,TOTAL 0.9 MG/DL (0.1-1.0); CALCIUM 8.3 MG/DL (8.5-10.1); CREATININE SERUM 0.76 MG/DL (0.60-1.30); POTASSIUM 2.8 MMOL/L (3.6-5.0); TOTAL PROTEIN 5.2 GM/DL (6.4-8.2)
== END ==
LOC: ONC 10:57
PROVIDERS: ATTEND Internal Medicine Hematology & Oncology
DX: C61 Malignant neoplasm of prostate (principal)
CPT/HCPCS: 80053; 84153; 85025

== ENCOUNTER 2022-04-23 11:23 | Emergency (ER) | payer MEDICARE, MEDICAID ==
[2022-04-23 11:51] LABS: BASOPHILS # (AUTO) 0.1 10^3/uL (0.0-0.1); BASOPHILS % (AUTO) 1 % (0-10); EOSINOPHILS % (AUTO) 0 % (0-10); HEMATOCRIT 27 % (40-54); LYMPHOCYTES % (AUTO) 9 % (12-44); MEAN CORPUSCULAR HEMOGLOBIN 29 pg (25-34); MEAN CORPUSCULAR HGB CONC 34 g/dL (32-36); MEAN CORPUSCULAR VOLUME 87 fL (80-99); MEAN PLATELET VOLUME 8.5 fL (9.0-12.2); MONOCYTES # (AUTO) 0.7 10^3/uL (0.0-1.0); MONOCYTES % (AUTO) 6 % (0-12); NEUTROPHILS # (AUTO) 8.1 10^3/uL (1.8-7.8); NEUTROPHILS % (AUTO) 78 % (42-75); PLATELET COUNT 133 10^3/uL (130-400); WHITE BLOOD COUNT 10.3 10^3/uL (4.3-11.0)
[2022-04-23 11:57] LABS: BILIRUBIN,URINE NEGATIVE (NEGATIVE); CLARITY,URINE SL CLOUDY; COLOR,URINE YELLOW; GLUCOSE, URINE (UA) NEGATIVE (NEGATIVE); KETONES,URINE NEGATIVE (NEGATIVE); LEUKOCYTE ESTERASE ,URINE 2+ (NEGATIVE); NITRITE,URINE POSITIVE (NEGATIVE); PROTEIN,URINE NEGATIVE (NEGATIVE)
--- NOTE | 2022-04-23 11:59 | ED General ---
General Chief Complaint: General Problems/Pain Stated Complaint: AMS Source of Information: Patient, Caregiver (nursing facility staff member) Exam Limitations: No Limitations History of Present Illness Date Seen by Provider: Apr 23, 2022 Time Seen by Provider: 11:41 Initial Comments 61-year-old male presents to the emergency department today from a residential for reported altered mentation. He was saying things that did not really make sense like he wanted to go to the dog track, etc. notably he does have prostate cancer, gets chemotherapy treatments every 6 weeks. He does have a history of hyponatremia presumably secondary to these treatments. No fevers chills. No chest pain. No abdominal pain, change in bowel or bladder habits. He has been eating and drinking well. Patient himself has no specific complaints. All other systems reviewed and negative except documented per HPI. Voice recognition software was used to help create this chart Allergies and Home Medications Allergies Coded Allergies: No Known Drug Allergies (Unverified , 04/11/19) Patient Home Medication List Home Medication List Reviewed: Yes Allopurinol (Allopurinol) 100 Mg Tablet, 100 MG PO DAILY, (Reported) Entered as Reported by: BRANODN ERVIN on 01/08/22 1026 Atorvastatin Calcium (Atorvastatin Calcium) 40 Mg Tablet, 40 MG PO HS, (Reported ) Entered as Reported by: ERASMO QUEEN on 04/12/19 1818 Benztropine Mesylate (Benztropine Mesylate) 1 Mg Tablet, 1 MG PO HS, (Reported) Entered as Reported by: BRANDON ERVIN on 01/08/22 1026 Bupropion HCl (Bupropion Xl) 300 Mg Tab.er.24h, 300 MG PO DAILY, (Reported) Entered as Reported by: BRANDON ERVIN on 01/08/22 1026 Cephalexin (Cephalexin) 500 Mg Tablet, 500 MG PO BID Prescribed by: GLENNY DAWSON MD on 04/23/22 1221 Chlorhexidine Gluconate (Chlorhexidine Gluconate) 0.12 % Mouthwash, 30 ML MM BID, (Reported) Entered as Reported by: ERASMO QUEEN on 04/12/19 1845 Cholecalciferol (Vitamin D3) (Vitamin D3) 125 Mcg (5000 Unit) Capsule, 125 MCG PO DAILY, (Reported) Entered as Reported by: BRANDON ERVIN on 01/08/22 1026 Clonidine HCl (Clonidine HCl) 0.1 Mg Tablet, 0.1 MG PO TID, (Reported) Entered as Reported by: ERASMO QUEEN on 04/12/191817 Clopidogrel Bisulfate (Plavix) 75 Mg Tablet, 75 MG PO DAILY, (Reported) Entered as Reported by: ERASMO QUEEN on 04/12/191817 Cyanocobalamin (Vitamin B-12) (B-12) 1,000 Mcg Tablet, 1,000 MCG PO DAILY, (Reported) Entered as Reported by: ERASMO QUEEN on 04/12/191817 Donepezil HCl (Donepezil HCl) 10 Mg Tablet, 10 MG PO HS, (Reported) Entered as Reported by: ERASMO QUEEN on 04/12/191817 Finasteride (Finasteride) 5 Mg Tablet, 5 MG PO DAILY, (Reported) Entered as Reported by: BRANDON ERVIN on 01/08/22 102 Fluticasone/Salmeterol (Advair 100-50 Diskus) 1 Each Blst.w.dev, 1 EACH IH BID, (Reported) Entered as Reported by: ERASMO QUEEN on 04/12/191830 Furosemide (Furosemide) 20 Mg Tablet, 20 MG PO BID, (Reported) Entered as Reported by: BRANDON ERVIN on 01/08/22 102 Ipratropium/Albuterol Sulfate (Iprat-Albut 0.5-3(2.5) mg/3 ml) 3 Ml Ampul.neb, 3 ML IH Q6H PRN for SHORTNESS OF BREATH, (Reported) Entered as Reported by: ERASMO QUEEN on 04/12/191829 Levothyroxine Sodium (Levothyroxine Sodium) 75 Mcg Tablet, 75 MCG PO DAILY, (Reported) Entered as Reported by: ERASMO QUEEN on 04/12/191817 Lisinopril (Lisinopril) 40 Mg Tablet, 40 MG PO DAILY, (Reported) Entered as Reported by: ERASMO QUEEN on 04/12/191817 Loratadine (Claritin) 10 Mg Tablet, 10 MG PO DAILY, (Reported) Entered as Reported by: ERASMO QUEEN on 04/12/19 1826 Lurasidone HCl (Latuda) 40 Mg Tablet, 40 MG PO HS, (Reported) Entered as Reported by: BRANDON ERVIN on 01/08/22 1026 Menthol (Biofreeze) 4 % Gel..ml., 1 APPLIC TP Q6H PRN for PAIN-BREAKTHROUGH, (Reported) Entered as Reported by: BRANDON ERVIN on 01/08/22 1026 Metoprolol Tartrate (Metoprolol Tartrate) 50 Mg Tablet, 50 MG PO BID, (Reported) Entered as Reported by: BRANDON ERVIN on 01/08/22 1026 Morphine Sulfate (Morphine Conc. 20mg/ml) 100 Mg/5 Ml (20 Mg/Ml) Solution, 1 ML BU EVERY 2 HOURS PRN for PAIN-SEVERE (8-10), (Reported) Entered as Reported by: BRANDON ERVIN on 02/28/22 1227 Pantoprazole Sodium (Pantoprazole Sodium) 40 Mg Tablet.dr, 40 MG PO DAILY, (Reported) Entered as Reported by: ERASMO QUEEN on 04/12/19 1818 Pilocarpine (Salagen) 5 Mg Tab, 5 MG PO QID, (Reported) Entered as Reported by: BRANDON ERVIN on 01/08/22 1026 Polyethylene Glycol 3350 (Miralax) 17 Gm Powd.pack, 17 GM PO DAILY, (Reported) Entered as Reported by: ERASMO QUEEN on 04/12/19 1818 Potassium Chloride (Potassium Chloride) 20 Meq Tab.er.prt, 20 MEQ PO DAILY, (Reported) Entered as Reported by: BRANDON ERVIN on 01/08/22 1026 Prednisone (Prednisone) 20 Mg Tab, 20 MG PO DAILY, (Reported) Entered as Reported by: BRANDON ERVIN on 02/28/22 1227 Sodium Chloride (Sodium Chloride) 1 Gram Tab, 1 GM PO BID Prescribed by: EMERALD ALEJANDRA on 03/03/22 1129 Tamsulosin HCl (Flomax) 0.4 Mg Cap, 0.4 MG PO 1800, (Reported) Entered as Reported by: BRANDON ERVIN on 01/08/22 1026 Terazosin HCl (Terazosin HCl) 2 Mg Capsule, 2 MG PO DAILY, (Reported) Entered as Reported by: ERASMO QUEEN on 04/12/19 1818 Tramadol HCl (Tramadol HCl) 50 Mg Tablet, 100 MG PO Q6H PRN for PAIN-MODERATE (5-7), (Reported) Entered as Reported by: ERASMO QUEEN on 04/12/19 183 Triamcinolone Acet (Triamcinolone Acetonide 0.1% Cream) 0.1 % Cr, 1 APPLIC TP BID PRN for RASH, (Reported) Entered as Reported by: ERASMO QUEEN on 04/12/19 183 Review of Systems Review of Systems Constitutional: no symptoms reported Past Hervbbw-Ixuhzx-Miibcs Hx Patient Social History Tobacco Use?: No Use of E-Cig and/or Vaping dev: No Substance use?: No Alcohol Use?: No Immunizations Up To Date Tetanus Booster (TDap): Less than 5yrs PED Vaccines UTD: Yes Past Medical History Surgery/Hospitalization HX: HX OF ALCOHOL ABUSE SOBER 11 YEARS ALZHEIMERS BIPOLAR DISORDER COPD POSSIBLE PROSTATE CA WITH METS (STILL WAITING ON RESULTS 02/27/22) HYPONATREMIA BONE CA PARKINSONS DISEASE CKD STAGE 3 HTN GERD DEPRESSION/ANXIETY DM TYPE 2 Surgeries: Yes Cardiac Respiratory: Yes COPD Cardiac: Yes (STENTS X2 ) High Cholesterol Neurological: No Genitourinary: Yes Renal Failure Gastrointestinal: Yes Gall Bladder Disease Musculoskeletal: Yes (BULGING DISCS L 3-4) Chronic Back Pain Endocrine: Yes Diabetes, Non-Insulin dep HEENT: No Cancer: No Psychosocial: Yes (ETOH CONSUMPTION) Sleep Difficulties, Anxiety, Bipolar, Depression Integumentary: No Adverse Reaction/Blood Tranf: No Family Medical History Reviewed Nursing Family Hx No Pertinent Family Hx Physical Exam Vital Signs Vital Signs - First Documented 04/23/22 11:30 Temp 36.2 Pulse 86 Resp 16 B/P (MAP) 96/58 (71) Pulse Ox 100 O2 Delivery Room Air Capillary Refill : Height, Weight, BMI Height: '" Weight: lbs. oz. kg; 21.63 BMI Method: General Appearance: No Apparent Distress, WD/WN HEENT: PERRL/EOMI, Normal ENT Inspection, Pharynx Normal Neck: Full Range of Motion, Normal Inspection, Non Tender, Supple Respiratory: Chest Non Tender, Lungs Clear, Normal Breath Sounds, No Accessory Muscle Use, No Respiratory Distress Cardiovascular: Regular Rate, Rhythm, No Murmur, Normal Peripheral Pulses Gastrointestinal: Normal Bowel Sounds, No Organomegaly, No Pulsatile Mass, Non Tender, Soft Back: Normal Inspection, No Vertebral Tenderness Extremity: Normal Capillary Refill, Normal Inspection, Normal Range of Motion, Non Tender, No Calf Tenderness, Other (Right leg is slightly more swollen than the left, 2+ pitting edema bilateral lower extremities.) Neurologic/Psychiatric: Alert, Oriented x3, No Motor/Sensory Deficits, Normal Mood/Affect Skin: Normal Color, Warm/Dry Lymphatic: No Adenopathy Progress/Results/Core Measures Suspected Sepsis SIRS Temperature: Pulse: Respiratory Rate: Laboratory Tests 04/23/22 11:34: White Blood Count 10.3 Blood Pressure / Mean: Laboratory Tests 04/23/22 11:34: Creatinine 0.67, Platelet Count 133, Total Bilirubin 0.7 Results/Orders Lab Results Laboratory Tests Test 04/23/22 11:34 04/23/22 11:50 Range/Units White Blood Count 10.3 4.3-11.0 10^3/uL Red Blood Count 3.06 L 4.30-5.52 10^6/uL Hemoglobin 9.0 L 13.3-17.7 g/dL Hematocrit 27 L 40-54 % Mean Corpuscular Volume 87 80-99 fL Mean Corpuscular Hemoglobin 29 25-34 pg Mean Corpuscular Hemoglobin Concent 34 32-36 g/dL Red Cell Distribution Width 16.2 H 10.0-14.5 % Platelet Count 133 130-400 10^3/uL Mean Platelet Volume 8.5 L 9.0-12.2 fL Immature Granulocyte % (Auto) 5 % Neutrophils (%) (Auto) 78 H 42-75 % Lymphocytes (%) (Auto) 9 L 12-44 % Monocytes (%) (Auto) 6 0-12 % Eosinophils (%) (Auto) 0 0-10 % Basophils (%) (Auto) 1 0-10 % Neutrophils # (Auto) 8.1 H 1.8-7.8 10^3/uL Lymphocytes # (Auto) 1.0 1.0-4.0 10^3/uL Monocytes # (Auto) 0.7 0.0-1.0 10^3/uL Eosinophils # (Auto) 0.0 0.0-0.3 10^3/uL Basophils # (Auto) 0.1 0.0-0.1 10^3/uL Immature Granulocyte # (Auto) 0.6 H 0.0-0.1 10^3/uL Neutrophils % (Manual) 75 % Lymphocytes % (Manual) 13 % Monocytes % (Manual) 3 % Eosinophils % (Manual) 1 % Basophils % (Manual) 0 % Myelocytes % 1 % Band Neutrophils 5 % Atypical Lymphocytes 2 % Polychromasia SLIGHT Poikilocytosis SLIGHT Sodium Level 127 L 135-145 MMOL/L Potassium Level 4.0 3.6-5.0 MMOL/L Chloride Level 92 L 98-107 MMOL/L Carbon Dioxide Level 23 21-32 MMOL/L Anion Gap 12 5-14 MMOL/L Blood Urea Nitrogen 9 7-18 MG/DL Creatinine 0.67 0.60-1.30 MG/DL Estimat Glomerular Filtration Rate 107 BUN/Creatinine Ratio 13 Glucose Level 192 H 70-105 MG/DL Calcium Level 8.3 L 8.5-10.1 MG/DL Corrected Calcium 8.9 8.5-10.1 MG/DL Total Bilirubin 0.7 0.1-1.0 MG/DL Aspartate Amino Transf (AST/SGOT) 68 H 5-34 U/L Alanine Aminotransferase (ALT/SGPT) 95 H 0-55 U/L Alkaline Phosphatase 768 H 40-136 U/L Total Protein 5.5 L 6.4-8.2 GM/DL Albumin 3.2 3.2-4.5 GM/DL Urine Color YELLOW Urine Clarity SL CLOUDY Urine pH 6.0 5-9 Urine Specific [place] 1.010 L 1.016-1.022 Urine Protein NEGATIVE NEGATIVE Urine Glucose (UA) NEGATIVE NEGATIVE Urine Ketones NEGATIVE NEGATIVE Urine Nitrite POSITIVE H NEGATIVE Urine Bilirubin NEGATIVE NEGATIVE Urine Urobilinogen 2.0 < = 1.0 MG/DL Urine Leukocyte Esterase 2+ H NEGATIVE Urine RBC (Auto) TRACE-I H NEGATIVE Urine RBC NONE /HPF Urine WBC 10-25 H /HPF Urine Squamous Epithelial Cells RARE /HPF Urine Crystals NONE /LPF Urine Bacteria MODERATE H /HPF Urine Casts NONE /LPF Urine Mucus N /LPF Urine Culture Indicated YES My Orders Orders - GLENNY DAWSON DO Comprehensive Metabolic Panel (04/23/22 11:45) Cbc With Automated Diff (04/23/22 11:45) Ua Culture If Indicated (04/23/22 11:45) Chest 1 View Ap/Pa Only (04/23/22 11:45) Urine Culture (04/23/22 11:50) Manual Differential (04/23/22 11:34) Vital Signs/I&O 04/23/22 11:30 Temp 36.2 Pulse 86 Resp 16 B/P (MAP) 96/58 (71) Pulse Ox 100 O2 Delivery Room Air Capillary Refill : Departure Communication (Admissions) Patient is hemodynamically stable, alert and oriented. His vital signs are normal. His sodium is 127, similar to check 1 month ago. He has been as low as 119 in the past. I do not think this is acute I do not think that it is causing any symptoms for him today. He does have a urinary tract infection and we will treat this with antibiotics. My direct interpretation of the chest x-ray shows no evidence of pulmonary pathology however there are distended loops of bowel in the abdomen. Per radiology these were present on CAT scan in March as well. The patient is not having any abdominal pain, tolerating p.o. with no nausea or vomiting. Doubt significant clinical obstruction at this time. He does have evidence of bony metastatic disease according to radiology. They are slightly concerned about his lower extremity edema. I advised that he may need to be on a short course of diuretic however with his sodium issues this will need to be closely monitored and I feel more comfortable with his primary doctor following this they state understanding and are comfortable with this Impression Primary Impression: Hyponatremia Additional Impression: UTI (urinary tract infection) Qualified Codes: N30.01 - Acute cystitis with hematuria Disposition: HOME, SELF-CARE Condition: Stable Departure-Patient Inst. Referrals: TERI HERNANDEZ DO (PCP) Primary Care Physician Patient Instructions: Urinary Tract Infection, Adult (DC), Hyponatremia (DC) Add. Discharge Instructions: Please give him the antibiotics as prescribed until they are gone as he has a ur inary tract infection. His sodium is 127. This is similar to what it was in March. I recommend you have it rechecked in 3 to 4 days. Encouraged him to eat like normal and stay well-hydrated. Follow-up with his primary doctor for any nonemergent needs. Return to the emergency department for any severe concerns All discharge instructions reviewed with patient and/or family. Voiced understanding. Scripts Cephalexin (Cephalexin) 500 Mg Tablet 500 MG PO BID for 7 Days, #14 TAB Prov: GLENNY DAWSON DO 04/23/22 GLENNY DAWSON DO Apr 23, 2022 11:59
--- NOTE | 2022-04-23 12:02 | Diagnostic Imaging Report ---
CLINICAL INDICATION: Patient with altered mental status. Patient with history of prostate cancer. EXAM: Portable chest x-ray upright view. COMPARISON: Chest x-ray dated 12/19/2021. CT scan abdomen and pelvis with contrast dated 02/27/2022. FINDINGS: There is elevation of the right hemidiaphragm which is slightly increased. There are multiple loops of air dilated intestine beneath the right hemidiaphragm and about the abdomen. There is mild bibasilar atelectasis. Pulmonary vasculature and cardiac silhouette are within normal limits. There is sclerotic high density involving the thoracic spine concerning for osseous metastatic disease which is also seen on the comparison CT scan. IMPRESSION: 1: There is significant air distention of intestines overlying the abdomen and beneath the right hemidiaphragm. These findings are nonspecific and may be related to obstruction or ileus. CT scan of abdomen and pelvis would better evaluate, if necessary. Patient was also noted to have air distended loops of intestine on the prior CT scan. 2: There is bibasilar atelectasis. 3: There is osseous metastatic disease. Dictated by: Dictated on workstation # [id number]
[2022-04-23 12:04] LABS: BACTERIA,URINE MODERATE /HPF; SQUAMOUS EPITHELIAL CELL,UR RARE /HPF
[2022-04-23 12:06] LABS: BILIRUBIN,TOTAL 0.7 MG/DL (0.1-1.0); CALCIUM 8.3 MG/DL (8.5-10.1); CREATININE SERUM 0.67 MG/DL (0.60-1.30)
[2022-04-23 12:07] LABS: ALBUMIN 3.2 GM/DL (3.2-4.5); TOTAL PROTEIN 5.5 GM/DL (6.4-8.2)
[2022-04-23] MEDS ORDERED: CEPH500T PO (12:21)
[2022-04-23 12:24] LABS: BAND NEUTROPHILS 5 %; BASOPHILS % (MANUAL) 0 %; EOSINOPHILS % (MANUAL) 1 %; LYMPHOCYTES % (MANUAL) 13 %; MONOCYTES % (MANUAL) 3 %; MYELOCYTES % 1 %; NEUTROPHILS % (MANUAL) 75 %
[2022-04-23 12:25] LABS: ATYPICAL LYMPHOCYTES 2 %; POIKILOCYTOSIS SLIGHT; POLYCHROMASIA SLIGHT
[2022-04-23 12:29] VITALS: BP 96/58
== END 2022-04-23 12:29 | disposition home or self-care (01) ==
LOC: EDUNIT# 11:23 → ER FS 11:25
DX: E87.1 Hypo-osmolality and hyponatremia (principal); N39.0 Urinary tract infection, site not specified
CPT/HCPCS: 36415; 71045; 80053; 81000; 85007; 85027; 87088

== ENCOUNTER 2022-05-16 10:57 | Emergency (ER) | payer MEDICARE, MEDICAID ==
[~2022-05-16 10:57] MED LIST changes: -BENZ1TAB6 PO; +BENZ1TAB74 PO; +CEPH500T PO
--- NOTE | 2022-05-16 11:05 | ED Fall/Injury ---
General Stated Complaint: SOB; AMS History of Present Illness Date Seen by Provider: May 16, 2022 Time Seen by Provider: 11:00 Initial Comments 61-year-old male with PMH of metastatic prostate carcinoma/Alzheimer's dementia/anxiety and depression/CKD stage 3A/GERD/BPD/anorexia nervosa/COPD/hypothyroidism/Parkinson's disease/DM2, is sent here from [facility] via EMS with complaints of a fall resulting in skin laceration to the elbow. Patient is alert and oriented x3 in the ER, and states that he thinks he hit his head on the table or possibly the floor when he fell. Patient states that he tripped over the leg of the chair as he was standing up and accidentally fell. Denies dizziness, chest pain, palpitations, shortness of breath, confusion, loss of balance. EMS also states that patient was alert and oriented x3 since the time they saw him. Patient has had stable vitals with EMS and also in the ER. Allergies and Home Medications Allergies Coded Allergies: No Known Drug Allergies (Unverified , 04/11/19) Patient Home Medication List Home Medication List Reviewed: Yes Allopurinol (Allopurinol) 100 Mg Tablet, 100 MG PO DAILY, (Reported) Entered as Reported by: BRANDON ERVIN on 01/08/22 1026 Atorvastatin Calcium (Atorvastatin Calcium) 40 Mg Tablet, 40 MG PO HS, (Reported) Entered as Reported by: ERASMO QUEEN on 04/12/19 1818 Benztropine Mesylate (Benztropine Mesylate) 1 Mg Tablet, 1 MG PO HS, (Reported) Entered as Reported by: BRANDON ERVIN on 01/08/22 1026 Bupropion HCl (Bupropion Xl) 300 Mg Tab.er.24h, 300 MG PO DAILY, (Reported) Entered as Reported by: BRANDON ERVIN on 01/08/22 1026 Cephalexin (Cephalexin) 500 Mg Tablet, 500 MG PO BID Prescribed by: GLENNY DAWSON MD on 04/23/22 1221 Chlorhexidine Gluconate (Chlorhexidine Gluconate) 0.12 % Mouthwash, 30 ML MM BID, (Reported) Entered as Reported by: ERASMO QUEEN on 04/12/19 1845 Cholecalciferol (Vitamin D3) (Vitamin D3) 125 Mcg (5000 Unit) Capsule, 125 MCG PO DAILY, (Reported) Entered as Reported by: BRANDON ERVIN on 01/08/22 102 Clonidine HCl (Clonidine HCl) 0.1 Mg Tablet, 0.1 MG PO TID, (Reported) Entered as Reported by: ERASMO QUEEN on 04/12/191817 Clopidogrel Bisulfate (Plavix) 75 Mg Tablet, 75 MG PO DAILY, (Reported) Entered as Reported by: ERASMO QUEEN on 04/12/191817 Cyanocobalamin (Vitamin B-12) (B-12) 1,000 Mcg Tablet, 1,000 MCG PO DAILY, (Reported) Entered as Reported by: ERASMO QUEEN on 04/12/191817 Donepezil HCl (Donepezil HCl) 10 Mg Tablet, 10 MG PO HS, (Reported) Entered as Reported by: ERASMO QUEEN on 04/12/191817 Finasteride (Finasteride) 5 Mg Tablet, 5 MG PO DAILY, (Reported) Entered as Reported by: BRANDON ERVIN on 01/08/22 102 Fluticasone/Salmeterol (Advair 100-50 Diskus) 1 Each Blst.w.dev, 1 EACH IH BID, (Reported) Entered as Reported by: ERASMO QUEEN on 04/12/191830 Furosemide (Furosemide) 20 Mg Tablet, 20 MG PO BID, (Reported) Entered as Reported by: BRANDON ERVIN on 01/08/22 102 Ipratropium/Albuterol Sulfate (Iprat-Albut 0.5-3(2.5) mg/3 ml) 3 Ml Ampul.neb, 3 ML IH Q6H PRN for SHORTNESS OF BREATH, (Reported) Entered as Reported by: ERASMO QUEEN on 04/12/191829 Levothyroxine Sodium (Levothyroxine Sodium) 75 Mcg Tablet, 75 MCG PO DAILY, (Reported) Entered as Reported by: ERASMO QUEEN on 04/12/191817 Lisinopril (Lisinopril) 40 Mg Tablet, 40 MG PO DAILY, (Reported) Entered as Reported by: ERASMO QUEEN on 04/12/191817 Loratadine (Claritin) 10 Mg Tablet, 10 MG PO DAILY, (Reported) Entered as Reported by: ERASMO QUEEN on 04/12/19 182 Lurasidone HCl (Latuda) 40 Mg Tablet, 40 MG PO HS, (Reported) Entered as Reported by: BRANDON ERVIN on 01/08/22 1026 Menthol (Biofreeze) 4 % Gel..ml., 1 APPLIC TP Q6H PRN for PAIN-BREAKTHROUGH, (Reported) Entered as Reported by: BRANDON ERVIN on 01/08/22 1026 Metoprolol Tartrate (Metoprolol Tartrate) 50 Mg Tablet, 50 MG PO BID, (Reported) Entered as Reported by: BRANDON ERVIN on 01/08/22 1026 Morphine Sulfate (Morphine Conc. 20mg/ml) 100 Mg/5 Ml (20 Mg/Ml) Solution, 1 ML BU EVERY 2 HOURS PRN for PAIN-SEVERE (8-10), (Reported) Entered as Reported by: BRANDON ERVIN on 02/28/22 1227 Pantoprazole Sodium (Pantoprazole Sodium) 40 Mg Tablet.dr, 40 MG PO DAILY, (Reported) Entered as Reported by: ERASMO QUEEN on 04/12/19 181 Pilocarpine (Salagen) 5 Mg Tab, 5 MG PO QID, (Reported) Entered as Reported by: BRANDON ERVIN on 01/08/22 1026 Polyethylene Glycol 3350 (Miralax) 17 Gm Powd.pack, 17 GM PO DAILY, (Reported) Entered as Reported by: ERASMO QUEEN on 04/12/191817 Potassium Chloride (Potassium Chloride) 20 Meq Tab.er.prt, 20 MEQ PO DAILY, (Reported) Entered as Reported by: BRANDON ERVIN on 01/08/22 1026 Prednisone (Prednisone) 20 Mg Tab, 20 MG PO DAILY, (Reported) Entered as Reported by: BRANDON ERVIN on 02/28/22 1227 Sodium Chloride (Sodium Chloride) 1 Gram Tab, 1 GM PO BID Prescribed by: EMERALD ALEJANDRA on 03/03/22 1129 Tamsulosin HCl (Flomax) 0.4 Mg Cap, 0.4 MG PO 1800, (Reported) Entered as Reported by: BRANDON ERVIN on 01/08/22 1026 Terazosin HCl (Terazosin HCl) 2 Mg Capsule, 2 MG PO DAILY, (Reported) Entered as Reported by: ERASMO QUEEN on 04/12/19 1818 Tramadol HCl (Tramadol HCl) 50 Mg Tablet, 100 MG PO Q6H PRN for PAIN-MODERATE (5-7), (Reported) Entered as Reported by: ERASMO QUEEN on 04/12/19 183 Triamcinolone Acet (Triamcinolone Acetonide 0.1% Cream) 0.1 % Cr, 1 APPLIC TP BID PRN for RASH, (Reported) Entered as Reported by: ERASMO QUEEN on 04/12/19 183 Review of Systems Review of Systems Constitutional: no symptoms reported Eyes: No Symptoms Reported Ears, Nose, Mouth, Throat: no symptoms reported Respiratory: no symptoms reported Cardiovascular: no symptoms reported Gastrointestinal: no symptoms reported Genitourinary: no symptoms reported Musculoskeletal: other Skin: lesions Psychiatric/Neurological: No Symptoms Reported Past Ishgvgq-Arwhhy-Haymzf Hx Immunizations Up To Date Tetanus Booster (TDap): Less than 5yrs PED Vaccines UTD: Yes Past Medical History Surgery/Hospitalization HX: HX OF ALCOHOL ABUSE SOBER 11 YEARS ALZHEIMERS BIPOLAR DISORDER COPD POSSIBLE PROSTATE CA WITH METS (STILL WAITING ON RESULTS 02/27/22) HYPONATREMIA BONE CA PARKINSONS DISEASE CKD STAGE 3 HTN GERD DEPRESSION/ANXIETY DM TYPE 2 Surgeries: Yes Cardiac Respiratory: Yes COPD Cardiac: Yes (STENTS X2 ) High Cholesterol Neurological: No Genitourinary: Yes Renal Failure Gastrointestinal: Yes Gall Bladder Disease Musculoskeletal: Yes (BULGING DISCS L 3-4) Chronic Back Pain Endocrine: Yes Diabetes, Non-Insulin dep HEENT: No Cancer: No Psychosocial: Yes (ETOH CONSUMPTION) Sleep Difficulties, Anxiety, Bipolar, Depression Integumentary: No Adverse Reaction/Blood Tranf: No Family Medical History No Pertinent Family Hx Physical Exam Vital Signs Vital Signs - First Documented 05/16/22 10:58 Temp 36.9 Pulse 106 Resp 16 B/P (MAP) 133/83 (100) Pulse Ox 99 O2 Delivery Room Air Capillary Refill : Height, Weight, BMI Height: '" Weight: lbs. oz. kg; 21.63 BMI Method: General Appearance: WD/WN, no apparent distress HEENT: PERRL/EOMI, normal ENT inspection Neck: non-tender, full range of motion, supple, normal inspection Cardiovascular: regular rate, rhythm Respiratory: chest non-tender, lungs clear Gastrointestinal: non tender, soft Back: normal inspection, no vertebral tenderness Extremities: normal range of motion, non-tender, other (Right elbow shows 2 tears that are superficial and involving the epidermis only, and measure 1 cm and 2 cm diameter. No active bleeding. Skin flap in place on both tears.) Neurologic/Psychiatric: inbound sales manager II-XII nml as tested, no motor/sensory deficits, alert, normal mood/affect, oriented x 3 Hoffmeister Coma Score Best Eye Response: (4) Open Spontaneously Best Verbal Response: (5) Oriented Best Motor Response: (6) Obeys Commands Bronson Total: 15 Progress/Results/Core Measures Results/Orders Lab Results Laboratory Tests Test 05/16/22 11:53 Range/Units Urine Color YELLOW Urine Clarity TURBID Urine pH 6.0 5-9 Urine Specific [place] 1.020 1.016-1.022 Urine Protein 1+ H NEGATIVE Urine Glucose (UA) NEGATIVE NEGATIVE Urine Ketones NEGATIVE NEGATIVE Urine Nitrite POSITIVE H NEGATIVE Urine Bilirubin NEGATIVE NEGATIVE Urine Urobilinogen 2.0 < = 1.0 MG/DL Urine Leukocyte Esterase 3+ H NEGATIVE Urine RBC (Auto) 3+ H NEGATIVE Urine RBC 5-10 H /HPF Urine WBC >100 H /HPF Urine Squamous Epithelial Cells RARE /HPF Urine Crystals NONE /LPF Urine Bacteria LARGE H /HPF Urine Casts NONE /LPF Urine Mucus NEGATIVE /LPF Urine Culture Indicated YES My Orders Orders - DONNA SIFUENTES MD Elbow 3 View Right (05/16/22 11:07) Ct Head Wo (05/16/22 11:08) Ua Culture If Indicated (05/16/22 11:08) Urine Culture (05/16/22 11:53) Vital Signs/I&O 05/16/22 10:58 Temp 36.9 Pulse 106 Resp 16 B/P (MAP) 133/83 (100) Pulse Ox 99 O2 Delivery Room Air Progress Progress Note : Progress Note 1. FALL: (A) RIGHT ELBOW SKIN TEAR: - XR RIGHT ELBOW: No bony abnormalities -Roller gauze bandage (B) ACUTE CYSTITIS WITH HEMATURIA/ RULED OUT HEAD INJURY: - CT HEAD: No acute findings - UA: Positive for leukocyte esterase, nitrates, RBC, WBC, bacteria -Keflex twice daily for 7 days with first tab given in ER since patient has been mail-order pharmacy. -Advised adequate water intake -Patient is prone to UTIs due to prostate cancer and enlarged prostate causing retention of urine. -Follow-up with PCP in the next 3 to 7 days -The patient was seen in the ED, and treated appropriately to presentation at a specific point in time. Patient is informed that there is a possibility that disease and illness can evolve and change in acuity rapidly or slowly after patient is discharged from the ER. Precautionary advice given to the patient for immediate return to ER if symptoms worsen or do not resolve, and to seek emergency care sooner rather than later. Pt also advised on the importance of PCP follow up and compliance with management and follow up plan with PCP and/or specialist, as this is part of the management plan. Pt verbally expressed understanding. Diagnostic Imaging Diagonstic Imaging: Xray, CT Plain Films/CT/US/NM/MRI: elbow, head Comments NAME: FRANKIE RAMSAY MED REC#: [id number] PT STATUS: REG ER : 1960 PHYSICIAN: DONNA SIFUENTES MD ADMIT DATE: 05/16/22/ER FS Draft Date of Exam:05/16/22 ELBOW 3 VIEW RIGHT INDICATION: Right elbow pain after injury. TECHNIQUE: Three views of the right elbow. COMPARISON: None. FINDINGS: No acute fracture or dislocation is seen in the right elbow. Alignment appears normal. Joint spaces are generally preserved. There is no elbow joint effusion. IMPRESSION: 1. No acute osseous abnormality is seen in the right elbow. Dictated on workstation # [id number] Dict: 05/16/22 1138 Trans: 05/16/22 1143 AS6 [id number] Interpreted by: SHRUTI RICHARDS MD Electronically signed by: MIGUEL VIA [facility], [place], [place] NAME: FRANKIE RAMSAY [facility] REC#: [id number] PT STATUS: REG ER : 1960 PHYSICIAN: DONNA SIFUENTES MD ADMIT DATE: 05/16/22/ER FS Draft Date of Exam:05/16/22 CT HEAD WO CLINICAL INDICATION: Patient is status post fall. EXAM: Axial CT scan of the brain without IV contrast with coronal and sagittal reformatted images. Auto Exposure Controls were utilized during the CT exam to meet ALARA standards for radiation dose reduction. COMPARISON: CT scan of the head and cervical spine without contrast dated 10/14/2021. FINDINGS: There is no evidence of acute cerebral infarct, intracranial hemorrhage, or gross mass effect. The brain parenchymal volume appears appropriate for patient's age. There are mild patchy and confluent areas of low-attenuation white matter changes involving both cerebral hemispheres and periventricular regions, likely representing chronic small vessel ischemic disease and leukoaraiosis. There is normal payne-white matter distinction. There is no significant midline shift or herniation. There is no evidence of hydrocephalus. The basal cisterns are unremarkable. The skull, extracranial soft tissue, and orbits are unremarkable. The paranasal sinuses are unremarkable. Temporal bones show no significant abnormality. IMPRESSION: 1: There is no CT evidence of acute intracranial process. There is no skull fracture. 2: There is chronic small vessel ischemic disease and leukoaraiosis. Dictated on workstation # [id number] Dict: 05/16/22 1128 Trans: 05/16/22 1133 AS6 [id number] Interpreted by: CAR CARLSON MD Electronically signed by: Departure Impression Primary Impression: Acute cystitis with hematuria Additional Impressions: Fall Qualified Codes: W19.XXXA - Unspecified fall, initial encounter Skin tear of elbow without complication Qualified Codes: S51.011A - Laceration without foreign body of right elbow, initial encounter Disposition: SNF Condition: Stable Departure-Patient Inst. Referrals: TERI HERNANDEZ DO (PCP) Primary Care Physician Patient Instructions: Wound Care, Acute Cystitis (DC), Abrasions ED, Preventing Falls ED Add. Discharge Instructions: -Keflex twice daily for 7 days with first tab given in ER since patient has been mail-order pharmacy. -Advised adequate water intake -Patient is prone to UTIs due to prostate cancer and enlarged prostate causing retention of urine. -Follow-up with PCP in the next 3 to 7 days Scripts Cephalexin (Cephalexin) 500 Mg Tablet 500 MG PO BID for 7 Days, #14 TAB Prov: DONNA SIFUENTES MD 05/16/22 DONNA SIFUENTES MD May 16, 2022 11:05
--- NOTE | 2022-05-16 11:34 | Diagnostic Imaging Report ---
CLINICAL INDICATION: Patient is status post fall. EXAM: Axial CT scan of the brain without IV contrast with coronal and sagittal reformatted images. Auto Exposure Controls were utilized during the CT exam to meet ALARA standards for radiation dose reduction. COMPARISON: CT scan of the head and cervical spine without contrast dated 10/14/2021. FINDINGS: There is no evidence of acute cerebral infarct, intracranial hemorrhage, or gross mass effect. The brain parenchymal volume appears appropriate for patient's age. There are mild patchy and confluent areas of low-attenuation white matter changes involving both cerebral hemispheres and periventricular regions, likely representing chronic small vessel ischemic disease and leukoaraiosis. There is normal payne-white matter distinction. There is no significant midline shift or herniation. There is no evidence of hydrocephalus. The basal cisterns are unremarkable. The skull, extracranial soft tissue, and orbits are unremarkable. The paranasal sinuses are unremarkable. Temporal bones show no significant abnormality. IMPRESSION: 1: There is no CT evidence of acute intracranial process. There is no skull fracture. 2: There is chronic small vessel ischemic disease and leukoaraiosis. Dictated by: Dictated on workstation # [id number]
--- NOTE | 2022-05-16 11:43 | Diagnostic Imaging Report ---
INDICATION: Right elbow pain after injury. TECHNIQUE: Three views of the right elbow. COMPARISON: None. FINDINGS: No acute fracture or dislocation is seen in the right elbow. Alignment appears normal. Joint spaces are generally preserved. There is no elbow joint effusion. IMPRESSION: 1. No acute osseous abnormality is seen in the right elbow. Dictated by: Dictated on workstation # [id number]
[2022-05-16 11:57] LABS: BILIRUBIN,URINE NEGATIVE (NEGATIVE); CLARITY,URINE TURBID; COLOR,URINE YELLOW; GLUCOSE, URINE (UA) NEGATIVE (NEGATIVE); KETONES,URINE NEGATIVE (NEGATIVE); LEUKOCYTE ESTERASE ,URINE 3+ (NEGATIVE); NITRITE,URINE POSITIVE (NEGATIVE); PROTEIN,URINE 1+ (NEGATIVE)
[2022-05-16 12:03] LABS: WBC,URINE >100 /HPF
[2022-05-16 12:04] LABS: BACTERIA,URINE LARGE /HPF; SQUAMOUS EPITHELIAL CELL,UR RARE /HPF
[2022-05-16] MEDS ORDERED: CEPHALEXIN 250 MG (KEFLEX) CAP PO STA (12:12)
[2022-05-16] MEDS ORDERED: CEPH500T PO (12:14)
[2022-05-16 13:20] VITALS: BP 130/79
[2022-05-17] MEDS ORDERED: NYST15PO4 TP (19:20)
== END 2022-05-16 13:20 ==
LOC: EDUNIT# 10:57 → ER FS 10:59
DX: S51.011A Laceration without foreign body of right elbow, initial encounter (principal); N30.01 Acute cystitis with hematuria; W07.XXXA Fall from chair, initial encounter
CPT/HCPCS: 70450; 73080; 81000; 87077; 87088; 87186

== ENCOUNTER 2022-05-17 19:04 | Emergency (ER) | payer MEDICARE, MEDICAID ==
[~2022-05-17] VITALS: Ht 183 cm; Wt 79.4 kg
[2022-05-17 19:06] VITALS: BP 148/83
--- NOTE | 2022-05-17 19:11 | ED Integumentary General ---
General Stated Complaint: KURTIS LEG EDMA/SCROTAL SWELLING History of Present Illness Date Seen by Provider: May 17, 2022 Time Seen by Provider: 19:11 Initial Comments 61-year-old male brought in by EMS from [facility] for scrotal erythema and swelling. Patient has known prostate cancer and dementia. He is incontinent and is unsure when he urinates. Patient normally wears a brief period patient was seen yesterday following a fall had a negative head CT and was found to have a urinary tract infection and started on Keflex. Allergies and Home Medications Allergies Coded Allergies: No Known Drug Allergies (Unverified , 04/11/19) Patient Home Medication List Home Medication List Reviewed: Yes Allopurinol (Allopurinol) 100 Mg Tablet, 100 MG PO DAILY, (Reported) Entered as Reported by: BRANDON ERVIN on 01/08/22 1026 Atorvastatin Calcium (Atorvastatin Calcium) 40 Mg Tablet, 40 MG PO HS, (Reported) Entered as Reported by: ERASMO QUEEN on 04/12/19 1818 Benztropine Mesylate (Benztropine Mesylate) 1 Mg Tablet, 1 MG PO HS, (Reported) Entered as Reported by: BRANDON ERVIN on 01/08/22 1026 Bupropion HCl (Bupropion Xl) 300 Mg Tab.er.24h, 300 MG PO DAILY, (Reported) Entered as Reported by: BRANDON ERVIN on 01/08/22 1026 Cephalexin (Cephalexin) 500 Mg Tablet, 500 MG PO BID Prescribed by: GLENNY DAWSON MD on 04/23/22 1221 Cephalexin (Cephalexin) 500 Mg Tablet, 500 MG PO BID Prescribed by: DONNA SIFUENTES MD on 05/16/22 1214 Chlorhexidine Gluconate (Chlorhexidine Gluconate) 0.12 % Mouthwash, 30 ML MM BID, (Reported) Entered as Reported by: ERASMO QUEEN on 04/12/19 1845 Cholecalciferol (Vitamin D3) (Vitamin D3) 125 Mcg (5000 Unit) Capsule, 125 MCG PO DAILY, (Reported) Entered as Reported by: BRANDON ERVIN on 01/08/22 1026 Clonidine HCl (Clonidine HCl) 0.1 Mg Tablet, 0.1 MG PO TID, (Reported) Entered as Reported by: ERASMO QUEEN on 04/12/191817 Clopidogrel Bisulfate (Plavix) 75 Mg Tablet, 75 MG PO DAILY, (Reported) Entered as Reported by: ERASMO QUEEN on 04/12/191817 Cyanocobalamin (Vitamin B-12) (B-12) 1,000 Mcg Tablet, 1,000 MCG PO DAILY, (Reported) Entered as Reported by: ERASMO QUEEN on 04/12/191817 Donepezil HCl (Donepezil HCl) 10 Mg Tablet, 10 MG PO HS, (Reported) Entered as Reported by: ERASMO QUEEN on 04/12/191817 Finasteride (Finasteride) 5 Mg Tablet, 5 MG PO DAILY, (Reported) Entered as Reported by: BRANDON ERVIN on 01/08/22 102 Fluticasone/Salmeterol (Advair 100-50 Diskus) 1 Each Blst.w.dev, 1 EACH IH BID, (Reported) Entered as Reported by: ERASMO QUEEN on 04/12/191830 Furosemide (Furosemide) 20 Mg Tablet, 20 MG PO BID, (Reported) Entered as Reported by: BRANDON ERVIN on 01/08/22 102 Ipratropium/Albuterol Sulfate (Iprat-Albut 0.5-3(2.5) mg/3 ml) 3 Ml Ampul.neb, 3 ML IH Q6H PRN for SHORTNESS OF BREATH, (Reported) Entered as Reported by: ERASMO QUEEN on 04/12/191829 Levothyroxine Sodium (Levothyroxine Sodium) 75 Mcg Tablet, 75 MCG PO DAILY, (Reported) Entered as Reported by: ERASMO QUEEN on 04/12/191817 Lisinopril (Lisinopril) 40 Mg Tablet, 40 MG PO DAILY, (Reported) Entered as Reported by: ERASMO QUEEN on 04/12/191817 Loratadine (Claritin) 10 Mg Tablet, 10 MG PO DAILY, (Reported) Entered as Reported by: ERASMO QUEEN on 04/12/191825 Lurasidone HCl (Latuda) 40 Mg Tablet, 40 MG PO HS, (Reported) Entered as Reported by: BRANDON ERVIN on 01/08/22 1026 Menthol (Biofreeze) 4 % Gel..ml., 1 APPLIC TP Q6H PRN for PAIN-BREAKTHROUGH, (Reported) Entered as Reported by: BRANDON ERVIN on 01/08/22 1026 Metoprolol Tartrate (Metoprolol Tartrate) 50 Mg Tablet, 50 MG PO BID, (Reported) Entered as Reported by: BRANDON ERVIN on 01/08/22 1026 Morphine Sulfate (Morphine Conc. 20mg/ml) 100 Mg/5 Ml (20 Mg/Ml) Solution, 1 ML BU EVERY 2 HOURS PRN for PAIN-SEVERE (8-10), (Reported) Entered as Reported by: BRANDON ERVIN on 02/28/22 1227 Pantoprazole Sodium (Pantoprazole Sodium) 40 Mg Tablet.dr, 40 MG PO DAILY, (Reported) Entered as Reported by: ERASMO QUEEN on 04/12/19 181 Pilocarpine (Salagen) 5 Mg Tab, 5 MG PO QID, (Reported) Entered as Reported by: BRANDON ERVIN on 01/08/22 1026 Polyethylene Glycol 3350 (Miralax) 17 Gm Powd.pack, 17 GM PO DAILY, (Reported) Entered as Reported by: REASMO QUEEN on 04/12/191817 Potassium Chloride (Potassium Chloride) 20 Meq Tab.er.prt, 20 MEQ PO DAILY, (Reported) Entered as Reported by: BRANDON ERVIN on 01/08/22 1026 Prednisone (Prednisone) 20 Mg Tab, 20 MG PO DAILY, (Reported) Entered as Reported by: BRANDON ERVIN on 02/28/22 1227 Sodium Chloride (Sodium Chloride) 1 Gram Tab, 1 GM PO BID Prescribed by: EMERALD ALEJANDRA on 03/03/22 1129 Tamsulosin HCl (Flomax) 0.4 Mg Cap, 0.4 MG PO 1800, (Reported) Entered as Reported by: BRANDON ERVIN on 01/08/22 1026 Terazosin HCl (Terazosin HCl) 2 Mg Capsule, 2 MG PO DAILY, (Reported) Entered as Reported by: ERASMO QUEEN on 04/12/19 181 Tramadol HCl (Tramadol HCl) 50 Mg Tablet, 100 MG PO Q6H PRN for PAIN-MODERATE (5-7), (Reported) Entered as Reported by: ERASMO QUEEN on 04/12/191829 Triamcinolone Acet (Triamcinolone Acetonide 0.1% Cream) 0.1 % Cr, 1 APPLIC TP BID PRN for RASH, (Reported) Entered as Reported by: ERASMO QUEEN on 04/12/191830 Review of Systems Review of Systems Constitutional: No chills, No fever Respiratory: no symptoms reported Cardiovascular: no symptoms reported Gastrointestinal: no symptoms reported Genitourinary: see HPI Skin: see HPI Psychiatric/Neurological: No Symptoms Reported Endocrine: No Symptoms Reported Hematologic/Lymphatic: No Symptoms Reported Past Miszgfq-Zdjdut-Fydbzz Hx Immunizations Up To Date Tetanus Booster (TDap): Less than 5yrs PED Vaccines UTD: Yes Past Medical History Surgery/Hospitalization HX: HX OF ALCOHOL ABUSE SOBER 11 YEARS ALZHEIMERS BIPOLAR DISORDER COPD POSSIBLE PROSTATE CA WITH METS (STILL WAITING ON RESULTS 02/27/22) HYPONATREMIA BONE CA PARKINSONS DISEASE CKD STAGE 3 HTN GERD DEPRESSION/ANXIETY DM TYPE 2 Surgeries: Yes Cardiac Respiratory: Yes COPD Cardiac: Yes (STENTS X2 ) High Cholesterol Neurological: No Genitourinary: Yes Renal Failure Gastrointestinal: Yes Gall Bladder Disease Musculoskeletal: Yes (BULGING DISCS L 3-4) Chronic Back Pain Endocrine: Yes Diabetes, Non-Insulin dep HEENT: No Cancer: No Psychosocial: Yes (ETOH CONSUMPTION) Sleep Difficulties, Anxiety, Bipolar, Depression Integumentary: No Adverse Reaction/Blood Tranf: No Family Medical History No Pertinent Family Hx Physical Exam Vital Signs Capillary Refill : General Appearance: WD/WN, no apparent distress Cardiovascular: normal peripheral pulses, regular rate, rhythm Respiratory: lungs clear, normal breath sounds Gastrointestinal: non tender, soft Skin: damp, other (Scrotal erythema, consistent with yeast infection) Skin Problem Location: other (Scrotum) Progress/Results/Core Measures Progress Progress Note : Progress Note Reviewed patient's chart and urinalysis from yesterday. He is currently being treated for UTI which is consistent with findings of his urine. Patient is frequently incontinent and is unsure when he urinates. Patient's physical exam is consistent with a yeast infection. Recommend barrier cream and nystatin cream. Departure Impression Primary Impression: Candidiasis of scrotum Disposition: 01 HOME, SELF-CARE Condition: Stable Departure-Patient Inst. Referrals: TERI HERNANDEZ DO (PCP/Family) Primary Care Physician Patient Instructions: Yeast Infection (DC) Add. Discharge Instructions: Please try to keep brief clean and dry, you may use a barrier cream to help. Nystatin powder or cream tid Scripts Nystatin (Nystatin) 100,000 Unit/Gram Powder 15 GM TP TID for 10 Days, #1 EA Prov: POOJA MA DO 05/17/22 POOJA MA DO May 17, 2022 19:11
[2022-05-17] MEDS ORDERED: NYSTATIN CREAM (MYCOSTATIN) 30 GM TUBE TP ONE (19:12)
[2022-05-17] MEDS ORDERED: NYST15PO4 TP (19:20)
== END 2022-05-17 19:49 | disposition home or self-care (01) ==
LOC: EDUNIT# 19:04 → ER FS 19:09
DX: B37.49 Other urogenital candidiasis (principal)
CPT/HCPCS: 99283

== ENCOUNTER → 2022-05-19 | Outpatient (CLI) | payer MEDICARE, MEDICAID ==
[~2022-05-19] MED LIST changes: +CEFD300C3 PO; +NYST15PO4 TP
[2022-05-19 15:46] LABS: BASOPHILS % (AUTO) 1 % (0-10); EOSINOPHILS % (AUTO) 0 % (0-10); HEMATOCRIT 28 % (40-54); HEMOGLOBIN 9.1 g/dL (13.3-17.7); LYMPHOCYTES # (AUTO) 0.5 10^3/uL (1.0-4.0); LYMPHOCYTES % (AUTO) 8 % (12-44); MEAN CORPUSCULAR HEMOGLOBIN 30 pg (25-34); MEAN CORPUSCULAR HGB CONC 33 g/dL (32-36); MEAN CORPUSCULAR VOLUME 90 fL (80-99); MEAN PLATELET VOLUME 9.2 fL (9.0-12.2); MONOCYTES # (AUTO) 0.6 10^3/uL (0.0-1.0); MONOCYTES % (AUTO) 10 % (0-12); NEUTROPHILS # (AUTO) 4.5 10^3/uL (1.8-7.8); NEUTROPHILS % (AUTO) 77 % (42-75); PLATELET COUNT 101 10^3/uL (130-400); WHITE BLOOD COUNT 5.9 10^3/uL (4.3-11.0)
[2022-05-19 16:30] LABS: BILIRUBIN,TOTAL 0.6 MG/DL (0.1-1.0); CALCIUM 8.1 MG/DL (8.5-10.1); CREATININE SERUM 0.77 MG/DL (0.60-1.30); POTASSIUM 4.4 MMOL/L (3.6-5.0); TOTAL PROTEIN 4.8 GM/DL (6.4-8.2)
[2022-05-19 16:36] LABS: BAND NEUTROPHILS 10 %; LYMPHOCYTES % (MANUAL) 7 %; METAMYELOCYTES % 1 %; MONOCYTES % (MANUAL) 8 %; NEUTROPHILS % (MANUAL) 74 %; PLATELET ESTIMATE DECREASED; POLYCHROMASIA SLIGHT
[2022-05-19 16:37] LABS: MICROCYTOSIS 1+; POIKILOCYTOSIS 1+; TEAR DROP CELLS SLIGHT
== END ==
PROVIDERS: ATTEND Emergency Medicine
DX: Z12.5 Encounter for screening for malignant neoplasm of prostate (principal)
CPT/HCPCS: 80053; 84153; 85007; 85027

== ENCOUNTER 2022-05-21 17:47 | Emergency (ER) | payer MEDICARE, MEDICAID ==
[~2022-05-21] VITALS: Ht 182 cm; Wt 85.0 kg
[~2022-05-21 17:47] MED LIST changes: -CEFD300C3 PO
[2022-05-21 18:05] VITALS: BP 82/56
[2022-05-21] MEDS ORDERED: fentaNYL INJ 100 MCG/2 ML AMP IVP ONE (19:00)
[2022-05-21 19:31] LABS: BASOPHILS % (AUTO) 0 % (0-10); EOSINOPHILS % (AUTO) 0 % (0-10); HEMATOCRIT 28 % (40-54); HEMOGLOBIN 9.3 g/dL (13.3-17.7); LYMPHOCYTES # (AUTO) 0.7 10^3/uL (1.0-4.0); LYMPHOCYTES % (AUTO) 9 % (12-44); MEAN CORPUSCULAR HEMOGLOBIN 30 pg (25-34); MEAN CORPUSCULAR HGB CONC 33 g/dL (32-36); MEAN CORPUSCULAR VOLUME 90 fL (80-99); MEAN PLATELET VOLUME 8.9 fL (9.0-12.2); MONOCYTES # (AUTO) 0.6 10^3/uL (0.0-1.0); MONOCYTES % (AUTO) 9 % (0-12); NEUTROPHILS # (AUTO) 5.4 10^3/uL (1.8-7.8); NEUTROPHILS % (AUTO) 76 % (42-75); PLATELET COUNT 132 10^3/uL (130-400); WHITE BLOOD COUNT 7.1 10^3/uL (4.3-11.0)
[2022-05-21 19:48] LABS: BILIRUBIN,TOTAL 0.8 MG/DL (0.1-1.0); CALCIUM 8.2 MG/DL (8.5-10.1); CREATININE SERUM 0.83 MG/DL (0.60-1.30); MAGNESIUM 1.9 MG/DL (1.6-2.4); POTASSIUM 4.3 MMOL/L (3.6-5.0); TOTAL PROTEIN 5.3 GM/DL (6.4-8.2)
[2022-05-21 19:49] LABS: ALBUMIN 2.8 GM/DL (3.2-4.5)
[2022-05-21 19:58] LABS: BAND NEUTROPHILS 8 %; HYPOCHROMASIA 1+; LYMPHOCYTES % (MANUAL) 10 %; METAMYELOCYTES % 2 %; MICROCYTOSIS 1+; MONOCYTES % (MANUAL) 6 %; MYELOCYTES % 1 %; NEUTROPHILS % (MANUAL) 73 %; PLATELET ESTIMATE DECREASED
[2022-05-21 19:59] LABS: ELLIPT/OVALOCYTES SLIGHT
[2022-05-21 21:29] LABS: BILIRUBIN,URINE NEGATIVE (NEGATIVE); CLARITY,URINE CLOUDY; COLOR,URINE YELLOW; GLUCOSE, URINE (UA) NEGATIVE (NEGATIVE); KETONES,URINE NEGATIVE (NEGATIVE); LEUKOCYTE ESTERASE ,URINE 2+ (NEGATIVE); NITRITE,URINE POSITIVE (NEGATIVE); PROTEIN,URINE TRACE (NEGATIVE)
[2022-05-21 21:35] LABS: BACTERIA,URINE LARGE /HPF; WBC,URINE >100 /HPF
[2022-05-21] MEDS ORDERED: cefTRIAXone 1 GM PRE-MIX 50 ML IV STA (22:00)
--- NOTE | 2022-05-21 22:23 | ED General ---
General Chief Complaint: Cardiac/General Problems Stated Complaint: LOW BP Nursing Triage Note: Patient from [facility] with reports of low BP, elevated HR, and critically low sodium levels. Sodium 125 from blood draw at 1632 on 05/19. Source of Information: Patient Exam Limitations: No Limitations History of Present Illness Date Seen by Provider: May 21, 2022 Time Seen by Provider: 18:39 Initial Comments This 61-year-old gentleman presents to the emergency room from the [facility] with complaints of scrotal edema, hyponatremia on his labs, pelvic discomfort from prostate cancer, and low blood pressure. He has also had reportedly 15 pound weight gain recently. He has not been walking today for the past 3 days. He is on diuretic therapy for his edema. He was recently seen for candidiasis of the genital area and was placed on nystatin powder. Staff reports he received Ativan 1 mg prior to coming to the emergency room. This is not on the MAR but was reported by staff. Allergies and Home Medications Allergies Coded Allergies: No Known Drug Allergies (Unverified , 04/11/19) Patient Home Medication List Home Medication List Reviewed: Yes Allopurinol (Allopurinol) 100 Mg Tablet, 100 MG PO DAILY, (Reported) Entered as Reported by: BRANDON ERVIN on 01/08/22 1026 Atorvastatin Calcium (Atorvastatin Calcium) 40 Mg Tablet, 40 MG PO HS, (Reported) Entered as Reported by: ERASMO QUEEN on 04/12/19 1818 Benztropine Mesylate (Benztropine Mesylate) 1 Mg Tablet, 1 MG PO HS, (Reported) Entered as Reported by: BRANDON ERVIN on 01/08/22 1026 Bupropion HCl (Bupropion Xl) 300 Mg Tab.er.24h, 300 MG PO DAILY, (Reported) Entered as Reported by: BRANDON ERVIN on 01/08/22 1026 Cefdinir (Cefdinir) 300 Mg Capsule, 300 MG PO BID Prescribed by: VÍCTOR DAVENPORT on 05/21/22 223 Cephalexin (Cephalexin) 500 Mg Tablet, 500 MG PO BID Prescribed by: GLENNY DAWSON MD on 04/23/22 1221 Cephalexin (Cephalexin) 500 Mg Tablet, 500 MG PO BID Prescribed by: DONNA SIFUENTES MD on 05/16/22 1214 Chlorhexidine Gluconate (Chlorhexidine Gluconate) 0.12 % Mouthwash, 30 ML MM BID, (Reported) Entered as Reported by: ERASMO QUEEN on 04/12/19 184 Cholecalciferol (Vitamin D3) (Vitamin D3) 125 Mcg (5000 Unit) Capsule, 125 MCG PO DAILY, (Reported) Entered as Reported by: BRANDON ERVIN on 01/08/22 1026 Clonidine HCl (Clonidine HCl) 0.1 Mg Tablet, 0.1 MG PO TID, (Reported) Entered as Reported by: ERASMO QUEEN on 04/12/191817 Clopidogrel Bisulfate (Plavix) 75 Mg Tablet, 75 MG PO DAILY, (Reported) Entered as Reported by: ERASMO QUEEN on 04/12/191817 Cyanocobalamin (Vitamin B-12) (B-12) 1,000 Mcg Tablet, 1,000 MCG PO DAILY, (Reported) Entered as Reported by: ERASMO QUEEN on 04/12/191817 Donepezil HCl (Donepezil HCl) 10 Mg Tablet, 10 MG PO HS, (Reported) Entered as Reported by: ERASMO QUEEN on 04/12/191817 Finasteride (Finasteride) 5 Mg Tablet, 5 MG PO DAILY, (Reported) Entered as Reported by: BRANDON ERVIN on 01/08/22 102 Fluticasone/Salmeterol (Advair 100-50 Diskus) 1 Each Blst.w.dev, 1 EACH IH BID, (Reported) Entered as Reported by: ERASMO QUEEN on 04/12/19 183 Furosemide (Furosemide) 20 Mg Tablet, 20 MG PO BID, (Reported) Entered as Reported by: BRANDON ERVIN on 01/08/22 1026 Ipratropium/Albuterol Sulfate (Iprat-Albut 0.5-3(2.5) mg/3 ml) 3 Ml Ampul.neb, 3 ML IH Q6H PRN for SHORTNESS OF BREATH, (Reported) Entered as Reported by: ERASMO QUEEN on 04/12/19 183 Levothyroxine Sodium (Levothyroxine Sodium) 75 Mcg Tablet, 75 MCG PO DAILY, (Reported) Entered as Reported by: ERASMO QUEEN on 04/12/191817 Lisinopril (Lisinopril) 40 Mg Tablet, 40 MG PO DAILY, (Reported) Entered as Reported by: ERASMO QUEEN on 04/12/191817 Loratadine (Claritin) 10 Mg Tablet, 10 MG PO DAILY, (Reported) Entered as Reported by: ERASMO QUEEN on 04/12/191825 Lurasidone HCl (Latuda) 40 Mg Tablet, 40 MG PO HS, (Reported) Entered as Reported by: BRANDON ERVIN on 01/08/22 102 Menthol (Biofreeze) 4 % Gel..ml., 1 APPLIC TP Q6H PRN for PAIN-BREAKTHROUGH, (Reported) Entered as Reported by: BRANDON ERVIN on 01/08/22 102 Metoprolol Tartrate (Metoprolol Tartrate) 50 Mg Tablet, 50 MG PO BID, (Reported) Entered as Reported by: BRANDON ERVIN on 01/08/22 102 Morphine Sulfate (Morphine Conc. 20mg/ml) 100 Mg/5 Ml (20 Mg/Ml) Solution, 1 ML BU EVERY 2 HOURS PRN for PAIN-SEVERE (8-10), (Reported) Entered as Reported by: BRANDON ERVIN on 02/28/22 1227 Nystatin (Nystatin) 100,000 Unit/Gram Powder, 15 GM TP TID Prescribed by: POOJA MA on 05/17/221919 Pantoprazole Sodium (Pantoprazole Sodium) 40 Mg Tablet.dr, 40 MG PO DAILY, (Reported) Entered as Reported by: ERASMO QUEEN on 04/12/191817 Pilocarpine (Salagen) 5 Mg Tab, 5 MG PO QID, (Reported) Entered as Reported by: BRANDON ERVIN on 01/08/22 102 Polyethylene Glycol 3350 (Miralax) 17 Gm Powd.pack, 17 GM PO DAILY, (Reported) Entered as Reported by: ERASMO QUEEN on 04/12/191817 Potassium Chloride (Potassium Chloride) 20 Meq Tab.er.prt, 20 MEQ PO DAILY, (Reported) Entered as Reported by: BRANDON ERVIN on 01/08/22 102 Prednisone (Prednisone) 20 Mg Tab, 20 MG PO DAILY, (Reported) Entered as Reported by: BRANDON ERVIN on 02/28/22 1227 Sodium Chloride (Sodium Chloride) 1 Gram Tab, 1 GM PO BID Prescribed by: EMERALD ALEJANDRA on 03/03/22 1129 Tamsulosin HCl (Flomax) 0.4 Mg Cap, 0.4 MG PO 1800, (Reported) Entered as Reported by: BRANDON ERVIN on 01/08/22 1026 Terazosin HCl (Terazosin HCl) 2 Mg Capsule, 2 MG PO DAILY, (Reported) Entered as Reported by: ERASMO QUEEN on 04/12/19 1818 Tramadol HCl (Tramadol HCl) 50 Mg Tablet, 100 MG PO Q6H PRN for PAIN-MODERATE (5-7), (Reported) Entered as Reported by: ERASMO QUEEN on 04/12/19 1830 Triamcinolone Acet (Triamcinolone Acetonide 0.1% Cream) 0.1 % Cr, 1 APPLIC TP BID PRN for RASH, (Reported) Entered as Reported by: ERASMO QUEEN on 04/12/19 1831 Review of Systems Review of Systems Constitutional: no symptoms reported; No fever EENTM: no symptoms reported Respiratory: no symptoms reported Cardiovascular: no symptoms reported Gastrointestinal: see HPI Genitourinary: see HPI Musculoskeletal: no symptoms reported Skin: no symptoms reported Psychiatric/Neurological: No Symptoms Reported Hematologic/Lymphatic: No Symptoms Reported Past Miehnpj-Klyedl-Ljewwu Hx Patient Social History Tobacco Use?: No Smoking Status: Unknown if Ever Smoked Smokeless Tobacco Frequency: Unknown if Ever Used Substance use?: No Alcohol Use?: Yes Immunizations Up To Date Tetanus Booster (TDap): Less than 5yrs PED Vaccines UTD: Yes First/Initial COVID19 Vaccinat: UNK Second COVID19 Vaccination Jose Miguel: UNK Third COVID19 Vaccination Date: UNK Past Medical History Surgery/Hospitalization HX: HX OF ALCOHOL ABUSE SOBER 11 YEARS ALZHEIMERS BIPOLAR DISORDER COPD POSSIBLE PROSTATE CA WITH METS (STILL WAITING ON RESULTS 02/27/22) HYPONATREMIA BONE CA PARKINSONS DISEASE CKD STAGE 3 HTN GERD DEPRESSION/ANXIETY DM TYPE 2 Surgeries: Yes Cardiac Respiratory: Yes COPD Cardiac: Yes (STENTS X2 ) High Cholesterol Neurological: Yes Dementia Genitourinary: Yes Renal Failure Gastrointestinal: Yes Gall Bladder Disease Musculoskeletal: Yes (BULGING DISCS L 3-4) Chronic Back Pain Endocrine: Yes Diabetes, Non-Insulin dep HEENT: No Cancer: Yes Prostate Psychosocial: Yes (ETOH CONSUMPTION) Sleep Difficulties, Anxiety, Bipolar, Depression Integumentary: No Adverse Reaction/Blood Tranf: No Family Medical History No Pertinent Family Hx Physical Exam Vital Signs Vital Signs - First Documented 05/21/22 18:05 Temp 36.4 Pulse 103 Resp 20 B/P (MAP) 82/56 (65) Pulse Ox 90 O2 Delivery Room Air Capillary Refill : NONE Height, Weight, BMI Height: '" Weight: lbs. oz. kg; 25.00 BMI Method: General Appearance: No Apparent Distress HEENT: PERRL/EOMI, Normal ENT Inspection Neck: Normal Inspection Respiratory: Lungs Clear, No Accessory Muscle Use, Decreased Breath Sounds Cardiovascular: Regular Rate, Rhythm, No Murmur, Other (Significant lower extremity edema and edema of the penis and scrotum) Gastrointestinal: Soft; No Distended; Tenderness (Mild in the suprapubic region) Genital/Rectal: Other (Marked edema of the scrotum and penis. Small wound on the penile glans) Extremity: Pedal Edema, Swelling Neurologic/Psychiatric: Alert, Normal Mood/Affect Skin: Normal Color, Warm/Dry, Other (Erythema in the groin consistent with candidiasis previously) Progress/Results/Core Measures Suspected Sepsis SIRS Temperature: Pulse: 103 Respiratory Rate: 20 Laboratory Tests 05/21/22 18:52: White Blood Count 7.1 Blood Pressure 82 /56 Mean: 65 Laboratory Tests 05/21/22 18:52: Creatinine 0.83, Platelet Count 132, Total Bilirubin 0.8 Results/Orders Lab Results Laboratory Tests Test 05/21/22 18:52 05/21/22 21:24 Range/Units White Blood Count 7.1 4.3-11.0 10^3/uL Red Blood Count 3.10 L 4.30-5.52 10^6/uL Hemoglobin 9.3 L 13.3-17.7 g/dL Hematocrit 28 L 40-54 % Mean Corpuscular Volume 90 80-99 fL Mean Corpuscular Hemoglobin 30 25-34 pg Mean Corpuscular Hemoglobin Concent 33 32-36 g/dL Red Cell Distribution Width 17.0 H 10.0-14.5 % Platelet Count 132 130-400 10^3/uL Mean Platelet Volume 8.9 L 9.0-12.2 fL Immature Granulocyte % (Auto) 6 % Neutrophils (%) (Auto) 76 H 42-75 % Lymphocytes (%) (Auto) 9 L 12-44 % Monocytes (%) (Auto) 9 0-12 % Eosinophils (%) (Auto) 0 0-10 % Basophils (%) (Auto) 0 0-10 % Neutrophils # (Auto) 5.4 1.8-7.8 10^3/uL Lymphocytes # (Auto) 0.7 L 1.0-4.0 10^3/uL Monocytes # (Auto) 0.6 0.0-1.0 10^3/uL Eosinophils # (Auto) 0.0 0.0-0.3 10^3/uL Basophils # (Auto) 0.0 0.0-0.1 10^3/uL Immature Granulocyte # (Auto) 0.4 H 0.0-0.1 10^3/uL Neutrophils % (Manual) 73 % Lymphocytes % (Manual) 10 % Monocytes % (Manual) 6 % Metamyelocytes % 2 % Myelocytes % 1 % Band Neutrophils 8 % Platelet Estimate DECREASED Percent Immature Platelet Fraction 0.9 0.0-7.6 % Hypochromasia 1+ Microcytosis 1+ Macrocytosis 1+ Elliptocytes SLIGHT Sodium Level 127 L 135-145 MMOL/L Potassium Level 4.3 3.6-5.0 MMOL/L Chloride Level 94 L 98-107 MMOL/L Carbon Dioxide Level 20 L 21-32 MMOL/L Anion Gap 13 5-14 MMOL/L Blood Urea Nitrogen 26 H 7-18 MG/DL Creatinine 0.83 0.60-1.30 MG/DL Estimat Glomerular Filtration Rate 100 BUN/Creatinine Ratio 31 Glucose Level 177 H 70-105 MG/DL Calcium Level 8.2 L 8.5-10.1 MG/DL Corrected Calcium 9.2 8.5-10.1 MG/DL Magnesium Level 1.9 1.6-2.4 MG/DL Total Bilirubin 0.8 0.1-1.0 MG/DL Aspartate Amino Transf (AST/SGOT) 64 H 5-34 U/L Alanine Aminotransferase (ALT/SGPT) 71 H 0-55 U/L Alkaline Phosphatase 1060 H 40-136 U/L Ammonia 26 11-32 UMOL/L C-Reactive Protein 8.97 H <0.50 MG/DL Pro-B-Type Natriuretic Peptide 2957.0 H <125.0 PG/ML Total Protein 5.3 L 6.4-8.2 GM/DL Albumin 2.8 L 3.2-4.5 GM/DL Lipase 30 8-78 U/L Thyroid Stimulating Hormone (TSH) 4.32 0.35-4.94 UIU/ML Free Thyroxine 1.01 0.70-1.48 NG/DL Urine Color YELLOW Urine Clarity CLOUDY Urine pH 6.0 5-9 Urine Specific [place] 1.025 H 1.016-1.022 Urine Protein TRACE H NEGATIVE Urine Glucose (UA) NEGATIVE NEGATIVE Urine Ketones NEGATIVE NEGATIVE Urine Nitrite POSITIVE H NEGATIVE Urine Bilirubin NEGATIVE NEGATIVE Urine Urobilinogen 1.0 < = 1.0 MG/DL Urine Leukocyte Esterase 2+ H NEGATIVE Urine RBC (Auto) 1+ H NEGATIVE Urine RBC 5-10 H /HPF Urine WBC >100 H /HPF Urine Squamous Epithelial Cells NONE /HPF Urine Crystals NONE /LPF Urine Bacteria LARGE H /HPF Urine Casts NONE /LPF Urine Mucus SMALL H /LPF Urine Culture Indicated YES My Orders Orders - VÍCTOR ISAAC MD Cbc With Automated Diff (05/21/22 18:39) Comprehensive Metabolic Panel (05/21/22 18:39) Magnesium (05/21/22 18:39) Ed Iv/Invasive Line Start (05/21/22 18:39) Ekg Tracing (05/21/22 18:39) Monitor-Rhythm Ecg Trace Only (05/21/22 18:39) Fentanyl Inj (Sublimaze Injection) (05/21/22 19:00) Bladder Scan (05/21/22 18:55) Ammonia (05/21/22 18:55) Probnp Fs (05/21/22 18:55) Crp Fs (05/21/22 18:55) Lipase (05/21/22 18:57) Thyroid Stimulating Hormone (05/21/22 18:57) Free T4 (Free Thyroxine) (05/21/22 18:57) Manual Differential (05/21/22 18:52) Ua Culture If Indicated (05/21/22 21:06) Urine Culture (05/21/22 21:24) Ceftriaxone 1 Gm Pre-Mix (Rocephin 1 Gm (05/21/22 22:00) Medications Given in ED Vital Signs/I&O 05/21/22 18:05 Temp 36.4 Pulse 103 Resp 20 B/P (MAP) 82/56 (65) Pulse Ox 90 O2 Delivery Room Air Capillary Refill : NONE Blood Pressure Mean: 65 Progress Note : Progress Note Patient was interviewed and examined. Labs were obtained and interpreted by me. Sodium was stable at 127. This is a chronic issue for him and there has been no adverse change. Alk phos is elevated presumably from his prostate cancer. The anemia and hypoalbuminemia noted in his labs are likely significant factors in his weight gain and edema. These are also likely contributing to his low blood pressure. Blood pressures normalized during his ER stay. The Ativan given prior to arrival also likely contributed to his lower blood pressure. A 1 mg dose of Ativan is likely too high of a dose for this 61-year-old gentleman with chronic illnesses. Although his blood pressure was initially low, IV fluids were avoided as he will likely third space any extra fluid given due to his anemia and hypoalbuminemia, and he is already suffering from significant edema. Patient was unable to urinate. He had significant retention of urine greater than 250 mL on bladder scan. Gunter catheter was therefore placed. Urinalysis was reviewed by me and revealed significant pyuria. Patient was treated with Rocephin and prescription was provided. Patient did initially complain of pain which was treated with fentanyl 25 mcg. He complained of no further pain after that. Gunter catheter placement probably helped reduce his pain as well. There is probably not much to be gained by admission for this patient. Close follow-up with his primary care was therefore recommended. Detailed instructions were provided in the discharge packet. See discharge instructions for further discussion. ECG Initial ECG Impression Date: May 21, 2022 Initial ECG Impression Time: 19:01 Initial ECG Rate: 100 Initial ECG Rhythm: S.Tach Initial ECG Impression: Normal Comment Mild sinus tachycardia with no ST elevation or depression. No abnormal intervals or axis deviation. Departure Impression Primary Impression: UTI (urinary tract infection) Qualified Codes: N39.0 - Urinary tract infection, site not specified Additional Impressions: Medication adverse effect Qualified Codes: T50.905A - Adverse effect of unspecified drugs, medicaments and biological substances, initial encounter Urinary retention Anasarca Hypoalbuminemia Altered mental status Qualified Codes: R41.82 - Altered mental status, unspecified Chronic hyponatremia Hypotension Qualified Codes: I95.9 - Hypotension, unspecified Disposition: 01 HOME, SELF-CARE Condition: Improved Departure-Patient Inst. Decision time for Depature: 22:21 Referrals: TERI HERNANDEZ DO (PCP/Family) Primary Care Physician Patient Instructions: Urinary Tract Infections in Adults Add. Discharge Instructions: 1. Altered mental status Altered mental status is likely due to use of Ativan along with significant urinary tract infection. Please discontinue Ativan. Complete antibiotics as prescribed. Review urine culture results after 48 hours. Follow-up with primary care provider soon as possible. 2. Urinary tract infection and urinary retention You are not able to completely drain your bladder which is likely contributing to your urinary tract infection. Keep the catheter in until you are able to follow-up with your urologist. Please follow-up with your urologist as soon as possible. Allowing the bladder to drain should help speed recovery from urinary tract infection. Complete antibiotics as prescribed and review urine culture results with your primary care provider or urologist. Keep the Gunter catheter bag below the level of your bladder. 3. Swelling (anasarca) Swelling is likely largely due to low albumin (blood protein). This may be due to poor nutrition. Please focus on a protein rich diet to improve blood albumin. Diuretics such as Lasix will have limited effect if the albumin level remains low. Please discuss with primary care provider and environmental intern. Low albumin will also contribute to low blood pressure. 4. Hyponatremia Your sodium today was 127. This is slightly better than prior. Your hyponatremia is chronic and stable. I suggest lightly salting your food to help with the hyponatremia. 5. Please follow-up with your primary care provider soon as possible and return to the emergency room if you have worsening symptoms despite following these instructions. All discharge instructions reviewed with patient and/or family. Voiced understanding. Scripts Cefdinir (Cefdinir) 300 Mg Capsule 300 MG PO BID, #20 CAP 0 Refills Prov: VÍCTOR ISAAC MD 05/21/22 Copy Copies To 1: TERI HERNANDEZ DO Copies To 2: PINEDA GIBBONS MD, JOSHUA T MD May 21, 2022 22:23
[2022-05-21 22:29] LABS: FREE T4 (FREE THYROXINE) 1.01 NG/DL (0.70-1.48)
[2022-05-21] MEDS ORDERED: CEFD300C3 PO (22:30)
== END 2022-05-21 23:11 | disposition home or self-care (01) ==
LOC: EDUNIT# 17:47 → ER FS 17:48
DX: I95.9 Hypotension, unspecified (principal); N39.0 Urinary tract infection, site not specified; E88.09 Other disorders of plasma-protein metabolism, not elsewhere classified; E87.1 Hypo-osmolality and hyponatremia; R41.82 Altered mental status, unspecified; R60.1 Generalized edema; R33.9 Retention of urine, unspecified; T50.905A Adverse effect of unspecified drugs, medicaments and biological substances, initial encounter
CPT/HCPCS: 36415; 80053; 81000; 82140; 83690; 83735; 83880; 84439; 84443; 85007; 85027; 86141; 87077; 87088; 93005; 93041

== ENCOUNTER → 2022-05-23 | Outpatient (CLI) | payer MEDICARE, MEDICAID ==
[~2022-05-23] MED LIST changes: +CATHETER FLUSH 10 ML SYR IV PRN; +CEFD300C3 PO; +HOLD METFORMIN - RECEIVED CONTRAST 20 ML VIAL IV SCH; +IOHEXOL 350 MG/ML 100 ML (OMNIPAQUE 350) VIAL IV ONE; +NS 100 ML (IVPB) BAG IV ONE
--- NOTE | 2022-05-23 11:22 | Diagnostic Imaging Report ---
PROCEDURE: CT chest, abdomen, and pelvis with contrast. TECHNIQUE: Multiple contiguous axial images were obtained through the chest, abdomen, and pelvis after the administration of intravenous contrast. Auto Exposure Controls were utilized during the CT exam to meet ALARA standards for radiation dose reduction. INDICATION: Prostate carcinoma. Correlation is made with CT chest study from 01/08/[address] abdomen and pelvis study from 02/27/2022. CT CHEST: No axillary lymphadenopathy is identified. Mediastinal lymph nodes have increased in size since prior CT. A right paratracheal node demonstrates a short axis measurement of 16 mm compared with 6 mm on prior. There are several other mildly prominent paratracheal lymph nodes. Hilar unremarkable. Heart is enlarged. There is no pericardial fluid. There is trace bilateral pleural fluid or pleural thickening. Right hemidiaphragm is elevated. No definite pulmonary nodules or masses are seen. There is some minimal subsegmental atelectasis in both lung bases. Multiple osseous sclerotic lesions are noted involving bilateral proximal femora and scapula as well as bilateral ribs, sternum and thoracic spine consistent widespread osseous metastatic disease. This does appear to be progressed since prior CT. CT abdomen and pelvis: No discrete liver mass is identified. Gallbladder is unremarkable. No biliary ductal dilatation is seen. Pancreas and spleen are unremarkable. Adrenal glands show some nodularity but appears stable when compared to prior study. Kidneys are stable. There is no hydronephrosis. Aorta is nonaneurysmal. Central retroperitoneal lymphadenopathy is again noted. A left periaortic node at the level of the renal veins appear slightly smaller at 2.4 x 1.8 cm compared with 2.4 x 2.2 cm. The iliac chain lymphadenopathy persists. A right-sided obturator node is stable at 3.5 x 2.1 cm compared with 3.4 x 2.0 cm on prior. Bilateral inguinal lymphadenopathy persists and appears fairly similar. There continues to be significant gaseous and stool distention of the colon, similar to prior study. Small bowel does not appear to be appreciably dilated. No free fluid or fluid collection is identified. Bladder is decompressed and thick-walled contains a Gunter catheter. A marked osteoblastic metastatic disease throughout the bony pelvis, proximal femora and lumbar spine persists. IMPRESSION: 1. Widespread osseous metastatic disease, appears slightly increased when compared with exam from 01/08/2022 and 02/27/2022. 2. Worsening mediastinal lymphadenopathy since prior CT chest from 01/08/2022. 3. Fairly stable abdominal and pelvic lymphadenopathy when compared with exam from 02/27/2022. Dictated by: Dictated on workstation # [id number]
== END ==
LOC: RAD 10:12
PROVIDERS: ATTEND Internal Medicine Hematology & Oncology
DX: C61 Malignant neoplasm of prostate (principal); C79.51 Secondary malignant neoplasm of bone; R59.1 Generalized enlarged lymph nodes
CPT/HCPCS: 71260; 74177

== ENCOUNTER 2022-06-03 10:40 | Outpatient (RCR) | payer MEDICARE, MEDICAID ==
[~2022-06-03 10:40] MED LIST changes: -CATHETER FLUSH 10 ML SYR IV PRN; -HOLD METFORMIN - RECEIVED CONTRAST 20 ML VIAL IV SCH; -IOHEXOL 350 MG/ML 100 ML (OMNIPAQUE 350) VIAL IV ONE; +LEUPROLIDE 22.5 MG SYRINGE (ELIGARD) SQ SCH; -NS 100 ML (IVPB) BAG IV ONE
== END 2022-06-15 | disposition home or self-care (01) ==
LOC: ONC 10:40
PROVIDERS: ATTEND Internal Medicine Hematology & Oncology
DX: C61 Malignant neoplasm of prostate (principal)
CPT/HCPCS: 84153; 96402

== ENCOUNTER 2022-06-10 23:57 | Emergency (ER) | payer MEDICARE, MEDICAID ==
[~2022-06-10 23:57] MED LIST changes: -LEUPROLIDE 22.5 MG SYRINGE (ELIGARD) SQ SCH
--- NOTE | 2022-06-11 00:04 | ED Fall/Injury ---
General Chief Complaint: Trauma-Non Activation Stated Complaint: FALL Source: patient, EMS Exam Limitations: no limitations History of Present Illness Date Seen by Provider: Jun 11, 2022 Time Seen by Provider: 23:56 Initial Comments 61-year-old male presents emergency department via EMS from a local nursing facility after a reported fall. He states he tripped. No loss of consciousness. Complains of pain in his left hip and knee. He did hit his head has and abrasion to his right anterior forehead. All other systems reviewed and negative except documented per HPI. Voice recognition software was used to help create this chart Allergies and Home Medications Allergies Coded Allergies: No Known Drug Allergies (Unverified , 04/11/19) Patient Home Medication List Home Medication List Reviewed: Yes Allopurinol (Allopurinol) 100 Mg Tablet, 100 MG PO DAILY, (Reported) Entered as Reported by: BRANDON ERVIN on 01/08/22 1026 Atorvastatin Calcium (Atorvastatin Calcium) 40 Mg Tablet, 40 MG PO HS, (Reported) Entered as Reported by: ERASMO QUEEN on 04/12/19 1818 Benztropine Mesylate (Benztropine Mesylate) 1 Mg Tablet, 1 MG PO HS, (Reported) Entered as Reported by: BRANDON ERVIN on 01/08/22 1026 Bupropion HCl (Bupropion Xl) 300 Mg Tab.er.24h, 300 MG PO DAILY, (Reported) Entered as Reported by: BRANDON ERVIN on 01/08/22 1026 Cefdinir (Cefdinir) 300 Mg Capsule, 300 MG PO BID Prescribed by: VÍCTOR DAVENPORT on 05/21/22 2230 Cephalexin (Cephalexin) 500 Mg Tablet, 500 MG PO BID Prescribed by: GLENNY DAWSON MD on 04/23/22 1221 Cephalexin (Cephalexin) 500 Mg Tablet, 500 MG PO BID Prescribed by: DONNA SIFUENTES MD on 05/16/22 1214 Chlorhexidine Gluconate (Chlorhexidine Gluconate) 0.12 % Mouthwash, 30 ML MM BID, (Reported) Entered as Reported by: ERASMO QUEEN on 04/12/19 1845 Cholecalciferol (Vitamin D3) (Vitamin D3) 125 Mcg (5000 Unit) Capsule, 125 MCG PO DAILY, (Reported) Entered as Reported by: BRANDON ERVIN on 01/08/22 102 Clonidine HCl (Clonidine HCl) 0.1 Mg Tablet, 0.1 MG PO TID, (Reported) Entered as Reported by: ERASMO QUEEN on 04/12/191817 Clopidogrel Bisulfate (Plavix) 75 Mg Tablet, 75 MG PO DAILY, (Reported) Entered as Reported by: ERASMO QUEEN on 04/12/191817 Cyanocobalamin (Vitamin B-12) (B-12) 1,000 Mcg Tablet, 1,000 MCG PO DAILY, (Reported) Entered as Reported by: ERASMO QUEEN on 04/12/191817 Donepezil HCl (Donepezil HCl) 10 Mg Tablet, 10 MG PO HS, (Reported) Entered as Reported by: ERASMO QUEEN on 04/12/191817 Finasteride (Finasteride) 5 Mg Tablet, 5 MG PO DAILY, (Reported) Entered as Reported by: BRANDON ERVIN on 01/08/22 102 Fluticasone/Salmeterol (Advair 100-50 Diskus) 1 Each Blst.w.dev, 1 EACH IH BID, (Reported) Entered as Reported by: ERASMO QUEEN on 04/12/191830 Furosemide (Furosemide) 20 Mg Tablet, 20 MG PO BID, (Reported) Entered as Reported by: BRANDON ERVIN on 01/08/22 102 Ipratropium/Albuterol Sulfate (Iprat-Albut 0.5-3(2.5) mg/3 ml) 3 Ml Ampul.neb, 3 ML IH Q6H PRN for SHORTNESS OF BREATH, (Reported) Entered as Reported by: ERASMO QUEEN on 04/12/191829 Levothyroxine Sodium (Levothyroxine Sodium) 75 Mcg Tablet, 75 MCG PO DAILY, (Reported) Entered as Reported by: ERASMO QUEEN on 04/12/191817 Lisinopril (Lisinopril) 40 Mg Tablet, 40 MG PO DAILY, (Reported) Entered as Reported by: ERASMO QUEEN on 04/12/191817 Loratadine (Claritin) 10 Mg Tablet, 10 MG PO DAILY, (Reported) Entered as Reported by: ERASMO QUEEN on 04/12/19 1826 Lurasidone HCl (Latuda) 40 Mg Tablet, 40 MG PO HS, (Reported) Entered as Reported by: BRANDON ERVIN on 01/08/22 1026 Menthol (Biofreeze) 4 % Gel..ml., 1 APPLIC TP Q6H PRN for PAIN-BREAKTHROUGH, (Reported) Entered as Reported by: BRANDON ERVIN on 01/08/22 1026 Metoprolol Tartrate (Metoprolol Tartrate) 50 Mg Tablet, 50 MG PO BID, (Reported) Entered as Reported by: BRANDON ERVIN on 01/08/22 1026 Morphine Sulfate (Morphine Conc. 20mg/ml) 100 Mg/5 Ml (20 Mg/Ml) Solution, 1 ML BU EVERY 2 HOURS PRN for PAIN-SEVERE (8-10), (Reported) Entered as Reported by: BRANDON ERVIN on 02/28/22 1227 Nystatin (Nystatin) 100,000 Unit/Gram Powder, 15 GM TP TID Prescribed by: POOJA MA on 05/17/22 1920 Pantoprazole Sodium (Pantoprazole Sodium) 40 Mg Tablet.dr, 40 MG PO DAILY, (Reported) Entered as Reported by: ERASMO QUEEN on 04/12/19 181 Pilocarpine (Salagen) 5 Mg Tab, 5 MG PO QID, (Reported) Entered as Reported by: BRANDON ERVIN on 01/08/22 102 Polyethylene Glycol 3350 (Miralax) 17 Gm Powd.pack, 17 GM PO DAILY, (Reported) Entered as Reported by: ERASMO QUEEN on 04/12/19 181 Potassium Chloride (Potassium Chloride) 20 Meq Tab.er.prt, 20 MEQ PO DAILY, (Reported) Entered as Reported by: BRANDON ERVIN on 01/08/22 1026 Prednisone (Prednisone) 20 Mg Tab, 20 MG PO DAILY, (Reported) Entered as Reported by: BRANDON ERVIN on 02/28/22 1227 Sodium Chloride (Sodium Chloride) 1 Gram Tab, 1 GM PO BID Prescribed by: EMERALD ALEJANDRA on 03/03/22 1129 Tamsulosin HCl (Flomax) 0.4 Mg Cap, 0.4 MG PO 1800, (Reported) Entered as Reported by: BRANDON ERVIN on 01/08/22 1026 Terazosin HCl (Terazosin HCl) 2 Mg Capsule, 2 MG PO DAILY, (Reported) Entered as Reported by: ERASMO QUEEN on 04/12/19 1818 Tramadol HCl (Tramadol HCl) 50 Mg Tablet, 100 MG PO Q6H PRN for PAIN-MODERATE (5-7), (Reported) Entered as Reported by: ERASMO QUEEN on 04/12/19 1830 Triamcinolone Acet (Triamcinolone Acetonide 0.1% Cream) 0.1 % Cr, 1 APPLIC TP BID PRN for RASH, (Reported) Entered as Reported by: ERASMO QUEEN on 04/12/19 183 Review of Systems Review of Systems Constitutional: see HPI Past Mgtpkmx-Meamwc-Rzzijl Hx Patient Social History Tobacco Use?: No Use of E-Cig and/or Vaping dev: No Substance use?: No Alcohol Use?: No Immunizations Up To Date Tetanus Booster (TDap): Less than 5yrs PED Vaccines UTD: Yes First/Initial COVID19 Vaccinat: UNK Second COVID19 Vaccination Jose Miguel: UNK Third COVID19 Vaccination Date: UNK Past Medical History Surgery/Hospitalization HX: HX OF ALCOHOL ABUSE SOBER 12 YEARS ALZHEIMERS BIPOLAR DISORDER COPD POSSIBLE PROSTATE CA WITH METS (STILL WAITING ON RESULTS 02/27/22) HYPONATREMIA BONE CA PARKINSONS DISEASE CKD STAGE 3 HTN GERD DEPRESSION/ANXIETY DM TYPE 2 Surgeries: Yes Cardiac Respiratory: Yes COPD Cardiac: Yes (STENTS X2 ) High Cholesterol Neurological: No Genitourinary: Yes Renal Failure Gastrointestinal: Yes Gall Bladder Disease Musculoskeletal: Yes (BULGING DISCS L 3-4) Chronic Back Pain Endocrine: Yes Diabetes, Non-Insulin dep HEENT: No Cancer: No Psychosocial: Yes (ETOH CONSUMPTION) Sleep Difficulties, Anxiety, Bipolar, Depression Integumentary: No Adverse Reaction/Blood Tranf: No Family Medical History Reviewed Nursing Family Hx No Pertinent Family Hx Physical Exam Vital Signs Vital Signs - First Documented Capillary Refill : Height, Weight, BMI Height: '" Weight: lbs. oz. kg; 25.00 BMI Method: General Appearance: WD/WN, no apparent distress, other (Cephalhematoma right anterior forehead) HEENT: PERRL/EOMI, normal ENT inspection, pharynx normal Neck: non-tender, full range of motion, supple, normal inspection Cardiovascular: regular rate, rhythm, no murmur Respiratory: chest non-tender, lungs clear, normal breath sounds, no respiratory distress, no accessory muscle use Gastrointestinal: normal bowel sounds, non tender, soft, no organomegaly Back: normal inspection, no CVA tenderness, no vertebral tenderness Extremities: other (2+ pitting edema bilateral lower extremities. He has tenderness of his left hip, left knee, right hip. Worse with range of motion. Neurovascular motor and sensory intact. 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 Left knee x-rays negative outside of chronic osteoarthritic changes. Is neurovascular and sensory intact. He does have an abrasion to his anterior forehead. No loss conscious no nausea or vomiting and is alert, oriented. He is not on blood thinning medications. No indication for head CT at this time. Impression Primary Impression: Hip pain, bilateral Additional Impressions: Left knee pain Qualified Codes: M25.562 - Pain in left knee Fall Qualified Codes: W19.XXXA - Unspecified fall, initial encounter Disposition: 01 HOME, SELF-CARE Condition: Stable Departure-Patient Inst. Referrals: TERI HERNANDEZ DO (PCP/Family) Primary Care Physician Patient Instructions: Hip Pain, Knee Pain (DC) Add. Discharge Instructions: Alternate ibuprofen and Tylenol as needed for pain. Ambulate as tolerated. Return to the emergency department for any severe concerns All discharge instructions reviewed with patient and/or family. Voiced understanding. GLENNY DAWSON DO Jun 11, 2022 00:04
[2022-06-11 00:39] VITALS: BP 142/78
--- NOTE | 2022-06-11 07:59 | Diagnostic Imaging Report ---
INDICATION: Pain post fall TECHNIQUE: AP pelvis along with 2 views bilateral hip, 12:12 AM CORRELATION STUDY: None FINDINGS: There is severe heterogeneous and sclerotic appearance about the osseous structures consistent with widespread osteoblastic metastatic disease. There is no definitive evidence for acute displaced fracture. Pectineal lines and obturator rings maintained. SI joints pubic symphysis preserved. Images of the hip demonstrate no evidence for acute fracture. Alignment is anatomic. The femoral head acetabular relationship is unremarkable. IMPRESSION: Negative for acute displaced pelvic and/or hip fracture. Findings compatible with severe osseous metastatic disease involving all visualized osseous structures. Dictated by: Dictated on workstation # [id number]
--- NOTE | 2022-06-11 08:06 | Diagnostic Imaging Report ---
INDICATION: Knee pain post fall TECHNIQUE: 3 views of the left knee CORRELATION STUDY: None FINDINGS: The joint spaces are maintained. The articular surfaces are smooth and preserved. There is no acute bony abnormality. Slight heterogeneous appearance about the osseous structures. However, [place] sclerotic changes as noted on pelvis and hips not suggested. IMPRESSION: 1. Negative for acute bony abnormality of the left knee. Dictated by: Dictated on workstation # [id number]
== END 2022-06-11 00:48 | disposition home or self-care (01) ==
LOC: EDUNIT# 23:57 → ER FS 23:59
DX: S06.2X0A Diffuse traumatic brain injury without loss of consciousness, initial encounter (principal); M16.0 Bilateral primary osteoarthritis of hip; M25.562 Pain in left knee; W01.10XA Fall on same level from slipping, tripping and stumbling with subsequent striking against unspecified object, initial encounter
CPT/HCPCS: 73522; 73562

== ENCOUNTER 2022-07-03 11:07 | Outpatient (RCR) | payer MEDICARE, MEDICAID ==
[2022-06-25 13:34] LABS: EOSINOPHILS % (AUTO) 1 % (0-10); HEMOGLOBIN 9.3 g/dL (13.3-17.7); MEAN CORPUSCULAR HEMOGLOBIN 30 pg (25-34); NEUTROPHILS % (AUTO) 79 % (42-75)
[2022-06-25 13:36] LABS: BASOPHILS % (AUTO) 0 % (0-10); HEMATOCRIT 28 % (40-54); LYMPHOCYTES # (AUTO) 0.5 10^3/uL (1.0-4.0); LYMPHOCYTES % (AUTO) 10 % (12-44); MEAN CORPUSCULAR HGB CONC 33 g/dL (32-36); MEAN CORPUSCULAR VOLUME 91 fL (80-99); MEAN PLATELET VOLUME 8.5 fL (9.0-12.2); MONOCYTES # (AUTO) 0.3 10^3/uL (0.0-1.0); MONOCYTES % (AUTO) 6 % (0-12); PLATELET COUNT 126 10^3/uL (130-400); WHITE BLOOD COUNT 5.1 10^3/uL (4.3-11.0)
[2022-06-25 13:54] LABS: ALBUMIN 2.9 GM/DL (3.2-4.5); BILIRUBIN,TOTAL 0.6 MG/DL (0.1-1.0); CALCIUM 7.7 MG/DL (8.5-10.1); CREATININE SERUM 0.83 MG/DL (0.60-1.30); POTASSIUM 3.1 MMOL/L (3.6-5.0); TOTAL PROTEIN 4.9 GM/DL (6.4-8.2)
[~2022-07-03 11:07] MED LIST changes: -BENZ0.5T42 PO; +BENZ0.5T43 PO; +NS IV SCH; +ZOLEDRONIC ACID IV SCH
== END 2022-07-16 | disposition home or self-care (01) ==
LOC: ONC 11:07
PROVIDERS: ATTEND Internal Medicine Hematology & Oncology
DX: C61 Malignant neoplasm of prostate (principal)
CPT/HCPCS: 36415; 80053; 84153; 85025; 96365